=== PATIENT | male | born 1940 | race African-American/Black ===

== ENCOUNTER 2018-01-24 17:56 | Emergency (ER) | payer OTHER ==
--- OUTSIDE RECORDS SUMMARY | 2018-01-24 18:01 | XMS REPORT | Continuity of Care Document ---
:1940 Author Organization Interface Problems Problem Status Onset Classification Date Comments Source Date Reported MBS Active 12/21/ [facility] 2017 200 UNITS Active 06/03/ [facility] 2017 BOTOX INJECTION Active 11/24/ [facility] 2016 300 Active 08/09/ [facility] 2016 400 UNITS Active 03/08/ [facility] 2016 500 UNITS Active 08/24/ [facility] 2016 500 BTX Active 07/31/ [facility] 2016 CVA Active 06/18/ [facility], 2016 Rehabilitation BTX Active 10/14/ [facility] 2015 600 UNITS Active 07/15/ [facility] 2015 700 U Active 04/22/ [facility] 2013 700 UNITS Active 03/08/ [facility] 2013 L HEMIPERESIS ARM Active 02/19/ [facility] LEG CVA 2014 F/U Active 01/21/ [facility] 2013 EVAL FOR BOTOX Active 09/21/ [facility] 2014 STROKE Active 11/15/ [facility] 2011 L HEMIPERESIS ARMS Active 05/30/ [facility] LEG/ CVA 2000 L HEMIPERESIS ARMS Active 05/30/ [facility] LEG CVA 2001 STRENGTH UNLIMITED Active 05/30/ [facility] 2001 PRESSURE MAPPING Active 05/30/ [facility] 2001 Dysphagia<sup>1</sup Active Problem difficulty [facility] > 8 swallowing 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 DR Carter Left sided Active Problem 2011 [facility] CVA<sup>2</sup> 8 Lethargy Active Problem [facility] 8 Spasticity Active Problem [facility] 8 Spasticity Active Problem [facility] 8 Stroke Active Problem [facility] 8 Final: Hemiplegia [facility] Affecting 4 Unspecified Side as Late Effect of Cerebrovascular Disease Final: Pure [facility] Hypercholesterolemia 4 Final: Unspecified [facility] Essential 4 Hypertension Final: Diabetes [facility] mellitus without 4 mention of complication, type II or unspecified type, not stated as uncontrolled Final: Lack of [facility] Coordination 4 Dysphagia Inactive Problem [address] Dysphagia<sup>1</sup Active Problem 1difficulty [place] [id number] swallowing [facility] 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 DR Carter Dysphasia Inactive Problem [address] Stroke Active Problem [address] Weakness Inactive Problem [address] FOLLOW-UP EXAM NOS Active [facility] SPASM OF MUSCLE Active [facility] CVA Active Rehabilitation ABN INVOLUN MOVEMENT Active [facility] NEC LATE EF CV DIS Active [facility] DYSPHAGIA OTHER MUSCLE SPASM Active [facility] OTHER ABNORMAL Active [facility] INVOLUNTARY MOVEMENTS CRAMP AND SPASM Active [facility] DYSPHAGIA, Active [facility] UNSPECIFIED Medications Medication Details Route Status Patient Ordering Order Source Instructions Provider Date Botulinum Toxin 200 unit, Inactive 12/19/ [facility] Type A Route: IM, 2017 ONCALL, Dosing Weight 80.455, kg, Start date: 12/19/17 12:00:00 CDT, Duration: 30 day, Stop date: 01/18/18 11:59:00 CDT Home Medication Refill(s) 0 Active 12/19/ [facility] 2018 Botulinum Toxin 200 unit, Inactive 06/02/ [facility] Type A Route: IM, 2017 ONCALL, Dosing Weight 80.455, kg, Start date: 06/02/17 12:00:00 STATISTICAL GENETICIST, Duration: 30 day, Stop date: 07/02/17 11:59:00 STATISTICAL GENETICIST Botulinum Toxin 200 unit, Inactive 02/21/ [facility] Type A Route: IM, 2016 ONCALL, Dosing Weight 80.455, kg, Start date: 02/21/17 12:00:00 CDT, Duration: 30 day, Stop date: 03/23/17 11:59:00 CDT Botulinum Toxin 300 unit, Inactive 11/22/ [facility] Type A Route: IM, 2016 ONCALL, Dosing Weight 80.455, kg, Start date: 11/22/16 11:00:00 CDT, Duration: 30 day, Stop date: 12/22/16 10:59:00 CDT Botulinum Toxin 400 unit, Inactive 08/09/ [facility] Type A Route: IM, 2016 ONCALL, Dosing Weight 80.455, kg, Start date: 08/09/16 11:00:00 CDT, Duration: 30 day, Stop date: 09/08/16 10:59:00 CDT onabotulinumtoxi 500 unit, Inactive [facility] nA Route: IM, 2015 ONCALL, Dosing Weight 80.455, kg, Start date: 12/04/15 9:00:00 CDT, Duration: 30 day, Stop date: 01/03/16 8:59:00 CDT sodium chloride 20 mL, Route: Active [facility] MISC, Start 2015 date: 08/25/15 11:00:00, Duration: 30 day, Stop date: 09/24/15 10:59:00Notes : preservative free. onabotulinumtoxi 500 unit, Inactive 08/24/ [facility] nA Route: IM, 2015 ONCALL, Dosing Weight 82.273, kg, Start date: 08/25/15 10:00:00, Duration: 30 day, Stop date: 09/24/15 9:59:00 onabotulinumtoxi 500 unit, Inactive [facility] nA Route: IM, 2014 ONCALL, Dosing Weight 82.273, kg, Start date: 05/05/15 13:00:00, Duration: 30 day, Stop date: 06/04/15 12:59:00 Vitamin D3 400 400 Active [facility] intl units oral IntlUnit=1 2014 capsule cap, PO, Daily, 0 Refill(s) potassium 20 mg, PO, Active [facility] chloride Daily, ER, 0 2014 Refill(s) finasteride 5 mg 5 mg=1 tab, Active [facility] oral tablet PO, Daily, # 2015 30 tab, 0 Refill(s) carvedilol 3.125 3.125 mg=1 Active [facility] mg oral tablet tab, PO, 2014 Q12H, # 60 tab, 0 Refill(s) onabotulinumtoxi 600 unit, Inactive [facility] nA Route: IM, 2014 ONCALL, Dosing Weight 80.909, kg, Start date: 01/13/15 11:00:00, Duration: 30 day, Stop date: 02/12/15 10:59:00 onabotulinumtoxi 700 unit, Inactive [facility] nA Route: IM, 2013 ONCALL, Dosing Weight 79.091, kg, Start date: 04/22/14 13:00:00, Duration: 30 day, Stop date: 05/22/14 12:59:00 Furosemide 20 MG 20 mg=1 tab, Active [facility] Oral Tablet PO, PRN, # 30 2013 tab, 0 Refill(s) onabotulinumtoxi 700 unit, Inactive [facility] nA Route: IM, 2013 ONCALL, Dosing Weight 73.182, kg, Start date: 01/21/14 11:00:00, Duration: 30 day, Stop date: 02/20/14 10:59:00 Bromocriptine 5 mg=2 tab, Active [facility] 2.5 MG Oral PO, Daily, # 2013 Tablet 60 tab, 1 Refill(s), Pharmacy: [facility] [id number] amLODIPine 10 mg 10 mg=1 tab, Active [facility] oral tablet PO, Daily, # 2014 30 tab, 0 Refill(s) Amlodipine 0 Refill(s) Active [facility] 2013 Bromocriptine 2.5 mg=1 tab, Active [facility] 2.5 MG Oral PO, Daily, # 2014 Tablet 30 tab, 2 Refill(s) heparin 5000 5,000 unit, SUB-Q No Longer [place] units/mL can, SUB-Q, Active 2011 Medical injectable Q12H, 10 Center solution vial, Substitution Allowed, SOLN albuterol-ipratr 3 mL, Route: NEB No Longer [place] opium 2.5-0.5 mg NEB, Drug Active 2011 Medical inhalation Form: SOLN, Center solution RQ6H, Start date: 11/24/11 14:00:00, Duration: 30 day, Stop date: 12/24/11 8:00:00 heparin 5000 5,000 unit, SUB-Q No Longer [place] units/mL can, SUB-Q, Active 2011 Medical injectable Q12H, 10 Center solution vial, Substitution Allowed, SOLN Diovan 160 mg 160 mg, 1 PEG Active [place] 11/23[facility] oral tablet tab, PEG, 2011 Medical Daily, 30 Center tab, Substitution Allowed, TAB Carafate 1 g/10 1 gm, 10 mL, PEG Active [place] 11/23/ [facility] mL oral PEG, QID, 1 2011 Medical suspension mL, [place] Substitution Allowed, SUSP senna 8.8 mg/5 17.6 mg, 10 PEG Active [facility] mL oral syrup mL, PEG, 2011 Medical QNoon, 1 mL, Center Substitution Allowed, Maintenance, SYRP Seroquel 25 mg 25 mg, 1 tab, PEG Active [facility] 11/23[facility] oral tablet PEG, Bedtime, 2011 Medical PRN, 30 tab, [place] Insomnia, Substitution Allowed, TAB pantoprazole 40 1 Pack, PEG, PEG Active [facility] 11/23[facility] mg oral granule Daily, 30 ea, 2011 Medical Substitution Center Allowed, GRAN/REC Provigil 200 mg 200 mg, 1 PEG Active [facility] 11/23[facility] oral tablet tab, PEG, 2011 Medical QAM, 30 tab, Center Substitution Allowed, TAB hydrALAZINE 10 10 mg, 1 tab, PEG Active [facility] 11/23[facility] mg oral tablet PEG, Q6H, 2011 Medical PRN, 120 tab, [place] Hypertension, Substitution Allowed, TAB Cymbalta 20 mg 20 mg, 1 cap, PEG Active [facility] 11/23[facility] oral delayed PEG, Bedtime, 2011 Medical release capsule 30 cap, Center Substitution Allowed, TOÑO Lantus 100 See Active [facility] 11/23[facility] units/mL Instructions, 2011 Medical subcutaneous 1 vial, [place] solution Substitution Allowed, 5 units SUB-Q Daily, SOLN5 units SUB-Q Daily docusate sodium 100 mg, 10 PEG Active [facility] 11/23[facility] [place] 150 mg/15 mL mL, PEG, 2011 Medical oral liquid Q12H, 1 mL, Center Substitution Allowed, LIQ Lipitor 80 mg 80 mg, 1 tab, PEG Active [place] 11/23[facility] oral tablet PEG, QPM, 30 2011 Medical tab, Center Substitution Allowed, TAB aspirin 81 mg 81 mg, 1 tab, PEG Active [facility] 11/23[facility] tablet, chewable PEG, Daily, 2011 Medical 30 tab, Center Substitution Allowed, [place] amLODipine 10 mg 10 mg, 1 tab, PEG Active [facility] [place] oral tablet PEG, Daily, 2011 Medical 30 tab, Center Substitution Allowed, TAB DuoNeb 3 mL, INHALATION Active [facility] [place] inhalation INHALATION, 2011 Medical solution QID, PRN, 1 Center mL, as needed for shortness of breath or wheezing, Substitution Allowed, Maintenance, SOLN amantadine 50 100 mg, 10 PEG Active [facility] mg/5 mL oral mL, PEG, QAM, 2011 Medical syrup 1 btl, Center Substitution Allowed, SYRP nebivolol 5 mg 10 mg, 2 tab, PEG Active [facility] [place] oral tablet PEG, Daily, 2011 Medical 60 tab, Center Substitution Allowed, TAB heparin 5,000 unit, 1 SUB-Q No Longer [facility] [place] [place] mL, Route: Active 2011 Medical SUB-Q, Drug Center form: INJ, Q12H, Start date: 11/22/11 21:00:00, Duration: 30 day, Stop date: 12/22/11 9:00:00 Cymbalta 20 mg, 1 cap, PEG No Longer [place] Route: PEG, Active 2011 Medical Drug form: [facility], Bedtime, Start date: 11/22/11 21:00:00, Stop date: 12/21/11 21:00:00 Provigil 200 mg, 1 PEG No Longer [facility] [place] [place] tab, Route: Active 2011 Medical PEG, Drug Center form: TAB, QAM, Start date: 11/22/11 8:00:00, Stop date: 12/21/11 8:00:00 Nuvigil 100 mg, PO No Longer [place] Route: PO, Active 2011 Medical Drug form: Center CAP, QAM, Start date: 11/20/11 8:00:00, Duration: 30 day, Stop date: 12/19/11 8:00:00 Nuvigil Nuvigil PO No Longer [facility] [place] (Armodafinil) 50 (Armodafinil) Active 2011 Medical mg tablet 50 mg tablet, Center 150 mg, Drug form: [facility], Route: PO, QAM, 11/20/11 8:00:00, Duration: 30 day, Stop date: 12/19/11 8:00:00 D5W 1/2NS 1,000 1,000 mL, IV No Longer [facility] [place] [facility] mL Rate: 70 Active 2011 Medical ml/hr, Infuse Center over: 14.3 hr, Route: IV, Dosing Weight 95.909 kg, Total Volume: 1,000, Start date: 11/19/11 11:54:00, Duration: 30 day, Stop date: 12/19/11 11:53:00 amantadine 100 mg, 10 PEG No Longer [place] [facility] mL, Route: Active 2011 Medical PEG, Drug Center form: SYRP, QAM, Start date: 11/19/11 8:00:00, Stop date: 12/18/11 8:00:00 Carafate 1 gm, 10 mL, PO No Longer [place] Route: PO, Active 2011 Medical Drug form: Center SUSP, QID, Start date: 11/18/11 17:00:00, Stop date: 12/18/11 11:00:00 amantadine 100 mg, 1 PO No Longer [place] [facility] cap, Route: Active 2011 Medical PO, Drug Center form: CAP, ONCE, Start date: 11/18/11 14:47:00, Stop date: 11/18/11 14:47:00 normal saline 1,000 mL, IV No Longer [place] 0.9% IV 1,000 mL Rate: 70 Active 2011 Medical ml/hr, Infuse Center over: 14.3 hr, Route: IV, Dosing Weight 95.909 kg, Total Volume: 1,000, Start date: 11/18/11 12:00:00, Duration: 30 day, Stop date: 12/18/11 11:59:00 Dextrose 50% 12.5 gm, 25 IVP No Longer [place] [facility] Syringe mL, Route: Active 2011 Medical IVP, Drug Center Form: INJ, PRN, PRN Blood Glucose Results, Start date: 11/18/11 11:45:00, Duration: 30 day, Stop date: 12/18/11 11:44:00 glucagon 1 mg, Route: IM No Longer [facility] [place] [facility] IM, Drug Active 2011 Medical form: [place] PDR/INJ, PRN, PRN Blood Glucose Results, Start date: 11/18/11 11:45:00, Duration: 30 day, Stop date: 12/18/11 11:44:00 insulin aspart 2 unit, 0.02 SUB-Q No Longer [place] [facility] mL, Route: Active 2011 Medical SUB-Q, Drug Center form: SOLN, TID-Before Meals, PRN Blood Glucose Results, Start date: 11/18/11 11:45:00, Duration: 30 day, Stop date: 12/18/11 11:44:00 Milk of Magnesia 60 ml, Route: PO No Longer [facility] [place] [facility] PO, Drug Active 2011 Medical Form: SUSP, [place] ONCE, Start date: 11/17/11 18:30:00, Stop date: 11/17/11 18:30:00 Lipitor 80 mg, 1 tab, PEG No Longer [place] [facility] Route: PEG, Active 2011 Medical Drug form: [place] TAB, QPM, Start date: 11/17/11 17:00:00, Stop date: 12/16/11 17:00:00 Glycerol 60 mL, Route: [place] No Longer [facility] [place] [facility] [place], Drug Active 2011 Medical Form: MISC, [place] ONCE, Start date: 11/17/11 16:00:00, Stop date: 11/17/11 16:00:00 mineral oil 60 mL, Route: [place] No Longer [facility] [place] [facility] [place], Drug Active 2011 Medical Form: LIQ, [place] ONCE, Start date: 11/17/11 16:00:00, Stop date: 11/17/11 16:00:00 Sodium Chloride [place], 0 ml/hr, [place] No Longer [facility] [facility] 0.9% IV ONCE, Start Active 2011 Medical date: [place] 11/17/11 16:00:00, 60 ml Milk of Magnesia 60 ml, Route: PO No Longer [facility] [place] [facility] PO, Drug Active 2011 Medical Form: SUSP, [place] ONCE, Start date: 11/17/11 15:16:00, Stop date: 11/17/11 15:16:00 magnesium 300 ml, PO No Longer [place] [facility] citrate Route: PO, Active 2011 Medical Drug Form: [place] LIQ, ONCE, Start date: 11/17/11 15:00:00, Stop date: 11/17/11 15:00:00 senna 17.6 mg, 10 PEG No Longer [facility] [place] [facility] mL, Route: Active 2011 Medical PEG, Drug Center Form: SYRP, QNoon, Start date: 11/17/11 12:00:00, Stop date: 12/16/11 12:00:00 normal saline 1,000 mL, IV No Longer [facility] [facility] 0.9% IV 1,000 mL Rate: 75 Active 2011 Medical ml/hr, Infuse [place] over: 13.3 hr, Route: IV, Dosing Weight 95.909 kg, Total Volume: 1,000, Start date: 11/17/11 10:29:00, Duration: 1 doses or times, Stop date: 11/17/11 23:46:00 nebivolol 10 mg, 2 tab, PEG No Longer [facility] [place] [facility] Route: PEG, Active 2011 Medical Drug form: [place] TAB, Daily, Start date: 11/17/11 8:00:00, Stop date: 12/16/11 8:00:00 Provigil 200 mg, 1 PO No Longer [place] [facility] tab, Route: Active 2011 Medical PO, Drug Center form: TAB, QAM, Start date: 11/17/11 8:00:00, Duration: 30 day, Stop date: 12/16/11 8:00:00 aspirin 81 mg, 1 tab, CHEW No Longer [facility] Route: CHEW, Active 2011 Medical Drug form: [place], Daily, Start date: 11/17/11 8:00:00, Stop date: 12/16/11 8:00:00 amLODipine 10 mg, 10 mL, PEG No Longer [facility] Route: PEG, Active 2011 Medical Drug form: [place] SUSP, Daily, Start date: 11/17/11 8:00:00, Stop date: 12/16/11 8:00:00 Diovan 160 mg, 1 PEG No Longer [facility] tab, Route: Active 2011 Medical PEG, Drug Center form: TAB, Daily, Start date: 11/17/11 8:00:00, Stop date: 12/16/11 8:00:00 heparin 5,000 unit, 1 SUB-Q No Longer [facility] [facility] mL, Route: Active 2011 Medical SUB-Q, Drug Center form: INJ, Q12H, Start date: 11/16/11 21:00:00, Duration: 30 day, Stop date: 11/21/11 21:30:00 docusate sodium 100 mg, 10 PEG No Longer [facility] mL, Route: Active 2011 Medical PEG, Drug Center form: LIQ, Q12H, Start date: 11/16/11 21:00:00, Stop date: 12/16/11 9:00:00 Protonix 40 mg, 1 pkt, PEG No Longer [facility] Route: PEG, Active 2011 Medical Drug form: Center GRAN/REC, BID, Start date: 11/16/11 20:00:00, Stop date: 12/16/11 8:00:00 albuterol-ipratr 3 mL, Route: NEB No Longer [facility] [place] opium 2.5-0.5 mg NEB, Drug Active 2011 Medical inhalation Form: SOLN, [place] solution RQ6H, PRN Shortness of breath, Start date: 11/16/11 17:19:00, Duration: 30 day, Stop date: 12/16/11 17:18:00 acetaminophen 650 mg, 20.3 PEG No Longer [facility] [facility] mL, Route: Active 2011 Medical PEG, Drug Center form: LIQ, Q4H, PRN Pain Score 1-3, Start date: 11/16/11 17:19:00, Stop date: 12/16/11 17:18:00 Saline Flush 3 mL, Route: IVP No Longer [facility] 0.9% IVP, Drug Active 2011 Medical Form: INJ, Center Q8H, PRN Line Flush, Start date: 11/16/11 17:19:00, Duration: 30 day, Stop date: 12/16/11 17:18:00, Administer at least once every 8 hours[address] er at least once every 8 hours Seroquel 25 mg, 1 tab, PEG No Longer [facility] [place] Route: PEG, Active 2011 Medical Drug form: Center TAB, Bedtime, PRN Insomnia, Start date: 11/16/11 17:19:00, Stop date: 12/16/11 17:18:00 hydrALAZINE 10 10 mg, 1 tab, PEG No Longer [facility] [place] mg oral tablet Route: PEG, Active 2011 Medical Drug form: Center TAB, Q6H, PRN Hypertension, Start date: 11/16/11 17:19:00, Stop date: 12/16/11 17:18:00 Allergies, Adverse Reactions, Alerts Substance Category Reaction Severity Reaction Status Date Comments Source type Reported NKDA Assertion Drug Active [facility] allergy Immunizations Immunization Date Given Site Status Last Updated Comments Source Results Order Name Results Value Reference Date Interpretation Comments Source Range Esophagus Esophagus BA Clinical Indication: Decompensation after pneumonia. Initial modified barium swallow. 12/27 [facility] BA swallow swallow function function Rehab DX Rehab DX Comparison: None Read by: Kyler Disla MD Dictated Date/time: 12/27/17 11:17 Electronically Signed by: Kyler Disla MD 12/27/17 14:56 FINAL REPORT Findings: Modified barium swallow study was performed with speech pathologist. Patient ingested barium of various textures and consistency while under fluoroscopic evaluation. Martin aspiration with appropriate cough response when swallowing thin consistency and nectar consistency barium via spoon. Deep laryngeal penetration identified when swallowing pudding consistency barium. Cough response resulted in subsequent clearing of airway. Fluoroscopy time: 1 minute 30 seconds Cumulative dose: 4.69 mGy Impression: Aspiration when swallowing thin and nectar consistency barium. Please see speech pathologist report for complete details. Foot series Foot series EXAM: FOOT 3 VIEWS 10/14 - [facility] DX - DATE: Order Observation End Time: October 14, 2014 12:29:08 PM Read by: Hayley Quesada MD Dictated Date/time: 10/14/14 13:29 Electronically Signed by: Hayley Quesada MD 10/14/14 13:31 FINAL REPORT INDICATION: Pain. Heel ulceration. TECHNIQUE: AP , lateral and oblique radiographs of the left foot . COMPARISON: None available FINDINGS: No acute bony abnormality is identified. Minimal irregularity of the skin of the left calcaneus is present. No adjacent periosteal reactive change. Minimal degenerative changes of the intertarsal joints of the left foot. IMPRESSION: 1. Minimal skin irregularity over the posterior aspect of the calcaneus. No adjacent periosteal reaction. No radiographic signs of osteomyelitis. If osteomyelitis is of concern, recommend MRI. 2. mild degenerative changes of the intertarsal joints Esophagus Esophagus BA EXAM: Esophagus BA swallow w function Rehab 09/03 - [facility] BA swallow swallow /2014 - w function function Rehab DX Rehab DX DATE: Sep 03, 2014 09:47:27 AM . Read by: Talha Brown MD Dictated Date/time: 09/03/14 09:53 Electronically Signed by: Talha Brown MD 09/03/14 10:32 FINAL REPORT INDICATION: Coughing, choking occasionally with thin consistency liquids and regular diet. ADDITIONAL HISTORY: CVA 2011. COMPARISON: None. TECHNIQUE: Video fluoroscopy was performed in the lateral projection with the patient sitting upright. Oral barium contrast of various consistencies was given to the patient to assess swallowing functi on. The study was performed in the presence of speech pathology. FLUOROSCOPY TIME: 3 minutes 50 seconds. DISCUSSION: Lateral decorating consultant views of the neck demonstrate a normal appearance of the epiglottis and prevertebral soft tissues. There is relatively poor dentition with multiple absent teeth. There is a moderate degene rative disc disease at C3-C4 and C4-C5 with anterior spurring. The patient was given thin consistency contrast by straw sip demonstrating a normal oral swallowing phase with normal motor function. There was premature spillage into the valleculae with and pyriform s inuses. There was otherwise effective bolus propulsion. There was normal motion of the larynx and epiglottis during the pharyngeal phase with normal epiglottic inversion. The patient was given mixed consistency, pear pieces mixed with juice, by teaspoon demonstrating incomplete mastication with an otherwise satisfactory swallow. A large vallecular residue was observed that was not cleared with subsequent dry swallows. The patient was given pudding consistency contrast by teaspoon demonstrating a satisfactory swallow with mild vallecular residue. The previous mixed residue, pear piece, was not cleared from the valleculae. Further attempts to clear the mixed vallecular residue, pear piece, were unsuccessful including thin consistency by cup sip as well as the patient's own water bottle with a large caliber straw. No laryngeal penetration or aspiration was observed during the examination. Cervical esophageal motility and emptying appeared normal. IMPRESSION: 1. No laryngeal penetration or aspiration observed during the examination. 2. Large vallecular residue of mixed consistency, pear piece mixed with juice, that could not be cleared during the examination including utilizing dry swallow, as well as washes of pudding and thin consistencies as well as water. 3. Incomplete mastication of mixed consistency. 4. Premature spillage into the valleculae and pyriform sinuses with thin consistency. Please refer to the speech therapist's report for specific dietary recommendations. URINE CHEM Time 5 min. 08/30 URINE CHEM Time 15 min. 08/30 URINE CHEM Time 25 min 08/30 URINE CHEM Time 10 min. 08/30 BEDSIDE Gluc POC 111 mg/dL 70 - 99 11/24 HI 1Interpretive [facility] GLUCOSE Lifscn Data: [facility] Upper Reportable Limit: 200 mg/dL. BEDSIDE Comment1 Notify 11/24 NA Anum GLUCOSE RN/ /2011 [facility] BEDSIDE Comment1 Notify 11/24 [facility] Anum GLUCOSE RN/ /2011 [facility] BEDSIDE Gluc POC 191 mg/dL 70 - 99 11/24 HI 2Interpretive [facility] GLUCOSE Lifscn Data: [facility] Upper Reportable Limit: 200 mg/dL. BEDSIDE Gluc POC 179 mg/dL 70 - 99 11/23 [place] 3Interpretive [facility] GLUCOSE Lifscn Data: Medical TESTING Center Upper Reportable Limit: 200 mg/dL. BEDSIDE Comment1 Notify 11/23 NA Anum GLUCOSE RN/ /2011 [facility] CHEMISTRY Sodium Lvl 142 meq/L 135 - 145 11/23 [facility] CHEMISTRY CO2 30 meq/L 24 - 32 11/23 [facility] CHEMISTRY Potassium Lvl 4.6 meq/L 3.5 - 5.1 11/23 [facility] CHEMISTRY Chloride Lvl 103 meq/L 95 - 109 11/23 [facility] CHEMISTRY Calcium Lvl 8.4 mg/dL 8.5 - 10.5 11/23 LOW [facility] CHEMISTRY Creatinine 1.5 mg/dL 0.5 - 1.4 11/23 [facility] Lvl [facility] CHEMISTRY BUN 24 mg/dL 7 - 22 11/23 [facility] CHEMISTRY Glucose Lvl 116 mg/dL 70 - 99 11/23 [place] 4Interpretive Data: Adult Medical reference Center range values reflect the clinical guidelinesof the [place] [employer]. CHEMISTRY AGAP 13.6 meq/L 10.0 - 11/23 [facility] 20.0 [facility] HEMATOLOGY Basophils # 0.0 K/CMM 0.0 - 0.2 11/23 [facility] HEMATOLOGY Anisocyte 1+ None Seen 11/23 [facility] Medical *ABN* Center (11/24/2011 03:16:00) HEMATOLOGY Segs-Bands # 8.1 K/CMM 1.5 - 8.1 11/23 [facility] HEMATOLOGY Segs 84.0 % 45.0 - 11/23 [facility] [place] 75.0 [facility] HEMATOLOGY Eosinophils # 0.1 K/CMM 0.0 - 0.5 11/23 [facility] HEMATOLOGY Lymphocytes # 0.7 K/CMM 1.0 - 5.5 11/23 [facility] HEMATOLOGY Monocytes # 0.7 K/CMM 0.0 - 0.8 11/23 [facility] HEMATOLOGY Eosinophils 1.4 % 0.0 - 4.0 11/23 [facility] HEMATOLOGY Basophils 0.3 % 0.0 - 1.0 11/23 [facility] HEMATOLOGY Lymphocytes 6.8 % 20.0 - 11/23 [facility] [place] 40.0 /2011 [facility] HEMATOLOGY Monocytes 7.5 % 2.0 - 12.0 11/23 [facility] HEMATOLOGY MPV 9.4 fL 7.4 - 10.4 11/23 [facility] [facility] HEMATOLOGY RDW 20.4 % 11.5 - 11/23 [facility] [place] 14.5 [facility] HEMATOLOGY Platelet 324 K/CMM 133 - 450 11/23 [facility] HEMATOLOGY MCV 79.0 fL 80.0 - 11/23 [facility] [place] 94.0 [facility] HEMATOLOGY MCH 25.6 pg 27.0 - 11/23 LOW [place] 31.0 /2011 Medical Center HEMATOLOGY Hgb 9.1 g/dL 14.0 - 11/23 LOW [place] 18.0 Medical Center HEMATOLOGY Hct 28.0 % 42.0 - 11/23 LOW [place] 54.0 Medical Center HEMATOLOGY WBC 9.7 K/CMM 3.7 - 10.4 11/23 Normal [facility] HEMATOLOGY RBC 3.54 M/CMM 4.70 - 11/23 LOW [place] 6.10 Medical Center HEMATOLOGY MCHC 32.4 g/dL 32.0 - 11/23 Normal [place] 36.0 Medical Center BEDSIDE Comment2 Sliding 11/22 NA [facility] GLUCOSE Scale Medical TESTING Center BLOOD BANK Antibody Scrn Negative 11/21 Normal [place] RESULTS Medical (11/22/2011 03:00:00) Center BLOOD BANK ABO/Rh O NEG 11/21 Unknown [facility] RESULTS [facility] Center CHEMISTRY AGAP 9.3 meq/L 10.0 - 11/21 LOW [place] 20.0 Medical Center CHEMISTRY CO2 32 meq/L 24 - 32 11/21 Normal [facility] Center CHEMISTRY Calcium Lvl 8.4 mg/dL 8.5 - 10.5 11/21 LOW [facility] Center CHEMISTRY Potassium Lvl 4.3 meq/L 3.5 - 5.1 11/21 Normal [facility] Center CHEMISTRY Chloride Lvl 103 meq/L 95 - 109 11/21 Normal Medical Center CHEMISTRY Sodium Lvl 140 meq/L 135 - 145 11/21 Normal [facility] CHEMISTRY Glucose Lvl 114 mg/dL 70 - 99 11/21 [place] 5Interpretive Data: Adult Medical reference Center range values reflect the clinical guidelinesof the [place] [employer]. CHEMISTRY BUN 18 mg/dL 7 - 22 11/21 Normal [facility] Center CHEMISTRY Creatinine 1.6 mg/dL 0.5 - 1.4 11/21 HI [place] Lvl /2011 Medical Center HEMATOLOGY Hct 27.2 % 42.0 - 11/21 LOW [place] 54.0 Medical Center HEMATOLOGY MCV 79.4 fL 80.0 - 11/21 LOW [place] 94.0 Medical Center HEMATOLOGY RBC 3.42 M/CMM 4.70 - 11/21 LOW [place] 6.10 Medical [place] HEMATOLOGY Hgb 8.9 g/dL 14.0 - 11/21 LOW [place] 18.0 [facility] HEMATOLOGY Platelet 299 K/CMM 133 - 450 11/21 Normal [facility] HEMATOLOGY MPV 9.6 fL 7.4 - 10.4 11/21 Normal [facility] HEMATOLOGY RDW 20.4 % 11.5 - 11/21 HI [place] 14.5 Medical [place] HEMATOLOGY MCH 26.2 pg 27.0 - 11/21 LOW [place] 31.0 [facility] HEMATOLOGY MCHC 32.9 g/dL 32.0 - 11/21 Normal [place] 36.0 [facility] HEMATOLOGY WBC 7.0 K/CMM 3.7 - 10.4 11/21 Normal [facility] HEMATOLOGY PTT 33.6 s 22.9 - 11/21 Normal 11Interpretiv [place] 35.8 e Data: [facility] Therapeutic Range: 57 - 92 Seconds HEMATOLOGY Anisocyte 1+ None Seen 11/21 ABN Medical *ABN* Center (11/22/2011 03:00:00) HEMATOLOGY Eosinophils # 0.1 K/CMM 0.0 - 0.5 11/21 Normal [facility] HEMATOLOGY Basophils # 0.0 K/CMM 0.0 - 0.2 11/21 Normal [facility] HEMATOLOGY Segs-Bands # 5.5 K/CMM 1.5 - 8.1 11/21 Normal [facility] HEMATOLOGY Lymphocytes # 0.8 K/CMM 1.0 - 5.5 11/21 LOW [facility] HEMATOLOGY Eosinophils 1.5 % 0.0 - 4.0 11/21 Normal [facility] HEMATOLOGY Basophils 0.3 % 0.0 - 1.0 11/21 Normal [facility] HEMATOLOGY Monocytes # 0.6 K/CMM 0.0 - 0.8 11/21 Normal [facility] HEMATOLOGY Lymphocytes 11.0 % 20.0 - 11/21 [facility] [place] 40.0 [facility] HEMATOLOGY Monocytes 8.6 % 2.0 - 12.0 11/21 Normal [facility] HEMATOLOGY Segs 78.6 % 45.0 - 11/21 [facility] 75.0 [facility] HEMATOLOGY PT 13.1 s 12.0 - 11/21 Normal [facility] 14.7 [facility] Center HEMATOLOGY INR 0.99 0.85 - 11/21 Normal 8Interpretive [facility] 1.17 Data: Medical [facility] Center RANGES FOR PROTIME INR: 2.0-3.0 for most medical and surgical thromboemboli c states. 2.5-3.5 for artificial heart valves and recurrent embolism.INR SHOULD BE USED ONLY FOR PATIENTS ON STABLE ANTICOAGULANT THERAPY. STOOL TESTS Occult Bld Negative Negative 11/20 Normal [facility] (11/21/2011 18:08:00) Center CHEMISTRY Iron 14 ug/dl 45 - 160 11/20 [facility] CHEMISTRY TIBC 230 ug/dl 228 - 428 11/20 Normal [facility] Center CHEMISTRY UIBC 216 ug/dl 110 - 370 11/20 [facility] CHEMISTRY % Satur Fe 6 % 12 - 57 11/20 [facility] CHEMISTRY Ferritin Lvl 302 ng/mL 22 - 275 11/20 [facility] Center CHEMISTRY AGAP 15.2 meq/L 10.0 - 11/20 Normal [facility] 20.0 [facility] Center CHEMISTRY BUN 23 mg/dL 7 - 22 11/20 [facility] Center CHEMISTRY CO2 25 meq/L 24 - 32 11/20 Normal [facility] CHEMISTRY Potassium Lvl 4.2 meq/L 3.5 - 5.1 11/20 Normal [facility] CHEMISTRY Chloride Lvl 102 meq/L 95 - 109 11/20 Normal [facility] Center CHEMISTRY Sodium Lvl 138 meq/L 135 - 145 11/20 Normal [facility] Center CHEMISTRY Calcium Lvl 8.2 mg/dL 8.5 - 10.5 11/20 LOW [facility] Center CHEMISTRY Creatinine 1.5 mg/dL 0.5 - 1.4 11/20 [facility] Center CHEMISTRY Glucose Lvl 142 mg/dL 70 - 99 11/20 [place] 6Interpretive Data: Adult Medical reference Center range values reflect the clinical guidelinesof the [place] [employer]. HEMATOLOGY MCV 80.1 fL 80.0 - 11/20 Normal [facility] 94.0 [facility] Center HEMATOLOGY Hct 27.0 % 42.0 - 11/20 [facility] 54.0 /2011 [facility] HEMATOLOGY MCHC 32.1 g/dL 32.0 - 11/20 [facility] [place] 36.0 Medical [place] HEMATOLOGY MCH 25.7 pg 27.0 - 11/20 [facility] 31.0 [facility] HEMATOLOGY RDW 20.7 % 11.5 - 11/20 [facility] [place] 14.5 Medical [place] HEMATOLOGY Hgb 8.7 g/dL 14.0 - 11/20 [facility] [place] 18.0 [facility] HEMATOLOGY RBC 3.37 M/CMM 4.70 - 11/20 [facility] [place] 6.10 [facility] HEMATOLOGY WBC 6.9 K/CMM 3.7 - 10.4 11/20 [facility] HEMATOLOGY MPV 9.3 fL 7.4 - 10.4 11/20 [facility] HEMATOLOGY Platelet 305 K/CMM 133 - 450 11/20 Normal [facility] HEMATOLOGY Segs-Bands # 5.3 K/CMM 1.5 - 8.1 11/20 Normal [facility] HEMATOLOGY Basophils 0.4 % 0.0 - 1.0 11/20 Normal [facility] HEMATOLOGY Eosinophils 1.8 % 0.0 - 4.0 11/20 [facility] HEMATOLOGY Monocytes 9.1 % 2.0 - 12.0 11/20 [facility] HEMATOLOGY Lymphocytes 11.8 % 20.0 - 11/20 [facility] 40.0 [facility] HEMATOLOGY Anisocyte 1+ None Seen 11/20 ABN Medical *ABN* Center (11/21/2011 05:14:00) HEMATOLOGY Basophils # 0.0 K/CMM 0.0 - 0.2 11/20 Normal [facility] HEMATOLOGY Eosinophils # 0.1 K/CMM 0.0 - 0.5 11/20 Normal [facility] HEMATOLOGY Monocytes # 0.6 K/CMM 0.0 - 0.8 11/20 Normal [facility] HEMATOLOGY Lymphocytes # 0.8 K/CMM 1.0 - 5.5 11/20 LOW [facility] HEMATOLOGY Segs 76.9 % 45.0 - 11/20 [facility] [place] 75.0 Medical Center BEDSIDE Comment2 Sliding 11/20 NA [facility] GLUCOSE Scale Medical TESTING Center CHEMISTRY Phosphorus 4.3 mg/dL 2.5 - 4.5 11/16 Normal Medical Center CHEMISTRY Magnesium Lvl 2.2 mg/dL 1.8 - 2.4 11/16 Normal [facility] CHEMISTRY T4 Free 1.35 ng/dL 0.76 - 11/16 Normal [facility] 1.46 Medical Center CHEMISTRY TSH 1.980 0.360 - 11/16 Normal [facility] uIU/mL 3.740 Medical Center CHEMISTRY B/C Ratio 16 6 - 25 11/16 Normal [facility] CHEMISTRY Globulin 3.2 g/dL 2.0 - 4.0 11/16 Normal [facility] CHEMISTRY A/G Ratio 0.9 0.7 - 1.6 11/16 Normal [facility] CHEMISTRY Bili Total 0.9 mg/dL 0.2 - 1.3 11/16 Normal [facility] Center CHEMISTRY Albumin Lvl 2.9 g/dL 3.5 - 5.0 11/16 LOW [facility] CHEMISTRY Alk Phos 77 U/L 39 - 136 11/16 Normal [facility] CHEMISTRY AST 19 U/L 0 - 37 11/16 Normal [facility] CHEMISTRY Total Protein 6.1 g/dL 6.4 - 8.4 11/16 LOW [facility] CHEMISTRY ALT 20 U/L 0 - 65 11/16 Normal [facility] CHEMISTRY Hgb A1C 6.5 % 11/16 NA 7Interpretive Data: HbA1C% [facility] Center eAG(mg/dL) Interpretatio n 6.0 126 Very good control 6.5 140 Very good control 7.0 154 Good Control 7.5 169 Good Control 8.0 183 Marginal Control, take action to lower 8.5 197 Marginal Control, take action to lower 9.0 212 Poor Control, take action to lower 9.5 226 Poor Control, take action to lower10.0 240 Poor Control, take action to lower HEMATOLOGY PT xxxxxxx 12.0 - 11/16 Normal [facility] 14.7 Medical (11/17/2011 05:50:00) Center HEMATOLOGY INR xxxxxxx 9, 10 0.85 - 11/16 Normal 10Interpretiv [facility] 1. e Data: Medical (11/17/2011 05:50:00) RECOMMENDED Center RANGES FOR PROTIME INR: 2.0-3.0 for most medical and surgical thromboemboli c states. 2.5-3.5 for artificial heart valves and recurrent embolism.INR SHOULD BE USED ONLY FOR PATIENTS ON STABLE ANTICOAGULANT THERAPY. HEMATOLOGY PTT See Note 12, 13 22.9 - 11/16 Normal 13Interpretiv [facility] 35.8 /2011 e Data: Medical (11/17/2011 05:50:00) Heparin Center Therapeutic Range: 57 - 92 Seconds IMMUNOLOGY Prealbumin 19.9 mg/dL 18.0 - 11/16 Normal [facility] 45.0 /2011 Medical Center URINALYSIS UA <=1.0 0.1 - 1.0 11/16 [facility] Urobilinogen mg/dL /2011 [facility]
*NA*< Center br/>(11/16 05:32:00) <sup> </sup> URINALYSIS UA Ketones Negative mg/dL Negative 11/16 [facility] Medical *NA* [place] (11/17/2011 05:32:00) URINALYSIS UA Bili Negative Negative 11/16 [facility] *NA* [place] (11/17/2011 05:32:00) URINALYSIS UA Glucose Negative mg/dL Negative 11/16 [facility] *NA* [place] (11/17/2011 05:32:00) URINALYSIS UA Protein 30 mg/dL Negative 11/16 [facility] *ABN* [place] (11/17/2011 05:32:00) URINALYSIS UA Blood Moderate Negative 11/16 [facility] *ABN* [place] (11/17/2011 05:32:00) URINALYSIS UA Leuk Est Negative Negative 11/16 Normal [facility] (11/17/2011 05:32:00) Center URINALYSIS UA Nitrite Negative Negative 11/16 Normal [facility] (11/17/2011 05:32:00) Center URINALYSIS UA Sq Epi Few /LPF Few 11/16 [facility] *NA* [place] (11/17/2011 05:32:00) URINALYSIS UA Mucus Few /LPF None Seen 11/16 [facility] Medical *NA* Center (11/17/2011 05:32:00) URINALYSIS UA RBC 1 /HPF 0 - 2 11/16 Normal [facility] URINALYSIS UA WBC null 0 - 5 11/16 Normal [facility] URINALYSIS UA Amorph Occasional /HPF None Seen 11/16 NA [facility] *NA* Center (11/17/2011 05:32:00) URINALYSIS UA Renal Epi 1 /LPF <=0 11/16 [facility] URINALYSIS UA Hyal Cast 6 /LPF 0 - 2 11/16 HI [facility]2011 [facility] URINALYSIS UA Turbidity Slight Clear 11/16 ABN [facility] *ABN* Center (11/17/2011 05:32:00) URINALYSIS UA Color Yellow Yellow 11/16 NA [facility] [place] (11/17/2011 05:32:00) URINALYSIS UA Spec Grav 1.016 <=1.030 11/16 Normal [facility] URINALYSIS UA pH 5.0 5.0 - 8.0 11/16 Normal [facility] Microbiolog Culture: 11/16 [facility] Vital Signs Vital Sign Value Date Comments Source Weight 81.364 12/19/2017 [facility] BMI Calculated 26.49 12/19/2017 [facility] Height 175.26 cm 12/19/2017 [facility] Systolic (mm Hg) 119 12/19/2017 [facility] Diastolic (mm Hg) 76 12/19/2017 [facility] Respitory Rate 20 12/19/2017 [facility] Heart Rate 84 12/19/2017 [facility] Weight 80.455 06/02/2017 [facility] BMI Calculated 26.19 06/02/2017 [facility] Heart Rate 7 06/02/2017 [facility] Respitory Rate 20 06/02/2017 [facility] Height 175.26 cm 06/02/2017 [facility] Systolic (mm Hg) 107 06/02/2017 [facility] Diastolic (mm Hg) 73 06/02/2017 [facility] Weight 80.455 02/21/2017 [facility] BMI Calculated 26.19 02/21/2017 [facility] Height 175.26 cm 02/21/2017 [facility] Respitory Rate 18 02/21/2017 [facility] Heart Rate 73 02/21/2017 [facility] Systolic (mm Hg) 120 02/21/2017 [facility] Diastolic (mm Hg) 69 02/21/2017 [facility] Height 175.26 cm 11/22/2016 [facility] BMI Calculated 26.19 11/22/2016 [facility] Weight 80.455 11/22/2016 [facility] Systolic (mm Hg) 124 11/22/2016 [facility] Diastolic (mm Hg) 67 11/22/2016 [facility] Respitory Rate 18 11/22/2016 [facility] Heart Rate 68 11/22/2016 [facility] Height 175.26 cm 08/09/2016 [facility] BMI Calculated 26.19 08/09/2016 [facility] Weight 80.455 08/09/2016 [facility] Systolic (mm Hg) 119 08/09/2016 [facility] Diastolic (mm Hg) 73 08/09/2016 [facility] Respitory Rate 18 08/09/2016 [facility] Heart Rate 78 08/09/2016 [facility] BMI Calculated 25.82 03/08/2016 [facility] Weight 80.455 03/08/2016 [facility] Height 176.53 cm 03/08/2016 [facility] Heart Rate 76 03/08/2016 [facility] Respitory Rate 20 03/08/2016 [facility] Systolic (mm Hg) 128 03/08/2016 [facility] Diastolic (mm Hg) 83 03/08/2016 [facility] Heart Rate 73 12/04/2015 [facility] Respitory Rate 20 12/04/2015 [facility] Height 175.76 cm 12/04/2015 [facility] Weight 80.455 12/04/2015 [facility] BMI Calculated 26.04 12/04/2015 [facility] Systolic (mm Hg) 121 12/04/2015 [facility] Diastolic (mm Hg) 72 12/04/2015 [facility] Weight 80.455 08/25/2015 [facility] BMI Calculated 25.82 08/25/2015 [facility] Height 176.53 cm 08/25/2015 [facility] Systolic (mm Hg) 131 08/25/2015 [facility] Diastolic (mm Hg) 60 08/25/2015 [facility] Heart Rate 83 08/25/2015 [facility] Respitory Rate 18 08/25/2015 [facility] Systolic (mm Hg) 122 05/05/2015 [facility] Diastolic (mm Hg) 78 05/05/2015 [facility] Respitory Rate 18 05/05/2015 [facility] Heart Rate 87 05/05/2015 [facility] Heart Rate 82 01/13/2015 [facility] Respitory Rate 20 01/13/2015 [facility] BMI Calculated 26.4 01/13/2015 [facility] Weight 82.273 01/13/2015 [facility] Height 176.53 cm 01/13/2015 [facility] Systolic (mm Hg) 125 01/13/2015 [facility] Diastolic (mm Hg) 79 01/13/2015 [facility] Heart Rate 84 10/14/2014 [facility] Respitory Rate 20 10/14/2014 [facility] Systolic (mm Hg) 155 10/14/2014 [facility] Diastolic (mm Hg) 95 10/14/2014 [facility] Height 175.26 cm 10/14/2014 [facility] BMI Calculated 26.64 10/14/2014 [facility] Weight 81.818 10/14/2014 [facility] Heart Rate 87 08/30/2014 [facility] Systolic (mm Hg) 150 08/30/2014 [facility] Diastolic (mm Hg) 94 08/30/2014 [facility] Systolic (mm Hg) 139 08/15/2014 [facility] Diastolic (mm Hg) 79 08/15/2014 [facility] Heart Rate 80 08/15/2014 [facility] Systolic (mm Hg) 134 08/13/2014 [facility] Diastolic (mm Hg) 85 08/13/2014 [facility] Heart Rate 82 08/13/2014 [facility] Systolic (mm Hg) 146 07/04/2014 [facility] Diastolic (mm Hg) 80 07/04/2014 [facility] Heart Rate 65 07/04/2014 [facility] Systolic (mm Hg) 128 07/04/2014 [facility] Diastolic (mm Hg) 80 07/04/2014 [facility] Heart Rate 67 04/22/2014 [facility] Respitory Rate 18 04/22/2014 [facility] Weight 80.909 04/22/2014 [facility] Height 176.53 cm 04/22/2014 [facility] Systolic (mm Hg) 152 04/22/2014 [facility] Diastolic (mm Hg) 90 04/22/2014 [facility] BMI Calculated 25.96 04/22/2014 [facility] Weight 80.455 04/22/2014 [facility] Respitory Rate 18 04/22/2014 [facility] Systolic (mm Hg) 144 04/22/2014 [facility] Diastolic (mm Hg) 82 04/22/2014 [facility] Heart Rate 77 04/22/2014 [facility] BMI Calculated 25.82 04/22/2014 [facility] Height 176.53 cm 04/22/2014 [facility] Height 175.26 cm 01/21/2014 [facility] BMI Calculated 25.75 01/21/2014 [facility] Weight 79.091 01/21/2014 [facility] Systolic (mm Hg) 131 01/21/2014 [facility] Heart Rate 67 01/21/2014 [facility] Diastolic (mm Hg) 69 01/21/2014 [facility] Respitory Rate 18 01/21/2014 [facility] Respitory Rate 18 12/21/2013 [facility] Heart Rate 72 12/21/2013 [facility] Systolic (mm Hg) 127 12/21/2013 [facility] Diastolic (mm Hg) 78 12/21/2013 [facility] BMI Calculated 25.82 12/21/2013 [facility] Weight 80.455 12/21/2013 [facility] Height 176.53 cm 12/21/2013 [facility] Heart Rate 70 09/18/2013 [facility] Diastolic (mm Hg) 94 09/18/2013 [facility] Systolic (mm Hg) 152 09/18/2013 [facility] Heart Rate 67 09/11/2013 [facility] Systolic (mm Hg) 152 09/11/2013 [facility] Diastolic (mm Hg) 91 09/11/2013 [facility] Heart Rate 66 08/28/2013 [facility] Systolic (mm Hg) 150 08/28/2013 [facility] Diastolic (mm Hg) 89 08/28/2013 [facility] Temperature Oral (F) 98.4 F 11/25/2011 [facility] Heart Rate 66 11/25/2011 [facility] Diastolic (mm Hg) 79 11/25/2011 [facility] Systolic (mm Hg) 115 11/25/2011 [facility] Respitory Rate 20 11/25/2011 [facility] Respitory Rate 20 11/25/2011 [facility] Systolic (mm Hg) 145 11/25/2011 [facility] Diastolic (mm Hg) 82 11/25/2011 [facility] Temperature Oral (F) 98.4 F 11/25/2011 [facility] Heart Rate 95 11/25/2011 [facility] Systolic (mm Hg) 131 11/24/2011 [facility] Respitory Rate 20 11/24/2011 [facility] Diastolic (mm Hg) 69 11/24/2011 [facility] Heart Rate 86 11/24/2011 [facility] Temperature Oral (F) 98.2 F 11/24/2011 [facility] Weight 95.909 11/16/2011 [facility] Height 176.53 cm 11/16/2011 [facility] Encounters Location Location Encounter Encounter Reason Attending ADM DC Status Source Details Type Number For Provider Date Date Visit IR [id number] JOSEPH 11/15 11/24 Active VIRI-David /2011 [facility] Outpatient [id number] SEE Silvia 05/03 Active Surgical ORDERS [facility] Tot [id number] [place] 08/28 09/27 [facility] [place]-Chantal [facility] Outpatient [id number] Adrian Beavers 09/28 09/29 [facility] [place] /2013 [facility] Tots [id number] [place] 11/06 12/06 [facility] [place] [facility]al [facility] [id number] [place] 12/11 01/10 [facility] Ifejika-Chantal [facility] Outpatient [id number] Adrian Beavers 12/21 12/22 [facility] [place] /2013 [facility] Tots [id number] [place] 01/15 02/14 [facility] Ifejika /2013 [facility] Outpatient [id number] Adrian Beavers 01/21 01/22 [facility] [place] /2013 [facility] Tots [id number] Ada 02/19 03/21 [facility] [place] [facility] Ifejika [facility] Outpatient [id number] Adrian Beavers 04/22 04/23 [facility] [place] /2013 [facility] Tots [id number] Ada 07/04 08/03 [facility] [place] [facility] Ifejika-Chantal /2014 [facility] Tots [id number] Daa 08/06 09/05 [facility] Ifejika-Chantal /2014 [facility] Tots [id number] [place] 09/10 10/10 [facility] [place] [facility] Ifejika-Chantal /2014 [facility] Outpatient [id number] Adrian Beavers 10/14 10/15 [facility]2014 [facility] [id number] Adrian Beavers 01/13 01/14 [facility] OP [id number] Adrian Beavers 01/14 02/13 [facility]2014 [facility] Outpatient [id number] Adrian Beavers 05/05 05/06 [facility]2014 [facility] Tots [id number] Ada 07/01 07/30 [facility] Ifejika /2015 [place] [facility] Outpatient [id number] Adrian Beavers 08/24 08/25 [facility]2015 [facility] Outpatient [id number] Adrian Beavers 12/03 12/04 [facility]2015 [facility] Outpatient [id number] Adrian Beavers 03/08 03/09 [facility]2015 [facility] Outpatient [id number] Adrian Beavers 08/09 08/10 [facility]2016 [facility] Outpatient [id number] Adrian Beavers 11/22 11/23 [facility]2016 [facility] Outpatient [id number] Adrian Beavers 02/21 02/22 [facility]2016 [facility] Outpatient [id number] Adrian Beavers 06/02 06/03 [facility]2017 [facility] Outpatient [id number] Adrian Beavers 12/19 12/20 [facility]2017 [facility] Preadmit [id number] STROKE NON Active [facility] PHYSICIAN Procedures Procedure Code Date Perfomer Comments [place] [address] 12/19/2017 [facility] one extremity; 1-4 muscle([place] [address] 12/19/2017 [facility] muscle(s); muscle(s) innervated by facial nerve, unilateral (eg, for blepharospasm, hemifacial spasm) [place] [address] 06/02/2017 [facility] one extremity; 1-4 muscle([place] [address] 06/02/2017 [facility] one extremity; each additional extremity, 1-4 muscle(s) (List separately in addition to code for primary procedure) [place] [address] 02/21/2017 [facility] one extremity; 1-4 muscle(s) Chemodenervation<sup>1 [id number] 2013 [facility] </sup>
--- OUTSIDE RECORDS SUMMARY | 2018-01-24 18:02 | XMS REPORT | Summary of Care ---
:1940 Author Organization [facility] Address [address] [place] [id number] Encounter HQ Denis_nikki(FIN) [id number] Date(s): 12/19/17 - 12/19/[address] Discharge Disposition: Home or Self Care Attending Physician: Adrian Beavers MD PHD Referring Physician: Adrian Beavers MD PHD Vital Signs Most recent to oldest [Reference Range]: 1 Height 175.26 cm (12/19/17 10:38 AM) Blood Pressure [90-140/60-90 mmHg] 119/76 mmHg (12/19/17 10:38 AM) Respiratory Rate [14-20 BRMIN] 20 BRMIN (12/19/17 10:38 AM) Peripheral Pulse Rate [60-100 bpm] 84 bpm (12/19/17 10:38 AM) Weight 81.364 kg (12/19/17 10:38 AM) Body Mass Index 26.49 m2 (12/19/17 10:38 AM) Problem List Condition Effective Dates Status Health Status Informant Dysphagia(Confirmed)1 Active Left sided CVA(Confirmed)2 Active Lethargy(Confirmed) Active Spasticity(Confirmed) Active Spasticity(Confirmed) Active Stroke(Confirmed) Active 1difficulty swallowing even meds call center coordinator resident informed. DR [id number] Allergies, Adverse Reactions, Alerts Substance Reaction Severity Status NKDA Active Medications Home Medication Refill(s) 0 Start Date: 12/19/17 Status: OrderedONAbotulinumtoxinA 200 unit, Route: IM, ONCALL, Dosing Weight 80.455, kg, Start date: 12/19/17 12: 00:00 CDT, Duration: 30 day, Stop date: 01/18/18 11:59:00 CDT Start Date: 12/19/17 Stop Date: 12/19/17 Status: Completed Results No data available for this section Immunizations No data available for this section Procedures Procedure Date Related Diagnosis Body Site Status Chemodenervation of muscle(s); 12/19/17 Completed muscle(s) innervated by facial nerve, unilateral (eg, for blepharospasm, hemifacial spasm) Chemodenervation of one extremity; 1-4 12/19/17 Completed muscle(s) Chemodenervation1 Completed 60750 Social History Social History Type Response Smoking Status Former smoker; Ready to change: No; Concerns about tobacco use in household: No; Exposure to Tobacco Smoke None; Cigarette Smoking Last 365 Days No; Reg Smoking Cessation Counseling No; Started at age: 18.0; Stopped at age: 71; entered on: 12/19/17 Assessment and Plan No data available for this section
--- OUTSIDE RECORDS SUMMARY | 2018-01-24 18:02 | XMS REPORT | Summary of Care ---
:1940 Author Organization [facility] Address [address] [place] [id number] Encounter HQ Denis_nikki(FIN) [id number] Date(s): 02/21/17 - 02/21/[address] [phone] Discharge Disposition: Home or Self Care Attending Physician: Adrian Beavers MD PHD Referring Physician: Adrian Beavers MD PHD Vital Signs Most recent to oldest [Reference Range]: 1 Height 175.26 cm (02/21/17 10:36 AM) Blood Pressure [90-140/60-90 mmHg] 120/69 mmHg (02/21/17 10:36 AM) Respiratory Rate [14-20 BRMIN] 18 BRMIN (02/21/17 10:36 AM) Peripheral Pulse Rate [60-100 bpm] 73 bpm (02/21/17 10:36 AM) Weight 80.455 kg (02/21/17 10:36 AM) Body Mass Index 26.19 m2 (02/21/17 10:36 AM) Problem List Condition Effective Dates Status Health Status Informant Dysphagia(Confirmed)1 Active Left sided CVA(Confirmed)2 Active Lethargy(Confirmed) Active Spasticity(Confirmed) Active Spasticity(Confirmed) Active Spasticity(Confirmed) Active Stroke(Confirmed) Active 1difficulty swallowing even meds call person resident informed. DR [id number] Allergies, Adverse Reactions, Alerts Substance Reaction Severity Status NKDA Active Medications ONAbotulinumtoxinA 200 unit, Route: IM, ONCALL, Dosing Weight 80.455, kg, Start date: 02/21/17 12: 00:00 CDT, Duration: 30 day, Stop date: 03/23/17 11:59:00 CDT Start Date: 02/21/17 Stop Date: 02/21/17 Status: Completed Results No data available for this section Immunizations No data available for this section Procedures Procedure Date Related Diagnosis Body Site Chemodenervation of one extremity; 1-4 muscle(s) 02/21/17 Chemodenervation of one extremity; 1-4 muscle(s) 02/21/17 [id number] Social History Social History Type Response Smoking Status Former smoker; Ready to change: No; Concerns about tobacco use in household: No; Exposure to Tobacco Smoke None; Cigarette Smoking Last 365 Days No; Reg Smoking Cessation Counseling No Assessment and Plan No data available for this section
--- OUTSIDE RECORDS SUMMARY | 2018-01-24 18:02 | XMS REPORT | Summary of Care ---
:1940 Author Organization [facility] Address [address] [place] [id number] Encounter HQ Denis_nikki(FIN) [id number] Date(s): 11/22/16 - 11/22/[address] Discharge Disposition: Home or Self Care Attending Physician: Adrian Beavers MD PHD Referring Physician: Adrian Beavers MD PHD Vital Signs Most recent to oldest [Reference Range]: 1 Height 175.26 cm (11/22/16 9:21 AM) Blood Pressure [90-140/60-90 mmHg] 124/67 mmHg (11/22/16 9:21 AM) Respiratory Rate [14-20 BRMIN] 18 BRMIN (11/22/16 9:21 AM) Peripheral Pulse Rate [60-100 bpm] 68 bpm (11/22/16 9:21 AM) Weight 80.455 kg (11/22/16 9:21 AM) Body Mass Index 26.19 m2 (11/22/16 9:21 AM) Problem List Condition Effective Dates Status Health Status Informant Dysphagia(Confirmed)1 Active Left sided CVA(Confirmed)2 Active Lethargy(Confirmed) Active Spasticity(Confirmed) Active Spasticity(Confirmed) Active Spasticity(Confirmed) Active Stroke(Confirmed) Active 1difficulty swallowing even meds yardage caller resident informed. DR [id number] Allergies, Adverse Reactions, Alerts Substance Reaction Severity Status NKDA Active Medications ONAbotulinumtoxinA 300 unit, Route: IM, ONCALL, Dosing Weight 80.455, kg, Start date: 11/22/16 11: 00:00 CDT, Duration: 30 day, Stop date: 12/22/16 10:59:00 CDT Start Date: 11/22/16 Stop Date: 11/22/16 Status: Completed Results No data available for this section Immunizations No data available for this section Procedures Procedure Date Related Diagnosis Body Site [id number] 16043 Social History Social History Type Response Smoking Status Former smoker; Started at age: 18.0; Stopped at age: 71; Ready to change: No; Concerns about tobacco use in household: No; Exposure to Tobacco Smoke None; Cigarette Smoking Last 365 Days No; Reg Smoking Cessation Counseling No Assessment and Plan No data available for this section
--- OUTSIDE RECORDS SUMMARY | 2018-01-24 18:02 | XMS REPORT | Summary of Care ---
:1940 Author Organization [facility] Address [address] [place] [id number] Encounter HQ Reer_nikki(FIN) [id number] Date(s): 06/02/17 - 06/02/[address] [phone] Discharge Disposition: Home or Self Care Attending Physician: Adrian Beavers MD PHD Referring Physician: Adrian Beavers MD PHD Vital Signs Most recent to oldest [Reference Range]: 1 Height 175.26 cm (06/02/17 10:43 AM) Blood Pressure [90-140/60-90 mmHg] 107/73 mmHg (06/02/17 10:43 AM) Respiratory Rate [14-20 BRMIN] 20 BRMIN (06/02/17 10:43 AM) Peripheral Pulse Rate [60-100 bpm] 7 bpm *LOW* (06/02/17 10:43 AM) Weight 80.455 kg (06/02/17 10:43 AM) Body Mass Index 26.19 m2 (06/02/17 10:43 AM) Problem List Condition Effective Dates Status Health Status Informant Dysphagia(Confirmed)1 Active Left sided CVA(Confirmed)2 Active Lethargy(Confirmed) Active 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 DR [id number] Allergies, Adverse Reactions, Alerts Substance Reaction Severity Status NKDA Active Medications ONAbotulinumtoxinA 200 unit, Route: IM, ONCALL, Dosing Weight 80.455, kg, Start date: 06/02/17 12: 00:00 ORTHOPAEDIC GENERAL, Duration: 30 day, Stop date: 07/02/17 11:59:00 ORTHOPAEDIC GENERAL Start Date: 06/02/17 Stop Date: 06/02/17 Status: Completed Results No data available for this section Immunizations No data available for this section Procedures Procedure Date Related Diagnosis Body Site Chemodenervation of one extremity; 1-4 muscle(s) 06/02/17 Chemodenervation of one extremity; 1-4 muscle(s) 06/02/17 Chemodenervation of one extremity; each additional 06/02/17 extremity, 1-4 muscle(s) (List separately in addition to code for primary procedure) Chemodenervation of one extremity; each additional 06/02/17 extremity, 1-4 muscle(s) (List separately in addition to code for primary procedure) Chemodenervation1 [id number] Social History Social History Type Response Smoking Status Former smoker; Ready to change: No; Concerns about tobacco use in household: No; Exposure to Tobacco Smoke None; Cigarette Smoking Last 365 Days No; Reg Smoking Cessation Counseling No; Started at age: 18.0; Stopped at age: 71; Assessment and Plan No data available for this section
--- OUTSIDE RECORDS SUMMARY | 2018-01-24 18:03 | XMS REPORT | Summary of Care ---
:1940 Author Encounter DAPHNE Bryant(OSMAN) [id number] Date(s): 12/21/13 - 12/21/[address] [phone] [facility] Discharge Disposition: Home Physician Attending: Adrian Beavers MD PHD Physician_Referring: Adrian Beavers MD PHD Reason for Visit F/U Vital Signs Most recent to oldest [Reference Range]: 1 Height 176.53 cm (12/21/13 11:58 AM) Systolic Blood Pressure [90-140 mmHg] 127 mmHg (12/21/13 11:58 AM) Diastolic Blood Pressure [60-90 mmHg] 78 mmHg (12/21/13 11:58 AM) Respiratory Rate [14-20 BRMIN] 18 BRMIN (12/21/13 11:58 AM) Peripheral Pulse Rate [60-100 bpm] 72 bpm (12/21/13 11:58 AM) Weight 80.455 kg (12/21/13 11:58 AM) Body Mass Index 25.82 m2 (12/21/13 11:58 AM) Problem List Condition Effective Dates Status Health Status Informant Dysphagia(Confirmed)1 Active Left sided CVA(Confirmed)2 Active Lethargy(Confirmed) Active Stroke(Confirmed) Active 1difficulty swallowing even meds call center supervisor resident informed. DR [id number] Allergies, Adverse Reactions, Alerts Substance Reaction Severity Status NKDA Active Medications amLODIPine 0 Refill(s) Start Date: 12/21/13 Status: OrderedamLODIPine 10 mg oral tablet 10 mg=1 tab, PO, Daily, # 30 tab, 0 Refill(s) Start Date: 12/21/13 Status: Orderedbromocriptine 2.5 mg oral tablet 2.5 mg=1 tab, PO, Daily, # 30 tab, 2 Refill(s) Start Date: 12/21/13 Stop Date: 03/21/14 Status: Ordered Medications Administered During Your Visit No data available for this section Immunizations No data available for this section Social History Social History Type Response Smoking Status Former smoker, Exposure to Tobacco Smoke None, Cigarette Smoking Last 365 Days No, Reg Smoking Cessation Counseling No
--- OUTSIDE RECORDS SUMMARY | 2018-01-24 18:03 | XMS REPORT | Summary of Care ---
:1940 Author Encounter DAPHNE Bryant(OSMAN) [id number] Date(s): 04/22/14 - 04/22/[address] [phone] [facility] Discharge Disposition: Home Physician Attending: Adrian Beavers MD PHD Physician_Referring: Adrian Beavers MD PHD Reason for Visit 700 UNITS Vital Signs Most recent to oldest [Reference Range]: 1 2 Height 176.53 cm 176.53 cm (04/22/14 2:02 PM) (04/22/14 11:03 AM) Systolic Blood Pressure [90-140 mmHg] 152 mmHg 144 mmHg *HI* *HI* (04/22/14 2:02 PM) (04/22/14 11:03 AM) Diastolic Blood Pressure [60-90 mmHg] 90 mmHg 82 mmHg (04/22/14 2:02 PM) (04/22/14 11:03 AM) Respiratory Rate [14-20 BRMIN] 18 BRMIN 18 BRMIN (04/22/14 2:02 PM) (04/22/14 11:03 AM) Peripheral Pulse Rate [60-100 bpm] 67 bpm 77 bpm (04/22/14 2:02 PM) (04/22/14 11:03 AM) Weight 80.909 kg 80.455 kg (04/22/14 2:02 PM) (04/22/14 11:03 AM) Body Mass Index 25.96 m2 25.82 m2 (04/22/14 2:02 PM) (04/22/14 11:03 AM) Problem List Condition Effective Dates Status Health Status Informant Dysphagia(Confirmed)1 Active Left sided CVA(Confirmed)2 Active Lethargy(Confirmed) Active Spasticity(Confirmed) Active Stroke(Confirmed) Active 1difficulty swallowing even meds call manager resident informed. DR [id number] Allergies, Adverse Reactions, Alerts Substance Reaction Severity Status NKDA Active Medications furosemide 20 mg oral tablet 20 mg=1 tab, PO, PRN, # 30 tab, 0 Refill(s) Start Date: 04/22/14 Status: OrderedONAbotulinumtoxinA 700 unit, Route: IM, ONCALL, Dosing Weight 79.091, kg, Start date: 04/22/14 13: 00:00, Duration: 30 day, Stop date: 05/22/14 12:59:00 Start Date: 04/22/14 Stop Date: 04/22/14 Status: Completed Medications Administered During Your Visit No data available for this section Immunizations No data available for this section Social History Social History Type Response Smoking Status Former smoker, Exposure to Tobacco Smoke None, Cigarette Smoking Last 365 Days No, Reg Smoking Cessation Counseling No
--- OUTSIDE RECORDS SUMMARY | 2018-01-24 18:03 | XMS REPORT | Summary of Care ---
:1940 Author Encounter HQ Manny(OSMAN) [id number] Date(s): 01/15/14 - 02/13/[address] [phone] [facility] Discharge Disposition: Home Physician Attending: Ada Hunter MD Reason for Visit L HEMIPERESIS ARMS LEG CVA Problem List Condition Effective Dates Status Health Status Informant Dysphagia(Confirmed)1 Active Left sided CVA(Confirmed)2 Active Lethargy(Confirmed) Active Spasticity(Confirmed) Active Stroke(Confirmed) Active 1difficulty swallowing even meds florist designer resident informed. DR [id number] Allergies, Adverse Reactions, Alerts Substance Reaction Severity Status NKDA Active Medications No data available for this section Medications Administered During Your Visit No data available for this section Immunizations No data available for this section Social History Social History Type Response Smoking Status Former smoker, Exposure to Tobacco Smoke None, Cigarette Smoking Last 365 Days No, Reg Smoking Cessation Counseling No
--- OUTSIDE RECORDS SUMMARY | 2018-01-24 18:03 | XMS REPORT | Summary of Care ---
:1940 Author Encounter DAPHNE rByant(OSMAN) [id number] Date(s): 07/04/14 - 08/02/[address] [phone] Discharge Disposition: Home Physician Attending: Ada Jackman MD Vital Signs Most recent to oldest [Reference Range]: 1 2 Blood Pressure [90-140/60-90 mmHg] 146/80 mmHg 128/80 mmHg *HI* (07/04/14 10:01 AM) (07/04/14 11:03 AM) Peripheral Pulse Rate [60-100 bpm] 65 bpm (07/04/14 11:03 AM) Problem List Condition Effective Dates Status Health Status Informant Dysphagia(Confirmed)1 Active Left sided CVA(Confirmed)2 Active Lethargy(Confirmed) Active Spasticity(Confirmed) Active Spasticity(Confirmed) Active Stroke(Confirmed) Active 1difficulty swallowing even meds call or contact centre manager resident informed. DR [id number] Allergies, Adverse Reactions, Alerts Substance Reaction Severity Status NKDA Active Medications No data available for this section Results No data available for this section Immunizations No data available for this section Procedures No data available for this section Social History Social History Type Response Smoking Status Never smoker; Exposure to Tobacco Smoke None; Cigarette Smoking Last 365 Days No; Reg Smoking Cessation Counseling No Assessment and Plan No data available for this section
--- OUTSIDE RECORDS SUMMARY | 2018-01-24 18:03 | XMS REPORT | Summary of Care ---
:1940 Author Encounter DAPHNE Bryant(OSMAN) [id number] Date(s): 02/19/14 - 03/20/[address] [phone] [facility] Discharge Disposition: Home Physician Attending: Ada Hunter MD Reason for Visit L HEMIPERESIS ARM LEG CVA Problem List Condition Effective Dates Status Health Status Informant Dysphagia(Confirmed)1 Active Left sided CVA(Confirmed)2 Active Lethargy(Confirmed) Active Spasticity(Confirmed) Active Stroke(Confirmed) Active 1difficulty swallowing even meds at home independent call center agent resident informed. DR [id number] Allergies, Adverse Reactions, Alerts Substance Reaction Severity [...]
--- OUTSIDE RECORDS SUMMARY | 2018-01-24 18:03 | XMS REPORT | Summary of Care ---
:1940 Author Encounter HQ Manny(OSMAN) [id number] Date(s): 11/06/13 - 12/05/[address] [phone] [facility] Discharge Disposition: Home Physician Attending: Ada Jackman MD Reason for Visit L HEMIPERESIS ARMS LEG/ CVA Problem List Condition Effective Dates Status Health Status Informant Dysphagia(Confirmed)1 Active Left sided CVA(Confirmed)2 Resolved Lethargy(Confirmed) Active Stroke(Confirmed) Active 1difficulty swallowing even meds call center support consultant resident informed. DR [id number] Allergies, Adverse Reactions, Alerts Substance Reaction Severity [...]
--- OUTSIDE RECORDS SUMMARY | 2018-01-24 18:03 | XMS REPORT | Summary of Care ---
:1940 Author Encounter DAPHNE Bryant(OSMAN) [id number] Date(s): 08/06/14 - 09/04/[address] [phone] Discharge Disposition: Home Physician Attending: Ada Jackman MD Vital Signs Most recent to oldest 1 2 3 [Reference Range]: Blood Pressure [90-140/60-90 150/94 mmHg 139/79 mmHg 134/85 mmHg mmHg] *HI* (08/15/14 2:46 PM) (08/13/14 12:05 PM) (08/30/14 12:45 PM) Peripheral Pulse Rate [60-100 87 bpm 80 bpm 82 bpm bpm] (08/30/14 12:45 PM) (08/15/14 2:46 PM) (08/13/14 12:05 PM) Problem List Condition Effective Dates Status Health Status Informant Dysphagia(Confirmed)1 Active Left sided CVA(Confirmed)2 Active Lethargy(Confirmed) Active Spasticity(Confirmed) Active Spasticity(Confirmed) Active Stroke(Confirmed) Active 1difficulty swallowing even meds call or contact centre operator resident informed. DR [id number] Allergies, Adverse Reactions, Alerts Substance Reaction Severity Status NKDA Active Medications No data available for this section Results URINE CHEM Most recent to oldest 1 2 3 4 [Reference Range]: Time 5 min. 15 min. 25 min 10 min. (08/30/14 12:45 PM) (08/30/14 12:45 PM) (08/30/14 12:45 PM) (08/30/14 12:45 PM) Immunizations No data available for this section Procedures Procedure Date Related Diagnosis Body Site Chemodenervation1 33804 Social History Social History Type Response Smoking Status Never smoker; Exposure to Tobacco Smoke None; Cigarette Smoking Last 365 Days No; Reg Smoking Cessation Counseling No Assessment and Plan No data available for this section
--- OUTSIDE RECORDS SUMMARY | 2018-01-24 18:03 | XMS REPORT | Summary of Care ---
:1940 Author Encounter HQ Encntr_alimeliza(OSMAN) [id number] Date(s): 09/28/13 - 09/28/[address] [phone] [facility] Discharge Disposition: Home Physician Attending: Adrian Beavers MD PHD Physician_Referring: Adrian Beavers MD PHD Reason for Visit [employer]AL [employer] Problem List Condition Effective Dates Status Health Status Informant Dysphagia(Confirmed)1 Active Lethargy(Confirmed) Active Stroke(Confirmed) Active 1difficulty swallowing even meds call center agent resident informed. DR Carter Allergies, Adverse Reactions, Alerts Substance Reaction Severity Status NKDA Active Medications No data available for this section Medications Administered During Your Visit No data available for this section Immunizations No data available for this section Social History Social History Type Response
--- OUTSIDE RECORDS SUMMARY | 2018-01-24 18:03 | XMS REPORT | CCD ---
:1940 Author Organization [facility] Care Team Providers Name Role Phone Sandy Mckenzie Consulting Provider Allergies, Adverse Reactions, Alerts Substance Reaction Status NKDA Active Problem List Condition Effective Dates Status Dysphagia < 11/22/2011 Canceled Dysphagia1 Active Dysphasia < 11/22/2011 Canceled Stroke Active Weakness < 11/22/2011 Canceled 1difficulty swallowing even meds yardage caller resident informed. DR Carter Medications Medication Instructions Start Date End Date Status albuterol-ipratropium 3 mL, Route: NEB, Drug 11/16/2011 11/24/2011 Discontinued 2.5-0.5 mg inhalation Form: SOLN, RQ6H, PRN solution Shortness of breath, Start date: 11/16/11 17:19:00, Duration: 30 day, Stop date: 12/16/11 17:18:00 acetaminophen 650 mg, 20.3 mL, Route: 11/16/2011 11/25/2011 Discontinued PEG, Drug form: LIQ, Q4H, PRN Pain Score 1-3, Start date: 11/16/11 17:19:00, Stop date: 12/16/11 17:18:00 Saline Flush 0.9% 3 mL, Route: IVP, Drug Form: INJ, Q8H, PRN Line Flush, Start date: 11/16/11 17:19:00, Duration: 30 day, Stop date: 12/16/11 17:18:00, Administer at least once every 8 hours 11/16/2011 11/25/2011 Discontinued Administer at least once every 8 hours Protonix 40 mg, 1 pkt, Route: 11/16/2011 11/25/2011 Discontinued PEG, Drug form: GRAN/REC, BID, Start date: 11/16/11 20:00:00, Stop date: 12/16/11 8:00:00 Nuvigil 100 mg, Route: PO, Drug 11/20/2011 11/19/2011 Canceled form: CAP, QAM, Start date: 11/20/11 8:00:00, Duration: 30 day, Stop date: 12/19/11 8:00:00 nebivolol 10 mg, 2 tab, Route: 11/17/2011 11/25/2011 Discontinued PEG, Drug form: TAB, Daily, Start date: 11/17/11 8:00:00, Stop date: 12/16/11 8:00:00 heparin 5,000 unit, 1 mL, Route: 11/22/2011 11/25/2011 Discontinued SUB-Q, Drug form: INJ, Q12H, Start date: 11/22/11 21:00:00, Duration: 30 day, Stop date: 12/22/11 9:00:00 Carafate 1 gm, 10 mL, Route: PO, 11/18/2011 11/25/2011 Discontinued Drug form: SUSP, QID, Start date: 11/18/11 17:00:00, Stop date: 12/18/11 11:00:00 Provigil 200 mg, 1 tab, Route: 11/17/2011 11/19/2011 Discontinued PO, Drug form: TAB, QAM, Start date: 11/17/11 8:00:00, Duration: 30 day, Stop date: 12/16/11 8:00:00 heparin 5,000 unit, 1 mL, Route: 11/16/2011 11/21/2011 Completed SUB-Q, Drug form: INJ, Q12H, Start date: 11/16/11 21:00:00, Duration: 30 day, Stop date: 11/21/11 21:30:00 albuterol-ipratropium 3 mL, Route: NEB, Drug 11/24/2011 11/25/2011 Discontinued 2.5-0.5 mg inhalation Form: SOLN, RQ6H, Start solution date: 11/24/11 14:00:00, Duration: 30 day, Stop date: 12/24/11 8:00:00 Seroquel 25 mg, 1 tab, Route: 11/16/2011 11/25/2011 Discontinued PEG, Drug form: TAB, Bedtime, PRN Insomnia, Start date: 11/16/11 17:19:00, Stop date: 12/16/11 17:18:00 docusate sodium 100 mg, 10 mL, Route: 11/16/2011 11/25/2011 Discontinued PEG, Drug form: LIQ, Q12H, Start date: 11/16/11 21:00:00, Stop date: 12/16/11 9:00:00 Lipitor 80 mg, 1 tab, Route: 11/17/2011 11/25/2011 Discontinued PEG, Drug form: TAB, QPM, Start date: 11/17/11 17:00:00, Stop date: 12/16/11 17:00:00 Nuvigil 150 mg, Route: PO, Drug 11/20/2011 11/19/2011 Deleted form: CAP, QAM, Start date: 11/20/11 8:00:00, Duration: 30 day, Stop date: 12/19/11 8:00:00 aspirin 81 mg, 1 tab, Route: 11/17/2011 11/25/2011 Discontinued CHEW, Drug form: CHEWTAB, Daily, Start date: 11/17/11 8:00:00, Stop date: 12/16/11 8:00:00 Carafate 1 g/10 mL oral 1 gm, 10 mL, PEG, QID, 1 11/24/2011 Ordered suspension mL, Substitution Allowed, SUSP senna 8.8 mg/5 mL oral 17.6 mg, 10 mL, PEG, 11/24/2011 Ordered syrup QNoon, 1 mL, Substitution Allowed, Maintenance, SYRP Diovan 160 mg oral tablet 160 mg, 1 tab, PEG, 11/24/2011 Ordered Daily, 30 tab, Substitution Allowed, TAB Seroquel 25 mg oral tablet 25 mg, 1 tab, PEG, 11/24/2011 Ordered Bedtime, PRN, 30 tab, Insomnia, Substitution Allowed, TAB pantoprazole 40 mg oral 1 Pack, PEG, Daily, 30 11/24/2011 Ordered granule ea, Substitution Allowed, GRAN/REC amLODipine 10 mg, 10 mL, Route: 11/17/2011 11/25/2011 Discontinued PEG, Drug form: SUSP, Daily, Start date: 11/17/11 8:00:00, Stop date: 12/16/11 8:00:00 hydrALAZINE 10 mg oral 10 mg, 1 tab, PEG, Q6H, 11/24/2011 Ordered tablet PRN, 120 tab, Hypertension, Substitution Allowed, TAB Provigil 200 mg oral 200 mg, 1 tab, PEG, QAM, 11/24/2011 Ordered tablet 30 tab, Substitution Allowed, TAB Cymbalta 20 mg oral 20 mg, 1 cap, PEG, 11/24/2011 Ordered delayed release capsule Bedtime, 30 cap, Substitution Allowed, DRC hydrALAZINE 10 mg oral 10 mg, 1 tab, Route: 11/16/2011 11/25/2011 Discontinued tablet PEG, Drug form: TAB, Q6H, PRN Hypertension, Start date: 11/16/11 17:19:00, Stop date: 12/16/11 17:18:00 amantadine 100 mg, 1 cap, Route: 11/18/2011 11/18/2011 Completed PO, Drug form: CAP, ONCE, Start date: 11/18/11 14:47:00, Stop date: 11/18/11 14:47:00 Dextrose 50% Syringe 12.5 gm, 25 mL, Route: 11/18/2011 11/25/2011 Discontinued IVP, Drug Form: INJ, PRN, PRN Blood Glucose Results, Start date: 11/18/11 11:45:00, Duration: 30 day, Stop date: 12/18/11 11:44:00 Dextrose 50% Syringe 25 gm, 50 mL, Route: 11/18/2011 11/25/2011 Discontinued IVP, Drug Form: INJ, PRN, PRN Blood Glucose Results, Start date: 11/18/11 11:45:00, Duration: 30 day, Stop date: 12/18/11 11:44:00 glucagon 1 mg, Route: IM, Drug 11/18/2011 11/25/2011 Discontinued form: PDR/INJ, PRN, PRN Blood Glucose Results, Start date: 11/18/11 11:45:00, Duration: 30 day, Stop date: 12/18/11 11:44:00 insulin aspart 2 unit, 0.02 mL, Route: 11/18/2011 11/25/2011 Discontinued SUB-Q, Drug form: SOLN, TID-Before Meals, PRN Blood Glucose Results, Start date: 11/18/11 11:45:00, Duration: 30 day, Stop date: 12/18/11 11:44:00 insulin aspart 4 unit, 0.04 mL, Route: 11/18/2011 11/25/2011 Discontinued SUB-Q, Drug form: SOLN, TID-Before Meals, PRN Blood Glucose Results, Start date: 11/18/11 11:45:00, Duration: 30 day, Stop date: 12/18/11 11:44:00 insulin aspart 10 unit, 0.1 mL, Route: 11/18/2011 11/25/2011 Discontinued SUB-Q, Drug form: SOLN, TID-Before Meals, PRN Blood Glucose Results, Start date: 11/18/11 11:45:00, Duration: 30 day, Stop date: 12/18/11 11:44:00 insulin aspart 6 unit, 0.06 mL, Route: 11/18/2011 11/25/2011 Discontinued SUB-Q, Drug form: SOLN, TID-Before Meals, PRN Blood Glucose Results, Start date: 11/18/11 11:45:00, Duration: 30 day, Stop date: 12/18/11 11:44:00 insulin aspart 8 unit, 0.08 mL, Route: 11/18/2011 11/25/2011 Discontinued SUB-Q, Drug form: SOLN, TID-Before Meals, PRN Blood Glucose Results, Start date: 11/18/11 11:45:00, Duration: 30 day, Stop date: 12/18/11 11:44:00 normal saline 0.9% IV 1,000 mL, Rate: 75 11/17/2011 11/17/2011 Completed 1,000 mL ml/hr, Infuse over: 13.3 hr, Route: IV, Dosing Weight 95.909 kg, Total Volume: 1,000, Start date: 11/17/11 10:29:00, Duration: 1 doses or times, Stop date: 11/17/11 23:46:00 Diovan 160 mg, 1 tab, Route: 11/17/2011 11/25/2011 Discontinued PEG, Drug form: TAB, Daily, Start date: 11/17/11 8:00:00, Stop date: 12/16/11 8:00:00 Lantus 100 units/mL See Instructions, 1 vial, Substitution Allowed, 5 units SUB-Q Daily, SOLN 11/24/2011 Ordered subcutaneous solution 5 units SUB-Q Daily docusate sodium 150 mg/15 100 mg, 10 mL, PEG, 11/24/2011 Ordered mL oral liquid Q12H, 1 mL, Substitution Allowed, LIQ Lipitor 80 mg oral tablet 80 mg, 1 tab, PEG, QPM, 11/24/2011 Ordered 30 tab, Substitution Allowed, TAB Glycerol 60 mL, Route: SD, Drug 11/17/2011 11/18/2011 Completed Form: MISC, ONCE, Start date: 11/17/11 16:00:00, Stop date: 11/17/11 16:00:00 amantadine 100 mg, 10 mL, Route: 11/19/2011 11/25/2011 Discontinued PEG, Drug form: SYRP, QAM, Start date: 11/19/11 8:00:00, Stop date: 12/18/11 8:00:00 Milk of Magnesia 60 ml, Route: PO, Drug 11/17/2011 11/17/2011 Completed Form: SUSP, ONCE, Start date: 11/17/11 18:30:00, Stop date: 11/17/11 18:30:00 aspirin 81 mg tablet, 81 mg, 1 tab, PEG, 11/24/2011 Ordered chewable Daily, 30 tab, Substitution Allowed, CHEWTAB amLODipine 10 mg oral 10 mg, 1 tab, PEG, 11/24/2011 Ordered tablet Daily, 30 tab, Substitution Allowed, TAB mineral oil 60 mL, Route: SD, Drug 11/17/2011 11/18/2011 Completed Form: LIQ, ONCE, Start date: 11/17/11 16:00:00, Stop date: 11/17/11 16:00:00 DuoNeb inhalation solution 3 mL, INHALATION, QID, 11/24/2011 Ordered PRN, 1 mL, as needed for shortness of breath or wheezing, Substitution Allowed, Maintenance, SOLN amantadine 50 mg/5 mL oral 100 mg, 10 mL, PEG, QAM, 11/24/2011 Ordered syrup 1 btl, Substitution Allowed, SYRP nebivolol 5 mg oral tablet 10 mg, 2 tab, PEG, 11/24/2011 Ordered Daily, 60 tab, Substitution Allowed, TAB Nuvigil (Armodafinil) 50 Nuvigil (Armodafinil) 50 11/20/2011 11/22/2011 Discontinued mg tablet mg tablet, 150 mg, Drug form: MISC, Route: PO, QAM, 11/20/11 8:00:00, Duration: 30 day, Stop date: 12/19/11 8:00:00 Provigil 200 mg, 1 tab, Route: 11/22/2011 11/25/2011 Discontinued PEG, Drug form: TAB, QAM, Start date: 11/22/11 8:00:00, Stop date: 12/21/11 8:00:00 D5W 1/2NS 1,000 mL 1,000 mL, Rate: 70 11/19/2011 11/22/2011 Discontinued ml/hr, Infuse over: 14.3 hr, Route: IV, Dosing Weight 95.909 kg, Total Volume: 1,000, Start date: 11/19/11 11:54:00, Duration: 30 day, Stop date: 12/19/11 11:53:00 heparin 5000 units/mL 5,000 unit, can, SUB-Q, 11/24/2011 11/24/2011 Discontinued injectable solution Q12H, 10 vial, Substitution Allowed, SOLN magnesium citrate 300 ml, Route: PO, Drug 11/17/2011 11/17/2011 Discontinued Form: LIQ, ONCE, Start date: 11/17/11 15:00:00, Stop date: 11/17/11 15:00:00 Cymbalta 20 mg, 1 cap, Route: 11/22/2011 11/25/2011 Discontinued PEG, Drug form: DRC, Bedtime, Start date: 11/22/11 21:00:00, Stop date: 12/21/11 21:00:00 heparin 5000 units/mL 5,000 unit, can, SUB-Q, 11/24/2011 11/24/2011 Discontinued injectable solution Q12H, 10 vial, Substitution Allowed, SOLN normal saline 0.9% IV 1,000 mL, Rate: 70 11/18/2011 11/19/2011 Discontinued 1,000 mL ml/hr, Infuse over: 14.3 hr, Route: IV, Dosing Weight 95.909 kg, Total Volume: 1,000, Start date: 11/18/11 12:00:00, Duration: 30 day, Stop date: 12/18/11 11:59:00 Milk of Magnesia 60 ml, Route: PO, Drug 11/17/2011 11/17/2011 Deleted Form: SUSP, ONCE, Start date: 11/17/11 15:16:00, Stop date: 11/17/11 15:16:00 Sodium Chloride 0.9% IV SD, 0 ml/hr, ONCE, Start 11/17/2011 11/18/2011 Completed date: 11/17/11 16:00:00, 60 ml senna 17.6 mg, 10 mL, Route: 11/17/2011 11/25/2011 Discontinued PEG, Drug Form: SYRP, QNoon, Start date: 11/17/11 12:00:00, Stop date: 12/16/11 12:00:00 Vital Signs Most recent to oldest 1 2 3 [Reference Range]: Height 176.53 cm (11/16/2011 17:20:00) Temperature Oral 98.4 DegF 98.4 DegF 98.2 DegF [96.4-99.1 DegF] (11/25/2011 04:59:00) (11/24/2011 22:22:00) (11/24/2011 16: 00:00) Systolic Blood Pressure 115 mmHg 145 mmHg 131 mmHg [90-140 mmHg] (11/25/2011 04:59:00) *HI* (11/24/2011 16:00:00) (11/24/2011 22:22:00) Diastolic Blood Pressure 79 mmHg 82 mmHg 69 mmHg [60-90 mmHg] (11/25/2011 04:59:00) (11/24/2011 22:22:00) (11/24/2011 16:00: 00) Respiratory Rate [14-20 20 BRMIN 20 BRMIN 20 BRMIN BRMIN] (11/25/2011 04:59:00) (11/24/2011 22:22:00) (11/24/2011 16:00:00) Peripheral Pulse Rate 66 bpm 95 bpm 86 bpm [60-100 bpm] (11/25/2011 04:59:00) (11/24/2011 22:22:00) (11/24/2011 16:00: 00) Weight 95.909 kg (11/16/2011 17:20:00) Results BEDSIDE GLUCOSE TESTING Most recent to oldest 1 2 3 [Reference Range]: Gluc POC Lifscn [70-99 111 mg/dL 1 191 mg/dL 2 179 mg/dL 3 mg/dL] *HI* *HI* *HI* (11/25/2011 05:34:00) (11/24/2011 21:35:00) (11/24/2011 17:27:00) Comment1 Notify RN/MD Notify RN/MD Notify RN/MD *NA* *NA* *NA* (11/25/2011 05:34:00) (11/24/2011 21:35:00) (11/24/2011 05:09:00) Comment2 Sliding Scale Sliding Scale *NA* *NA* (11/22/2011 21:25:00) (11/20/2011 21:09:00) 1Interpretive Data: Upper Reportable Limit: 200 mg/dL.2Interpretive Data: Upper Reportable Limit: 200 mg/dL.3Interpretive Data: Upper Reportable Limit: 200 mg/dL.URINALYSIS Most recent to oldest [Reference Range]: 1 2 3 UA Turbidity [Clear] Slight *ABN* (11/17/2011 05:32:00) UA Color [Yellow] Yellow *NA* (11/17/2011 05:32:00) UA pH [5.0-8.0] 5.0 (11/17/2011 05:32:00) UA Spec Grav [<=1.030] 1.016 (11/17/2011 05:32:00) UA Glucose [Negative mg/dL] Negative mg/dL *NA* (11/17/2011 05:32:00) UA Blood [Negative] Moderate *ABN* (11/17/2011 05:32:00) UA Ketones [Negative mg/dL] Negative mg/dL *NA* (11/17/2011 05:32:00) UA Protein [Negative mg/dL] 30 mg/dL *ABN* (11/17/2011 05:32:00) UA Urobilinogen [0.1-1.0 mg/dL] <=1.0 mg/dL *NA* (11/17/2011 05:32:00) UA Bili [Negative] Negative *NA* (11/17/2011 05:32:00) UA Leuk Est [Negative] Negative (11/17/2011 05:32:00) UA Nitrite [Negative] Negative (11/17/2011 05:32:00) UA WBC [0-5 /HPF] <1 /HPF (11/17/2011 05:32:00) UA RBC [0-2 /HPF] 1 /HPF (11/17/2011 05:32:00) UA Sq Epi [Few /LPF] Few /LPF *NA* (11/17/2011 05:32:00) UA Hyal Cast [0-2 /LPF] 6 /LPF *HI* (11/17/2011 05:32:00) UA Amorph Izzy [None Seen /HPF] Occasional /HPF *NA* (11/17/2011 05:32:00) UA Renal Epi [<=0 /LPF] 1 /LPF *HI* (11/17/2011 05:32:00) UA Mucus [None Seen /LPF] Few /LPF *NA* (11/17/2011 05:32:00) STOOL TESTS Most recent to oldest [Reference Range]: 1 2 3 Occult Bld Stl [Negative] Negative (11/21/2011 18:08:00) BLOOD BANK RESULTS Most recent to oldest [Reference Range]: 1 2 3 ABO/Rh O NEG *Unknown* (11/22/2011 03:00:00) Antibody Scrn Negative (11/22/2011 03:00:00) CHEMISTRY Most recent to oldest 1 2 3 [Reference Range]: Sodium Lvl [135-145 mEq/L] 142 mEq/L 140 mEq/L 138 mEq/L (11/24/2011 03:16:00) (11/22/2011 03:00:00) (11/21/2011 05:14:00) Potassium Lvl [3.5-5.1 4.6 mEq/L 4.3 mEq/L 4.2 mEq/L mEq/L] (11/24/2011 03:16:00) (11/22/2011 03:00:00) (11/21/2011 05:14:00) Chloride Lvl [95-109 mEq/L] 103 mEq/L 103 mEq/L 102 mEq/L (11/24/2011 03:16:00) (11/22/2011 03:00:00) (11/21/2011 05:14:00) CO2 [24-32 mEq/L] 30 mEq/L 32 mEq/L 25 mEq/L (11/24/2011 03:16:00) (11/22/2011 03:00:00) (11/21/2011 05:14:00) AGAP [10.0-20.0 mEq/L] 13.6 mEq/L 9.3 mEq/L 15.2 mEq/L (11/24/2011 03:16:00) *LOW* (11/21/2011 05:14:00) (11/22/2011 03:00:00) Creatinine Lvl [0.5-1.4 1.5 mg/dL 1.6 mg/dL 1.5 mg/dL mg/dL] *HI* *HI* *HI* (11/24/2011 03:16:00) (11/22/2011 03:00:00) (11/21/2011 05:14:00) BUN [7-22 mg/dL] 24 mg/dL 18 mg/dL 23 mg/dL *HI* (11/22/2011 03:00:00) *HI* (11/24/2011 03:16:00) (11/21/2011 05:14:00) B/C Ratio [6-25] 16 (11/17/2011 05:50:00) Glucose Lvl [70-99 mg/dL] 116 mg/dL 4 114 mg/dL 5 142 mg/dL 6 *HI* *HI* *HI* (11/24/2011 03:16:00) (11/22/2011 03:00:00) (11/21/2011 05:14:00) Total Protein [6.4-8.4 6.1 g/dL g/dL] *LOW* (11/17/2011 05:50:00) Albumin Lvl [3.5-5.0 g/dL] 2.9 g/dL *LOW* (11/17/2011 05:50:00) Globulin [2.0-4.0 g/dL] 3.2 g/dL (11/17/2011 05:50:00) A/G Ratio [0.7-1.6] 0.9 (11/17/2011 05:50:00) Calcium Lvl [8.5-10.5 8.4 mg/dL 8.4 mg/dL 8.2 mg/dL mg/dL] *LOW* *LOW* *LOW* (11/24/2011 03:16:00) (11/22/2011 03:00:00) (11/21/2011 05:14:00) Phosphorus [2.5-4.5 mg/dL] 4.3 mg/dL (11/17/2011 05:50:00) Magnesium Lvl [1.8-2.4 2.2 mg/dL mg/dL] (11/17/2011 05:50:00) ALT [0-65 U/L] 20 U/L (11/17/2011 05:50:00) AST [0-37 U/L] 19 U/L (11/17/2011 05:50:00) Alk Phos [39-136 U/L] 77 U/L (11/17/2011 05:50:00) Bili Total [0.2-1.3 mg/dL] 0.9 mg/dL (11/17/2011 05:50:00) Hgb A1C 6.5 % 7 *NA* (11/17/2011 05:50:00) Iron [45-160 ug/dl] 14 ug/dl *LOW* (11/21/2011 17:01:00) Ferritin Lvl [22-275 ng/mL] 302 ng/mL *HI* (11/21/2011 17:01:00) % Satur Fe [12-57 %] 6 % *LOW* (11/21/2011 17:01:00) UIBC [110-370 ug/dl] 216 ug/dl (11/21/2011 17:01:00) TIBC [228-428 ug/dl] 230 ug/dl (11/21/2011 17:01:00) T4 Free [0.76-1.46 ng/dL] 1.35 ng/dL (11/17/2011 05:50:00) TSH [0.360-3.740 uIU/mL] 1.980 uIU/mL (11/17/2011 05:50:00) 4Interpretive Data: Adult reference range values reflect the clinical guidelinesof the [place] [employer].5Interpretive Data: Adult reference range values reflect the clinical guidelinesof the [place] [employer].6Interpretive Data: Adult reference range values reflect the clinical guidelinesof the [place] [employer].7Interpretive Data: HbA1C% eAG(mg/dL) Interpretation 6.0 126Very good control 6.5 140 Very good control 7.0 154 Good Control 7.5 169 Good Control 8.0 183 Marginal Control, take action to lower 8.5 197 Marginal Control, take action to lower 9.0 212 Poor Control, take action to lower 9.5 226 Poor Control, takeaction to lower10.0 240 Poor Control, take action to lowerHEMATOLOGY Most recent to oldest 1 2 3 [Reference Range]: WBC [3.7-10.4 K/CMM] 9.7 K/CMM 7.0 K/CMM 6.9 K/CMM (11/24/2011 03:16:00) (11/22/2011 03:00:00) (11/21/2011 05:14:00) RBC [4.70-6.10 M/CMM] 3.54 M/CMM 3.42 M/CMM 3.37 M/CMM *LOW* *LOW* *LOW* (11/24/2011 03:16:00) (11/22/2011 03:00:00) (11/21/2011 05:14:00) Hgb [14.0-18.0 g/dL] 9.1 g/dL 8.9 g/dL 8.7 g/dL *LOW* *LOW* *LOW* (11/24/2011 03:16:00) (11/22/2011 03:00:00) (11/21/2011 05:14:00) Hct [42.0-54.0 %] 28.0 % 27.2 % 27.0 % *LOW* *LOW* *LOW* (11/24/2011 03:16:00) (11/22/2011 03:00:00) (11/21/2011 05:14:00) MCV [80.0-94.0 fL] 79.0 fL 79.4 fL 80.1 fL *LOW* *LOW* (11/21/2011 05:14:00) (11/24/2011 03:16:00) (11/22/2011 03:00:00) MCH [27.0-31.0 pg] 25.6 pg 26.2 pg 25.7 pg *LOW* *LOW* *LOW* (11/24/2011 03:16:00) (11/22/2011 03:00:00) (11/21/2011 05:14:00) MCHC [32.0-36.0 g/dL] 32.4 g/dL 32.9 g/dL 32.1 g/dL (11/24/2011 03:16:00) (11/22/2011 03:00:00) (11/21/2011 05:14:00) RDW [11.5-14.5 %] 20.4 % 20.4 % 20.7 % *HI* *HI* *HI* (11/24/2011 03:16:00) (11/22/2011 03:00:00) (11/21/2011 05:14:00) Platelet [133-450 K/CMM] 324 K/CMM 299 K/CMM 305 K/CMM (11/24/2011 03:16:00) (11/22/2011 03:00:00) (11/21/2011 05:14:00) MPV [7.4-10.4 fL] 9.4 fL 9.6 fL 9.3 fL (11/24/2011 03:16:00) (11/22/2011 03:00:00) (11/21/2011 05:14:00) Segs [45.0-75.0 %] 84.0 % 78.6 % 76.9 % *HI* *HI* *HI* (11/24/2011 03:16:00) (11/22/2011 03:00:00) (11/21/2011 05:14:00) Lymphocytes [20.0-40.0 %] 6.8 % 11.0 % 11.8 % *LOW* *LOW* *LOW* (11/24/2011 03:16:00) (11/22/2011 03:00:00) (11/21/2011 05:14:00) Monocytes [2.0-12.0 %] 7.5 % 8.6 % 9.1 % (11/24/2011 03:16:00) (11/22/2011 03:00:00) (11/21/2011 05:14:00) Eosinophils [0.0-4.0 %] 1.4 % 1.5 % 1.8 % (11/24/2011 03:16:00) (11/22/2011 03:00:00) (11/21/2011 05:14:00) Basophils [0.0-1.0 %] 0.3 % 0.3 % 0.4 % (11/24/2011 03:16:00) (11/22/2011 03:00:00) (11/21/2011 05:14:00) Segs-Bands # [1.5-8.1 8.1 K/CMM 5.5 K/CMM 5.3 K/CMM K/CMM] (11/24/2011 03:16:00) (11/22/2011 03:00:00) (11/21/2011 05:14:00) Lymphocytes # [1.0-5.5 0.7 K/CMM 0.8 K/CMM 0.8 K/CMM K/CMM] *LOW* *LOW* *LOW* (11/24/2011 03:16:00) (11/22/2011 03:00:00) (11/21/2011 05:14:00) Monocytes # [0.0-0.8 0.7 K/CMM 0.6 K/CMM 0.6 K/CMM K/CMM] (11/24/2011 03:16:00) (11/22/2011 03:00:00) (11/21/2011 05:14:00) Eosinophils # [0.0-0.5 0.1 K/CMM 0.1 K/CMM 0.1 K/CMM K/CMM] (11/24/2011 03:16:00) (11/22/2011 03:00:00) (11/21/2011 05:14:00) Basophils # [0.0-0.2 0.0 K/CMM 0.0 K/CMM 0.0 K/CMM K/CMM] (11/24/2011 03:16:00) (11/22/2011 03:00:00) (11/21/2011 05:14:00) Anisocyte [None Seen] 1+ 1+ 1+ *ABN* *ABN* *ABN* (11/24/2011 03:16:00) (11/22/2011 03:00:00) (11/21/2011 05:14:00) PT [12.0-14.7 seconds] 13.1 seconds (11/22/2011 03:00:00) PT [12.0-14.7] xxxxxxx (11/17/2011 05:50:00) INR [0.85-1.17] 0.99 8 xxxxxxx 9, 10 (11/22/2011 03:00:00) (11/17/2011 05:50:00) PTT [22.9-35.8 seconds] 33.6 seconds 11 (11/22/2011 03:00:00) PTT [22.9-35.8] See Note 12, 13 (11/17/2011 05:50:00) 8Interpretive Data: RECOMMENDED RANGES FOR PROTIME INR: 2.0-3.0 for most medical and surgical thromboembolic states. 2.5-3.5 for artificial heart valves and recurrent embolism.INR SHOULD BE USED ONLY FOR PATIENTS ON STABLE ANTICOAGULANT THERAPY.9Interpretive Data: RECOMMENDED RANGES FOR PROTIME INR: 2.0-3.0 for most medical and surgical thromboembolic states. 2.5-3.5 for artificial heart valves and recurrent embolism.INR SHOULD BE USED ONLY FOR PATIENTS ON STABLE ANTICOAGULANT THERAPY.10Interpretive Data: RECOMMENDED RANGES FOR PROTIME INR: 2.0-3.0 for most medical and surgical thromboembolic states. 2.5-3.5 for artificial heart valves and recurrent embolism.INR SHOULD BE USED ONLY FOR PATIENTS ON STABLE ANTICOAGULANT THERAPY.11Interpretive Data: Heparin Therapeutic Range: 57 - 92 [id number] Comment: called to ger samayoa 11/17/2011 6:26 no clot 11/17/2011 6:2613Interpretive Data: Heparin Therapeutic Range: 57 - 92 SecondsIMMUNOLOGY Most recent to oldest [Reference Range]: 1 2 3 Prealbumin [18.0-45.0 mg/dL] 19.9 mg/dL (11/17/2011 05:50:00) Microbiology Reports PROCEDURE:Culture: Urine STATUS: Auth (Verified) BODY SITE: COLLECTED DATE/TIME: 11/17/2011 05:32:00 SOURCE: Urine, Catheterized FREE TEXT SOURCE: cup FINAL REPORTS Final Report<10,000/Ml Gram Negative Rods, Lactose Fermenters , No Further Workup <10,000/Ml Enterococcus Species , No Further WorkupPRELIMINARY REPORTS Preliminary ReportNo Growth After Overnight Incubation
--- OUTSIDE RECORDS SUMMARY | 2018-01-24 18:03 | XMS REPORT | Summary of Care ---
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 Cerebrovascular Disease Final: Pure Hypercholesterolemia Final: Unspecified Essential Hypertension Final: Diabetes mellitus without mention of complication, type II or unspecified type, not stated asuncontrolled Final: Lack of Coordination Discharge Disposition: Home Physician Attending: Ada Jackman MD Reason for Visit L HEMIPERESIS ARMS LEG/ CVA Problem List Condition Effective Dates Status Health Status Informant Dysphagia(Confirmed)1 Active Left sided CVA(Confirmed)2 Active Lethargy(Confirmed) Active Stroke(Confirmed) Active 1difficulty swallowing 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 DR [id number] Allergies, Adverse Reactions, Alerts Substance Reaction Severity [...]
--- OUTSIDE RECORDS SUMMARY | 2018-01-24 18:03 | XMS REPORT | Summary of Care ---
:1940 Author Encounter DAPHNE Bryant(OSMAN) [id number] Date(s): 01/21/14 - 01/21/[address] [id number] [facility] Discharge Disposition: Home Physician Attending: Adrian Beavers MD PHD Physician_Referring: Adrian Beavers MD PHD Reason for Visit F/U Vital Signs Most recent to oldest [Reference Range]: 1 Height 175.26 cm (01/21/14 9:49 AM) Systolic Blood Pressure [90-140 mmHg] 131 mmHg (01/21/14 9:49 AM) Diastolic Blood Pressure [60-90 mmHg] 69 mmHg (01/21/14 9:49 AM) Respiratory Rate [14-20 BRMIN] 18 BRMIN (01/21/14 9:49 AM) Peripheral Pulse Rate [60-100 bpm] 67 bpm (01/21/14 9:49 AM) Weight 79.091 kg (01/21/14 9:49 AM) Body Mass Index 25.75 m2 (01/21/14 9:49 AM) Problem List Condition Effective Dates Status Health Status Informant Dysphagia(Confirmed)1 Active Left sided CVA(Confirmed)2 Active Lethargy(Confirmed) Active Spasticity(Confirmed) Active Stroke(Confirmed) Active 1difficulty swallowing 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 DR [id number] Allergies, Adverse Reactions, Alerts Substance Reaction Severity Status NKDA Active Medications bromocriptine 2.5 mg oral tablet 5 mg=2 tab, PO, Daily, # 60 tab, 1 Refill(s), Pharmacy: [facility] [id number] Start Date: 01/21/14 Stop Date: 03/22/14 Status: OrderedONAbotulinumtoxinA 700 unit, Route: IM, ONCALL, Dosing Weight 73.182, kg, Start date: 01/21/14 11: 00:00, Duration: 30 day, Stop date: 02/20/14 10:59:00 Start Date: 01/21/14 Stop Date: 01/21/14 Status: Completed Medications Administered During Your Visit No data available for this section Immunizations No data available for this section Social History Social History Type Response Smoking Status Former smoker, Exposure to Tobacco Smoke None, Cigarette Smoking Last 365 Days No, Reg Smoking Cessation Counseling No
--- OUTSIDE RECORDS SUMMARY | 2018-01-24 18:03 | XMS REPORT | Summary of Care ---
:1940 Author Encounter DAPHNE Bryant(OSMAN) [id number] Date(s): 08/28/13 - 09/26/[address] [phone] [facility] Discharge Disposition: Home Physician Attending: Ada Jackman Reason for Visit L HEMIPERESIS ARMS LEG/ CVA Vital Signs Most recent to oldest 1 2 3 [Reference Range]: Systolic Blood Pressure 152 mmHg 152 mmHg 150 mmHg [90-140 mmHg] *HI* *HI* *HI* (09/18/13 12:18 PM) (09/11/13 12:18 PM) (08/28/13 9:05 AM) Diastolic Blood Pressure 94 mmHg 91 mmHg 89 mmHg [60-90 mmHg] *HI* *HI* (08/28/13 9:05 AM) (09/18/13 12:18 PM) (09/11/13 12:18 PM) Peripheral Pulse Rate [60-100 70 bpm 67 bpm 66 bpm bpm] (09/18/13 12:18 PM) (09/11/13 12:18 PM) (08/28/13 9:05 AM) Problem List Condition Effective Dates Status Health Status Informant Dysphagia(Confirmed)1 Active Lethargy(Confirmed) Active Stroke(Confirmed) Active 1difficulty swallowing even meds rn call center resident informed. DR Carter Allergies, Adverse Reactions, Alerts Substance Reaction Severity Status NKDA Active Medications No data available for this section Medications Administered During Your Visit No data available for this section Immunizations No data available for this section Social History Social History Type Response
--- OUTSIDE RECORDS SUMMARY | 2018-01-24 18:04 | XMS REPORT | Summary of Care ---
:1940 Author Organization [facility] Address [address] [place] [phone] Encounter HQ Encntr_nikki(FIN) [id number] Date(s): 07/01/15 - 07/30/[address] Discharge Disposition: Home Attending Physician: Ada Hunter MD Referring Physician: Ada Hunter MD Vital Signs No data available for this section Problem List Condition Effective Dates Status Health Status Informant Dysphagia(Confirmed)1 Active Left sided CVA(Confirmed)2 Active Lethargy(Confirmed) Active Spasticity(Confirmed) Active Spasticity(Confirmed) Active Spasticity(Confirmed) Active Stroke(Confirmed) Active 1difficulty swallowing even meds deputy united states marshal resident informed. DR [id number] Allergies, Adverse Reactions, Alerts Substance Reaction Severity Status NKDA Active Medications No data available for this section Results No data available for this section Immunizations No data available for this section Procedures Procedure Date Related Diagnosis Body Site Chemodenervation1 84326 Social History Social History Type Response Smoking Status Former smoker; Started at age: 18.0; Stopped at age: 71; Exposure to Tobacco Smoke None; Cigarette Smoking Last 365 Days No; Reg Smoking Cessation Counseling No Assessment and Plan No data available for this section
--- OUTSIDE RECORDS SUMMARY | 2018-01-24 18:04 | XMS REPORT | Summary of Care ---
:1940 Author Organization [facility] Address [address] [place] [phone] Encounter HQ Manny(FIN) [id number] Date(s): 03/08/16 - 03/08/[address] Discharge Disposition: Home or Self Care Attending Physician: Adrian Beavers MD PHD Referring Physician: Adrian Beavers MD PHD Vital Signs Most recent to oldest [Reference Range]: 1 Height 176.53 cm (03/08/16 9:50 AM) Blood Pressure [90-140/60-90 mmHg] 128/83 mmHg (03/08/16 9:50 AM) Respiratory Rate [14-20 BRMIN] 20 BRMIN (03/08/16 9:50 AM) Peripheral Pulse Rate [60-100 bpm] 76 bpm (03/08/16 9:50 AM) Weight 80.455 kg (03/08/16 9:50 AM) Body Mass Index 25.82 m2 (03/08/16 9:50 AM) Problem List Condition Effective Dates Status Health Status Informant Dysphagia(Confirmed)1 Active Left sided CVA(Confirmed)2 Active Lethargy(Confirmed) Active Spasticity(Confirmed) Active Spasticity(Confirmed) Active Spasticity(Confirmed) Active Stroke(Confirmed) Active 1difficulty swallowing even meds call center consultant resident informed. DR [id number] Allergies, Adverse Reactions, Alerts Substance Reaction Severity Status NKDA Active Medications No Known Medications Results No data available for this section Immunizations No data available for this section Procedures Procedure Date Related Diagnosis Body Site Chemodenervation1 79034 Social History Social History Type Response Smoking Status Former smoker; Started at age: 18.0; Stopped at age: 71; Exposure to Tobacco Smoke None; Cigarette Smoking Last 365 Days No; Reg Smoking Cessation Counseling No Assessment and Plan No data available for this section
--- OUTSIDE RECORDS SUMMARY | 2018-01-24 18:04 | XMS REPORT | Summary of Care ---
:1940 Author Organization [facility] Address [address] [place], [place] [phone] Encounter HQ Denis_nikki(FIN) [id number] Date(s): 01/13/15 - 01/13/[address] Discharge Disposition: Home Attending Physician: Adrian Beavers MD PHD Referring Physician: Adrian Beavers MD PHD Vital Signs Most recent to oldest [Reference Range]: 1 Height 176.53 cm (01/13/15 9:42 AM) Most recent to oldest [Reference Range]: 1 Blood Pressure [90-140/60-90 mmHg] 125/79 mmHg (01/13/15 9:42 AM) Most recent to oldest [Reference Range]: 1 Respiratory Rate [14-20 BRMIN] 20 BRMIN (01/13/15 9:42 AM) Most recent to oldest [Reference Range]: 1 Peripheral Pulse Rate [60-100 bpm] 82 bpm (01/13/15 9:42 AM) Most recent to oldest [Reference Range]: 1 Weight 82.273 kg (01/13/15 9:42 AM) Most recent to oldest [Reference Range]: 1 Body Mass Index 26.4 m2 (01/13/15 9:42 AM) Problem List Condition Effective Dates Status Health Status Informant Dysphagia(Confirmed)1 Active Left sided CVA(Confirmed)2 Active Lethargy(Confirmed) Active Spasticity(Confirmed) Active Spasticity(Confirmed) Active Spasticity(Confirmed) Active Stroke(Confirmed) Active 1difficulty swallowing even meds banquet server on call resident informed. DR [id number] Allergies, Adverse Reactions, Alerts Substance Reaction Severity Status NKDA Active Medications ONAbotulinumtoxinA 600 unit, Route: IM, ONCALL, Dosing Weight 80.909, kg, Start date: 01/13/15 11: 00:00, Duration: 30 day, Stop date: 02/12/15 10:59:00 Start Date: 01/13/15 Stop Date: 01/13/15 Status: Completed Results No data available for this section Immunizations No data available for this section Procedures Procedure Date Related Diagnosis Body Site Chemodenervation1 29994 Social History Social History Type Response Smoking Status Former smoker; Started at age: 18.0; Stopped at age: 71; Exposure to Tobacco Smoke None; Cigarette Smoking Last 365 Days No; Reg Smoking Cessation Counseling No Assessment and Plan No data available for this section
--- OUTSIDE RECORDS SUMMARY | 2018-01-24 18:04 | XMS REPORT | Summary of Care ---
:1940 Author Encounter DAPHNE Bryant(FIN) [id number] Date(s): 09/10/14 - 10/09/[address] Discharge Disposition: Home Physician Attending: Ada Jackman MD Vital Signs No data available for this section Problem List Condition Effective Dates Status Health Status Informant Dysphagia(Confirmed)1 Active Left sided CVA(Confirmed)2 Active Lethargy(Confirmed) Active Spasticity(Confirmed) Active Spasticity(Confirmed) Active Stroke(Confirmed) Active 1difficulty swallowing even meds chief electrician resident informed. DR [id number] Allergies, Adverse Reactions, Alerts Substance Reaction Severity Status NKDA Active Medications No data available for this section Results No data available for this section Immunizations No data available for this section Procedures Procedure Date Related Diagnosis Body Site Chemodenervation1 42289 Social History Social History Type Response Smoking Status Never smoker; Exposure to Tobacco Smoke None; Cigarette Smoking Last 365 Days No; Reg Smoking Cessation Counseling No Assessment and Plan No data available for this section
--- OUTSIDE RECORDS SUMMARY | 2018-01-24 18:04 | XMS REPORT | Summary of Care ---
:1940 Author Organization [facility] Address [address] [place] [phone] Encounter HQ Denis_nikki(FIN) [id number] Date(s): 08/09/16 - 08/09/[address] Discharge Disposition: Home or Self Care Attending Physician: Adrian Beavers MD PHD Referring Physician: Adrian Beavers MD PHD Vital Signs Most recent to oldest [Reference Range]: 1 Height 175.26 cm (08/09/16 9:46 AM) Blood Pressure [90-140/60-90 mmHg] 119/73 mmHg (08/09/16 9:46 AM) Respiratory Rate [14-20 BRMIN] 18 BRMIN (08/09/16 9:46 AM) Peripheral Pulse Rate [60-100 bpm] 78 bpm (08/09/16 9:46 AM) Weight 80.455 kg (08/09/16 9:46 AM) Body Mass Index 26.19 m2 (08/09/16 9:46 AM) Problem List Condition Effective Dates Status Health Status Informant Dysphagia(Confirmed)1 Active Left sided CVA(Confirmed)2 Active Lethargy(Confirmed) Active Spasticity(Confirmed) Active Spasticity(Confirmed) Active Spasticity(Confirmed) Active Stroke(Confirmed) Active 1difficulty swallowing even meds callisthenics instructor resident informed. DR [id number] Allergies, Adverse Reactions, Alerts Substance Reaction Severity Status NKDA Active Medications ONAbotulinumtoxinA 400 unit, Route: IM, ONCALL, Dosing Weight 80.455, kg, Start date: 08/09/16 11: 00:00 CDT, Duration: 30 day, Stop date: 09/08/16 10:59:00 CDT Start Date: 08/09/16 Stop Date: 08/09/16 Status: Completed Results No data available for this section Immunizations No data available for this section Procedures Procedure Date Related Diagnosis Body Site Chemodenervation1 78709 Social History Social History Type Response Smoking Status Former smoker; Started at age: 18.0; Stopped at age: 71; Ready to change: No; Concerns about tobacco use in household: No; Exposure to Tobacco Smoke None; Cigarette Smoking Last 365 Days No; Reg Smoking Cessation Counseling No Assessment and Plan No data available for this section
--- OUTSIDE RECORDS SUMMARY | 2018-01-24 18:04 | XMS REPORT | Summary of Care ---
:1940 Author Organization [facility] Address [address] [place] [phone] Encounter HQ Encntr_alimeliza(FIN) [id number] Date(s): 01/14/15 - 02/12/[address] Discharge Disposition: Home Attending Physician: Adrian Beavers MD PHD Vital Signs No data available for this section Problem List Condition Effective Dates Status Health Status Informant Dysphagia(Confirmed)1 Active Left sided CVA(Confirmed)2 Active Lethargy(Confirmed) Active Spasticity(Confirmed) Active Spasticity(Confirmed) Active Spasticity(Confirmed) Active Stroke(Confirmed) Active 1difficulty swallowing even meds jewelry maker resident informed. DR [id number] Allergies, Adverse Reactions, Alerts Substance Reaction Severity Status NKDA Active Medications No data available for this section Results No data available for this section Immunizations No data available for this section Procedures Procedure Date Related Diagnosis Body Site Chemodenervation1 77828 Social History Social History Type Response Smoking Status Former smoker; Started at age: 18.0; Stopped at age: 71; Exposure to Tobacco Smoke None; Cigarette Smoking Last 365 Days No; Reg Smoking Cessation Counseling No Assessment and Plan No data available for this section
--- OUTSIDE RECORDS SUMMARY | 2018-01-24 18:04 | XMS REPORT | Summary of Care ---
:1940 Author Organization [facility] Address [address] [place] [phone] Encounter HQ Denis_nikki(FIN) [id number] Date(s): 12/04/15 - 12/04/[address] [phone] Discharge Disposition: Home Attending Physician: Adrian Beavers MD PHD Referring Physician: Adrian Beavers MD PHD Vital Signs Most recent to oldest [Reference Range]: 1 Height 175.76 cm (12/04/15 8:25 AM) Blood Pressure [90-140/60-90 mmHg] 121/72 mmHg (12/04/15 8:25 AM) Respiratory Rate [14-20 BRMIN] 20 BRMIN (12/04/15 8:25 AM) Peripheral Pulse Rate [60-100 bpm] 73 bpm (12/04/15 8:25 AM) Weight 80.455 kg (12/04/15 8:25 AM) Body Mass Index 26.04 m2 (12/04/15 8:25 AM) Problem List Condition Effective Dates Status Health Status Informant Dysphagia(Confirmed)1 Active Left sided CVA(Confirmed)2 Active Lethargy(Confirmed) Active Spasticity(Confirmed) Active Spasticity(Confirmed) Active Spasticity(Confirmed) Active Stroke(Confirmed) Active 1difficulty swallowing even meds call or contact centre manager resident informed. DR [id number] Allergies, Adverse Reactions, Alerts Substance Reaction Severity Status NKDA Active Medications ONAbotulinumtoxinA 500 unit, Route: IM, ONCALL, Dosing Weight 80.455, kg, Start date: 12/04/15 9:00 :00 CDT, Duration: 30 day, Stop date: 01/03/16 8:59:00 CDT Start Date: 12/04/15 Stop Date: 12/04/15 Status: Completed Results No data available for this section Immunizations No data available for this section Procedures Procedure Date Related Diagnosis Body Site Chemodenervation1 84919 Social History Social History Type Response Smoking Status Former smoker; Started at age: 18.0; Stopped at age: 71; Exposure to Tobacco Smoke None; Cigarette Smoking Last 365 Days No; Reg Smoking Cessation Counseling No Assessment and Plan No data available for this section
--- OUTSIDE RECORDS SUMMARY | 2018-01-24 18:04 | XMS REPORT | Summary of Care ---
:1940 Author Organization [facility] Address [address] [place] [phone] Encounter HQ Manny(FIN) [id number] Date(s): 08/25/15 - 08/25/[address] Discharge Disposition: Home Attending Physician: Adrian Beavers MD PHD Referring Physician: Adrian Beavers MD PHD Vital Signs Most recent to oldest [Reference Range]: 1 Height 176.53 cm (08/25/15 9:22 AM) Blood Pressure [90-140/60-90 mmHg] 131/60 mmHg (08/25/15 9:22 AM) Respiratory Rate [14-20 BRMIN] 18 BRMIN (08/25/15 9:22 AM) Peripheral Pulse Rate [60-100 bpm] 83 bpm (08/25/15 9:22 AM) Weight 80.455 kg (08/25/15 9:22 AM) Body Mass Index 25.82 m2 (08/25/15 9:22 AM) Problem List Condition Effective Dates Status Health Status Informant Dysphagia(Confirmed)1 Active Left sided CVA(Confirmed)2 Active Lethargy(Confirmed) Active Spasticity(Confirmed) Active Spasticity(Confirmed) Active Spasticity(Confirmed) Active Stroke(Confirmed) Active 1difficulty swallowing even meds benefits technician resident informed. DR [id number] Allergies, Adverse Reactions, Alerts Substance Reaction Severity Status NKDA Active Medications ONAbotulinumtoxinA 500 unit, Route: IM, ONCALL, Dosing Weight 82.273, kg, Start date: 08/25/15 10: 00:00, Duration: 30 day, Stop date: 09/24/15 9:59:00 Start Date: 08/25/15 Stop Date: 08/25/15 Status: Completedsodium chloride 20 mL, Route: MISC, Start date: 08/25/15 11:00:00, Duration: 30 day, Stop date: 09/24/15 10:59:00 Notes: preservative free. Start Date: 08/25/15 Stop Date: 09/24/15 Status: Ordered Results No data available for this section Immunizations No data available for this section Procedures Procedure Date Related Diagnosis Body Site Chemodenervation1 19024 Social History Social History Type Response Smoking Status Former smoker; Started at age: 18.0; Stopped at age: 71; Exposure to Tobacco Smoke None; Cigarette Smoking Last 365 Days No; Reg Smoking Cessation Counseling No Assessment and Plan No data available for this section
--- OUTSIDE RECORDS SUMMARY | 2018-01-24 18:04 | XMS REPORT | Summary of Care ---
:1940 Author Encounter DAPHNE Barrios_nikki(OSMAN) [id number] Date(s): 10/14/14 - 10/14/[address] [phone] Discharge Disposition: Home Physician Attending: Adrian Beavers MD PHD Physician_Referring: Adrian Beavers MD PHD Vital Signs Most recent to oldest [Reference Range]: 1 Height 175.26 cm (10/14/14 10:44 AM) Blood Pressure [90-140/60-90 mmHg] 155/95 mmHg *HI* (10/14/14 10:44 AM) Respiratory Rate [14-20 BRMIN] 20 BRMIN (10/14/14 10:44 AM) Peripheral Pulse Rate [60-100 bpm] 84 bpm (10/14/14 10:44 AM) Weight 81.818 kg (10/14/14 10:44 AM) Body Mass Index 26.64 m2 (10/14/14 10:44 AM) Problem List Condition Effective Dates Status Health Status Informant Dysphagia(Confirmed)1 Active Left sided CVA(Confirmed)2 Active Lethargy(Confirmed) Active Spasticity(Confirmed) Active Spasticity(Confirmed) Active Spasticity(Confirmed) Active Stroke(Confirmed) Active 1difficulty swallowing even meds order desk caller resident informed. DR [id number] Allergies, Adverse Reactions, Alerts Substance Reaction Severity Status NKDA Active Medications No data available for this section Results No data available for this section Immunizations No data available for this section Procedures Procedure Date Related Diagnosis Body Site Chemodenervation1 32416 Social History Social History Type Response Smoking Status Former smoker; Started at age: 18.0; Stopped at age: 71; Exposure to Tobacco Smoke None; Cigarette Smoking Last 365 Days No; Reg Smoking Cessation Counseling No Assessment and Plan No data available for this section
--- OUTSIDE RECORDS SUMMARY | 2018-01-24 18:05 | XMS REPORT ---
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 Active Problem Seizure disorder G40.909 Active Problem History of CVA (cerebrovascular Z86.73 Active accident) Problem Nasal congestion R09.81 Active Problem 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 Problem Gastroesophageal reflux disease, K21.9 Active esophagitis presence not specified Problem Aphasia as late effect of I69.920 Active cerebrovascular accident Problem Primary insomnia F51.01 Active Problem Fatty liver K76.0 Active Problem Anemia D64.9 Active Problem Edema R60.9 Active Problem Diabetes E11.9 Active Problem Allergic rhinitis J30.9 Active Problem Benign essential HTN I10 Active Problem Hyperlipidemia E78.5 Active Problem Anxiety F41.9 Active Problem Alkaline phosphatase raised R74.8 Active Medications Medication Code Code Instructions Start End Date Status Dosage System Date [facility] 2001 [id number] (90 Base) November 07, Active 2 puffs as MCG/ACT 2018 needed Inhalation every 4- 6 hrs Results No Known Results Summary Purpose [employer] Submission
--- OUTSIDE RECORDS SUMMARY | 2018-01-24 18:05 | XMS REPORT ---
[...] Problem Alkaline phosphatase raised R74.8 Active Medications No Known Medications Results No Known Results Summary Purpose [employer] Submission
--- OUTSIDE RECORDS SUMMARY | 2018-01-24 18:05 | XMS REPORT ---
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 Problem Dysphagia causing pulmonary R13.19 Active aspiration with swallowing Problem Aphasia as late effect of I69.920 Active cerebrovascular accident Problem Alkaline phosphatase raised R74.8 Active Problem Nasal congestion R09.81 Active Problem Left-sided weakness R53.1 Active Problem Seizure disorder G40.909 Active Problem Weakness R53.1 Active Problem Hypernatremia E87.0 Active Problem Gastroesophageal reflux disease, K21.9 Active esophagitis presence not specified Problem 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 Problem 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
--- OUTSIDE RECORDS SUMMARY | 2018-01-24 18:05 | XMS REPORT ---
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 Problem History of CVA (cerebrovascular Z86.73 Active accident) Problem Aphasia as late effect of I69.920 Active cerebrovascular accident Problem Seizure disorder G40.909 Active Problem Gastroesophageal reflux disease, K21.9 Active esophagitis presence not specified Problem Dysphagia as late effect of I69.391 Active cerebrovascular accident (CVA) Problem Primary insomnia F51.01 Active Problem 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 Problem Edema R60.9 Active Problem Fatty liver K76.0 Active Problem Anxiety F41.9 Active Problem Diabetes E11.9 Active Problem Anemia D64.9 Active Problem Allergic rhinitis J30.9 Active Problem Benign essential HTN I10 Active Problem Hyperlipidemia E78.5 Active Medications No Known Medications Results No Known Results Summary Purpose [employer] Submission
--- OUTSIDE RECORDS SUMMARY | 2018-01-24 18:05 | XMS REPORT ---
:1940 Author Organization eClinicalWorks Care Team Providers Name Role Phone Lechuga, Na Provider Role Unavailable Allergies, Adverse Reactions, Alerts Substance Reaction Event Type N.K.D.A. 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 Assessment Gastroesophageal reflux disease, K21.9 Active esophagitis presence not specified Assessment 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 Problem Allergic rhinitis J30.9 Active Assessment Weakness R53.1 Active Problem Hyperlipidemia E78.5 Active Assessment Anemia, unspecified type D64.9 Active Problem Alkaline phosphatase raised R74.8 Active Problem 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 Active Problem 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 Problem History of CVA (cerebrovascular Z86.73 Active accident) Problem Aphasia as late effect of I69.920 Active cerebrovascular accident Assessment Primary insomnia F51.01 Active Assessment Anxiety F41.9 Active Problem Seizure disorder G40.909 Active Assessment Hypernatremia E87.0 Active Problem Gastroesophageal reflux disease, K21.9 Active esophagitis presence not specified Problem Dysphagia as late effect of I69.391 Active cerebrovascular accident (CVA) Problem Primary insomnia F51.01 Active Problem 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 Problem Edema R60.9 Active Problem Fatty liver K76.0 Active Assessment Aphasia as late effect of I69.920 Active cerebrovascular accident Assessment Seizure disorder G40.909 Active Problem Anxiety F41.9 Active Problem Diabetes E11.9 Active Problem Anemia D64.9 Active Problem Benign essential HTN I10 Active Medications Medication Code Code Instructions Start End Status Dosage System Date Date Cozaar [facility] 47594014282 50 MG Orally Active 1 tablet Once a day Amlodipine [facility] 54758348224 10 MG Orally Active 1 tablet Besylate Once a day Flomax [facility] 95108242877 0.4 MG Orally Active 1 capsule Once a day Singulair [facility] 43142253622 10 MG Orally Active 1 tablet Once a day in the evening Loratadine [facility] 75241920354 10 MG Active TAKE 1 TABLET BY MOUTH EVERY DAY Dilantin [facility] 64284524059 100 MG Orally August Active 1 capsule Four times a day 2017 Coreg [facility] 98186426593 3.125 MG Orally Active one tablet twice a day Flonase [facility] 44468846515 50 MCG/ACT Active 1 spray in Nasally Once a each day nostril Lorazepam [facility] 62556789612 0.5 MG Orally August Active 1 tablet every 12 hrs 2017 as needed Finasteride [facility] 23092969714 5 MG Orally Once Active 1 tablet a day Lipitor [facility] 74112208285 80 MG Active TAKE 1 TABLET BY MOUTH AT BEDTIME Lamictal [facility] 89236722388 200 MG Orally Active 1 tablet Twice a day Results Name Result Date Reference Range Unit Abnormality Flag BMP Summary Purpose eClinicalWorks Submission
--- OUTSIDE RECORDS SUMMARY | 2018-01-24 18:05 | XMS REPORT ---
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 Active cerebrovascular accident Problem Primary insomnia F51.01 Active Problem Fatty liver K76.0 Active Problem Anemia D64.9 Active Assessment Allergic rhinitis J30.9 Active Problem Edema R60.9 Active Problem Diabetes E11.9 Active Problem Allergic rhinitis J30.9 Active Problem Benign essential HTN I10 Active Problem Hyperlipidemia E78.5 Active Assessment 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 Problem Anxiety F41.9 Active Problem Alkaline phosphatase raised R74.8 Active Medications Medication Code Code Instructions Start End Status Dosage System Date Date Flomax [facility] 10762049181 0.4 MG Orally Active 1 capsule Once a day Singulair [facility] 31021801937 10 MG Orally Active 1 tablet Once a day in the evening Coreg [facility] 92801417197 3.125 MG Orally Active one tablet twice a day Lamictal [place] 21797109440 200 MG Orally Active 1 tablet Twice a day Amlodipine [facility] 96774703668 10 MG Orally Active 1 tablet Besylate Once a day Lorazepam [facility] 78487958460 0.5 MG Orally Alice Active 1 tablet every 12 hrs 2017 as needed Loratadine [facility] 28748097179 10 MG Occe a Apr 09, Active TAKE 1 day 2018 TABLET BY MOUTH EVERY DAY Cozaar [facility] 56493185769 50 MG Orally Active 1 tablet Once a day Singulair [facility] 77518386746 10 MG Active TAKE 1 TABLET BY MOUTH AT BEDTIME Dilantin [facility] 70364436831 125 MG/5ML via August Active 4 ml PEG tube every 6 2017 hours Dilantin [facility] 10423407976 100 MG Orally August Active 1 capsule Three times a 2017 day Montelukast [facility] 09167065033 10 MG Orally Active 1 tablet Sodium Once a day in the evening Finasteride [facility] 20050314339 5 MG Orally Once Active 1 tablet a day Flonase [facility] 67111212680 50 MCG/ACT Active 1 spray in Nasally Once a each day nostril Lipitor [facility] 32161896300 80 MG Active TAKE 1 TABLET BY MOUTH AT BEDTIME Results No Known Results Summary Purpose eClinicalWorks Submission
--- OUTSIDE RECORDS SUMMARY | 2018-01-24 18:05 | XMS REPORT ---
[...] I10 Active Problem Hyperlipidemia E78.5 Active Medications Medication Code System Code Instructions Start Date End Date Status Dosage Dilantin [facility] 18789442651 125 MG/5ML via September 23, Active 4 ml PEG tube every 6 2018 hours Results No Known Results Summary Purpose eClinicalWorks Submission
--- OUTSIDE RECORDS SUMMARY | 2018-01-24 18:05 | XMS REPORT ---
[...] Active Problem Benign essential HTN I10 Active Assessment Primary insomnia F51.01 Active Problem Primary insomnia F51.01 Active Problem Anxiety F41.9 Active Problem Edema R60.9 Active Problem Diabetes E11.9 Active Medications Medication Code System Code Instructions Start End Date Status Dosage Date Lorazepam [facility] 23000490316 0.5 MG Orally Active 1 tablet every 12 hrs as needed Results No Known Results Summary Purpose eClinicalWorks Submission
--- OUTSIDE RECORDS SUMMARY | 2018-01-24 18:05 | XMS REPORT ---
:1940 Author Organization eClinicalWorks Care Team Providers Name Role Phone Lechuga, Na Provider Role Unavailable Allergies, Adverse Reactions, Alerts Substance Reaction Event Type N.K.D.A. 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 Assessment Anemia, unspecified type D64.9 Active Assessment Hypernatremia E87.0 Active Assessment Anxiety F41.9 Active Assessment Primary insomnia F51.01 Active Assessment Aphasia as late effect of I69.920 Active cerebrovascular accident Problem Anxiety F41.9 Active Assessment Seizure disorder G40.909 Active Problem Diabetes E11.9 Active Problem Allergic rhinitis J30.9 Active Problem History of CVA (cerebrovascular Z86.73 Active accident) Problem Hyperlipidemia E78.5 Active Problem Anemia, unspecified type D64.9 Active Problem Dysphagia causing pulmonary R13.19 Active aspiration with swallowing Problem 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 Problem Aphasia as late effect of I69.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 Active cerebrovascular accident Problem Nasal congestion R09.81 Active Problem Alkaline phosphatase raised R74.8 Active Problem Left-sided weakness R53.1 Active Problem Seizure disorder G40.909 Active Problem Weakness R53.1 Active Problem Hypernatremia E87.0 Active Assessment Gastroesophageal reflux disease, K21.9 Active esophagitis presence not specified Problem Gastroesophageal reflux disease, K21.9 Active esophagitis presence not specified Assessment Excessive salivation K11.7 Active Problem 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 Assessment Benign essential HTN I10 Active Problem 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 Active Assessment Left-sided weakness R53.1 Active Problem Dysphagia as late effect of I69.391 Active cerebrovascular accident (CVA) Assessment 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 Problem Fatty liver K76.0 Active Assessment Hyperlipidemia E78.5 Active Problem Benign essential HTN I10 Active Problem Primary insomnia F51.01 Active Problem Edema R60.9 Active Medications Medication Code Code Instructions Start End Status Dosage System Date Date Lipitor [facility] 90076028538 80 MG Active TAKE 1 TABLET BY MOUTH AT BEDTIME Montelukast [facility] 64859246353 10 MG Orally Active 1 tablet Sodium Once a day in the evening Cozaar [facility] 42043603002 50 MG Orally Active 1 tablet Once a day Ventolin HFA [facility] 79034137738 108 (90 Base) November 07, 2 puffs as MCG/ACT 2018 needed Inhalation every 4- 6 hrs Flomax [facility] 86874585577 0.4 MG Orally Active 1 capsule Once a day Dilantin [facility] 23815311485 125 MG/5ML via Alice Active 4 ml PEG tube every 2017 hours Amlodipine [facility] 03597961244 10 MG Orally Active 1 tablet Besylate Once a day Finasteride [facility] 98027741197 5 MG Orally Once Active 1 tablet a day Loratadine [facility] 54550880969 10 MG Active TAKE 1 TABLET BY MOUTH EVERY DAY Dilantin [facility] 53828411030 100 MG Orally Active 1 capsule Four times a day Singulair [facility] 23683669351 10 MG Active TAKE 1 TABLET BY MOUTH AT BEDTIME Lamictal [facility] 78520736147 200 MG Orally Active 1 tablet Twice a day Singulair [facility] 36844877283 10 MG Orally Active 1 tablet Once a day in the evening Lorazepam [facility] 29021099913 0.5 MG Orally Active 1 tablet every 12 hrs as needed Flonase ND 63567871506 50 MCG/ACT Active 1 spray in Nasally Once a each day nostril Coreg [facility] 29375975790 3.125 MG Orally Active one tablet twice a day Results No Known Results Summary Purpose eClinicalWorks Submission
[2018-01-24] MEDS ORDERED: NA CHLORIDE 0.9% 1,000 ML ONE (18:44)
--- NOTE | 2018-01-24 19:09 | RAD REPORT ---
EXAM DESCRIPTION: RAD - Chest Single View - 01/24/2018 7:04 pm CLINICAL HISTORY: COUGH Chest pain. COMPARISON: Abdomen 1 View (KUB) dated 08/16/2017; Abdomen 1 View (KUB) dated 08/15/2017; Chest Single View dated 08/14/2017; Chest Single View dated 08/13/2017 FINDINGS: Portable technique limits examination quality. The lungs are grossly clear. The heart is normal in size. No displaced fractures. IMPRESSION: No acute intrathoracic process suspected.
[2018-01-24 19:18] LABS: Absolute Lymphocytes (CBC) 0.7 K/uL (0.7-4.9); Absolute Monocytes 0.9 K/uL (0.1-1.3); Basophils % 0.7 % (0-1.3); Eosinophils % 4.3 % (0-4.4); Hematocrit 37.4 % (39.6-49.0); Lymphocytes % 10.5 % (15.3-44.8); MCH 23.6 pg (27.0-35.0); MPV 8.9 fL (7.6-11.3); RBC Red Blood Cell Count 5.12 M/uL (4.33-5.43)
[2018-01-24 19:51] LABS: Anisocytosis 1+; Blood Morphology Comment NOTED (NOT SEEN); Platelet Estimate ADEQ; Urine White Blood Cell Casts OK
[2018-01-24 20:04] LABS: Protime INR 0.97
[2018-01-24 20:27] LABS: ALT/SGPT 35 U/L (12-78); AST/SGOT 66 U/L (15-37); Albumin 3.1 g/dL (3.4-5.0); Alkaline Phosphatase 160 U/L (45-117); BUN Blood Urea Nitrogen 36 mg/dL (7-18); Bicarbonate 31 mmol/L (21-32); Bilirubin Direct < 0.1 mg/dL (0-0.2); Bilirubin Total 0.3 mg/dL (0.2-1.0); CKMB Creatine Kinase MB < 1.0 ng/mL (0.3-3.6); Creatine Phosphokinase 118 U/L (39-308); Glucose Level 91 mg/dL (74-106); Lipase 234 U/L (73-393); Magnesium 2.8 mg/dL (1.8-2.4); NT PRO-BNP 178 pg/mL (<450); Phenytoin (Dilantin) Level 12.2 ug/mL (10.0-20.0); Potassium 5.5 mmol/L (3.5-5.1); Protein, Total 7.5 g/dL (6.4-8.2); Sodium Level 132 mmol/L (136-145)
--- NOTE | 2018-01-24 21:29 | ER ---
Nurse's Notes [facility] Name: Timothy Ward Age: 77 yrs Sex: Male : 1940 Arrival Date: 01/24/2018 Time: 18:00 Bed 25 Private MD: Diagnosis: Cough;Cellulitis and acute lymphangitis of other parts of limb-small;Unspecified kidney failure;Hyperkalemia Presentation: 01/24 18:04 Presenting complaint: EMS states: he has redness or possible cellulitis in the upper mg2 left thigh just observed today. he is bed bound, no bedsore, BGL on scene was 112 mg/dl. v/s stable, afebrile. He has a peg tube for feeding inserted last July 2017. Transition of care: patient was not received from another setting of care. Onset of symptoms was January 24, 2018. Risk Assessment: Do you want to hurt yourself or someone else? Patient reports no desire to harm self or others. Initial Sepsis Screen: Does the patient meet any 2 criteria? No. Patient's initial sepsis screen is negative. Does the patient have a suspected source of infection? No. Patient's initial sepsis screen is negative. Care prior to arrival: None. 18:04 Method Of Arrival: EMS: [facility] mg2 18:04 Acuity: DANIELLE 3 mg2 Historical: - Allergies: 18:10 No Known Allergies; mg2 - Home Meds: 18:10 lamotrigine 100 mg oral tab 1 tab 2 times per day [Active]; aspirin 325 mg Oral TbEC 1 mg2 tab once daily [Active]; loratadine 10 mg oral tab 1 tab once daily [Active]; Vitamin D Oral [Active]; phenytoin 125 mg/5 mL Oral susp 5 mL 3 times per day [Active]; atorvastatin 80 mg oral tab 1 tab once daily [Active]; tamsulosin 0.4 mg oral cp24 1 cap once daily [Active]; finasteride 5 mg oral tab 1 tab once daily [Active]; baclofen 10 mg Oral tab [Active]; - PMHx: 18:14 CHF; Hypertension; CVA; Pneumonia; mg2 - PSHx: 18:14 None; mg2 - Immunization history:: Flu vaccine is not up to date. - Social history:: Smoking status: Patient/guardian denies using tobacco, Patient/guardian denies using alcohol, street drugs, IV drugs. - Ebola Screening: : No symptoms or risks identified at this time. - Family history:: not pertinent. Screenin:09 Abuse screen: Denies threats or abuse. Denies injuries from another. Nutritional mg2 screening: No deficits noted. Tuberculosis screening: No symptoms or risk factors identified. Fall Risk IV access (20 points). Gait- Impaired (20 pts.). Assessment: 19:08 General: Appears in no apparent distress. comfortable, Behavior is calm, cooperative. mg2 Pain: Denies pain. Neuro: Level of Consciousness is awake, alert, obeys commands, Oriented to person, place, situation. Cardiovascular: Capillary refill < 3 seconds Patient's skin is warm and dry. Respiratory: Airway is patent Respiratory effort is even, unlabored, Respiratory pattern is regular, symmetrical. GI: No signs and/or symptoms were reported involving the gastrointestinal system. : No signs and/or symptoms were reported regarding the genitourinary system. EENT: No signs and/or symptoms were reported regarding the EENT system. Derm: Skin is intact, Rash noted that is possible cellulits. Musculoskeletal: Circulation, motion, and sensation intact. 20:29 Reassessment: Patient appears in no apparent distress at this time. Patient and/or mg2 family updated on plan of care and expected duration. Pain level reassessed. Patient is alert, oriented x 3, equal unlabored respirations, skin warm/dry/pink. 22:39 Reassessment: Patient appears in no apparent distress at this time. Patient and/or mg2 family updated on plan of care and expected duration. Pain level reassessed. Patient is alert, oriented x 3, equal unlabored respirations, skin warm/dry/pink. Vital Signs: 18:07 BP 124 / 72; Pulse 80; Resp 18; Temp 98.1(O); Pulse Ox 100% on R/A; Weight 80.29 kg; mg2 Height 5 ft. 9 in. (175.26 cm); Pain 0/10; 20:29 BP 136 / 70; Pulse 73; Resp 18; Pulse Ox 98% on R/A; Pain 0/10; mg2 20:54 BP 139 / 83; Pulse 77; Resp 18; Pulse Ox 99% on R/A; Pain 0/10; mg2 22:39 BP 123 / 78; Pulse 77; Resp 18; Pulse Ox 100% on R/A; Pain 0/10; mg2 18:07 Body Mass Index 26.14 (80.29 kg, 175.26 cm) mg2 ED Course: 18:00 Patient arrived in ED. mg2 18:07 Triage completed. mg2 18:35 Cuate Vera MD is Attending Physician. omar 18:38 Gama Cote, RN is Primary Nurse. mg2 18:57 X-ray completed. Portable x-ray completed in exam room. Patient tolerated procedure az well. 18:57 XRAY Chest (1 view) In Process Unspecified. EDMS 19:09 No provider procedures requiring assistance completed. Inserted saline lock: 20 gauge mg2 in right antecubital area, using aseptic technique. Blood collected. 19:10 Patient has correct armband on for positive identification. Bed in low position. Call mg2 light in reach. Side rails up X2. Pulse ox on. NIBP on. Door closed. 22:40 IV discontinued, intact, bleeding controlled, No redness/swelling at site. Pressure mg2 dressing applied. 22:41 Arm band placed on. mg2 Administered Medications: 18:50 Drug: NS 0.9% 1000 ml Route: IV; Rate: 125 ml/hr; Site: right antecubital; mg2 22:40 Follow up: Response: No adverse reaction; IV Status: Order to discontinue infusion mg2 21:48 Drug: Ancef 1 grams Route: IVPB; Site: right antecubital; mg2 22:40 Follow up: Response: No adverse reaction; IV Status: Completed infusion mg2 21:48 Drug: Kayexalate 30 grams Route: PO; mg2 22:39 Follow up: Response: No adverse reaction; Medication administered at discharge. mg2 Outcome: 21:29 Discharge ordered by . [facility] 22:40 Discharged to home via ambulance. mg2 22:40 Condition: stable 22:40 Discharge instructions given to patient, family, Instructed on discharge instructions, follow up and referral plans. medication usage, Demonstrated understanding of instructions, follow-up care, medications, Prescriptions given X 1. 22:41 Patient left the ED. mg2 Signatures: Dispatcher [employer] [facility]CO Cuate Vera MD MD cha Gardose, Michele, RN RN mg2 Aysha Dunn Corrections: (The following items were deleted from the chart) 18:08 18:04 Presenting complaint: EMS states: he has redness or possible cellulitis in the mg2 upper left thigh just observed today. he is bed bound, no bedsore, BGL on scene was 112 mg/dl. v/s stable, afebrile. mg2 18:14 18:07 BP 124 / 72; Pulse 80bpm; Resp 18bpm; Pulse Ox 100% RA; Temp 98.1F Oral; Pain mg2 0/10; mg2
--- NOTE | 2018-01-24 21:29 | EDPHYS ---
Physician Documentation [facility] Name: Timothy Andres Age: 77 yrs Sex: Male : 1940 Arrival Date: 01/24/2018 Time: 18:00 Bed 25 Private MD: ED Physician Cuate Vera HPI: 01/24 21:10 This 77 yrs old Black Male presents to ER via EMS with complaints of left upper medial omar thigh cellulitis, mild induration. 21:10 The patient presents with pain, tenderness, mild induration. The complaints affect the omar medial aspect of left thigh. Context: The problem was sustained at home. Onset: The symptoms/episode began/occurred 2 day(s) ago. Modifying factors: The symptoms are alleviated by nothing. the symptoms are aggravated by nothing. Associated signs and symptoms: The patient has no apparent associated signs or symptoms. Treatment prior to arrival includes: no previous treatment. Severity of symptoms: At their worst the symptoms were mild, in the emergency department the symptoms are unchanged. The patient has not experienced similar symptoms in the past. Historical: - Allergies: 18:10 No Known Allergies; mg2 - Home Meds: 18:10 lamotrigine 100 mg oral tab 1 tab 2 times per day [Active]; aspirin 325 mg Oral TbEC 1 mg2 tab once daily [Active]; loratadine 10 mg oral tab 1 tab once daily [Active]; Vitamin D Oral [Active]; phenytoin 125 mg/5 mL Oral susp 5 mL 3 times per day [Active]; atorvastatin 80 mg oral tab 1 tab once daily [Active]; tamsulosin 0.4 mg oral cp24 1 cap once daily [Active]; finasteride 5 mg oral tab 1 tab once daily [Active]; baclofen 10 mg Oral tab [Active]; - PMHx: 18:14 CHF; Hypertension; CVA; Pneumonia; mg2 - PSHx: 18:14 None; mg2 - Immunization history:: Flu vaccine is not up to date. - Social history:: Smoking status: Patient/guardian denies using tobacco, Patient/guardian denies using alcohol, street drugs, IV drugs. - Ebola Screening: : No symptoms or risks identified at this time. - Family history:: not pertinent. ROS: 21:10 Constitutional: Negative for fever, chills, and weight loss, Eyes: Negative for injury, omar pain, redness, and discharge, ENT: Negative for injury, pain, and discharge, Neck: Negative for injury, pain, and swelling, Cardiovascular: Negative for chest pain, palpitations, and edema, Abdomen/GI: Negative for abdominal pain, nausea, vomiting, diarrhea, and constipation, Back: Negative for injury and pain, : Negative for injury, bleeding, discharge, and swelling, Neuro: Negative for headache, weakness, numbness, tingling, and seizure, Psych: Negative for depression, anxiety, suicide ideation, homicidal ideation, and hallucinations, Allergy/Immunology: Negative for hives, rash, and allergies, Endocrine: Negative for neck swelling, polydipsia, polyuria, polyphagia, and marked weight changes. 21:10 Respiratory: Positive for cough, "sounds productive". 21:10 Abdomen/GI: Positive for peg. 21:10 MS/extremity: Positive for swelling, tenderness, warmth, of the medial aspect of left thigh. Exam: 21:10 Head/Face: Normocephalic, atraumatic. Eyes: Pupils equal round and reactive to light, omar extra-ocular motions intact. Lids and lashes normal. Conjunctiva and sclera are non-icteric and not injected. Cornea within normal limits. Periorbital areas with no swelling, redness, or edema. ENT: Nares patent. No nasal discharge, no septal abnormalities noted. Tympanic membranes are normal and external auditory canals are clear. Oropharynx with no redness, swelling, or masses, exudates, or evidence of obstruction, uvula midline. Mucous membranes moist. Chest/axilla: Normal chest wall appearance and motion. Nontender with no deformity. No lesions are appreciated. Cardiovascular: Regular rate and rhythm with a normal S1 and S2. No gallops, murmurs, or rubs. Normal PMI, no JVD. No pulse deficits. Back: No spinal tenderness. No costovertebral tenderness. Full range of motion. 21:10 Respiratory: the patient does not display signs of respiratory distress, Respirations: normal, Breath sounds: rhonchi. 21:10 Abdomen/GI: Inspection: abdomen appears normal, Bowel sounds: normal, Palpation: abdomen is soft and non-tender, Liver: no appreciated palpable abnormalities, Hernia: not appreciated, peg, usual. 21:10 Musculoskeletal/extremity: Extremities: noted in the medial aspect of left thigh: decreased ROM, erythema, pain, Circulation is intact in all extremities. Compartment Syndrome exam of affected extremity: is normal. DVT Exam: no pain, negative Homans' sign noted on exam, no appreciated bluish discoloration, tenderness, erythema, increased warmth, of the left leg, of the medial aspect of left thigh. Vital Signs: 18:07 BP 124 / 72; Pulse 80; Resp 18; Temp 98.1(O); Pulse Ox 100% on R/A; Weight 80.29 kg; mg2 Height 5 ft. 9 in. (175.26 cm); Pain 0/10; 20:29 BP 136 / 70; Pulse 73; Resp 18; Pulse Ox 98% on R/A; Pain 0/10; mg2 20:54 BP 139 / 83; Pulse 77; Resp 18; Pulse Ox 99% on R/A; Pain 0/10; mg2 22:39 BP 123 / 78; Pulse 77; Resp 18; Pulse Ox 100% on R/A; Pain 0/10; mg2 18:07 Body Mass Index 26.14 (80.29 kg, 175.26 cm) mg2 MDM: 18:35 Patient medically screened. [facility] 21:14 Data reviewed: vital signs, nurses notes, lab test result(s), EKG, radiologic studies, omar plain films. 01/24 18:38 Order name: Basic Metabolic Panel [facility] 01/24 18:38 Order name: CBC with Diff [facility] 01/24 18:38 Order name: Ckmb [facility] 01/24 18:38 Order name: CPK [facility] 01/24 18:38 Order name: LFT's; Complete Time: 21:06 [facility] 01/24 18:38 Order name: Magnesium; Complete Time: 21:06 [facility] 01/24 18:38 Order name: NT PRO-BNP; Complete Time: 21:06 [facility] 01/24 18:38 Order name: PT-INR; Complete Time: 21:06 [facility] 01/24 18:38 Order name: Ptt, Activated; Complete Time: 21:06 [facility] 01/24 18:38 Order name: Troponin (emerg Dept Use Only); Complete Time: 21:06 [facility] 01/24 18:38 Order name: Lipase; Complete Time: 21:06 [facility] 01/24 18:38 Order name: Blood Culture Adult (2) [facility] 01/24 18:38 Order name: Dilantin; Complete Time: 21:06 [facility] 01/24 18:38 Order name: Basic Metabolic Panel; Complete Time: 21:06 [facility] 01/24 18:38 Order name: XRAY Chest (1 view); Complete Time: 21:06 [facility] 01/24 18:38 Order name: EKG; Complete Time: 18:38 [facility] 01/24 18:38 Order name: Cardiac monitoring; Complete Time: 19:08 [facility] 01/24 18:38 Order name: EKG - Nurse/Tech; Complete Time: 19:50 [facility] 01/24 18:38 Order name: IV Saline Lock; Complete Time: 19:08 [facility] 01/24 18:38 Order name: Labs collected and sent; Complete Time: 19:08 [facility] 01/24 18:38 Order name: O2 Per Protocol; Complete Time: 19:08 [facility] 01/24 18:38 Order name: O2 Sat Monitoring; Complete Time: 19:08 [facility] 01/24 18:38 Order name: CBC with Automated Diff; Complete Time: 21:06 [facility] 01/24 18:38 Order name: CKMB Creatine Kinase MB; Complete Time: 21:06 [facility] 01/24 18:38 Order name: Creatine Phosphokinase; Complete Time: 21:06 [facility] 01/24 19:50 Order name: CBC Smear Scan; Complete Time: 21:06 [facility] 01/24 21:26 Order name: Bladder Scanner; Complete Time: 22:39 [facility] Administered Medications: 18:50 Drug: NS 0.9% 1000 ml Route: IV; Rate: 125 ml/hr; Site: right antecubital; mg2 22:40 Follow up: Response: No adverse reaction; IV Status: Order to discontinue infusion mg2 21:48 Drug: Ancef 1 grams Route: IVPB; Site: right antecubital; mg2 22:40 Follow up: Response: No adverse reaction; IV Status: Completed infusion mg2 21:48 Drug: Kayexalate 30 grams Route: PO; mg2 22:39 Follow up: Response: No adverse reaction; Medication administered at discharge. mg2 Disposition: 01/24/18 21:29 Discharged to Home. Impression: Cough, Cellulitis and acute lymphangitis of other parts of limb - small, Unspecified kidney failure, Hyperkalemia. - Condition is Stable. - Discharge Instructions: Cellulitis, Adult, Hyperkalemia, Hyperkalemia, [id number], Cellulitis, Adult, [id number], Cough, Adult, [id number], Chronic Kidney Disease, Adult, [id number], Cough, Adult. - Prescriptions for Keflex 500 mg Oral capsule - take 1 capsule by ORAL route 4 times per day for 7 days; 28 capsule. - Medication Reconciliation Form, Thank You Letter, Antibiotic Education, Prescription Opioid Use, SBAR form form. - Follow up: Private Physician; When: Tomorrow; Reason: Recheck today's complaints, Continuance of care, Re-evaluation by your physician. - Problem is new. - Symptoms have improved. Signatures: Dispatcher [employer] EDMS Cuate Vera MD MD cha Gardose, Michele, RN RN mg2 Corrections: (The following items were deleted from the chart) 22:41 21:29 01/24/2018 21:29 Discharged to Home. Impression: Cough; Cellulitis and acute mg2 lymphangitis of other parts of limb - small; Unspecified kidney failure; Hyperkalemia. Condition is Stable. Forms are Medication Reconciliation Form, Thank You Letter, Antibiotic Education, Prescription Opioid Use. Follow up: Private Physician; When: Tomorrow; Reason: Recheck today's complaints, Continuance of care, Re-evaluation by your physician. Problem is new. Symptoms have improved. omar
[2018-01-24] MEDS ORDERED: SOD POLYSTYREN SUL 15 GM/60 ML UCUP ONE (21:39)
[2018-01-24] MEDS ORDERED: CEFAZOLIN/SWI 1gm 1 GM/10 ML SYR ONE (21:40)
[2018-01-24 22:46] VITALS: TEMP 98.1
[2018-01-24 22:50] VITALS: BP 123/78; O2SAT 100
--- NOTE | 2018-01-25 16:18 | EKG ---
Test Date: 2018-01-24 Test Time: 19:36:47 Kitchen Bath Designer: MG MEASUREMENT RESULTS: Intervals: Rate: 76 CA: 210 QRSD: 82 QT: 386 QTc: 434 [place]: P: 57 CA: 210 QRS: 44 T: 70 INTERPRETIVE STATEMENTS: Sinus rhythm with 1st degree AV block Cannot rule out Anterior infarct, age undetermined Abnormal ECG Compared to ECG 08/09/2017 11:22:40 First degree AV block now present Myocardial infarct finding now present Electronically Signed On 01-25-18 16:14:45 CDT by Juan Alberto Butts
== END 2018-01-24 22:41 | disposition home or self-care (01) ==
LOC: ER 17:56
DX: L03.116 Cellulitis of left lower limb (principal); I89.1 Lymphangitis; R05 Cough; E87.5 Hyperkalemia; N19 Unspecified kidney failure; I10 Essential (primary) hypertension; I50.9 Heart failure, unspecified; Z79.82 Long term (current) use of aspirin; Z86.73 Personal history of transient ischemic attack (TIA), and cerebral infarction without residual deficits
CPT/HCPCS: 36415; 71045; 80048; 80076; 80185; 82550; 82553; 83690; 83735; 83880; 84484; 85025; 85610; 85730; 87040 ×2; 93005; 96361; 96365; 99284; J0690; J7030

== ENCOUNTER 2019-02-14 12:15 | Emergency (ER) | payer OTHER ==
--- OUTSIDE RECORDS SUMMARY | 2019-02-14 12:23 | XMS REPORT | Continuity of Care Document ---
:1940 Author Organization [employer] Care Team Providers Name Role Phone WESYNC SpA Information WeOwe Unavailable Unavailable Problems Problem Status Onset Classification Date Comments Source Date Reported MARTINS Active 01/17/ [facility] 2018 MBS Active 11/20/ [facility] 2018 STRENGTH UNLIMITED Active 08/14/ [facility] 2019 200 UNITS Active 08/07/ [facility] 2019 F/U Active 06/26/ [facility] 2018 Dysphagia, MH [facility] unspecified 2017 9 Other muscle spasm 01/10/ [facility] 2018 9 200 Active 12/19/ [facility] 2018 BPH Active 08/10/ [facility] - 2018 8 [place] Aphasia Active 08/10/ [facility] - 2018 8 [place] Anemia Active 08/10/ [facility] - 2018 8 [place] Hyperlipidemia Active 08/10/ [facility] - 2018 8 [place] Hypernatremia Resolved 08/10/ [facility] - 2018 8 [place] Seizure disorder Active 08/10/ [facility] - 2018 8 [place] Altered mental Active 08/10/ [facility] - status 2018 8 [place] Atelectasis Active 08/10/ [facility] - 2018 8 [place] Poor appetite Active 08/10/ [facility] - 2018 8 [place] Hyperkalemia Resolved 08/10/ [facility] - 2018 8 [place] Pulmonary Active 08/10/ [facility] - atelectasis 2018 8 [place] Decrease in appetite Active 08/10/ [facility] - 2018 8 [place] Benign prostatic Active 08/10/ [facility] - hyperplasia 2018 8 [place] Influenza A Active 06/09/ [facility] - 2018 8 [place] Acute kidney injury Resolved [facility] - superimposed on CKD 2017 8 [place] Left lower lobe Active [facility] - pneumonia 2017 8 [place] [address] [facility] - 2018 8 [place] Hypertension Active [facility] - 2018 8 [place] Acute kidney injury Active 06/09/ [facility] - superimposed on 2017 8 [place] chronic kidney disease BOTOX INJECTION Active 11/24/ [facility] 2016 300 Active [facility] [address] [facility] - 2016 8 [place] RAD Active [facility] - 2016 8 [place] [address] [facility] - 2016 8 [place] [address] [facility] - 2016 8 [place] 400 UNITS Active [facility] 2016 STRENGHT UNLIMITED Active [facility] 2016 500 UNITS Active 08/24/ [facility] 2016 500 BTX Active 07/31/ [facility] 2016 CVA Active 06/18/ [facility], 2016 Rehabilitation BTX Active 10/14/ [facility] 2015 600 UNITS Active [facility] 2015 700 U Active [facility] 2014 700 UNITS Active [facility] 2014 L HEMIPERESIS ARM Active [facility] LEG CVA 2013 EVAL FOR BOTOX Active [facility] 2014 STROKE Active 11/15/ [facility] 2012 L HEMIPERESIS ARMS Active 05/30/ [facility] LEG/ CVA 2000 L HEMIPERESIS ARMS Active 05/30/ [facility] LEG CVA 2001 PRESSURE MAPPING Active 05/30/ [facility] 2000 Dysphagia (disorder) Active Problem difficulty [facility] 9 swallowing even meds call center consultant resident informed. DR Carter Left sided cerebral Active Problem 2011 [facility] hemisphere 9 cerebrovascular accident (disorder) Lethargy (finding) Active Problem [facility] 9 Spasticity (finding) Active Problem [facility] 9 Cerebrovascular Active Problem [facility] accident (disorder) 9 Spasticity Active Problem [facility] (qualifier value) 8 Disturbances of [facility] salivary secretion 9 Dysphagia Inactive Problem [address] Dysphasia Inactive Problem [address] Stroke Active Problem [address] Weakness Inactive Problem [address] Final: Hemiplegia [facility] Affecting 4 Unspecified Side as Late Effect of Cerebrovascular Disease Final: Pure [facility] Hypercholesterolemia 4 Final: Unspecified [facility] Essential 4 Hypertension Final: Diabetes [facility] mellitus without 4 mention of complication, type II or unspecified type, not stated as uncontrolled Final: Lack of [facility] Coordination 4 Dysphagia Active Finding [facility] - 8 [place] Leukocytosis Active Finding [facility] - 8 [place] Encephalopathy Resolved Finding [facility] - 8 [place] History of CVA with Active Finding [facility] - residual deficit 8 [place] Dysphagia as late Active Finding [facility] - effect of 8 [place] cerebrovascular accident CVA Active Rehabilitation SPASM OF MUSCLE Active [facility] FOLLOW-UP EXAM NOS Active [facility] ABN INVOLUN MOVEMENT Active [facility] NEC LATE EF CV DIS Active [facility] DYSPHAGIA OTHER MUSCLE SPASM Active [facility] OTHER ABNORMAL Active [facility] INVOLUNTARY MOVEMENTS CRAMP AND SPASM Active [facility] DYSPHAGIA, Active [facility] UNSPECIFIED NEUROMUSCULAR Active [facility] DYSFUNCTION OF BLADDER, UN Medications Medication Details Route Status Patient Ordering Order Source Instructions Provider Date Botulinum Toxin 200 unit, Inactive [facility] Type A Route: IM, 2019 ONCALL, Dosing Weight 80.455, kg, Start date: 11/20/18 11:00:00 CDT, Duration: 30 day, Stop date: 12/20/18 10:59:00 CDT Botulinum Toxin 200 unit, Inactive [facility] Type A Route: IM, 2018 ONCALL, Dosing Weight 81.364, kg, Start date: 08/07/18 11:00:00 CDT, Duration: 30 day, Stop date: 09/06/18 10:59:00 CDT Botulinum Toxin 200 unit, Inactive [facility] Type A Route: IM, 2018 ONCALL, Dosing Weight 81.364, kg, Start date: 08/07/18 10:00:00 CDT, Duration: 30 day, Stop date: 09/06/18 9:59:00 CDT Botulinum Toxin 200 unit, Inactive [facility] Type A Route: IM, 2017 ONCALL, Dosing Weight 80.455, kg, Start date: 12/19/17 12:00:00 CDT, Duration: 30 day, Stop date: 01/18/18 11:59:00 CDT Home Medication Refill(s) 0 Active [facility] 2018 Phenytoin AT BEDTIME Active Prezas [facility] St[facility] Sodium Extended 2018 [facility] [place] Pantoprazole DAILY Active Prezas [facility] St[facility] Granules 2018 [facility] [place] Amlodipine DAILY Active [facility] St[facility] Besylate 2018 [facility] [place] Aspirin DAILY Active [facility] St[facility] 2018 [facility] [place] Multivitamin DAILY Active Prezas [facility] With Iron 2018 [facility] [place] Loratadine NEEDED Active [facility] St. PRN For 2018 [facility] - allergies [place] Botulinum Toxin 200 unit, Inactive [facility] Type A Route: IM, 2017 ONCALL, Dosing Weight 80.455, kg, Start date: 06/02/17 12:00:00 [employer], Duration: 30 day, Stop date: 07/02/17 11:59:00 [employer] Botulinum Toxin 200 unit, Inactive [facility] Type A Route: IM, 2016 ONCALL, Dosing Weight 80.455, kg, Start date: 02/21/17 12:00:00 CDT, Duration: 30 day, Stop date: 03/23/17 11:59:00 CDT Botulinum Toxin 300 unit, Inactive [facility] Type A Route: IM, 2016 ONCCLEO, Dosing Weight 80.455, kg, Start date: 11/22/16 11:00:00 CDT, Duration: 30 day, Stop date: 12/22/16 10:59:00 CDT Botulinum Toxin 400 unit, Inactive [facility] Type A Route: IM, 2016 ONCALL, Dosing Weight 80.455, kg, Start date: 08/09/16 11:00:00 CDT, Duration: 30 day, Stop date: 09/08/16 10:59:00 CDT Amlodipine DAILY Active [facility] St[facility] Besylate 2016 [facility] [place] Atorvastatin AT BEDTIME Active St[facility] Calcium 2016 [facility] [place] Baclofen AT BEDTIME Active St. 2016 [facility] [place] Carvedilol TWICE DAILY Active [facility] St. 2016 [facility] [place] Finasteride AT BEDTIME Active [facility] St[facility] 2016 [facility] [place] Lamotrigine TWICE DAILY Active [facility] St. 2016 [facility] [place] Tamsulosin Hcl DAILY Active [facility] St. 2016 [facility] [place] Cholecalciferol DAILY Active St. (Vitamin D3) 2016 [facility] [place] Cefdinir TWICE DAILY Active [facility] St. 2016 [facility] [place] onabotulinumtox 500 unit, Inactive [facility] Gaye Route: IM, 2015 ONCALL, Dosing Weight 80.455, kg, Start date: 12/04/15 9:00:00 CDT, Duration: 30 day, Stop date: 01/03/16 8:59:00 CDT sodium chloride 20 mL, Active [facility] Route: [facility] [place] Start date: 08/25/15 11:00:00, Duration: 30 day, Stop date: 09/24/15 10:59:00Note s: preservative free. onabotulinumtox 500 unit, Inactive [facility]e Route: IM, 2015 ONCALL, Dosing Weight 82.273, kg, Start date: 08/25/15 10:00:00, Duration: 30 day, Stop date: 09/24/15 9:59:00 onabotulinumtox 500 unit, Inactive [facility] [place]e Route: IM, 2014 ONCCLEO, Dosing Weight 82.273, kg, Start date: 05/05/15 13:00:00, Duration: 30 day, Stop date: 06/04/15 12:59:00 Vitamin D3 400 400 Active [facility] intl units oral IntlUnit=1 2014 capsule cap, PO, Daily, 0 Refill(s) potassium 20 mg, PO, Active [facility] chloride Daily, ER, 0 2014 Refill(s) finasteride 5 5 mg=1 tab, Active [facility] mg oral tablet PO, Daily, # 2014 30 tab, 0 Refill(s) carvedilol 3.125 mg=1 Active [facility] 3.125 mg oral tab, PO, 2015 tablet Q12H, # 60 tab, 0 Refill(s) onabotulinumtox 600 unit, Inactive [facility] Gaye Route: IM, 2014 ONCCLEO, Dosing Weight 80.909, kg, Start date: 01/13/15 11:00:00, Duration: 30 day, Stop date: 02/12/15 10:59:00 onabotulinumtox 700 unit, Inactive [facility] Gaye Route: IM, 2013 ONCCLEO, Dosing Weight 79.091, kg, Start date: 04/22/14 13:00:00, Duration: 30 day, Stop date: 05/22/14 12:59:00 Furosemide 20 20 mg=1 tab, Active [facility] MG Oral Tablet PO, PRN, # 2013 30 tab, 0 Refill(s) onabotulinumtox 700 unit, Inactive [facility] Gaye Route: IM, 2013 ONCALL, Dosing Weight 73.182, kg, Start date: 01/21/14 11:00:00, Duration: 30 day, Stop date: 02/20/14 10:59:00 Bromocriptine 5 mg=2 tab, Active [facility] 2.5 MG Oral PO, Daily, # 2013 Tablet 60 tab, 1 Refill(s), Pharmacy: [facility] [id number] amLODIPine 10 10 mg=1 tab, Active [facility] mg oral tablet PO, Daily, # 2013 30 tab, 0 Refill(s) Amlodipine 0 Refill(s) Active [facility] 2013 Bromocriptine 2.5 mg=1 Active [facility] 2.5 MG Oral tab, PO, 2014 Tablet Daily, # 30 tab, 2 Refill(s) heparin 5000 5,000 unit, SUB-Q No Longer [place] [facility] units/mL can, SUB-Q, Active 2011 Medical injectable Q12H, 10 [place] solution vial, Substitution Allowed, SOLN albuterol-iprat 3 mL, Route: NEB No Longer [place] ropium 2.5-0.5 NEB, Drug Active 2011 Medical mg inhalation Form: SOLN, [place] solution RQ6H, Start date: 11/24/11 14:00:00, Duration: 30 day, Stop date: 12/24/11 8:00:00 heparin 5000 5,000 unit, SUB-Q No Longer [place] [facility] units/mL can, SUB-Q, Active 2011 Medical injectable Q12H, 10 [place] solution vial, Substitution Allowed, SOLN Diovan 160 mg 160 mg, 1 PEG Active [facility] oral tablet tab, PEG, 2011 Medical Daily, 30 Center tab, Substitution Allowed, TAB Carafate 1 g/10 1 gm, 10 mL, PEG Active [facility] mL oral PEG, QID, 1 2011 Medical suspension mL, Center Substitution Allowed, SUSP senna 8.8 mg/5 17.6 mg, 10 PEG Active [facility] mL oral syrup mL, PEG, 2011 Medical QNoon, 1 mL, Center Substitution Allowed, Maintenance, SYRP Seroquel 25 mg 25 mg, 1 PEG Active [facility] oral tablet tab, PEG, 2011 Medical Bedtime, Center PRN, 30 tab, Insomnia, Substitution Allowed, TAB pantoprazole 40 1 Pack, PEG, PEG Active [facility] mg oral granule Daily, 30 2011 Medical ea, Center Substitution Allowed, GRAN/REC Provigil 200 mg 200 mg, 1 PEG Active [place] [facility] oral tablet tab, PEG, 2011 Medical QAM, 30 tab, Center Substitution Allowed, TAB hydrALAZINE 10 10 mg, 1 PEG Active [place] mg oral tablet tab, PEG, 2011 Medical Q6H, PRN, Center 120 tab, Hypertension , Substitution Allowed, TAB Cymbalta 20 mg 20 mg, 1 PEG Active [place] [facility] oral delayed cap, PEG, 2011 Medical release capsule Bedtime, 30 Center cap, Substitution Allowed, DRC Lantus 100 [facility] units/mL Instructions 2011 Medical subcutaneous , 1 vial, [place] solution Substitution Allowed, 5 units SUB-Q Daily, SOLN5 units SUB-Q Daily docusate sodium 100 mg, 10 PEG Active [facility] 150 mg/15 mL mL, PEG2011 Medical oral liquid Q12H, 1 mL, Center Substitution Allowed, LIQ Lipitor 80 mg 80 mg, 1 PEG Active [place] [facility] oral tablet tab, PEG, 2011 Medical QPM, 30 tab, Center Substitution Allowed, TAB aspirin 81 mg 81 mg, 1 PEG [facility] tablet, tab, PEG, 2011 Medical chewable Daily, 30 Center tab, Substitution Allowed, [place] amLODipine 10 10 mg, 1 PEG Active [place] [facility] mg oral tablet tab, PEG, 2011 Medical Daily, 30 Center tab, Substitution Allowed, TAB DuoNeb 3 mL, INHALATION [facility] inhalation INHALATION, 2011 Medical solution QID, PRN, 1 Center mL, as needed for shortness of breath or wheezing, Substitution Allowed, Maintenance, SOLN amantadine 50 100 mg, 10 PEG [facility] mg/5 mL oral mL, PEG2011 Medical syrup QAM, 1 btl, Center Substitution Allowed, SYRP nebivolol 5 mg 10 mg, 2 PEG Active [place] [facility] oral tablet tab, PEG, 2011 Medical Daily, 60 Center tab, Substitution Allowed, TAB heparin 5,000 unit, SUB-Q No Longer [place] [facility] 1 mL, Route: Active 2011 Medical SUB-Q, Drug Center form: INJ, Q12H, Start date: 11/22/11 21:00:00, Duration: 30 day, Stop date: 12/22/11 9:00:00 Cymbalta 20 mg, 1 PEG No Longer [place] cap, Route: Active 2011 Medical PEG, Drug Center form: DRC, Bedtime, Start date: 11/22/11 21:00:00, Stop date: 12/21/11 21:00:00 Provigil 200 mg, 1 PEG No Longer [place] tab, Route: Active 2011 Medical PEG, Drug Center form: TAB, QAM, Start date: 11/22/11 8:00:00, Stop date: 12/21/11 8:00:00 Nuvigil 100 mg, PO No Longer [place] Route: PO, Active 2011 Medical Drug form: [place] CAP, QAM, Start date: 11/20/11 8:00:00, Duration: 30 day, Stop date: 12/19/11 8:00:00 Nuvigil Nuvigil PO No Longer [place] (Armodafinil) (Armodafinil Active 2011 Medical 50 mg tablet ) 50 mg Center tablet, 150 mg, Drug form: MISC, Route: PO, QAM, 11/20/11 8:00:00, Duration: 30 day, Stop date: 12/19/11 8:00:00 D5W 1/2NS 1,000 1,000 mL, IV No Longer [place] mL Rate: 70 Active 2011 Medical ml/hr, [place] Infuse over: 14.3 hr, Route: IV, Dosing Weight 95.909 kg, Total Volume: 1,000, Start date: 11/19/11 11:54:00, Duration: 30 day, Stop date: 12/19/11 11:53:00 amantadine 100 mg, 10 PEG No Longer [place] [facility] mL, Route: Active 2011 Medical PEG, Drug Center form: SYRP, QAM, Start date: 11/19/11 8:00:00, Stop date: 12/18/11 8:00:00 Carafate 1 gm, 10 mL, PO No Longer [place] Route: PO, Active 2011 Medical Drug form: Center SUSP, QID, Start date: 11/18/11 17:00:00, Stop date: 12/18/11 11:00:00 amantadine 100 mg, 1 PO No Longer [place] cap, Route: Active 2011 Medical PO, Drug Center form: CAP, ONCE, Start date: 11/18/11 14:47:00, Stop date: 11/18/11 14:47:00 normal saline 1,000 mL, IV No Longer [place] 0.9% IV 1,000 Rate: 70 Active 2011 Medical mL ml/hr, [place] Infuse over: 14.3 hr, Route: IV, Dosing Weight 95.909 kg, Total Volume: 1,000, Start date: 11/18/11 12:00:00, Duration: 30 day, Stop date: 12/18/11 11:59:00 Dextrose 50% 12.5 gm, 25 IVP No Longer [place] Syringe mL, Route: Active 2011 Medical IVP, Drug Center Form: INJ, PRN, PRN Blood Glucose Results, Start date: 11/18/11 11:45:00, Duration: 30 day, Stop date: 12/18/11 11:44:00 glucagon 1 mg, Route: IM No Longer [place] IM, Drug Active 2011 Medical form: [place] PDR/INJ, PRN, PRN Blood Glucose Results, Start date: 11/18/11 11:45:00, Duration: 30 day, Stop date: 12/18/11 11:44:00 insulin aspart 2 unit, 0.02 SUB-Q No Longer [place] mL, Route: Active 2011 Medical SUB-Q, Drug Center form: SOLN, TID-Before Meals, PRN Blood Glucose Results, Start date: 11/18/11 11:45:00, Duration: 30 day, Stop date: 12/18/11 11:44:00 Milk of 60 ml, PO No Longer [place] Magnesia Route: PO, Active 2011 Medical Drug Form: Center SUSP, ONCE, Start date: 11/17/11 18:30:00, Stop date: 11/17/11 18:30:00 Lipitor 80 mg, 1 PEG No Longer [place] [facility] tab, Route: Active 2011 Medical PEG, Drug Center form: TAB, QPM, Start date: 11/17/11 17:00:00, Stop date: 12/16/11 17:00:00 Glycerol 60 mL, [place] No Longer [facility] [place] [facility] Route: [place], Active 2011 Medical Drug Form: [place] MISC, ONCE, Start date: 11/17/11 16:00:00, Stop date: 11/17/11 16:00:00 mineral oil 60 mL, [place] No Longer [facility] [place] [facility] Route: [place], 2011 Medical Drug Form: [place] LIQ, ONCE, Start date: 11/17/11 16:00:00, Stop date: 11/17/11 16:00:00 Sodium Chloride [place], 0 ml/hr, [place] No Longer [place] [facility] 0.9% IV ONCE, Start Active 2011 Medical date: [place] 11/17/11 16:00:00, 60 ml Milk of 60 ml, PO No Longer [facility] [place] [facility] Magnesia Route: PO, Active 2011 Medical Drug Form: [place] SUSP, ONCE, Start date: 11/17/11 15:16:00, Stop date: 11/17/11 15:16:00 magnesium 300 ml, PO No Longer [place] [facility] citrate Route: PO, 2011 Medical Drug Form: [facility], ONCE, Start date: 11/17/11 15:00:00, Stop date: 11/17/11 15:00:00 senna 17.6 mg, 10 PEG No Longer [place] [facility] mL, Route: Active 2011 Medical PEG, Drug Center Form: SYRP, QNoon, Start date: 11/17/11 12:00:00, Stop date: 12/16/11 12:00:00 normal saline 1,000 mL, IV No Longer [place] [facility] 0.9% IV 1,000 Rate: 75 Active 2011 Medical mL ml/hr, [place] Infuse over: 13.3 hr, Route: IV, Dosing Weight 95.909 kg, Total Volume: 1,000, Start date: 11/17/11 10:29:00, Duration: 1 doses or times, Stop date: 11/17/11 23:46:00 nebivolol 10 mg, 2 PEG No Longer [place] [facility] tab, Route: Active 2011 Medical PEG, Drug Center form: TAB, Daily, Start date: 11/17/11 8:00:00, Stop date: 12/16/11 8:00:00 Provigil 200 mg, 1 PO No Longer [place] [facility] tab, Route: Active 2011 Medical PO, Drug Center form: TAB, QAM, Start date: 11/17/11 8:00:00, Duration: 30 day, Stop date: 12/16/11 8:00:00 aspirin 81 mg, 1 CHEW No Longer [facility] [place] [facility] tab, Route: Active 2011 Medical CHEW, Drug Center form: CHEWTAB, Daily, Start date: 11/17/11 8:00:00, Stop date: 12/16/11 8:00:00 amLODipine 10 mg, 10 PEG No Longer [place] [facility] mL, Route: Active 2011 Medical PEG, Drug Center form: SUSP, Daily, Start date: 11/17/11 8:00:00, Stop date: 12/16/11 8:00:00 Diovan 160 mg, 1 PEG No Longer [facility] [place] [facility] tab, Route: Active 2011 Medical PEG, Drug Center form: TAB, Daily, Start date: 11/17/11 8:00:00, Stop date: 12/16/11 8:00:00 heparin 5,000 unit, SUB-Q No Longer [facility] [place] [facility] 1 mL, Route: Active 2011 Medical SUB-Q, Drug Center form: INJ, Q12H, Start date: 11/16/11 21:00:00, Duration: 30 day, Stop date: 11/21/11 21:30:00 docusate sodium 100 mg, 10 PEG No Longer [facility] [place] [facility] mL, Route: Active 2011 Medical PEG, Drug Center form: LIQ, Q12H, Start date: 11/16/11 21:00:00, Stop date: 12/16/11 9:00:00 Protonix 40 mg, 1 PEG No Longer [facility] [facility] pkt, Route: Active 2011 Medical PEG, Drug Center form: GRAN/REC, BID, Start date: 11/16/11 20:00:00, Stop date: 12/16/11 8:00:00 albuterol-iprat 3 mL, Route: NEB No Longer [facility] [facility] ropium 2.5-0.5 NEB, Drug Active 2011 Medical mg inhalation Form: SOLN, Center solution RQ6H, PRN Shortness of breath, Start date: 11/16/11 17:19:00, Duration: 30 day, Stop date: 12/16/11 17:18:00 acetaminophen 650 mg, 20.3 PEG No Longer [facility] [facility] mL, Route: Active 2011 Medical PEG, Drug Center form: LIQ, Q4H, PRN Pain Score 1-3, Start date: 11/16/11 17:19:00, Stop date: 12/16/11 17:18:00 Saline Flush 3 mL, Route: IVP No Longer [place] 0.9% IVP, Drug Active 2011 Medical Form: INJ, Center Q8H, PRN Line Flush, Start date: 11/16/11 17:19:00, Duration: 30 day, Stop date: 12/16/11 17:18:00, Administer at least once every [address] at least once every 8 hours Seroquel 25 mg, 1 PEG No Longer [facility] [place] [facility] tab, Route: Active 2011 Medical PEG, Drug Center form: TAB, Bedtime, PRN Insomnia, Start date: 11/16/11 17:19:00, Stop date: 12/16/11 17:18:00 hydrALAZINE 10 10 mg, 1 PEG No Longer [facility] [place] [facility] mg oral tablet tab, Route: Active 2011 Medical PEG, Drug Center form: TAB, Q6H, PRN Hypertension , Start date: 11/16/11 17:19:00, Stop date: 12/16/11 17:18:00 Hydrocodone/Alonzo EVERY [address] taminophen HOURS 2011 [facility] NEEDED PRN [place] [facility] Clopidogrel DAILY Active St[facility] Bisulfate 2012 [facility] [place] Pravastatin DAILY Active St. 2012 [facility] [place] Nebivolol Hcl DAILY Active 09/07/ [facility] St[facility] 2012 [facility] [place] Aspirin DAILY Active [facility] St[facility] 2012 [facility] [place] Amlodipine/Vals DAILY Active [facility] mireille/Hcthiazid 2012 [facility] [place] Insulin Active [facility] Glargine Human 2012 [facility] [place] Insulin DAILY Active [facility] St[facility] Glargine Human 2012 [facility] [place] Clopidogrel DAILY Active [facility] St. Bisulfate 2012 [facility] [place] Lisinopril DAILY Active 08/25/ [facility] St[facility] 2012 [facility] [place] B12/Fa/D3/Calc EVERY 7 DAYS Active [place] [facility] St. Cit/Zn Aa Chelt 2011 [facility] [place] Cyanocobalamin Q24H Active [place] [facility] [place] Amlodipine/Vals DAILY Active 07/30/ [facility] mireille 2011 [facility] [place] Aspirin DAILY Active [facility] St[facility] 2011 [facility] [place] Nebivolol Hcl DAILY Active 07/30/ [facility] St[facility] 2011 [facility] [place] Allergies, Adverse Reactions, Alerts Substance Category Reaction Severity Reaction Status Date Comments Source type Reported No Known Assertion Drug [facility] Medication allergy Allergies Immunizations No Data Provided for This Section Results Order Name Results Value Reference Date Interpretation Comments Source Range Laboratory Bedside 112 65 - 120 08/20 [facility] Glucose /2018 [facility] [place] Laboratory Sodium Level 140 135 - 145 08/20 [facility] . Studies /2018 [facility] [place] Laboratory Potassium 4.2 3.6 - 5.0 08/20 [facility] Studies Level /2018 [facility] [place] Laboratory Phosphorus 2.5 2.5 - 4.3 08/20 [facility] Level /2017 [facility] [place] Laboratory Magnesium 2.0 1.8 - 2.5 08/20 [facility] Level /2018 [facility] [place] Laboratory Glucose 137 65 - 120 08/20 [facility] Studies Level /2018 [facility] [place] Laboratory Estimat >90 90 08/20 [facility] . Studies Glomerular /2017 [facility] Filtration [place] Rate Laboratory Creatinine 0.90 0.61 - 08/20 [facility]. Studies 1. /2017 [facility] - [place] Laboratory Chloride 103 101 - 111 08/20 [facility]. Studies Level /2017 [facility] Carbon 32 21 - 31 08/20 [facility]. Studies Dioxide /2017 [facility] Calcium 8.1 8.5 - 10.5 08/20 [facility]. Studies Level /2017 [facility] Blood Urea 14 6 - 20 08/20 [facility]. Studies Nitrogen /2017 [facility] Albumin 2.1 3.2 - 5.5 08/20 [facility]. Studies /2018 [facility] Vitamin B12 243 180 - 914 08/17 [facility]. Studies Level /2017 [facility] Transferrin 9.7 20.0 - 08/17 [facility]. Studies % Saturation 50.0 [facility] [facility] Transferrin 140 180 - 329 08/17 [facility]. Studies /2017 [facility] Total Iron 196 250 - 460 08/17 [facility]. Studies Binding /2017 [facility] Serum Folate 9.2 5.21 08/17 [facility]. Studies /2018 [facility] Iron Level 19.0 45 - 182 08/17 [facility]. Studies /2018 [facility] Ferritin 142.9 23.9 - 08/17 [facility]. Studies 336.2 [place] [facility] [place] [facility] White Blood 4.9 4.3 - 10.9 08/17 [facility]. Studies Count /2017 [facility] Red Cell 23.3 12.1 - 08/17 [facility]. Studies Distribution 15.2 [place] [facility] - Width [place] [facility] Red Blood 4.18 4.33 - 08/17 [facility] Studies Count 5.43 /2017 [facility] Platelet 251 152 - 406 08/17 [facility] Studies Count /2017 [facility] [place] [facility] Percent 1.02 0.4 - 2.05 08/17 [facility] Studies Reticulocyte /2017 [facility] - Count [place] [facility] Neutrophils 72.0 41.7 - 08/17 [facility]. Studies % 73.7 /2017 [facility] [place] [facility] Monocytes % 11.4 3.3 - 12.3 08/[address] [facility] [address] Studies /2018 [facility] [place] [facility] Mean 8.8 7.6 - 11.3 08/17 [facility] [address] Studies Platelet /2017 [facility] Volume [place] [facility] Mean 68.3 80 - 100 08/17 St[facility] Studies Corpuscular /2017 [facility] Volume [place] [facility] Mean 31.2 32.0 - 08/17 St[facility] Studies Corpuscular 36.0 [facility] Hemoglobin [place] [facility] Laboratory Mean 21.3 27.0 - 08/17 [facility] [address] Studies Corpuscular 35.0 [facility] Hemoglobin [place] [facility] Lymphocytes 13.7 15.3 - 08/[address] [facility] [address] Studies % 44.8 /2017 [facility] [place] [facility] Hemoglobin 8.9 13.6 - 08/[address] [facility] [address] Studies 17.9 [facility] [place] [facility] Hematocrit 28.5 39.6 - 08/[address] [facility] [address] Studies 49.0 [facility] [place] [facility] Eosinophils 2.5 0 - 4.4 08/[address] [facility] [address] Studies % /2017 [facility] [place] [facility] Basophils % 0.4 0 - 1.3 08/[address] [facility] [address] Studies /2017 [facility] [place] [facility] Absolute 0.04 0.02 - 08/[address] [facility] [address] Studies Reticulocyte 0.11 [facility] - Count [place] [facility] Absolute 3.5 1.8 - 8.0 08/[address] [facility] [address] Studies Neutrophil /2017 [facility] [place] [facility] Absolute 0.6 0.1 - 1.3 08/[address] [facility] [address] Studies Monocytes [facility] - (CBC) [place] [facility] Absolute 0.7 0.7 - 4.9 08/[address] [facility] [address] Studies Lymphocytes /2017 [facility] - (CBC) [place] [facility] Absolute 0.1 0 - 0.5 08/[address] [facility] [address] Studies Eosinophils /2017 [facility] (CBC) [place] [facility] Absolute 0.0 0 - 0.5 08/17 [facility] [address] Studies Basophils [facility] - (CBC) [place] [facility] Polychromasi Polychroma 08/[address] [facility] [address] Studies a danyelle [facility] [place] [facility] Ovalocytes Ovalocytes 08/[address] [facility] [address] Studies /2017 [facility] [place] [facility] Hypochromasi Hypochroma 08/[address] [facility] Studies a danyelle [facility] [place] [facility] Blood Blood 08/16 [facility]. Studies Morphology Morphology /2017 [facility] - Comment Comment [place] [facility] Anisocytosis Anisocytos 08/16 [facility]. Studies is /2017 [facility] [place] [facility] Total 0.3 0.3 - 1.2 08/14 [facility]. Studies Bilirubin /2017 [facility] [place] [facility] Serum Total 4.1 6.0 - 8.3 08/14 [facility]. Studies Protein /2017 [facility] [place] [facility] Globulin 2.4 2.3 - 3.5 08/14 [facility]. Studies /2017 [facility] [place] [facility] Aspartate 43 10 - 42 08/14 [facility]. Studies Amino Transf /2017 [facility] - (AST/SGOT) [place] [facility] Alkaline 72 42 - 121 08/14 [facility]. Studies Phosphatase /2017 [facility] [place] [facility] Albumin/Glob 0.7 1.1 - 1.8 08/14 [facility]. Studies ulin Ratio /2017 [facility] [place] [facility] Alanine 30 10 - 60 08/14 [facility]. Studies Aminotransfe /2017 [facility] rase [place] (ALT/SGPT) Laboratory Urine Total 1125 08/12 [facility]. Studies Volume 24 [facility] - Hours [place] Laboratory Urine Total 1114 08/12 [facility]. Studies Protein [facility] - Hour [place] [facility] Urine 1364 08/12 [facility]. Studies Protein/Crea /2017 [facility] tinine Ratio [place] 24hr Laboratory Urine Urine 08/12 [facility]. Studies Protein Protein /2017 [facility] - Electrophore Electropho [place] sis Intrp resis Intrp Laboratory Urine PEP Urine PEP 08/12 [facility]. Studies Abnormal Abnormal [facility] - Protein Band Protein [place] 3 Band 3 Laboratory Urine PEP Urine PEP 08/12 [facility]. Studies Abnormal Abnormal [facility] - Protein Band Protein [place] 2 Band 2 Laboratory Urine PEP Urine PEP 08/12 [facility]. Studies Abnormal Abnormal [facility] - Protein Band Protein [place] 1 Band 1 Laboratory Urine Gamma 0 08/12 [facility]. Studies Globulin /2017 [facility] [place] [facility] Urine 0.82 08/12 [facility]. Studies Creatinine /2017 [facility] - 24 Hour [place] [facility] Urine Beta 0 08/12 [facility]. Studies Globulin /2017 [facility] [place] [facility] Urine 0 08/[address] [facility] [address] Studies Plobd-0-Egfb /2017 [facility] - ulins [place] [facility] Urine 0 08/[address] [facility] [address] Studies Uccvg-9-[id number] /2017 [facility] ulin [place] [facility] Urine 100 08/12 [facility]. Studies Albumin 24 [facility] - Hours [place] Laboratory Phenytoin 11.0 10.0 - 08/10 [facility]. Studies (Dilantin) 20.0 [facility] - Level [place] Laboratory Poikilocytos Poikilocyt 08/[address] [facility] [address] Studies is osis /2017 [facility] [place] [facility] Elliptocytes Elliptocyt 08/10 [facility]. Studies es /2017 [facility] [place] [facility] Thyroid 1.40 0.34 - 08/10 [facility]. Studies Stimulating 5.60 [facility] Hormone [place] (TSH) Laboratory Total 6.8 08/09 [facility]. Studies Protein /2017 [facility] [place] [facility] Protein Protein 08/09 [facility]. Studies Electrophore Electropho /2017 [facility] - sis M-Zackery resis [place] 2 M-Zackery 2 Laboratory Protein Protein 08/[address] [facility] [address] Studies Electrophore Electropho /2017 [facility] - sis M-Zackery resis [place] M-Zackery Laboratory Protein Protein 08/09 [facility]. Studies Electrophore Electropho /2017 [facility] - sis resis [place] Interpret Interpret Laboratory PEP Abnormal PEP 08/[address] [facility] [address] Studies Protein Band Abnormal /2017 [facility] - 3 Protein [place] Band 3 Laboratory Gamma 1.1 08/09 [facility]. Studies Globulins /2017 [facility] [place] Laboratory Ungbk-9-Rhiw 1.0 08/[address] [facility] [address] Studies ulins /2017 [facility] [place] Laboratory Nlfuy-0-Xumq 0.6 08/09 [facility]. Studies ulins [facility] [place] [facility] Immunofixati Immunofixa 08/09 [facility]. Studies on tion [facility] - Electrophore Electropho [place] sis resis Laboratory Anti-Nuclear Anti-Nucle 08/[address] [facility] [address] Studies Antibody ar [facility] - Screen Antibody [place] Screen Laboratory Anti-Nuclear Anti-Nucle 08/[address] [facility] [address] Studies Antibody ar [facility] - Pattern 2 Antibody [place] Pattern 2 Laboratory Hepatitis C Hepatitis 08/09 [facility]. Studies Antibody C Antibody /2018 [facility] [place] [facility] Hepatitis C 0.02 08/09 [facility]. Studies Ab /2017 [facility] - Signal/Cutof [place] f Ratio Laboratory Hepatitis B Hepatitis 08/09 [facility]. Studies Surface B Surface /2017 [facility] Antigen Antigen [place] Laboratory Hepatitis B Hepatitis 08/09 [facility] Studies Surface Ag B Surface /2017 [facility] - Confirmation Ag [place] Confirmati on Laboratory Hepatitis B Hepatitis 08/09 [facility]. Studies Core IgM B Core IgM /2017 [facility] - Antibody Antibody [place] Laboratory Hepatitis A Hepatitis 08/09 [facility]. Studies IgM Antibody A IgM /2017 [facility] Antibody [place] Laboratory Glomerular <1.0 08/09 [facility]. Studies Basement /2017 [facility] - Membrane IgG [place] Ab Laboratory Anti-Protein <1.0 08/09 [facility]. Studies ase 3 [facility] - (c-ANCA) [place] Laboratory Anti-Myelope <1.0 08/09 [facility] Studies roxidase Ab /2017 [facility] - (p-ANCA) [place] Laboratory Procalcitoni 0.60 08/09 [facility] Studies n [facility] [place] [facility] Lactic Acid 11.9 4.5 - 19.8 08/09 [facility]. Studies Level /2017 [facility] [place] [facility] Urine pH 5.0 08/09 [facility]. Studies /2017 [facility] [place] [facility] Urine Total Urine 08/09 [facility] Studies Protein Total /2017 [facility] - Protein [place] Laboratory Urine >1.030 08/09 [facility] Studies Specific /2017 [facility] - Robinson [place] Laboratory Urine Urine 08/09 [facility]. Studies Nitrite Nitrite /2017 [facility] [place] [facility] Urine Urine 08/09 [facility]. Studies Leukocyte Leukocyte /2017 [facility] - Esterase Esterase [place] Laboratory Urine Urine 08/09 [facility]. Studies Ketones Ketones /2017 [facility] [place] [facility] Urine Urine 08/09 [facility]. Studies Glucose Glucose /2017 [facility] [place] [facility] Urine Blood Urine 08/09 [facility]. Studies Blood /2017 [facility] [place] Laboratory Urine WBC Urine WBC 08/09 [facility]. Studies /2017 [facility] [place] [facility] Urine Urine 08/09 [facility]. Studies Squamous Squamous /2017 [facility] - Epithelial Epithelial [place] Cells Cells Laboratory Urine RBC Urine RBC 08/[address] [facility] Studies [facility] [place] Laboratory Urine Mucus Urine 08/[address] [facility] [address] Studies Mucus [facility] [place] [facility] Urine Urine 08/09 [facility]. Studies Culture Culture /2017 [facility] - Reflexed Reflexed [place] Laboratory Urine Coarse >10 08/09 [facility]. Studies Granular [facility] - Casts [place] Laboratory Urine Urine 08/09 [facility]. Studies Bacteria Bacteria /2017 [facility] [place] Laboratory Urine Urine 08/09 [facility]. Studies Amorphous Amorphous [facility] - Sediment Sediment [place] Laboratory Microcytosis Microcytos 08/09 [facility]. Studies is [facility] [place] Laboratory B-Type 35 08/09 [facility]. Studies Natriuretic [facility] - Peptide [place] Laboratory Direct 0.3 0 - 0.2 08/09 [facility]. Studies Bilirubin [facility] [place] Laboratory Rapid 0.03 08/09 [facility] Studies Troponin I [facility] [place] Laboratory Prothrombin 12.4 9.5 - 12.5 08/[address] [facility] [address] Studies Time [facility] [place] Laboratory INR 1.05 08/09 [facility]. Studies Internationa [facility] - l Normalized [place] Ratio Laboratory Activated 26.9 24.3 - 08/09 [facility]. Studies Partial 36.9 [facility] - Thromboplast [place] Time Laboratory Albumin 3.2 08/03 [facility]. Studies [facility] [place] Laboratory Schistocytes Schistocyt 06/09 [facility]. Studies es [facility] [place] Laboratory [place] Cells Dwayne Cells 06/09 [facility]. Studies [facility] [place] URINE CHEM Time 5 min. 08/30 [facility] /2014 URINE CHEM Time 15 min. 08/30 [facility] /2014 URINE CHEM Time 25 min 08/30 [facility] /2014 URINE CHEM Time 10 min. 08/30 [facility] /2014 BEDSIDE Gluc POC 111 70 - 99 11/24 HI <sup>1</sup>I [facility] GLUCOSE [facility] nterpretive Medical TESTING Data: Center Upper Reportable Limit: 200 mg/dL. BEDSIDE Comment1 Notify 11/24 NA [facility] GLUCOSE RN/ /2012 Medical TESTING Center BEDSIDE Comment1 Notify 11/24 NA [facility] GLUCOSE RN/ Medical TESTING Center BEDSIDE Gluc POC 191 70 - 99 11/24 HI <sup>2</sup>I [facility] GLUCOSE Lifsc[facility] nterpretive Medical TESTING Data: Center Upper Reportable Limit: 200 mg/dL. BEDSIDE Gluc POC 179 70 - 99 11/23 HI <sup>3</sup>I [facility] GLUCOSE [facility] nterpretive Medical TESTING Data: Center Upper Reportable Limit: 200 mg/dL. BEDSIDE Comment1 Notify 11/23 NA [facility] GLUCOSE RN/MD Medical TESTING Center CHEMISTRY Sodium Lvl 142 135 - 145 11/23 Normal Medical Center CHEMISTRY CO2 30 24 - 32 11/23 Normal [facility] Center CHEMISTRY Potassium 4.6 3.5 - 5.1 11/23 Normal [facility] Center CHEMISTRY Chloride Lvl 103 95 - 109 11/23 Normal [facility] Center CHEMISTRY Calcium Lvl 8.4 8.5 - 10.5 11/23 LOW Medical Center CHEMISTRY Creatinine 1.5 0.5 - 1.4 11/23 HI [facility] CHEMISTRY BUN 24 7 - 22 11/23 HI Medical Center CHEMISTRY Glucose Lvl 116 70 - 99 11/23 HI <sup>4</sup>I nterpretive Medical Data: Adult Center reference range values reflect the clinical guidelines of the [employer]. CHEMISTRY AGAP 13.6 10.0 - 11/23 Normal [place] 20.0 Medical Center HEMATOLOGY Basophils # 0.0 0.0 - 0.2 11/23 Normal [facility] Center HEMATOLOGY Anisocyte 1+ None Seen 11/23 ABN [place] *ABN* /2011 Medical (11/24/2011 03:16:00) Center HEMATOLOGY Segs-Bands # 8.1 1.5 - 8.1 11/23 Normal [facility] Center HEMATOLOGY Segs 84.0 45.0 - 11/23 HI [place] 75.0 Medical Center HEMATOLOGY Eosinophils 0.1 0.0 - 0.5 11/23 Normal [place] /2011 Medical Center HEMATOLOGY Lymphocytes 0.7 1.0 - 5.5 11/23 LOW [place] # /2011 Medical Center HEMATOLOGY Monocytes # 0.7 0.0 - 0.8 11/23 Normal Medical Center HEMATOLOGY Eosinophils 1.4 0.0 - 4.0 11/23 Normal Medical Center HEMATOLOGY Basophils 0.3 0.0 - 1.0 11/23 Normal Medical Center HEMATOLOGY Lymphocytes 6.8 20.0 - 11/23 LOW [place] 40.0 /2011 Medical Center HEMATOLOGY Monocytes 7.5 2.0 - 12.0 11/23 Normal Medical Center HEMATOLOGY MPV 9.4 7.4 - 10.4 11/23 Normal Medical Center HEMATOLOGY RDW 20.4 11.5 - 11/23 HI [place] 14.5 /2011 Medical Center HEMATOLOGY Platelet 324 133 - 450 11/23 Normal Medical Center HEMATOLOGY MCV 79.0 80.0 - 11/23 LOW [place] 94.0 /2011 Medical Center HEMATOLOGY MCH 25.6 27.0 - 11/23 LOW [place] 31.0 /2011 Medical Center HEMATOLOGY Hgb 9.1 14.0 - 11/23 LOW [place] 18.0 Medical Center HEMATOLOGY Hct 28.0 42.0 - 11/23 LOW [place] 54.0 /2011 Medical Center HEMATOLOGY WBC 9.7 3.7 - 10.4 11/23 Normal Medical Center HEMATOLOGY RBC 3.54 4.70 - 11/23 LOW [place] 6.10 /2011 Medical Center HEMATOLOGY MCHC 32.4 32.0 - 11/23 Normal [place] 36.0 /2011 Medical Center BEDSIDE Comment2 Sliding 11/22 NA [facility] GLUCOSE Scale Medical TESTING Center BLOOD BANK Antibody Negative 11/21 Normal [facility] RESULTS Scrn (11/22/2011 03:00:00) Medical Center BLOOD BANK ABO/Rh O NEG 11/21 Unknown [facility] RESULTS /2011 Medical Center CHEMISTRY AGAP 9.3 10.0 - 11/21 LOW [place] 20.0 Medical Center CHEMISTRY CO2 32 24 - 32 11/21 Normal Medical Center CHEMISTRY Calcium Lvl 8.4 8.5 - 10.5 11/21 LOW Medical Center CHEMISTRY Potassium 4.3 3.5 - 5.1 11/21 Normal [place] Lvl /2011 Medical Center CHEMISTRY Chloride Lvl 103 95 - 109 11/21 Normal Medical Center CHEMISTRY Sodium Lvl 140 135 - 145 11/21 Normal Medical Center CHEMISTRY Glucose Lvl 114 70 - 99 11/21 HI <sup>5</sup>I nterpretive Medical Data: Adult Center reference range values reflect the clinical guidelines of the [employer]. CHEMISTRY BUN 18 7 - 22 11/21 Normal [facility] CHEMISTRY Creatinine 1.6 0.5 - 1.4 11/21 [facility] Lvl /2011 [facility] HEMATOLOGY Hct 27.2 42.0 - 11/21 [facility] [place] 54.0 [facility] Center HEMATOLOGY MCV 79.4 80.0 - 11/21 [facility] [place] 94.0 [facility] HEMATOLOGY RBC 3.42 4.70 - 11/21 [facility] [place] 6.10 /2011 [facility] HEMATOLOGY Hgb 8.9 14.0 - 11/21 [facility] 18.0 [facility] HEMATOLOGY Platelet 299 133 - 450 11/21 Normal [facility] HEMATOLOGY MPV 9.6 7.4 - 10.4 11/21 Normal [facility] HEMATOLOGY RDW 20.4 11.5 - 11/21 [facility] 14.5 [facility] HEMATOLOGY MCH 26.2 27.0 - 11/21 LOW [place] 31.0 /2011 [facility] HEMATOLOGY MCHC 32.9 32.0 - 11/21 Normal [facility] 36.0 [facility] HEMATOLOGY WBC 7.0 3.7 - 10.4 11/21 Normal [facility] HEMATOLOGY PTT 33.6 22.9 - 11/21 Normal <sup>11</sup> [facility] 35.8 Interpretive Medical Data: Heparin Center Therapeutic Range: 57 - 92 Seconds HEMATOLOGY Anisocyte 1+ None Seen 11/21 [facility] *ABN* /2011 Medical (11/22/2011 03:00:00) Center HEMATOLOGY Eosinophils 0.1 0.0 - 0.5 11/21 Normal [facility] # [facility] Center HEMATOLOGY Basophils # 0.0 0.0 - 0.2 11/21 Normal [facility] HEMATOLOGY Segs-Bands # 5.5 1.5 - 8.1 11/21 Normal [facility] HEMATOLOGY Lymphocytes 0.8 1.0 - 5.5 11/21 LOW [place] # /2011 [facility] Center HEMATOLOGY Eosinophils 1.5 0.0 - 4.0 11/21 Normal Medical Center HEMATOLOGY Basophils 0.3 0.0 - 1.0 11/21 Normal [facility] HEMATOLOGY Monocytes # 0.6 0.0 - 0.8 11/21 [facility] HEMATOLOGY Lymphocytes 11.0 20.0 - 11/21 [facility] [place] 40.0 /2011 [facility] HEMATOLOGY Monocytes 8.6 2.0 - 12.0 11/21 [facility] HEMATOLOGY Segs 78.6 45.0 - 11/21 [facility] [place] 75.0 /2011 [facility] HEMATOLOGY PT 13.1 12.0 - 11/21 [facility] 14.7 /2011 [facility] HEMATOLOGY INR 0.99 0.85 - 11/21 Normal <sup>8</sup>I [facility] 1.17 nterpretive Medical Data: Center RECOMMENDED RANGES FOR PROTIME INR: 2.0-3.0 for most medical and surgical thromboemboli c states. 2.5-3.5 for artificial heart valves and recurrent embolism. INR SHOULD BE USED ONLY FOR PATIENTS ON STABLE ANTICOAGULANT THERAPY. STOOL Occult Bld Negative Negative 11/20 [facility] TESTS Stl (11/21/2011 18:08:00) [facility] CHEMISTRY Iron 14 45 - 160 11/20 [facility] CHEMISTRY TIBC 230 228 - 428 11/20 [facility] CHEMISTRY UIBC 216 110 - 370 11/20 [facility] CHEMISTRY % Satur Fe 6 12 - 57 11/20 [facility] CHEMISTRY Ferritin Lvl 302 22 - 275 11/20 [facility] CHEMISTRY AGAP 15.2 10.0 - 11/20 [facility] 20.0 [facility] CHEMISTRY BUN 23 7 - 22 11/20 [facility] Medical Center CHEMISTRY CO2 25 24 - 32 11/20 [facility] Center CHEMISTRY Potassium 4.2 3.5 - 5.1 11/20 [facility] Medical Center CHEMISTRY Chloride Lvl 102 95 - 109 11/20 [facility] Medical Center CHEMISTRY Sodium Lvl 138 135 - 145 11/20 [facility] Center CHEMISTRY Calcium Lvl 8.2 8.5 - 10.5 11/20 [facility] CHEMISTRY Creatinine 1.5 0.5 - 1.4 11/20 [facility] Center CHEMISTRY Glucose Lvl 142 70 - 99 11/20 [place] <sup>6</sup>I nterpretive Medical Data: Adult Center reference range values reflect the clinical guidelines of the [employer]. HEMATOLOGY MCV 80.1 80.0 - 11/20 Normal [place] 94.0 /2011 [facility] HEMATOLOGY Hct 27.0 42.0 - 11/20 [facility] [place] 54.0 /2011 [facility] HEMATOLOGY MCHC 32.1 32.0 - 11/20 Normal [place] 36.0 /2011 [facility] HEMATOLOGY MCH 25.7 27.0 - 11/20 [facility] [place] 31.0 /2011 [facility] HEMATOLOGY RDW 20.7 11.5 - 11/20 [facility] [place] 14.5 /2011 [facility] HEMATOLOGY Hgb 8.7 14.0 - 11/20 [facility] 18.0 /2011 [facility] HEMATOLOGY RBC 3.37 4.70 - 11/20 [facility] [place] 6.10 /2011 [facility] HEMATOLOGY WBC 6.9 3.7 - 10.4 11/20 Normal [facility] HEMATOLOGY MPV 9.3 7.4 - 10.4 11/20 Normal [facility] HEMATOLOGY Platelet 305 133 - 450 11/20 Normal [facility] HEMATOLOGY Segs-Bands # 5.3 1.5 - 8.1 11/20 Normal [facility] HEMATOLOGY Basophils 0.4 0.0 - 1.0 11/20 Normal [facility] HEMATOLOGY Eosinophils 1.8 0.0 - 4.0 11/20 Normal [facility] HEMATOLOGY Monocytes 9.1 2.0 - 12.0 11/20 Normal [facility] HEMATOLOGY Lymphocytes 11.8 20.0 - 11/20 [facility] [place] 40.0 [facility] HEMATOLOGY Anisocyte 1+ None Seen 11/20 ABN [place] *ABN* /2011 Medical (11/21/2011 05:14:00) Center HEMATOLOGY Basophils # 0.0 0.0 - 0.2 11/20 Normal [facility] [facility] HEMATOLOGY Eosinophils 0.1 0.0 - 0.5 11/20 Normal [place] # [facility] HEMATOLOGY Monocytes # 0.6 0.0 - 0.8 11/20 Normal [facility] HEMATOLOGY Lymphocytes 0.8 1.0 - 5.5 11/20 LOW [facility] [place] # /[facility] HEMATOLOGY Segs 76.9 45.0 - 11/20 HI [place] 75.0 /2011 Medical Center BEDSIDE Comment2 Sliding 11/20 NA [facility] GLUCOSE Scale /2011 Medical TESTING Center CHEMISTRY Phosphorus 4.3 2.5 - 4.5 11/16 Normal [facility] CHEMISTRY Magnesium 2.2 1.8 - 2.4 11/16 Normal [facility] Lvl [facility] Center CHEMISTRY T4 Free 1.35 0.76 - 11/16 Normal [facility] 1.46 /2011 Medical Center CHEMISTRY TSH 1.980 0.360 - 11/16 Normal [place] 3.740 /2011 Medical Center CHEMISTRY B/C Ratio 16 6 - 25 11/16 Normal [facility] Center CHEMISTRY Globulin 3.2 2.0 - 4.0 11/16 Normal [facility] CHEMISTRY A/G Ratio 0.9 0.7 - 1.6 11/16 Normal [facility] CHEMISTRY Bili Total 0.9 0.2 - 1.3 11/16 Normal [facility] CHEMISTRY Albumin Lvl 2.9 3.5 - 5.0 11/16 LOW [facility] CHEMISTRY Alk Phos 77 39 - 136 11/16 Normal [facility] CHEMISTRY AST 19 0 - 37 11/16 Normal [facility] CHEMISTRY Total 6.1 6.4 - 8.4 11/16 LOW [facility] Protein [facility] CHEMISTRY ALT 20 0 - 65 11/16 Normal [facility] CHEMISTRY Hgb A1C 6.5 11/16 NA <sup>7</sup>I nterpretive Medical Data: HbA1C% Center eAG(mg/dL) Interpretatio n 6.0 126 Very good control 6.5 140 Very good control 7.0 154 Good Control 7.5 169 Good Control 8.0 183 Marginal Control, take action to lower 8.5 197 Marginal Control, take action to lower 9.0 212 Poor Control, take action to lower 9.5 226 Poor Control, take action to lower 10.0 240 Poor Control, take action to lower HEMATOLOGY PT xxxxxxx 12.0 - 11/16 Normal [facility] (11/17/2011 05:50:00) 14.7 Medical Center HEMATOLOGY INR xxxxxxx 9, 10 0.85 - 06/20 Normal <sup>9</sup>I [facility] (11/17/2011 05:50:00) 1.17 nterpretive Medical Data: Center RECOMMENDED RANGES FOR PROTIME INR: 2.0-3.0 for most medical and surgical thromboemboli c states. 2.5-3.5 for artificial heart valves and recurrent embolism. INR SHOULD BE USED ONLY FOR PATIENTS ON STABLE ANTICOAGULANT THERAPY.
<sup>10</s up>Interpreti ve Data: RECOMMENDED RANGES FOR PROTIME INR: 2.0-3.0 for most medical and surgical thromboemboli c states. 2.5-3.5 for artificial heart valves and recurrent embolism. INR SHOULD BE USED ONLY FOR PATIENTS ON STABLE ANTICOAGULANT THERAPY. HEMATOLOGY PTT See Note 12, 13 22.9 - 11/16 Normal <sup>12</sup> [facility] (11/17/2011 05:50:00) 35.8 /2011 Result Medical Comment: Center called to ger samayoa 11/17/2011 6:26 no clot 11/17/2011 6:26
<sup >13</sup>Inte rpretive Data: Heparin Therapeutic Range: 57 - 92 Second[facility] IMMUNOLOGY Prealbumin 19.9 18.0 - 11/16 Normal [facility] 45.0 /2011 Medical Center URINALYSIS UA 0.1 - 1.0 11/16 [facility] Urobilinogen /2011 Medical Center URINALYSIS UA Ketones Negative mg/dL Negative [facility]/16 [facility] 05[facility]32[facility] URINALYSIS UA Bili Negative Negative 11/16 [facility] (11/17/2011 05:32:00) Center URINALYSIS UA Glucose Negative mg/dL Negative 11/16 NA [facility] *NA* Medical (11/17/2011 05:32:00) Center URINALYSIS UA Protein 30 mg/dL Negative [facility] 05[facility]32:00[facility] Center URINALYSIS UA Blood Moderate Negative 11/16 [facility] (11/17/2011 05:32:00) Center URINALYSIS UA Leuk Est Negative Negative 11/16 Normal [facility] (11/17/2011 05:32:00) /2011 Medical Center URINALYSIS UA Nitrite Negative Negative 11/16 Normal [facility] (11/17/2011 05:32:00) [facility] URINALYSIS UA Sq Epi Few /LPF Few 11/16 [facility] (11/17/2011 05:32:00) Center URINALYSIS UA Mucus Few /LPF None Seen 11/16 [facility] (11/17/2011 05:32:00) Center URINALYSIS UA RBC 1 0 - 2 11/16 Normal [facility] URINALYSIS UA WBC <1 0 - 5 11/16 Normal [facility] URINALYSIS UA Amorph Occasional /HPF None Seen 11/16 [facility] Izzy *NA [facility] (11/17/2011 05:32:00) [place] URINALYSIS UA Renal Epi 1 <=0 11/16 [facility] URINALYSIS UA Hyal Cast 6 0 - 2 11/16 [facility] URINALYSIS UA Turbidity Slight Clear 11/16 [facility] (11/17/2011 05:32:00) Center URINALYSIS UA Color Yellow Yellow 11/16 [facility] (11/17/2011 05:32:00) [place] URINALYSIS UA Spec Grav 1.016 <=1.030 11/16 Normal [facility] URINALYSIS UA pH 5.0 5.0 - 8.0 11/16 Normal [facility] Microbiolo Culture: 11/16 [facility] gy [facility] Pathology Reports No Data Provided for This Section Diagnostic Reports Report Value Date Source Esophagus BA swallow w Clinical Indication: - dysphagia 11/21/2018 [facility] function Rehab DX Comparison: None Findings: Modified barium swallow study was performed with speech pathologist. Patient ingested barium of various textures and consistency while under fluoroscopic evaluation. Thin consistency barium by spoon: Deep aspiration without cough reflex. [place] consistency barium by spoon: Deep aspiration. Thin consistency barium with carbonation by spoon: Penetration without aspiration. Pudding consistency barium was unremarkable. Minimal residue in the vallecula. Fluoroscopy time: 1.02 minutes; Reference Air Kerma: 3.42 mGy Impression: Deep aspiration without cough reflex with thin consistency barium and nectar consistency barium. Penetration without aspiration with thin consistency barium with carbonation. No aspiration with pudding consistency. Please see speech pathologist report for complete details. Esophagus BA swallow w PROCEDURE: MODIFIED BARIUM SWALLOW 08/10/2018 [facility] function Rehab DX Clinical Indication: History of MCA infarct.. ; COMPARISON: 12/27/2017 TECHNIQUE: Fluoroscopy was provided for a modified barium swallow performed by speech therapy. The patient was administered various consistencies of liquid barium and barium coated foods by mouth. Reference air kerma: 7.38 mGy. Fluoroscopy time: 2.15 minutes FINDINGS: Half a teaspoon of thin consistency barium: Unremarkable. Full teaspoon thin consistency barium: Symptoms aspiration. A teaspoon of carbonated thin consistency barium: No penetration or aspiration. [place] consistency barium: No penetration or aspiration. There was residue in the vallecula and piriform sinuses which required 3-4 swallows to clear. Pudding consistency barium: Aspiration with delayed cough response. Subsequent administration of thin consistency barium with spoon showed deep penetration. Thin consistency barium administered by cup was with symptomatic aspiration. IMPRESSION: Abnormal swallow study. The reader is referred to dedicated speech therapy report for details. Esophagus BA swallow w Clinical Indication: Decompensation after pneumonia. Initial modified barium swallow. 12/27/2017 [facility] function Rehab DX Comparison: None Findings: Modified barium swallow study was performed [...] pathologist report for complete details. Foot series DX EXAM: FOOT 3 VIEWS 10/14/2014 [facility] DATE: Order Observation End Time: October 14, 2014 12:29:08 PM INDICATION: Pain. Heel ulceration. TECHNIQUE: AP , [...] degenerative changes of the intertarsal joints Esophagus BA swallow w EXAM: Esophagus BA swallow w function Rehab 2014 [facility] function Rehab DX DATE: Sep 03, 2014 09:47:27 AM . INDICATION: Coughing, choking occasionally with thin consistency [...] TIME: 3 minutes 50 seconds. DISCUSSION: Lateral production supply equipment tender views of the neck demonstrate a normal [...] with mild vallecular residue. The previous mixed residue , pear piece, was not cleared from the [...] of mixed consistency, pear piece mixed with juice , that could not be cleared during the examination including utilizing dry swallow, as well as washes of pudding and thin consistencies as well as water. 3. Incomplete mastication of mixed consistency. 4. Premature spillage into the valleculae and pyriform sinuses with thin consistency. Please refer to the speech therapist's report for specific dietary recommendations. Consultation Notes No Data Provided for This Section Discharge Summaries No Data Provided for This Section History and Physicals No Data Provided for This Section Vital Signs Vital Sign Value Date Comments Source Systolic (mm Hg) 138 11/20/2018 [facility] Diastolic (mm Hg) 89 11/20/2018 [facility] Respitory Rate 18 11/20/2018 [facility] Heart Rate 84 11/20/2018 [facility] Height 175.26 cm 08/07/2018 [facility] BMI Calculated 26.19 08/07/2018 [facility] Weight 80.455 08/07/2018 [facility] Systolic (mm Hg) 118 08/07/2018 [facility] Diastolic (mm Hg) 74 08/07/2018 [facility] Heart Rate 85 08/07/2018 [facility] Respitory Rate 18 08/07/2018 [facility] Heart Rate 87 07/27/2018 [facility] Respitory Rate 18 07/27/2018 [facility] Height 175.26 cm 07/27/2018 [facility] BMI Calculated 26.49 07/27/2018 [facility] Weight 81.364 07/27/2018 [facility] Systolic (mm Hg) 124 07/27/2018 [facility] Diastolic (mm Hg) 78 07/27/2018 [facility] Weight 81.364 12/19/2017 [facility] BMI Calculated 26.49 12/19/2017 [facility] Height 175.26 cm 12/19/2017 [facility] Systolic (mm Hg) 119 12/19/2017 [facility] Diastolic (mm Hg) 76 12/19/2017 [facility] Respitory Rate 20 12/19/2017 [facility] Heart Rate 84 12/19/2017 [facility] Temperature Oral (F) 98.7 F 08/20/[address] [facility] Heart Rate 97 08/20/[address] [facility] Respitory Rate 18 08/20/[address] [facility] Systolic (mm Hg) 131 08/20/[address] [facility] Diastolic (mm Hg) 60 08/20/[address] [facility] Height 69 08/19/[address] [facility] Weight 154 08/19/[address] [facility] Weight 80.455 06/02/2017 [facility] BMI Calculated 26.19 06/02/2017 [facility] Heart Rate 7 06/02/2017 [facility] Respitory Rate 20 06/02/2017 [facility] Height 175.26 cm 06/02/2017 [facility] Systolic (mm Hg) 107 06/02/2017 [facility] Diastolic (mm Hg) 73 06/02/2017 [facility] Weight 80.455 02/21/2017 [facility] BMI Calculated 26.19 02/21/2017 [facility] Height 175.26 cm 02/21/2017 [facility] Respitory Rate 18 02/21/2017 [facility] Heart Rate 73 02/21/2017 [facility] Systolic (mm Hg) 120 02/21/2017 [facility] Diastolic (mm Hg) 69 02/21/2017 [facility] Height 175.26 cm 11/22/2016 [facility] BMI Calculated 26.19 11/22/2016 [facility] Weight 80.455 11/22/2016 [facility] Systolic (mm Hg) 124 11/22/2016 [facility] Diastolic (mm Hg) 67 11/22/2016 [facility] Respitory Rate 18 11/22/2016 [facility] Heart Rate 68 11/22/2016 [facility] Height 175.26 cm 08/09/2016 [facility] BMI Calculated 26.19 08/09/2016 [facility] Weight 80.455 08/09/2016 [facility] Systolic (mm Hg) 119 08/09/2016 [facility] Diastolic (mm Hg) 73 08/09/2016 [facility] Respitory Rate 18 08/09/2016 [facility] Heart Rate 78 08/09/2016 [facility] BMI Calculated 25.82 03/08/2016 [facility] Weight 80.455 03/08/2016 [facility] Height 176.53 cm 03/08/2016 [facility] Heart Rate 76 03/08/2016 [facility] Respitory Rate 20 03/08/2016 [facility] Systolic (mm Hg) 128 03/08/2016 [facility] Diastolic (mm Hg) 83 03/08/2016 [facility] Heart Rate 73 12/04/2015 [facility] Respitory Rate 20 12/04/2015 [facility] Height 175.76 cm 12/04/2015 [facility] Weight 80.455 12/04/2015 [facility] BMI Calculated 26.04 12/04/2015 [facility] Systolic (mm Hg) 121 12/04/2015 [facility] Diastolic (mm Hg) 72 12/04/2015 [facility] Weight 80.455 08/25/2015 [facility] BMI Calculated 25.82 08/25/2015 [facility] Height 176.53 cm 08/25/2015 [facility] Systolic (mm Hg) 131 08/25/2015 [facility] Diastolic (mm Hg) 60 08/25/2015 [facility] Heart Rate 83 08/25/2015 [facility] Respitory Rate 18 08/25/2015 [facility] Systolic (mm Hg) 122 05/05/2015 [facility] Diastolic (mm Hg) 78 05/05/2015 [facility] Respitory Rate 18 05/05/2015 [facility] Heart Rate 87 05/05/2015 [facility] Heart Rate 82 01/13/2015 [facility] Respitory Rate 20 01/13/2015 [facility] BMI Calculated 26.4 01/13/2015 [facility] Weight 82.273 01/13/2015 [facility] Height 176.53 cm 01/13/2015 [facility] Systolic (mm Hg) 125 01/13/2015 [facility] Diastolic (mm Hg) 79 01/13/2015 [facility] Heart Rate 84 10/14/2014 [facility] Respitory Rate 20 10/14/2014 [facility] Systolic (mm Hg) 155 10/14/2014 [facility] Diastolic (mm Hg) 95 10/14/2014 [facility] Height 175.26 cm 10/14/2014 [facility] BMI Calculated 26.64 10/14/2014 [facility] Weight 81.818 10/14/2014 [facility] Heart Rate 87 08/30/2014 [facility] Systolic (mm Hg) 150 08/30/2014 [facility] Diastolic (mm Hg) 94 08/30/2014 [facility] Systolic (mm Hg) 139 08/15/2014 [facility] Diastolic (mm Hg) 79 08/15/2014 [facility] Heart Rate 80 08/15/2014 [facility] Systolic (mm Hg) 134 08/13/2014 [facility] Diastolic (mm Hg) 85 08/13/2014 [facility] Heart Rate 82 08/13/2014 [facility] Systolic (mm Hg) 146 07/04/2014 [facility] Diastolic (mm Hg) 80 07/04/2014 [facility] [...] [facility] Temperature Oral (F) 98.4 F 11/25/2011 [facility] Heart Rate 66 11/25/2011 [facility] Diastolic (mm Hg) 79 11/25/2011 [facility] Systolic (mm Hg) 115 11/25/2011 [facility] Respitory Rate 20 11/25/2011 [facility] Respitory Rate 20 11/25/2011 [facility] Systolic (mm Hg) 145 11/25/2011 [facility] Diastolic (mm Hg) 82 11/25/2011 [facility] Temperature Oral (F) 98.4 F 11/25/2011 [facility] Heart Rate 95 11/25/2011 [facility] Systolic (mm Hg) 131 11/24/2011 [facility] Respitory Rate 20 11/24/2011 [facility] Diastolic (mm Hg) 69 11/24/2011 [facility] Heart Rate 86 11/24/2011 [facility] Temperature Oral (F) 98.2 F 11/24/2011 [facility] Weight 95.909 11/16/2011 [facility] Height 176.53 cm 11/16/2011 [facility] Encounters Location Location Encounter Encounter Reason Attending ADM DC Status Source Details Type Number For Provider Date Date Visit [id number] JOSEPH 11/15 11/24 Discharg 1 V[facility] UTIERREZ tation [facility] [id number] [facility] Active Surgical ORDERS Etmin [facility] Tot [id number] [place] 08/28 09/27 [facility] 0 Ifejika-Chantal [facility] Outpatient [id number] Adrian Beavers 09/28 09/29 [facility] 5 [facility] Tots [id number] [place] 11/06 12/06 [facility] [place] Therapy 2 Ifejika-Chantal [facility] Tots [id number] [place] 12/11 01/10 [facility] 3 Ifejika-Chantal [facility] Outpatient [id number] Adrian Beavers 12/21 12/22 [facility] [place] [facility] Tots [id number] [place] 01/15 02/14 [facility] [place] Therapy 4 [facility] Outpatient [id number] Adrian Beavers 01/21 01/22 [facility] Tots [id number] [place] 02/19 03/21 [facility] 5 [facility] Outpatient [id number] Adrian Ruthann 04/22 04/23 [facility] [place] [facility] Tots [id number] [place] 07/04 08/03 [facility] 6 If- [facility] odette [facility] Tots [id number] [place] 08/06 09/05 [facility] 7 Ife-Chantal [facility] Tots [id number] [place] 09/10 10/10 [facility] [place] Therapy 8 If- [facility] odette [facility] Outpatient [id number] Adrian Beavers 10/14 10/15 [facility] Outpatient [id number] Adrian Beavers 01/13 01/14 [facility] OP [id number] Adrian Beavers 01/14 02/13 [facility] Recurring [facility] Outpatient [id number] Adrian Beavers 05/05 05/06 [facility] [facility] Tots [id number] [place] 07/01 07/30 [facility] 0 [place] [facility] Outpatient [id number] Adrian Beavers 08/24 08/25 [facility] Outpatient [id number] Adrian Beavers 12/03 12/04 [facility] Outpatient [id number] Adrian Beavers 03/08 03/09 [facility] Outpatient [id number] Adrian Beavers 08/09 08/10 [facility] Outpatient [id number] Adrian Beavers 11/22 11/23 [facility] Outpatient [id number] Adrian Beavers 02/21 02/22 [facility] Outpatient [id number] Adrian Beavers 06/02 06/03 [facility] [facility] [id number] [facility]/[address] [facility] [place] [facility] Dis[facility] [id number] 06/09 06/[address] [facility] [place] [facility] Reg[facility] [id number] 08/[address] [facility] [place] [facility] Dis[facility] [id number] 08/09 08/[address] [facility] [place] [facility] Outpatient [id number] Adrian Beavers 12/19 12/20 [facility] Outpatient [id number] Adrian Beavers 12/27 12/28 [facility] PreReg [id number] Adrian Beavers 04/24 04/24 [facility] (SP[facility]) [facility] Outpatient [id number] Robb 04/27 04/27 Active Surgical [facility] /2017 [facility] Outpatient [id number] Robb 04/27 04/28 [facility] Ross Juárez /2017 Surgical [facility] Recurring [id number] Non 07/10 07/10 [facility] 0 [facility] Outpatient [id number] Adrian Beavers 07/27 07/28 [facility] Outpatient [id number] Adrian Beavers 08/07 08/08 [facility] [place] [facility] Outpatient [id number] Adrian Beavers 08/10 08/11 [facility] [place] [facility] Recurring [id number] Adrian Ruthann 08/14 09/13 [facility] Recurring [id number] Adrian Ruthann 09/14 10/14 [facility] Recurring [id number] Non 10/16 11/15 [facility] 4 Physician /2018 [place] [facility] Recurring [id number] Non 11/17 12/17 [facility] 5 Physician [facility] Outpatient [id number] Adrian Ruthann 11/20 11/21 [facility] (SPCR) [facility] Outpatient [id number] Adrian Ruthann 11/21 11/22 [facility] [place] [facility] Recurring [id number] Adrian Ruthann 12/19 01/18 [facility] Preadmit [id number] STROKE NON Active [facility] 2 PHYSICIAN Procedures Procedure Code Date Perfomer Comments [place] [address] [facility] one extremity; 1-4 9 muscle(s[place] [address] [facility] muscle(s); muscle(s) 9 innervated by facial nerve, unilateral (eg, for blepharospasm, hemifacial spasm) Injection(s); single [facility] or multiple trigger 9 point(s), 1 or 2 [place] [address] [facility] muscle(s); muscle(s) 9 innervated by facial, trigeminal, cervical spinal and accessory nerves, bilateral (eg, for chronic migraine) Abdomen 1 View (KUB) [id number] [facility] [place] Barium Swallow [id number] [facility] - Modified 8 [place] Chest Single View [id number] [facility] [place] Anaerobic Blood [id number] [facility] [place] Aerobic Blood Culture [id number] [facility] [address] [place] [id number] [facility] [place] Tolar Count [id number] [facility] [place] [facility] [address] [place] [address] Stroke Brain Wo [id number] [facility] - Cont [facility] [place] Chest Pa And Lat (2 [id number] [facility] - Views) [place] Influenza Type B [facility] [place] [facility] Antigen Screen 8 [place] Influenza Type A [facility] - Antigen Screen 8 [place] [address] [facility] one extremity; each 8 additional extremity, 1-4 muscle(s) (List separately in addition to code for primary procedure) Chemodenervation<sup> [id number] 2013 [facility] 1</sup> Assessment and Plan No Data Provided for This Section Plan of Care Plan of Care Date Source Instructions 08/21/2017 [facility] [place] DI for Kidney Failure DI for Seizure Disorder -- Adult DI for Percutaneous Endoscopic Gastrostomy Instructions 08/21/[address] [facility] [place] DI for Kidney Failure DI for Seizure Disorder -- Adult DI for Percutaneous Endoscopic Gastrostomy Social History Social History Date Source Social History TypeResponse 11/20/2018 [facility] Smoking Status Former smoker; Ready to change: No; Concerns about tobacco use in household: No ; Exposure to Tobacco Smoke None; Cigarette Smoking Last 365 Days No; Reg Smoking Cessation Counseling No; Started at age: 18.0; Stopped at age: 71; entered on: 11/20/18 No data available for this 04/28/2018 [facility] section Query Response Date Recorded Comment 05/30/1958 [facility] [place] Alcohol Use? No August 09, 2017 5:01pm CD- Drugs? No August 09, 2017 5:01pm Query Response Start Date Stop Date Smoking Status Former smoker May 30, 1959 May 30, 2011 Family History Value Date Source Query Response Instance Date Recorded Comment 08/21/2017 [facility] [place] Medical History Hypertension Mother August 09, 2017 5:01pm Medical History Hypertension Father August 09, 2017 5:01pm Medical History Hypertension March 09, 2016 12:32pm Advance Directives Order Name Results Value Date Source Advance Directives Advance Directives Advance Directive Response Recorded Date/Time 08/21/2017 [place] Pool - Does Patient Have Living Will [place] Yes August 19, 2017 6:00pm 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
--- OUTSIDE RECORDS SUMMARY | 2019-02-14 12:24 | XMS REPORT | CCD ---
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 DR Carter Medications Medication Instructions [...] Substitution Allowed, TAB Glycerol 60 mL, Route: IL, Drug 11/17/2011 11/18/2011 Completed Form: MISC, ONCE, [...] Allowed, TAB mineral oil 60 mL, Route: IL, Drug 11/17/2011 11/18/2011 Completed Form: LIQ, ONCE, [...] date: 11/17/11 15:16:00 Sodium Chloride 0.9% IV IL, 0 ml/hr, ONCE, Start 11/17/2011 11/18/2011 Completed [...] range values reflect the clinical guidelinesof the [place] [employer].5Interpretive Data: Adult reference range values reflect the clinical guidelinesof the [place] [employer].6Interpretive Data: Adult reference range values reflect the clinical guidelinesof the [place] [employer].7Interpretive Data: HbA1C% eAG(mg/dL) Interpretation 6.0 [...] Data: Heparin Therapeutic Range: 57 - 92 [id number] Comment: called to ger samayoa 11/17/2011 6:26 [...]
--- OUTSIDE RECORDS SUMMARY | 2019-02-14 12:27 | XMS REPORT ---
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 Problem Primary insomnia F51.01 Active Problem Anxiety F41.9 Active Problem Edema R60.9 Active Problem Diabetes E11.9 Active Medications Medication Code Code Instructions Start End Status Dosage System Date Date Amlodipine ND 73802901810 10 MG Orally Active 1 tablet Besylate Once a day Valacyclovir ND 63681952854 1 GM crushed Jan 11Dec Active 1 tablet HCl via peg tube 2017, twice a day 2017 Lamictal ND 48058451494 200 MG Orally Active 1 tablet Twice a day Cozaar ND 23375694389 50 MG Orally Active 1 tablet Once a day Dilantin ND 56208919002 100 MG Orally Active 1 capsule Four times a day Lorazepam [facility] 38687240135 0.5 MG Orally Active 1 tablet as every 12 hrs needed Loratadine [facility] 96416750571 10 MG Active TAKE 1 TABLET BY MOUTH EVERY DAY Ventolin HFA [facility] 41228073633 108 (90 Base) November 07 2 puffs as MCG/ACT 2017 needed Inhalation every 4- 6 hrs Flomax ND 49314155137 0.4 MG Orally Active 1 capsule Once a day Dilantin ND 72037655498 125 MG/5ML via August Active 4 ml PEG tube every 2017 6 hours Lipitor ND 29036377487 80 MG Active TAKE 1 TABLET BY MOUTH AT BEDTIME Singulair [facility] 45700071524 10 MG Active TAKE 1 TABLET BY MOUTH AT BEDTIME Zovirax [facility] 20341513113 5 % Externally Jan 11, Active 1 application four times a 2017 to affected day area Flonase [facility] 30715230749 50 MCG/ACT Active 1 spray in Nasally Once a each nostril day Coreg [facility] 03712179129 3.125 MG Orally Active one tablet twice a day Finasteride [facility] 05917123039 5 MG Active TAKE 1 TABLET BY MOUTH EVERY DAY Montelukast [facility] 47919111813 10 MG Orally Active 1 tablet in Sodium Once a day the evening Results No Known Results Summary Purpose eClinicalWorks Submission
--- OUTSIDE RECORDS SUMMARY | 2019-02-14 12:27 | XMS REPORT ---
[...] Start End Status Dosage System Date Date Phenytoin [facility] 12981356363 200 MG Orally Mar 15, Active 1 capsule Sodium Two times a day 2018 Extended Results No Known Results Summary Purpose eClinicalWorks Submission
--- OUTSIDE RECORDS SUMMARY | 2019-02-14 12:28 | XMS REPORT ---
:1940 Author Organization eClinicalWorks Care Team Providers Name Role Phone Lechuga, Na Provider Role Unavailable Allergies, Adverse Reactions, Alerts Substance Reaction Event Type N.K.D.A. Info Not Available Non Drug Allergy Problems Problem Type Condition Code Onset Dates Condition Status Assessment Weakness R53.1 Active Assessment 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 Assessment Anxiety F41.9 Active Assessment Anemia, unspecified type D64.9 Active Assessment Primary insomnia F51.01 Active Assessment Allergic rhinitis J30.9 Active Assessment Aphasia as late effect of I69.920 Active cerebrovascular accident Assessment Hyperlipidemia E78.5 Active Assessment Benign essential HTN I10 Active Problem Anxiety F41.9 Active Assessment Seizure disorder [...] R53.1 Active Problem Hypernatremia E87.0 Active Assessment Dysphagia as late effect of I69.391 Active cerebrovascular accident (CVA) Problem Gastroesophageal reflux disease, K21.9 Active esophagitis presence not specified Assessment Dysphagia causing pulmonary R13.19 Active aspiration with swallowing Problem 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 Assessment 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 Problem 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 Active Assessment Left-sided weakness R53.1 Active Problem Dysphagia as late effect of I69.391 Active cerebrovascular accident (CVA) Problem Fatty liver K76.0 Active Assessment Influenza vaccination administered Z23 Active at current visit Problem Benign essential HTN I10 Active Problem Primary insomnia F51.01 Active Problem Edema R60.9 Active Medications Medication Code Code Instructions Start End Status Dosage System Date Date Lipitor [facility] 55220828937 80 MG Active TAKE 1 TABLET BY MOUTH AT BEDTIME Flomax ND 43834181153 0.4 MG Orally Active 1 capsule Once a day Lipitor [facility] 09449806279 80 MG Active TAKE 1 TABLET BY MOUTH AT BEDTIME Singulair [facility] 15380522734 10 MG Active TAKE 1 TABLET BY MOUTH AT BEDTIME Ventolin HFA [facility] 30156232194 108 (90 Base) Active 2 puffs as MCG/ACT needed Inhalation every 4- 6 hrs Amlodipine [facility] 13738059819 10 MG Orally Active 1 tablet Besylate Once a day Finasteride [facility] 74181030640 5 MG Active TAKE 1 TABLET BY MOUTH EVERY DAY Dilantin [facility] 42225102780 100 MG Orally Active 1 capsule Four times a day Dilantin [facility] 94069754943 125 MG/5ML via Active 4 ml PEG tube every 6 hours Phenytoin [facility] 81222702841 200 MG Orally Feb 17, Active 1 capsule Sodium Two times a day 2017 Extended Flonase [facility] 14968354808 50 MCG/ACT Active 1 spray in Nasally Once a each nostril day Loratadine [facility] 04134962203 10 MG Active TAKE 1 TABLET BY MOUTH EVERY DAY Coreg ND 99632786396 3.125 MG Orally Active one tablet twice a day Montelukast ND 28801734575 10 MG Orally Active 1 tablet in Sodium Once a day the evening Lamictal [facility] 31283034644 200 MG Orally Active 1 tablet Twice a day Zovirax [facility] 48009244614 5 % Externally Jan 11, Active 1 application four times a 2018 to affected day [facility] 08318887249 50 MG Orally Active 1 tablet Once a day Lorazepam [facility] 43933190995 0.5 MG Orally Active 1 tablet as every 12 hrs needed Finasteride [facility] 28591565262 5 MG Active TAKE 1 TABLET BY MOUTH EVERY DAY Results No Known Results Immunizations Vaccine Administration Date FluAD Apr 18, 2018 Summary Purpose eClinicalWorks Submission
--- OUTSIDE RECORDS SUMMARY | 2019-02-14 12:28 | XMS REPORT ---
:1940 Author Organization eClinicalWorks Care Team Providers Name Role Phone Lechuga, Na Provider Role Unavailable Allergies No Known Allergies Problems Problem Type Condition Code Onset Dates Condition Status Problem Hyperlipidemia E78.5 Active Problem Seizure disorder G40.909 Active Problem History of CVA (cerebrovascular Z86.73 Active accident) Problem Nasal congestion R09.81 Active Problem 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 Active Problem Anemia, unspecified type D64.9 Active Problem 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 Problem Aphasia as late effect of I69.920 Active cerebrovascular accident Problem Mild asthma exacerbation J45.901 Active Problem Hypernatremia E87.0 Active Problem Left-sided weakness R53.1 Active Problem Dysphagia causing pulmonary R13.19 Active aspiration with swallowing Problem Weakness R53.1 Active Problem 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 Problem Primary insomnia F51.01 Active Problem Dysphagia as late effect of I69.391 Active cerebrovascular accident (CVA) Problem Gastroesophageal reflux disease, K21.9 Active esophagitis presence not specified Problem Benign essential HTN I10 Active Problem Anxiety F41.9 Active Problem Edema R60.9 Active Problem Diabetes E11.9 Active Problem Alkaline phosphatase raised R74.8 Active Problem Fatty liver K76.0 Active Problem Allergic rhinitis J30.9 Active Medications No Known Medications Results No Known Results Summary Purpose eClinicalWorks Submission
--- OUTSIDE RECORDS SUMMARY | 2019-02-14 12:28 | XMS REPORT ---
:1940 Author Organization eClinicalWorks Care Team Providers Name Role Phone Lechuga, Na Provider Role Unavailable Allergies, Adverse Reactions, Alerts Substance Reaction Event Type N.K.D.A. Info Not Available Non Drug Allergy Problems Problem Type Condition Code Onset Dates Condition Status Assessment Anemia, unspecified type D64.9 Active Assessment Weakness R53.1 Active Assessment Primary insomnia F51.01 Active Assessment Anxiety F41.9 Active Assessment Allergic rhinitis J30.9 Active Assessment Aphasia as late effect of I69.920 Active cerebrovascular accident Assessment Acute sinusitis, unspecified J01.90 Active Assessment Hyperlipidemia E78.5 Active Assessment Benign essential [...] Active Problem Hypernatremia E87.0 Active Assessment Dysphagia causing pulmonary R13.19 Active aspiration with swallowing Problem Gastroesophageal reflux disease, K21.9 Active esophagitis presence not specified Assessment 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 Problem 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 Assessment Left-sided weakness R53.1 Active Problem 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 Active Assessment Dysphagia as late effect of I69.391 Active cerebrovascular accident (CVA) Problem Dysphagia as late effect of I69.391 Active cerebrovascular accident (CVA) Assessment Other specified bacterial agents as B96.89 Active the cause of diseases classified elsewhere Problem Fatty liver K76.0 Active Assessment 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 Problem Benign essential HTN I10 Active Problem Primary insomnia F51.01 Active Problem Edema R60.9 Active Medications Medication Code Code Instructions Start End Status Dosage System Date Date Lipitor [facility] 45012928865 80 MG Active TAKE 1 TABLET BY MOUTH AT BEDTIME Phenytoin [facility] 35103373445 200 MG Orally Mar 15, Active 1 capsule Sodium Two times a day 2017 Extended Flonase ND 65379832924 50 MCG/ACT Active 1 spray in Nasally Once a each nostril day Loratadine [facility] 64906205622 10 MG Active TAKE 1 TABLET BY MOUTH EVERY DAY Lipitor [facility] 84323788556 80 MG Active TAKE 1 TABLET BY MOUTH AT BEDTIME Coreg ND 04728702914 3.125 MG Orally Active one tablet twice a day Finasteride ND 53063916389 5 MG Active TAKE 1 TABLET BY MOUTH EVERY DAY Phenytoin ND 80145440623 200 MG Orally Jul 17, Active 1 capsule Sodium Three times a 2018 Extended day Ventolin HFA [facility] 08173989732 108 (90 Base) Active 2 puffs as MCG/ACT needed Inhalation every 4- 6 hrs Montelukast ND 28309718879 10 MG Orally Active 1 tablet in Sodium Once a day the evening Lorazepam [facility] 66478015388 0.5 MG Orally Active 1 tablet as every 12 hrs needed Flomax ND 30602433101 0.4 MG Orally Active 1 capsule Once a day Cozaar ND 22354058811 50 MG Orally Active 1 tablet Once a day Amoxicillin ND 21497938747 500 MG Orally Jul 17, Active 1 capsule every 8 hrs 2018 Dilantin ND 71226294434 100 MG Orally Active 1 capsule Four times a day Amlodipine ND 21188656773 10 MG Orally Active 1 tablet Besylate Once a day Lamictal ND 93444568774 200 MG Orally Active 1 tablet Twice a day Zovirax [facility] 15866092183 5 % Externally Jan 11, Active 1 application four times a 2018 to affected day area Singulair ND 94577333388 10 MG Active TAKE 1 TABLET BY MOUTH AT BEDTIME Dilantin [facility] 21258499778 125 MG/5ML via Active 4 ml PEG tube every 6 hours Results No Known Results Summary Purpose eClinicalWorks Submission
--- OUTSIDE RECORDS SUMMARY | 2019-02-14 12:28 | XMS REPORT ---
[...] End Status Dosage System Date Date Phenytoin [facility] 63379671137 200 MG Orally Feb 17, Active 1 capsule Sodium Two times a day 2018 Extended Results No Known Results Summary Purpose eClinicalWorks Submission
--- OUTSIDE RECORDS SUMMARY | 2019-02-14 12:28 | XMS REPORT ---
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
--- OUTSIDE RECORDS SUMMARY | 2019-02-14 12:28 | XMS REPORT ---
[...] Start End Date Status Dosage System Date Lorazepam [facility] 96865913291 0.5 MG Orally Active 1 tablet prn every 12 hrs anxiety/ insomnia Results No Known Results Summary Purpose eClinicalWorks Submission
--- OUTSIDE RECORDS SUMMARY | 2019-02-14 12:29 | XMS REPORT ---
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 Problem Mild asthma exacerbation J45.901 Active Problem Aphasia as late effect of I69.920 Active cerebrovascular accident Problem Hypernatremia E87.0 Active Problem Left-sided weakness R53.1 Active Problem Dysphagia causing pulmonary R13.19 Active aspiration with swallowing Problem Weakness R53.1 Active Assessment Allergic rhinitis J30.9 Active Problem 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 Assessment Dysphagia causing pulmonary R13.19 Active aspiration with swallowing Problem Primary insomnia F51.01 Active Assessment 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 Problem Dysphagia as late effect of I69.391 Active cerebrovascular accident (CVA) Assessment Left-sided weakness R53.1 Active Problem Gastroesophageal reflux disease, K21.9 Active esophagitis presence not specified Assessment Elevated alkaline phosphatase level R74.8 Active Problem Benign essential HTN I10 Active Assessment Other specified bacterial agents as B96.89 Active the cause of diseases classified elsewhere Problem Anxiety F41.9 Active Problem Edema R60.9 Active Problem Fatty liver K76.0 Active Medications Medication Code Code Instructions Start End Status Dosage System Date Date Dilantin [facility] 05829017626 100 MG Orally Active 1 capsule Four times a day Flonase [facility] 16516441223 50 MCG/ACT Active 1 spray in Nasally Once a each nostril day Lorazepam [facility] 69487065425 0.5 MG Orally Active 1 tablet as every 12 hrs needed Loratadine [facility] 36266471403 10 MG Active TAKE 1 TABLET BY MOUTH EVERY DAY Flomax [facility] 89310340358 0.4 MG Orally Active 1 capsule Once a day Finasteride [facility] 77428217499 5 MG Active TAKE 1 TABLET BY MOUTH EVERY DAY Amoxicillin [facility] 71923271704 500 MG Orally Jul 17, Active 1 capsule every 8 hrs 2018 Singulair [facility] 36396342900 10 MG Active TAKE 1 TABLET BY MOUTH AT BEDTIME Amlodipine [facility] 87131219984 10 MG Orally Active 1 tablet Besylate Once a day Cozaar [facility] 33393154213 50 MG Orally Active 1 tablet Once a day Albuterol [facility] 81195886208 (2.5 MG/3ML) November 01, Active 3 ml as Sulfate 0.083% 2018 needed Inhalation every 8 hrs Lipitor [facility] 48418988083 80 MG Active TAKE 1 TABLET BY MOUTH AT BEDTIME Phenytoin [facility] 33259250144 125 MG/5ML by December 11, Active 10 ml g-tube Three 2019 times a day Coreg [facility] 68703180115 3.125 MG Orally Active one tablet twice a day Dilantin [facility] 86498130489 125 MG/5ML via Active 4 ml PEG tube every 6 hours Zovirax [facility] 37690051215 5 % Externally Jan 11, Active 1 application four times a 2018 to affected day area Montelukast [facility] 50495214010 10 MG Orally Active 1 tablet in Sodium Once a day the evening Ventolin HFA [facility] 15706469009 108 (90 Base) Active 2 puffs as MCG/ACT needed Inhalation every -4 6 hrs Lamictal [facility] 33762847722 200 MG Orally Active 1 tablet Twice a day Phenytoin [facility] 12979689376 200 MG Orally Mar 15, Active 1 capsule Sodium Two times a day 2018 Extended Flonase [facility] 41682323647 50 MCG/ACT Active 1 spray in Nasally Once a each nostril day Results No Known Results Summary Purpose eClinicalWorks Submission
--- OUTSIDE RECORDS SUMMARY | 2019-02-14 12:29 | XMS REPORT ---
:1940 Author Organization eClinicalWorks Care Team Providers Name Role Phone Lechuga, Na Provider Role Unavailable Allergies, Adverse Reactions, Alerts Substance Reaction Event Type N.K.D.A. Info Not Available Non Drug Allergy Problems Problem Type Condition Code Onset Dates Condition Status Assessment Wheezing on both sides of chest R06.2 Active Assessment Anxiety F41.9 Active Assessment Aphasia as late effect of I69.920 Active cerebrovascular accident Assessment Primary insomnia F51.01 Active Assessment Hyperlipidemia E78.5 Active Assessment Allergic rhinitis J30.9 Active Assessment Benign essential HTN I10 Active Assessment Mild asthma exacerbation J45.901 Active Assessment Seizure disorder G40.909 Active Problem Diabetes E11.9 Active Problem Allergic rhinitis J30.9 Active Problem Alkaline phosphatase raised R74.8 Active Problem Hyperlipidemia E78.5 Active Problem Seizure disorder G40.909 Active Problem History of CVA (cerebrovascular Z86.73 Active accident) Problem Nasal congestion R09.81 Active Problem Anemia, unspecified type D64.9 Active Problem 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 Active Problem 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 Assessment 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 Problem Mild asthma exacerbation J45.901 Active Problem Aphasia as late effect of I69.920 Active cerebrovascular accident Assessment Other specified bacterial agents as B96.89 Active the cause of diseases classified elsewhere Problem Hypernatremia E87.0 Active Assessment Elevated alkaline phosphatase level R74.8 Active Problem Left-sided weakness R53.1 Active Problem Dysphagia causing pulmonary R13.19 Active aspiration with swallowing Problem Weakness R53.1 Active Assessment Weakness R53.1 Active Problem 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 Assessment Anemia, unspecified type D64.9 Active Problem Primary insomnia F51.01 Active Assessment Dysphagia causing pulmonary R13.19 Active aspiration with swallowing Problem Dysphagia as late effect of I69.391 Active cerebrovascular accident (CVA) Assessment 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 Problem Gastroesophageal reflux disease, K21.9 Active esophagitis presence not specified Assessment Left-sided weakness R53.1 Active Problem Benign essential HTN I10 Active Assessment Dysphagia as late effect of I69.391 Active cerebrovascular accident (CVA) Problem Anxiety F41.9 Active Problem Edema R60.9 Active Problem Fatty liver K76.0 Active Medications Medication Code Code Instructions Start End Status Dosage System Date Date Albuterol [facility] 57131296173 (2.5 MG/3ML) November 01, Active 3 ml as Sulfate 0.083% 2018 needed Inhalation every 8 hrs Singulair [facility] 62867850138 10 MG Active TAKE 1 TABLET BY MOUTH AT BEDTIME Flonase [facility] 94469222066 50 MCG/ACT Active 1 spray in Nasally Once a each nostril day Zovirax [facility] 81713179653 5 % Externally Jan 11, Active 1 application four times a 2018 to affected day area Amlodipine [facility] 91821200756 10 MG Orally Active 1 tablet Besylate Once a day Montelukast [facility] 77593781125 10 MG Orally Active 1 tablet in Sodium Once a day the evening Amoxicillin [facility] 59082780652 500 MG Orally Jul 17, Active 1 capsule every 8 hrs 2019 Phenytoin [facility] 42276968540 200 MG Orally Active 1 capsule Sodium Three times a Extended day Loratadine [facility] 98912058092 10 MG Active TAKE 1 TABLET BY MOUTH EVERY DAY Finasteride [facility] 84595536140 5 MG Active TAKE 1 TABLET BY MOUTH EVERY DAY Coreg [facility] 19080336238 3.125 MG Orally Active one tablet twice a day Lamictal [facility] 62748112313 200 MG Orally Active 1 tablet Twice a day Lipitor [facility] 94271497910 80 MG Active TAKE 1 TABLET BY MOUTH AT BEDTIME Flomax [facility] 21510636468 0.4 MG Orally Active 1 capsule Once a day Cozaar [facility] 70674063038 50 MG Orally Active 1 tablet Once a day Ventolin HFA [facility] 35482487443 108 (90 Base) Active 2 puffs as MCG/ACT needed Inhalation every -4 6 hrs Dilantin [facility] 68758876405 100 MG Orally Active 1 capsule Four times a day Lipitor [facility] 28566940521 80 MG Active TAKE 1 TABLET BY MOUTH AT BEDTIME Lorazepam [facility] 81422745754 0.5 MG Orally Active 1 tablet as every 12 hrs needed Phenytoin [facility] 71863073394 200 MG Orally Oct 17, Active 1 capsule Sodium Two times a day 2018 Extended Dilantin [facility] 18967891134 125 MG/5ML via Active 4 ml PEG tube every 6 hours Flonase [facility] 23587709925 50 MCG/ACT Active 1 spray in Nasally Once a each nostril day Results No Known Results Summary Purpose eClinicalWorks Submission
--- OUTSIDE RECORDS SUMMARY | 2019-02-14 12:29 | XMS REPORT ---
:1940 Author Organization eClinicalWorks Care Team Providers Name Role Phone Lechuga, Na Provider Role Unavailable Allergies No Known Allergies Problems Problem Type Condition Code Onset Dates Condition Status Assessment Seizure disorder G40.909 Active Problem Diabetes [...] End Status Dosage System Date Date Phenytoin [facility] 32396293830 125 MG/5ML by December 11, Active 10 ml g-tube Three 2019 times a day Phenytoin ND 63594303089 200 MG Orally Inactive 1 capsule Sodium Three times a Extended day Results No Known Results Summary Purpose eClinicalWorks Submission
--- NOTE | 2019-02-14 13:36 | RAD REPORT ---
EXAM DESCRIPTION: RAD - ENTEROSTOMY TUBE CHECK W/CONTR - 02/14/2019 1:20 pm CLINICAL HISTORY: Gastrostomy tube placement FINDINGS: Contrast was administered into the percutaneous gastrostomy tube. The stomach is opacified . Contrast enters the duodenum. No extravasation contrast Zero fluoroscopy performed. Zero fluoroscopic spot images obtained
--- NOTE | 2019-02-14 13:56 | ER ---
Nurse's Notes [facility] Name: Timothy Metamora Age: 78 yrs Sex: Male : 1940 Arrival Date: 02/14/2019 Time: 12:25 Bed 20 Private MD: Diagnosis: Encounter for attention to gastrostomy-replacement PEG tube Presentation: 02/14 12:25 Presenting complaint: EMS states: Pt pulled out his peg tube about 30 minutes ago. Site ca1 is clean, no redness, no swelling, no bleeding noted. VS WNL. Transition of care: patient was not received from another setting of care. Onset of symptoms was February 14, 2019. Risk Assessment: Do you want to hurt yourself or someone else? Patient reports no desire to harm self or others. Initial Sepsis Screen: Does the patient meet any 2 criteria? No. Patient's initial sepsis screen is negative. Does the patient have a suspected source of infection? No. Patient's initial sepsis screen is negative. Care prior to arrival: None. 12:25 Method Of Arrival: EMS: [facility] ca1 12:25 Acuity: DANIELLE 4 ca1 Historical: - Allergies: 12:30 No Known Allergies; ca1 - Home Meds: 12:30 lamotrigine 100 mg Oral tab 1 tab 2 times per day [Active]; aspirin 325 mg Oral TbEC 1 ca1 tab once daily [Active]; loratadine 10 mg Oral tab 1 tab once daily [Active]; baclofen 10 mg Oral tab [Active]; atorvastatin 80 mg Oral tab 1 tab once daily [Active]; finasteride 5 mg Oral tab 1 tab once daily [Active]; montelukast 10 mg oral tab 1 tab once daily [Active]; - PMHx: 12:30 CHF; CVA; Hypertension; Pneumonia; ca1 - PSHx: 12:30 None; ca1 - Immunization history:: Adult Immunizations up to date. - Social history:: Smoking status: Patient/guardian denies using tobacco. - Ebola Screening: : Patient negative for fever greater than or equal to 101.5 degrees Fahrenheit, and additional compatible Ebola Virus Disease symptoms Patient denies exposure to infectious person Patient denies travel to an Ebola-affected area in the 21 days before illness onset No symptoms or risks identified at this time. Screenin:31 Abuse screen: Denies threats or abuse. Denies injuries from another. Nutritional ca1 screening: No deficits noted. Tuberculosis screening: No symptoms or risk factors identified. Fall Risk Secondary diagnosis (15 points) CVA, Ambulatory Aid- None/Bed Rest/Nurse Assist (0 pts). Assessment: 12:31 General: Appears in no apparent distress. comfortable, Behavior is calm, cooperative, ca1 appropriate for age. Pain: Denies pain. Neuro: Level of Consciousness is awake, alert, obeys commands, Oriented to person, place, time, situation, Appropriate for age Pt had history of CVA 6-7 years ago. Sustained deficits are: weakness on the L side of the body. Impaired speech. Pt on bed rest since the CVA. . Cardiovascular: Heart tones S1 S2 present Capillary refill < 3 seconds Patient's skin is warm and dry. Pulses. Respiratory: Airway is patent Respiratory effort is even, unlabored, Respiratory pattern is regular, symmetrical, Breath sounds are clear bilaterally. GI: Abdomen is round non-distended, PEG tube Site clean. displaced Bowel sounds present X 4 quads. Abd is soft and non tender X 4 quads. : No deficits noted. No signs and/or symptoms were reported regarding the genitourinary system. EENT: No signs and/or symptoms were reported regarding the EENT system. Derm: Skin is intact, is healthy with good turgor, Skin is pink, warm \T\ dry. Musculoskeletal: Circulation, motion, and sensation intact. Capillary refill < 3 seconds. 13:49 Reassessment: Patient appears in no apparent distress at this time. Patient and/or ca1 family updated on plan of care and expected duration. Pain level reassessed. Patient is alert, oriented x 3, equal unlabored respirations, skin warm/dry/pink. 14:03 Reassessment: Awaiting ambulance for transport to home. ca1 Vital Signs: 12:30 BP 132 / 71; Pulse 77; Resp 17 S; Temp 98.2(O); Pulse Ox 96% on R/A; Weight 77.11 kg ca1 (R); Height 5 ft. 9 in. (175.26 cm) (R); Pain 0/10; 13:49 BP 122 / 88; Pulse 81; Resp 17 S; Pulse Ox 97% on R/A; ca1 12:30 Body Mass Index 25.10 (77.11 kg, 175.26 cm) ca1 ED Course: 12:25 Patient arrived in ED. ca1 12:27 Triage completed. ca1 12:28 Cuate Nowak PA is PHCP. cp 12:28 Benton Cota MD is Attending Physician. cp 12:30 Arm band placed on right wrist. ca1 12:31 Patient has correct armband on for positive identification. Placed in gown. Bed in low ca1 position. Call light in reach. Side rails up X2. Pulse ox on. NIBP on. Warm blanket given. 12:31 Patient did not have IV access during this emergency room visit. ca1 13:03 Alicia Tinajero, RN is Primary Nurse. ca1 13:04 Peg tube placed by Cuate Nowak. Placement confirmed by Xray. Pt tolerated well. ca1 13:22 PEG Tube Check w/contrast In Process Unspecified. EDMS 13:50 No provider procedures requiring assistance completed. ca1 13:54 Fritz Contreras MD is Referral Physician. cp Administered Medications: No medications were administered Outcome: 13:56 Discharge ordered by . cp 14:19 Discharged to home via ambulance, with family, with significant other. ca1 14:19 Condition: stable 14:19 Discharge instructions given to family, Instructed on discharge instructions, follow up and referral plans. Demonstrated understanding of instructions, follow-up care. 14:20 Patient left the ED. ca1 Signatures: Dispatcher [employer] EDMS Cuate Nowak PA PA cp Acob, Cheryl, RN RN ca1
--- NOTE | 2019-02-14 13:56 | EDPHYS ---
Physician Documentation [facility] Name: Timothy North Loup Age: 78 yrs Sex: Male : 1940 Arrival Date: 02/14/2019 Time: 12:25 Bed 20 Private MD: ED Physician Benton Cota HPI: 02/14 12:45 This 78 yrs old Black Male presents to ER via EMS with complaints of gastrostomy tube cp replacement. 12:45 The patient presents with need for replacement of gastrostomy tube. reports cp patient had initial gastrostomy tube placed about 2 years ago and that patient pulled tube out this morning. Historical: - Allergies: 12:30 No Known Allergies; ca1 - Home Meds: 12:30 lamotrigine 100 mg Oral tab 1 tab 2 times per day [Active]; aspirin 325 mg Oral TbEC 1 ca1 tab once daily [Active]; loratadine 10 mg Oral tab 1 tab once daily [Active]; baclofen 10 mg Oral tab [Active]; atorvastatin 80 mg Oral tab 1 tab once daily [Active]; finasteride 5 mg Oral tab 1 tab once daily [Active]; montelukast 10 mg oral tab 1 tab once daily [Active]; - PMHx: 12:30 CHF; CVA; Hypertension; Pneumonia; ca1 - PSHx: 12:30 None; ca1 - Immunization history:: Adult Immunizations up to date. - Social history:: Smoking status: Patient/guardian denies using tobacco. - Ebola Screening: : Patient negative for fever greater than or equal to 101.5 degrees Fahrenheit, and additional compatible Ebola Virus Disease symptoms Patient denies exposure to infectious person Patient denies travel to an Ebola-affected area in the 21 days before illness onset No symptoms or risks identified at this time. ROS: 12:50 Constitutional: Negative for body aches, chills, fever, poor PO intake. cp 12:50 Cardiovascular: Negative for chest pain. cp 12:50 Respiratory: Negative for cough, shortness of breath, wheezing. 12:50 Abdomen/GI: Negative for abdominal pain, vomiting, diarrhea, constipation. 12:50 All other systems are negative. Exam: 13:00 Constitutional: The patient appears in no acute distress, alert, awake, non-toxic, well cp developed, well nourished. 13:00 Cardiovascular: Rate: normal. cp 13:00 Respiratory: the patient does not display signs of respiratory distress, Respirations: normal, no use of accessory muscles, no retractions, no splinting, no tachypnea. 13:00 Abdomen/GI: Bowel sounds: active, all quadrants, Palpation: abdomen is soft and non-tender, in all quadrants, gastric stoma LUQ appears noted with surrounding skin appearing w/o erythema, mild bleeding noted from stoma. Vital Signs: 12:30 BP 132 / 71; Pulse 77; Resp 17 S; Temp 98.2(O); Pulse Ox 96% on R/A; Weight 77.11 kg ca1 (R); Height 5 ft. 9 in. (175.26 cm) (R); Pain 0/10; 13:49 BP 122 / 88; Pulse 81; Resp 17 S; Pulse Ox 97% on R/A; ca1 12:30 Body Mass Index 25.10 (77.11 kg, 175.26 cm) ca1 Procedures: 13:50 G-tube placement: a 18 [place] catheter was placed, by the ED physician, Cuate PRUITT. cp MDM: 12:28 Patient medically screened. cp 13:55 Data reviewed: vital signs, nurses notes, radiologic studies, plain films, and as a cp result, I will discharge patient. 02/14 12:39 Order name: PEG Tube Check w/contrast; Complete Time: 13:54 cp 02/14 13:54 Interpretation: Report reviewed. cp Administered Medications: No medications were administered Disposition: 14:30 Chart complete. cp 02/15 07:05 Co-signature as Attending Physician, Benton Cota MD I agree with the assessment and kdr plan of care. Disposition: 02/14/19 13:56 Discharged to Home. Impression: Encounter for attention to gastrostomy - replacement PEG tube. - Condition is Stable. - Discharge Instructions: Gastrostomy Tube Replacement, Gastrostomy Tube Home Guide, Adult, PEG Tube Home Guide. - Medication Reconciliation Form, Thank You Letter, Antibiotic Education, Prescription Opioid Use, SBAR form form. - Follow up: Fritz Contreras MD; When: 2 - 3 days; Reason: Recheck today's complaints. - Problem is new. - Symptoms have improved. Signatures: Dispatcher [employer] EDWI Benton Cota MD MD kdr Cuate Nowak PA PA cp Alicia Tinajero RN RN ca1 Corrections: (The following items were deleted from the chart) 02/14 14:20 13:56 02/14/2019 13:56 Discharged to Home. Impression: Encounter for attention to ca1 gastrostomy - replacement PEG tube. Condition is Stable. Forms are Medication Reconciliation Form, Thank You Letter, Antibiotic Education, Prescription Opioid Use. Follow up: Fritz Contreras; When: 2 - 3 days; Reason: Recheck today's complaints. Problem is new. Symptoms have improved. cp
[2019-02-14 14:24] VITALS: TEMP 98.2
[2019-02-14 14:26] VITALS: BP 122/88; O2SAT 97
== END 2019-02-14 14:20 | disposition home or self-care (01) ==
LOC: ER 12:15
DX: Z43.1 Encounter for attention to gastrostomy (principal); I10 Essential (primary) hypertension; I50.9 Heart failure, unspecified; Z79.82 Long term (current) use of aspirin; Z86.73 Personal history of transient ischemic attack (TIA), and cerebral infarction without residual deficits
CPT/HCPCS: 49465; 99283

== ENCOUNTER 2019-02-16 09:21 | Emergency (ER) | payer OTHER ==
--- OUTSIDE RECORDS SUMMARY | 2019-02-16 09:28 | XMS REPORT | Continuity of Care Document ---
:1940 Author Organization [employer] Care Team Providers Name Role Phone Azubu Information [employer] Unavailable Unavailable Problems Problem Status Onset Classification [...] 12/19/ [facility] 2018 BPH Active 08/10/ Finding [facility] - 2018 8 [place] Aphasia Active 08/10/ Finding [facility] - 2018 8 [place] Anemia Active 08/10/ Finding [facility] - 2018 8 [place] Hyperlipidemia Active 08/10/ Finding [facility] - 2018 8 [place] Hypernatremia Resolved 08/10/ Finding [facility] - 2018 8 [place] Seizure disorder Active 08/10/ Finding [facility] - 2018 8 [place] Altered mental Active 08/10/ Finding [facility] - status 2018 8 [place] Atelectasis Active 08/10/ Finding [facility] - 2018 8 [place] Poor appetite Active 08/10/ Finding [facility] - 2018 8 [place] Hyperkalemia Resolved 08/10/ Finding [facility] - 2018 8 [place] Pulmonary Active 08/10/ Finding [facility] - atelectasis 2018 8 [place] Decrease in appetite Active 08/10/ Finding [facility] - 2018 8 [place] Benign prostatic Active 08/10/ Finding [facility] - hyperplasia 2018 8 [place] Influenza A Active 06/09/ Finding [facility] - 2018 8 [place] Acute kidney injury Resolved Finding [facility] - superimposed on CKD 2017 8 [place] Left lower lobe Active Finding [facility] - pneumonia 2017 8 [place] HTN Active [facility] - 2018 8 [place] Hypertension Active Finding [facility] - 2018 8 [place] Acute kidney injury Active 06/09/ [facility] - superimposed on 2017 8 [place] chronic kidney disease BOTOX INJECTION Active 11/24/ [facility] 2016 300 Active [facility] 2016 Asthma exacerbation Active [facility] - 2016 8 [place] RAD Active [facility] - 2016 8 [place] Dyspnea Active [facility] - 2016 8 [place] Hypoxia Active [facility] - 2016 8 [place] 400 UNITS Active [...] difficulty MH [facility] 9 swallowing 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 DR Carter Left sided cerebral Active Problem 2011 [facility] hemisphere 9 cerebrovascular accident (disorder) Lethargy (finding) Active Problem [facility] 9 Spasticity (finding) Active Problem [facility] 9 Cerebrovascular Active Problem [facility] accident (disorder) 9 Spasticity Active Problem [facility] (qualifier value) 8 Disturbances of [facility] salivary secretion 9 Dysphagia Inactive Problem [address] Dysphasia Inactive Problem [address] Stroke Active Problem [address] Weakness Inactive Problem [address] Final: Hemiplegia [facility] Affecting 4 Unspecified [...] [facility] 2018 Phenytoin AT BEDTIME Active Prezas [facility] St[facility] Sodium Extended 2018 [facility] [place] Pantoprazole DAILY Active Prezas [facility] St[facility] Granules 2018 [facility] [place] Amlodipine DAILY Active [facility] St[facility] Besylate 2018 [facility] [place] Aspirin DAILY Active [facility] St[facility] 2018 [facility] [place] Multivitamin DAILY Active Prezas [facility] St. With Iron 2018 [facility] [place] Loratadine NEEDED Active [facility] St. 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 Besylate 2016 [facility] [place] Atorvastatin AT BEDTIME Active St. Calcium 2016 [facility] [place] Baclofen AT BEDTIME Active [facility] 2016 [facility] [place] Carvedilol TWICE DAILY Active [facility] St[facility] 2016 [facility] [place] Finasteride AT BEDTIME Active [facility] St[facility] 2016 [facility] [place] Lamotrigine TWICE DAILY Active [facility] St[facility] 2016 [facility] [place] Tamsulosin Hcl DAILY Active [facility] St[facility] 2016 [facility] [place] Cholecalciferol DAILY Active St. (Vitamin D3) 2016 [facility] [place] Cefdinir TWICE DAILY Active [facility] St[facility] 2016 [facility] [place] onabotulinumtox 500 unit, Inactive [facility] Gaye Route: IM, 2015 ONCALL, Dosing Weight 80.455, kg, Start date: 12/04/15 9:00:00 CDT, Duration: 30 day, Stop date: 01/03/16 8:59:00 CDT sodium chloride 20 mL, Active [facility] Route: [facility], 2015 Start date: 08/25/15 11:00:00, Duration: 30 [...] 2013 Tablet 60 tab, 1 Refill(s), Pharmacy: [facility] [id number] amLODIPine 10 10 mg=1 tab, Active [facility] mg oral tablet PO, Daily, # 2013 30 tab, 0 Refill(s) Amlodipine 0 Refill(s) Active [facility] 2013 Bromocriptine 2.5 mg=1 Active [facility] 2.5 MG Oral tab, PO, 2014 Tablet Daily, # 30 tab, 2 Refill(s) heparin 5000 5,000 unit, SUB-Q No Longer [facility] units/mL can, SUB-Q, Active 2011 Medical injectable Q12H, 10 [place] solution vial, Substitution Allowed, SOLN albuterol-iprat 3 mL, Route: NEB No Longer [place] ropium 2.5-0.5 NEB, Drug Active 2011 Medical mg inhalation Form: SOLN, [place] solution RQ6H, Start date: 11/24/11 14:00:00, Duration: 30 day, Stop date: 12/24/11 8:00:00 heparin 5000 5,000 unit, SUB-Q No Longer [facility] units/mL can, SUB-Q, Active 2011 Medical injectable Q12H, 10 [place] solution vial, Substitution Allowed, SOLN Diovan 160 mg 160 mg, 1 PEG Active [facility] oral tablet tab, PEG, 2011 Medical Daily, 30 Center tab, Substitution Allowed, TAB Carafate 1 g/10 1 gm, 10 mL, PEG Active [facility] mL oral PEG, QID, 1 2011 Medical suspension mL, Center Substitution Allowed, SUSP senna 8.8 mg/5 17.6 mg, 10 PEG Active [facility] mL oral syrup mL, PEG, 2011 Medical QNoon, 1 mL, Center Substitution Allowed, Maintenance, SYRP Seroquel 25 mg 25 mg, 1 PEG Active [facility] oral tablet tab, PEG, 2011 Medical Bedtime, Center PRN, 30 tab, Insomnia, Substitution Allowed, TAB pantoprazole 40 1 Pack, PEG, PEG Active [facility] mg oral granule Daily, 30 2011 Medical ea, Center Substitution Allowed, GRAN/REC Provigil 200 mg 200 mg, 1 PEG Active [facility] oral tablet tab, PEG, 2011 Medical QAM, 30 tab, Center Substitution Allowed, TAB hydrALAZINE 10 10 mg, 1 PEG Active [place] mg oral tablet tab, PEG, 2011 Medical Q6H, PRN, Center 120 tab, Hypertension , Substitution Allowed, TAB Cymbalta 20 mg 20 mg, 1 PEG Active [facility] oral delayed cap, PEG, 2011 Medical release capsule Bedtime, 30 Center cap, Substitution Allowed, DRC Lantus 100 See [facility] units/mL Instructions 2011 Medical subcutaneous , 1 vial, [place] solution Substitution Allowed, 5 units SUB-Q Daily, SOLN5 units SUB-Q Daily docusate sodium 100 mg, 10 PEG Active [facility] 150 mg/15 mL mL, PEG2011 Medical oral liquid Q12H, 1 mL, Center Substitution Allowed, LIQ Lipitor 80 mg 80 mg, 1 PEG Active [facility] oral tablet tab, PEG, 2011 Medical QPM, 30 tab, Center Substitution Allowed, TAB aspirin 81 mg 81 mg, 1 PEG Active [facility] tablet, tab, PEG, 2011 Medical chewable Daily, 30 Center tab, Substitution Allowed, CHEWTAB amLODipine 10 10 mg, 1 PEG Active [facility] mg oral tablet tab, PEG, 2011 Medical Daily, 30 Center tab, Substitution Allowed, TAB DuoNeb 3 mL, INHALATION Active [facility] inhalation INHALATION, 2011 Medical solution QID, PRN, 1 Center mL, as needed for shortness of breath or wheezing, Substitution Allowed, Maintenance, SOLN amantadine 50 100 mg, 10 PEG Active [facility] mg/5 mL oral mL, PEG2011 Medical syrup QAM, 1 btl, Center Substitution Allowed, SYRP nebivolol 5 mg 10 mg, 2 PEG Active [facility] oral tablet tab, PEG, 2011 Medical Daily, 60 Center tab, Substitution Allowed, TAB heparin 5,000 unit, SUB-Q No Longer [facility] 1 mL, Route: Active 2011 Medical SUB-Q, Drug Center form: INJ, Q12H, Start date: 11/22/11 21:00:00, Duration: 30 day, Stop date: 12/22/11 9:00:00 Cymbalta 20 mg, 1 PEG No Longer [place] cap, Route: Active 2011 Medical PEG, Drug Center form: DRC, Bedtime, Start date: 11/22/11 21:00:00, Stop date: 12/21/11 21:00:00 Provigil 200 mg, 1 PEG No Longer [place] tab, Route: Active 2011 Medical PEG, Drug Center form: TAB, QAM, Start date: 11/22/11 8:00:00, Stop date: 12/21/11 8:00:00 Nuvigil 100 mg, PO No Longer [place] Route: PO, Active 2011 Medical Drug form: [place] CAP, QAM, Start date: 11/20/11 8:00:00, Duration: 30 day, Stop date: 12/19/11 8:00:00 Nuvigil Nuvigil PO No Longer [place] (Armodafinil) (Armodafinil Active 2011 Medical 50 mg tablet ) 50 mg Center tablet, 150 mg, Drug form: MISC, Route: PO, QAM, 11/20/11 8:00:00, Duration: 30 day, Stop date: 12/19/11 8:00:00 D5W 1/2NS 1,000 1,000 mL, IV No Longer [place] mL Rate: 70 Active 2011 Medical ml/hr, [place] Infuse over: 14.3 hr, Route: IV, Dosing Weight 95.909 kg, Total Volume: 1,000, Start date: 11/19/11 11:54:00, Duration: 30 day, Stop date: 12/19/11 11:53:00 amantadine 100 mg, 10 PEG No Longer [facility] mL, Route: Active 2011 Medical PEG, Drug Center form: SYRP, QAM, Start date: 11/19/11 8:00:00, Stop date: 12/18/11 8:00:00 Carafate 1 gm, 10 mL, PO No Longer [place] Route: PO, Active 2011 Medical Drug form: Center SUSP, QID, Start date: 11/18/11 17:00:00, Stop date: 12/18/11 11:00:00 amantadine 100 mg, 1 PO No Longer [place] cap, Route: Active 2011 Medical PO, Drug Center form: CAP, ONCE, Start date: 11/18/11 14:47:00, Stop date: 11/18/11 14:47:00 normal saline 1,000 mL, IV No Longer [place] 0.9% IV 1,000 Rate: 70 Active 2011 Medical mL ml/hr, [place] Infuse over: 14.3 hr, Route: IV, Dosing Weight 95.909 kg, Total Volume: 1,000, Start date: 11/18/11 12:00:00, Duration: 30 day, Stop date: 12/18/11 11:59:00 Dextrose 50% 12.5 gm, 25 IVP No Longer [place] Syringe mL, Route: Active 2011 Medical IVP, Drug Center Form: INJ, PRN, PRN Blood Glucose Results, Start date: 11/18/11 11:45:00, Duration: 30 day, Stop date: 12/18/11 11:44:00 glucagon 1 mg, Route: IM No Longer [place] IM, Drug Active 2011 Medical form: [place] PDR/INJ, PRN, PRN Blood Glucose Results, Start date: 11/18/11 11:45:00, Duration: 30 day, Stop date: 12/18/11 11:44:00 insulin aspart 2 unit, 0.02 SUB-Q No Longer [place] mL, Route: Active 2011 Medical SUB-Q, Drug Center form: SOLN, TID-Before Meals, PRN Blood Glucose Results, Start date: 11/18/11 11:45:00, Duration: 30 day, Stop date: 12/18/11 11:44:00 Milk of 60 ml, PO No Longer [place] Magnesia Route: PO, Active 2011 Medical Drug Form: Center SUSP, ONCE, Start date: 11/17/11 18:30:00, Stop date: 11/17/11 18:30:00 Lipitor 80 mg, 1 PEG No Longer [facility] tab, Route: Active 2011 Medical PEG, Drug Center form: TAB, QPM, Start date: 11/17/11 17:00:00, Stop date: 12/16/11 17:00:00 Glycerol 60 mL, DC No Longer [facility] Route: DC, Active 2011 Medical Drug Form: [place] MISC, ONCE, Start date: 11/17/11 16:00:00, Stop date: 11/17/11 16:00:00 mineral oil 60 mL, DC No Longer [facility] Route: DC, 2011 Medical Drug Form: [place] LIQ, ONCE, Start date: 11/17/11 16:00:00, Stop date: 11/17/11 16:00:00 Sodium Chloride DC, 0 ml/hr, DC No Longer [facility] 0.9% IV ONCE, Start Active 2011 Medical date: [place] 11/17/11 16:00:00, 60 ml Milk of 60 ml, PO No Longer [facility] Magnesia Route: PO, Active 2011 Medical Drug Form: [place] SUSP, ONCE, Start date: 11/17/11 15:16:00, Stop date: 11/17/11 15:16:00 magnesium 300 ml, PO No Longer [facility] citrate Route: PO, 2011 Medical Drug Form: [facility], ONCE, Start date: 11/17/11 15:00:00, Stop date: 11/17/11 15:00:00 senna 17.6 mg, 10 PEG No Longer [facility] mL, Route: Active 2011 Medical PEG, Drug Center Form: SYRP, QNoon, Start date: 11/17/11 12:00:00, Stop date: 12/16/11 12:00:00 normal saline 1,000 mL, IV No Longer [facility] 0.9% IV 1,000 Rate: 75 Active 2011 Medical mL ml/hr, [place] Infuse over: 13.3 hr, Route: IV, Dosing Weight 95.909 kg, Total Volume: 1,000, Start date: 11/17/11 10:29:00, Duration: 1 doses or times, Stop date: 11/17/11 23:46:00 nebivolol 10 mg, 2 PEG No Longer [facility] tab, Route: Active 2011 Medical PEG, Drug Center form: TAB, Daily, Start date: 11/17/11 8:00:00, Stop date: 12/16/11 8:00:00 Provigil 200 mg, 1 PO No Longer [facility] tab, Route: Active 2011 Medical PO, Drug Center form: TAB, QAM, Start date: 11/17/11 8:00:00, Duration: 30 day, Stop date: 12/16/11 8:00:00 aspirin 81 mg, 1 CHEW No Longer [facility] tab, Route: Active 2011 Medical CHEW, Drug Center form: CHEWTAB, Daily, Start date: 11/17/11 8:00:00, Stop date: 12/16/11 8:00:00 amLODipine 10 mg, 10 PEG No Longer [facility] mL, Route: Active 2011 Medical PEG, Drug Center form: SUSP, Daily, Start date: 11/17/11 8:00:00, Stop date: 12/16/11 8:00:00 Diovan 160 mg, 1 PEG No Longer [facility] tab, Route: Active 2011 Medical PEG, Drug Center form: TAB, Daily, Start date: 11/17/11 8:00:00, Stop date: 12/16/11 8:00:00 heparin 5,000 unit, SUB-Q No Longer [facility] 1 mL, Route: Active 2011 Medical SUB-Q, Drug Center form: INJ, Q12H, Start date: 11/16/11 21:00:00, Duration: 30 day, Stop date: 11/21/11 21:30:00 docusate sodium 100 mg, 10 PEG No Longer [facility] mL, Route: Active 2011 Medical PEG, Drug Center form: LIQ, Q12H, Start date: 11/16/11 21:00:00, Stop date: 12/16/11 9:00:00 Protonix 40 mg, 1 PEG No Longer [facility] pkt, Route: Active 2011 Medical PEG, Drug Center form: GRAN/REC, BID, Start date: 11/16/11 20:00:00, Stop date: 12/16/11 8:00:00 albuterol-iprat 3 mL, Route: NEB No Longer [facility] ropium 2.5-0.5 NEB, Drug Active 2011 Medical mg inhalation Form: SOLN, Center solution RQ6H, PRN Shortness of breath, Start date: 11/16/11 17:19:00, Duration: 30 day, Stop date: 12/16/11 17:18:00 acetaminophen 650 mg, 20.3 PEG No Longer [facility] mL, Route: Active 2011 Medical PEG, Drug Center form: LIQ, Q4H, PRN Pain Score 1-3, Start date: 11/16/11 17:19:00, Stop date: 12/16/11 17:18:00 Saline Flush 3 mL, Route: IVP No Longer [place] 0.9% IVP, Drug Active 2011 Medical Form: INJ, Center Q8H, PRN Line Flush, Start date: 11/16/11 17:19:00, Duration: 30 day, Stop date: 12/16/11 17:18:00, Administer at least once every [address] at least once every 8 hours Seroquel 25 mg, 1 PEG No Longer [facility] tab, Route: Active 2011 Medical PEG, Drug Center form: TAB, Bedtime, PRN Insomnia, Start date: 11/16/11 17:19:00, Stop date: 12/16/11 17:18:00 hydrALAZINE 10 10 mg, 1 PEG No Longer [facility] mg oral tablet tab, Route: Active [...] - [place] Nebivolol Hcl DAILY Active 09/07/ [facility] 2012 [facility] [place] Aspirin DAILY Active [facility] St[facility] 2012 [facility] [place] Amlodipine/Vals DAILY Active [facility] mireille/Hcthiazid 2012 [facility] [place] Insulin Active [facility] Glargine Human 2012 [facility] [place] Insulin DAILY Active [facility] St. Glargine Human 2012 [facility] [place] Clopidogrel DAILY Active [facility] St. Bisulfate 2012 [facility] [place] Lisinopril DAILY Active 08/25/ [facility] St[facility] 2012 [facility] [place] B12/Fa/D3/Calc EVERY 7 DAYS Active [facility] St. Cit/Zn Aa Chelt 2011 [facility] [place] Cyanocobalamin Q24H Active [place] [facility] 2011 [facility] [place] Amlodipine/Vals DAILY Active 07/30/ [facility] mireille 2011 [facility] [place] Aspirin DAILY Active [facility] St[facility] 2011 [facility] [place] Nebivolol Hcl DAILY Active 07/30/ [facility] St[facility] 2011 [facility] [place] Allergies, Adverse Reactions, Alerts Substance Category Reaction Severity Reaction Status Date Comments Source type Reported No Known Assertion Drug MH [facility] Medication allergy Allergies Immunizations No Data Provided for This Section Results Order Name Results Value Reference Date Interpretation Comments Source Range Laboratory Bedside 112 65 - 120 08/20 [facility] Glucose /2018 [facility] [place] Laboratory Sodium Level 140 135 - 145 08/20 [facility] . Studies /2018 [facility] [place] Laboratory Potassium 4.2 3.6 - 5.0 08/20 [facility] Studies Level /2018 [facility] [place] Laboratory Phosphorus 2.5 2.5 - 4.3 08/20 [facility] Level /2017 [facility] [place] Laboratory Magnesium 2.0 1.8 - 2.5 08/20 [facility] Level /2018 [facility] [place] Laboratory Glucose 137 65 - 120 08/20 [facility] Studies Level /2018 [facility] [place] Laboratory Estimat >90 90 08/20 [facility] . Studies Glomerular /2017 [facility] Filtration [place] Rate Laboratory Creatinine 0.90 0.61 - 08/20 [facility]. Studies 1. /2017 [facility] - [place] Laboratory Chloride 103 101 - 111 08/20 [facility]. Studies Level /2017 [facility] Carbon 32 21 - 31 08/20 [facility]. Studies Dioxide /2017 [facility] - Level [facility] Calcium 8.1 8.5 - 10.5 08/20 [facility]. Studies Level /2017 [facility] Blood Urea 14 6 - 20 08/20 [facility]. Studies Nitrogen /2017 [facility] Albumin 2.1 3.2 - 5.5 08/20 [facility]. Studies /2018 [facility] Vitamin B12 243 180 - 914 08/17 [facility]. Studies Level /2017 [facility] Transferrin 9.7 20.0 - 08/17 [facility]. Studies % Saturation 50.0 [facility] Transferrin 140 180 - 329 08/17 [facility]. Studies /2017 [facility] Total Iron 196 250 - 460 08/17 [facility]. Studies Binding /2017 [facility] - Capacity [facility] Serum Folate 9.2 5.21 08/17 [facility]. Studies /2018 [facility] Iron Level 19.0 45 - 182 08/17 [facility]. Studies /2018 [facility] Ferritin 142.9 23.9 - 08/17 [facility]. Studies 336.[address] [facility] [facility] - [place] Laboratory White Blood 4.9 4.3 - 10.9 08/17 [facility]. Studies Count /2017 [facility] - [facility] Red Cell 23.3 12.1 - 08/17 [facility]. Studies Distribution 15.[address] [facility] - Width [place] Laboratory Red Blood 4.18 4.33 - 08/17 [facility] Studies Count 5.43 /2017 [facility] Platelet 251 152 - 406 08/17 [facility] Studies Count /2017 [facility] [place] Laboratory Percent 1.02 0.4 - 2.05 08/17 [facility] Studies Reticulocyte /2017 [facility] - Count [place] Laboratory Neutrophils 72.0 41.7 - 08/17 [facility]. Studies % 73.7 /2017 [facility] [place] Laboratory Monocytes % 11.4 3.3 - 12.3 08/[address] [facility] [address] Studies /2018 [facility] [place] Laboratory Mean 8.8 7.6 - 11.3 08/17 [facility] [address] Studies Platelet /2017 [facility] - Volume [place] Laboratory Mean 68.3 80 - 100 08/17 St. Studies Corpuscular /2017 [facility] Volume [place] Laboratory Mean 31.2 32.0 - 08/17 St. Studies Corpuscular 36.0 [facility] - Hemoglobin [place] [facility] Mean 21.3 27.0 - 08/17 [facility] [address] Studies Corpuscular 35.0 [facility] - Hemoglobin [place] Laboratory Lymphocytes 13.7 15.3 - 08/17 [facility] [address] Studies % 44.8 /2017 [facility] [place] Laboratory Hemoglobin 8.9 13.6 - 08/17 [facility] [address] Studies 17.9 [facility] [place] Laboratory Hematocrit 28.5 39.6 - 08/17 [facility] [address] Studies 49.0 [facility] [place] Laboratory Eosinophils 2.5 0 - 4.4 08/17 [facility] [address] Studies % /2017 [facility] [place] Laboratory Basophils % 0.4 0 - 1.3 08/17 [facility] [address] Studies /2017 [facility] [place] Laboratory Absolute 0.04 0.02 - 08/17 [facility] [address] Studies Reticulocyte 0.11 [facility] - Count [place] Laboratory Absolute 3.5 1.8 - 8.0 08/17 [facility] [address] Studies Neutrophil /2017 [facility] [place] Laboratory Absolute 0.6 0.1 - 1.3 08/17 [facility] St[facility] Studies Monocytes [facility] - (CBC) [place] Laboratory Absolute 0.7 0.7 - 4.9 08/17 [facility] [address] Studies Lymphocytes /2017 [facility] (CBC) [place] Laboratory Absolute 0.1 0 - 0.5 08/17 [facility] [address] Studies Eosinophils /2017 [facility] (CBC) [place] Laboratory Absolute 0.0 0 - 0.5 08/17 [facility] [address] Studies Basophils [facility] - (CBC) [place] Laboratory Polychromasi Polychroma 08/16 [facility] [address] Studies a danyelle [facility] [place] Laboratory Ovalocytes Ovalocytes 08/16 [facility] [address] Studies /2017 [facility] [place] Laboratory Hypochromasi Hypochroma 08/[address] [facility] [address] Studies a danyelle [facility] [place] Laboratory Blood Blood 08/16 [facility]. Studies Morphology Morphology /2017 [facility] - Comment Comment [place] [facility] Anisocytosis Anisocytos 08/16 [facility]. Studies is /2017 [facility] [place] Laboratory Total 0.3 0.3 - 1.2 08/14 [facility]. Studies Bilirubin /2017 [facility] [place] [facility] Serum Total 4.1 6.0 - 8.3 08/14 [facility]. Studies Protein /2017 [facility] [place] Laboratory Globulin 2.4 2.3 - 3.5 08/14 [facility]. Studies /2017 [facility] [place] Laboratory Aspartate 43 10 - 42 08/14 [facility]. Studies Amino Transf /2017 [facility] - (AST/SGOT) [place] Laboratory Alkaline 72 42 - 121 08/14 [facility]. Studies Phosphatase /2017 [facility] [place] Laboratory Albumin/Glob 0.7 1.1 - 1.8 08/14 [facility]. Studies ulin Ratio /2017 [facility] [place] Laboratory Alanine 30 10 - 60 08/14 [facility]. Studies Aminotransfe /2017 [facility] rase [place] (ALT/SGPT) Laboratory Urine Total 1125 08/12 [facility]. Studies Volume 24 [facility] - Hours [facility] Urine Total 1114 08/12 [facility]. Studies Protein [facility] - Hour [facility] Urine 1364 08/12 [facility]. Studies Protein/Crea /2017 [facility] - tinine Ratio [facility] 24hr Laboratory Urine Urine 08/12 [facility]. Studies Protein Protein /2017 [facility] - Electrophore Electropho [place] sis Intrp resis Intrp Laboratory Urine PEP Urine PEP 08/12 [facility]. Studies Abnormal Abnormal [facility] - Protein Band Protein [facility] 3 Band 3 Laboratory Urine PEP Urine PEP 08/12 [facility]. Studies Abnormal Abnormal [facility] - Protein Band Protein [facility] 2 Band 2 Laboratory Urine PEP Urine PEP 08/12 [facility]. Studies Abnormal Abnormal [facility] - Protein Band Protein [facility] 1 Band 1 Laboratory Urine Gamma 0 08/12 [facility]. Studies Globulin /2017 [facility] - [facility] Urine 0.82 08/12 [facility]. Studies Creatinine /2017 [facility] - 24 Hour [facility] Urine Beta 0 08/12 [facility]. Studies Globulin /2017 [facility] - [facility] Urine 0 08/[address] [facility] [address] Studies Bwexb-1-Ryoa /2017 [facility] - ulins [facility] Urine 0 08/[address] [facility] [address] Studies Zbtht-1-Pfzq /2017 [facility] - ulin [facility] Urine 100 08/12 [facility]. Studies Albumin 24 [facility] - Hours [facility] Phenytoin 11.0 10.0 - 08/10 [facility]. Studies (Dilantin) 20.0 [facility] - Level [facility] Poikilocytos Poikilocyt 08/10 [facility] [address] Studies is osis /2017 [facility] - [facility] Elliptocytes Elliptocyt 08/10 [facility]. Studies es /2017 [facility] - [facility] Thyroid 1.40 0.34 - 08/10 [facility]. Studies Stimulating 5.60 [facility] - Hormone [place] (TSH) Laboratory Total 6.8 08/09 [facility]. Studies Protein /2017 [facility] - [facility] Protein Protein 08/09 [facility]. Studies Electrophore Electropho /2017 [facility] - sis M-Zackery resis [facility] 2 M-Zackery 2 Laboratory Protein Protein 08/09 [facility] [address] Studies Electrophore Electropho /2017 [facility] - sis M-Zackery resis [facility] M-Zackery Laboratory Protein Protein 08/09 [facility]. Studies Electrophore Electropho /2017 [facility] - sis resis [facility] Interpret Interpret Laboratory PEP Abnormal PEP 08/09 [facility] [address] Studies Protein Band Abnormal /2017 [facility] - 3 Protein [facility] Band 3 Laboratory Gamma 1.1 08/09 [facility]. Studies Globulins /2017 [facility] - [facility] Brwne-7-Oskq 1.0 08/09 [facility] [address] Studies ulins /2017 [facility] - [facility] Mcvsg-8-Kvse 0.6 08/09 [facility]. Studies ulins [facility] - [facility] Immunofixati Immunofixa 08/09 [facility]. Studies on tion [facility] - Electrophore Electropho [place] sis resis Laboratory Anti-Nuclear Anti-Nucle 08/09 [facility] [address] Studies Antibody ar [facility] - Screen Antibody [facility] Screen Laboratory Anti-Nuclear Anti-Nucle 08/09 [facility] [address] Studies Antibody ar [facility] - Pattern 2 Antibody [facility] Pattern 2 Laboratory Hepatitis C Hepatitis 08/09 [facility]. Studies Antibody C Antibody /2018 [facility] - [facility] Hepatitis C 0.02 08/09 [facility]. Studies Ab /2017 [facility] - Signal/Cutof [place] f Ratio Laboratory Hepatitis B Hepatitis 08/09 [facility]. Studies Surface B Surface /2017 [facility] - Antigen Antigen [facility] Hepatitis B Hepatitis 08/09 [facility] Studies Surface Ag B Surface /2017 [facility] - Confirmation Ag [place] Confirmati on Laboratory Hepatitis B Hepatitis 08/09 [facility]. Studies Core IgM B Core IgM /2017 [facility] - Antibody Antibody [facility] Hepatitis A Hepatitis 08/09 [facility]. Studies IgM Antibody A IgM /2017 [facility] - Antibody [facility] Glomerular <1.0 08/09 [facility]. Studies Basement /2017 [facility] - Membrane IgG [place] Ab Laboratory Anti-Protein <1.0 08/09 [facility]. Studies ase 3 [facility] - (c-ANCA) [facility] Anti-Myelope <1.0 08/09 [facility] Studies roxidase Ab /2017 [facility] - (p-ANCA) [facility] Procalcitoni 0.60 08/09 [facility] Studies n [facility] - [facility] Lactic Acid 11.9 4.5 - 19.8 08/09 [facility]. Studies Level /2017 [facility] - [facility] Urine pH 5.0 08/09 [facility]. Studies /2017 [facility] - [facility] Urine Total Urine 08/09 [facility] Studies Protein Total /2017 [facility] - Protein [facility] Urine >1.030 08/09 [facility] Studies Specific /2017 [facility] - [place] [facility] Urine Urine 08/09 [facility]. Studies Nitrite Nitrite /2017 [facility] - [facility] Urine Urine 08/09 [facility]. Studies Leukocyte Leukocyte /2017 [facility] - Esterase Esterase [facility] Urine Urine 08/09 [facility]. Studies Ketones Ketones /2017 [facility] - [facility] Urine Urine 08/09 [facility]. Studies Glucose Glucose /2017 [facility] - [facility] Urine Blood Urine 08/09 [facility]. Studies Blood /2017 [facility] - [facility] Urine WBC Urine WBC 08/09 [facility]. Studies /2017 [facility] - [facility] Urine Urine 08/09 [facility]. Studies Squamous Squamous /2017 [facility] - Epithelial Epithelial [facility] Cells Cells Laboratory Urine RBC Urine RBC 08/[address] [facility] [address] Studies [facility] - [facility] Urine Mucus Urine 08/09 [facility] [address] Studies Mucus [facility] - [facility] Urine Urine 08/09 [facility]. Studies Culture Culture /2017 [facility] - Reflexed Reflexed [facility] Urine Coarse >10 08/09 [facility]. Studies Granular [facility] - Casts [facility] Urine Urine 08/09 [facility]. Studies Bacteria Bacteria /2017 [facility] - [facility] Urine Urine 08/09 [facility]. Studies Amorphous Amorphous [facility] - Sediment Sediment [facility] Microcytosis Microcytos 08/09 [facility]. Studies is [facility] - [facility] B-Type 35 08/09 [facility]. Studies Natriuretic [facility] - Peptide [facility] Direct 0.3 0 - 0.2 08/09 [facility]. Studies Bilirubin [facility] - [facility] Rapid 0.03 08/09 [facility] Studies Troponin I [facility] - [facility] Prothrombin 12.4 9.5 - 12.5 08/09 [facility] [address] Studies Time [facility] - [facility] INR 1.05 08/09 [facility]. Studies Internationa [facility] - l Normalized [facility] Ratio Laboratory Activated 26.9 24.3 - 08/09 [facility]. Studies Partial 36.9 [facility] - Thromboplast [facility] Time Laboratory Albumin 3.2 08/03 [facility]. Studies [facility] - [facility] Schistocytes Schistocyt 06/09 [facility]. Studies es [facility] - [facility] Sarah Ann Cells Dwayne Cells 06/09 [facility]. Studies [facility] - [place] URINE CHEM Time [...] 191 70 - 99 11/24 HI <sup>2</sup>I [facility] GLUCOSE Lifscn nterpretive Medical TESTING Data: Center Upper Reportable Limit: 200 mg/dL. BEDSIDE Gluc POC 179 70 - 99 11/23 HI <sup>3</sup>I [facility] GLUCOSE Lifsc[facility] nterpretive Medical TESTING Data: Center Upper Reportable Limit: 200 mg/dL. BEDSIDE Comment1 Notify 11/23 NA [facility] GLUCOSE RN/MD Medical TESTING Center CHEMISTRY Sodium Lvl 142 135 - 145 11/23 Normal Medical Center CHEMISTRY CO2 30 24 - 32 11/23 Normal [facility] CHEMISTRY Potassium 4.6 3.5 - 5.1 11/23 Normal [facility] Center CHEMISTRY Chloride Lvl 103 95 - 109 11/23 Normal [facility] Center CHEMISTRY Calcium Lvl 8.4 8.5 - 10.5 11/23 LOW Medical Center CHEMISTRY Creatinine 1.5 0.5 - 1.4 11/23 HI [facility] CHEMISTRY BUN 24 7 - 22 11/23 HI Medical Center CHEMISTRY Glucose Lvl 116 70 - 99 11/23 HI <sup>4</sup>I nterpretive Medical Data: Adult Center reference range values reflect the clinical guidelines of the [place] [employer]. CHEMISTRY AGAP 13.6 10.0 - 11/23 Normal [place] 20.0 Medical Center HEMATOLOGY Basophils # 0.0 0.0 - 0.2 11/23 Normal [facility] Center HEMATOLOGY Anisocyte 1+ None Seen 11/23 ABN [place] *ABN* /2011 Medical (11/24/2011 03:16:00) Center HEMATOLOGY Segs-Bands # 8.1 1.5 - 8.1 11/23 Normal [facility] Center HEMATOLOGY Segs 84.0 45.0 - 11/23 [...] Medical Center BEDSIDE Comment2 Sliding 11/22 NA [facility] GLUCOSE Scale Medical TESTING Center BLOOD BANK Antibody Negative 11/21 Normal [facility] RESULTS Scrn (11/22/2011 03:00:00) Medical Center BLOOD BANK ABO/Rh O NEG 11/21 Unknown [facility] RESULTS /2011 Medical Center CHEMISTRY AGAP [...] values reflect the clinical guidelines of the [place] [employer]. CHEMISTRY BUN 18 7 - 22 11/21 Normal [facility] CHEMISTRY Creatinine 1.6 0.5 - 1.4 11/21 [facility] Lvl /2011 [facility] HEMATOLOGY Hct 27.2 42.0 - 11/21 [facility] [place] 54.0 [facility] Center HEMATOLOGY MCV 79.4 80.0 - 11/21 [facility] [place] 94.0 [facility] HEMATOLOGY RBC 3.42 4.70 - 11/21 [facility] [place] 6.10 /2011 [facility] HEMATOLOGY Hgb 8.9 14.0 - 11/21 [facility] 18.0 [facility] HEMATOLOGY Platelet 299 133 - 450 11/21 Normal [facility] HEMATOLOGY MPV 9.6 7.4 - 10.4 11/21 Normal [facility] HEMATOLOGY RDW 20.4 11.5 - 11/21 [facility] 14.5 [facility] HEMATOLOGY MCH 26.2 27.0 - 11/21 LOW [place] 31.0 /2011 [facility] HEMATOLOGY MCHC 32.9 32.0 - 11/21 Normal [facility] 36.0 [facility] HEMATOLOGY WBC 7.0 3.7 - 10.4 11/21 Normal [facility] HEMATOLOGY PTT 33.6 22.9 - 11/21 Normal <sup>11</sup> [facility] 35.8 Interpretive Medical Data: Heparin Center Therapeutic Range: 57 - 92 Seconds HEMATOLOGY Anisocyte 1+ None Seen 11/21 [facility] *ABN* /2011 Medical (11/22/2011 03:00:00) Center HEMATOLOGY Eosinophils 0.1 0.0 - 0.5 11/21 Normal [facility] # [facility] Center HEMATOLOGY Basophils # 0.0 0.0 - 0.2 11/21 Normal [facility] HEMATOLOGY Segs-Bands # 5.5 1.5 - 8.1 11/21 Normal [facility] HEMATOLOGY Lymphocytes 0.8 1.0 - 5.5 11/21 LOW [place] # /2011 [facility] Center HEMATOLOGY Eosinophils 1.5 0.0 - 4.0 11/21 Normal Medical Center HEMATOLOGY Basophils 0.3 0.0 - 1.0 11/21 Normal [facility] HEMATOLOGY Monocytes # 0.6 0.0 - 0.8 11/21 [facility] HEMATOLOGY Lymphocytes 11.0 20.0 - 11/21 [facility] [place] 40.0 /2011 [facility] HEMATOLOGY Monocytes 8.6 2.0 - 12.0 11/21 [facility] HEMATOLOGY Segs 78.6 45.0 - 11/21 [facility] [place] 75.0 /2011 [facility] HEMATOLOGY PT 13.1 12.0 - 11/21 [facility] 14.7 /2011 [facility] HEMATOLOGY INR 0.99 0.85 - 11/21 Normal <sup>8</sup>I [facility] 1.17 nterpretive Medical Data: Center RECOMMENDED RANGES FOR PROTIME INR: 2.0-3.0 for most medical and surgical thromboemboli c states. 2.5-3.5 for artificial heart valves and recurrent embolism. INR SHOULD BE USED ONLY FOR PATIENTS ON STABLE ANTICOAGULANT THERAPY. STOOL Occult Bld Negative Negative 11/20 [facility] TESTS Stl (11/21/2011 18:08:00) [facility] CHEMISTRY Iron 14 45 - 160 11/20 [facility] CHEMISTRY TIBC 230 228 - 428 11/20 [facility] CHEMISTRY UIBC 216 110 - 370 11/20 [facility] CHEMISTRY % [place] 6 12 - 57 11/20 [facility] CHEMISTRY Ferritin Lvl 302 22 - 275 11/20 [facility] CHEMISTRY AGAP 15.2 10.0 - 11/20 [facility] 20.0 [facility] CHEMISTRY BUN 23 7 - 22 11/20 [facility] Medical Center CHEMISTRY CO2 25 24 - 32 11/20 [facility] Center CHEMISTRY Potassium 4.2 3.5 - 5.1 11/20 [facility] Medical Center CHEMISTRY Chloride Lvl 102 95 - 109 11/20 [facility] Medical Center CHEMISTRY Sodium Lvl 138 135 - 145 11/20 [facility] Center CHEMISTRY Calcium Lvl 8.2 8.5 - 10.5 11/20 [facility] CHEMISTRY Creatinine 1.5 0.5 - 1.4 11/20 [facility] Medical Center CHEMISTRY Glucose Lvl 142 70 - 99 11/20 HI <sup>6</sup>I nterpretive Medical Data: Adult Center reference range values reflect the clinical guidelines of the [place] [employer]. HEMATOLOGY MCV 80.1 80.0 - 11/20 Normal [place] 94.0 /2011 [facility] HEMATOLOGY Hct 27.0 42.0 - 11/20 [facility] [place] 54.0 /2011 [facility] HEMATOLOGY MCHC 32.1 32.0 - 11/20 Normal [place] 36.0 /2011 [facility] HEMATOLOGY MCH 25.7 27.0 - 11/20 [facility] [place] 31.0 /2011 [facility] HEMATOLOGY RDW 20.7 11.5 - 11/20 [facility] [place] 14.5 /2011 [facility] HEMATOLOGY Hgb 8.7 14.0 - 11/20 [facility] 18.0 /2011 [facility] HEMATOLOGY RBC 3.37 4.70 - 11/20 [facility] [place] 6.10 /2011 [facility] HEMATOLOGY WBC 6.9 3.7 - 10.4 11/20 Normal [facility] HEMATOLOGY MPV 9.3 7.4 - 10.4 11/20 Normal [facility] HEMATOLOGY Platelet 305 133 - 450 11/20 Normal [facility] HEMATOLOGY Segs-Bands # 5.3 1.5 - 8.1 11/20 Normal [facility] HEMATOLOGY Basophils 0.4 0.0 - 1.0 11/20 Normal [facility] HEMATOLOGY Eosinophils 1.8 0.0 - 4.0 11/20 Normal [facility] HEMATOLOGY Monocytes 9.1 2.0 - 12.0 11/20 Normal [facility] HEMATOLOGY Lymphocytes 11.8 20.0 - 11/20 [facility] [place] 40.0 [facility] HEMATOLOGY Anisocyte 1+ None Seen 11/20 ABN [place] *ABN* /2011 Medical (11/21/2011 05:14:00) Center HEMATOLOGY Basophils # 0.0 0.0 - 0.2 11/20 Normal [facility] HEMATOLOGY Eosinophils 0.1 0.0 - 0.5 11/20 Normal [place] # [facility] HEMATOLOGY Monocytes # 0.6 0.0 - 0.8 11/20 Normal [facility] HEMATOLOGY Lymphocytes 0.8 1.0 - 5.5 11/20 LOW [facility] [place] # /2011 Medical Center HEMATOLOGY Segs 76.9 45.0 - 11/20 HI [place] 75.0 /2011 Medical Center BEDSIDE Comment2 Sliding 11/20 NA [facility] GLUCOSE Scale /2011 Medical TESTING Center CHEMISTRY Phosphorus 4.3 2.5 - 4.5 11/16 Normal [facility] Center CHEMISTRY Magnesium 2.2 1.8 - 2.4 11/16 Normal [facility] Lvl [facility] Center CHEMISTRY T4 Free 1.35 0.76 - 11/16 Normal [facility] 1.46 /2011 Medical Center CHEMISTRY TSH 1.980 0.360 - 11/16 Normal [place] 3.740 /2011 Medical Center CHEMISTRY B/C Ratio 16 6 - 25 11/16 Normal [facility] Center CHEMISTRY Globulin 3.2 2.0 - 4.0 11/16 Normal [facility] Center CHEMISTRY A/G Ratio 0.9 0.7 - 1.6 11/16 Normal [facility] CHEMISTRY Bili Total 0.9 0.2 - 1.3 11/16 Normal [facility] CHEMISTRY Albumin Lvl 2.9 3.5 - 5.0 11/16 LOW [facility] CHEMISTRY Alk Phos 77 39 - 136 11/16 Normal [facility] CHEMISTRY AST 19 0 - 37 11/16 Normal [facility] CHEMISTRY Total 6.1 6.4 - 8.4 11/16 LOW [facility] Protein [facility] CHEMISTRY ALT 20 0 - 65 11/16 Normal [facility] CHEMISTRY Hgb A1C 6.5 11/16 NA <sup>7</sup>I [...] HEMATOLOGY PT xxxxxxx 12.0 - 11/16 Normal [facility] (11/17/2011 05:50:00) 14.7 Medical Center HEMATOLOGY INR xxxxxxx 9, 10 0.85 - 06/20 Normal <sup>9</sup>I [facility] (11/17/2011 05:50:00) 1.17 nterpretive Medical Data: [...] 12, 13 22.9 - 11/16 Normal <sup>12</sup> [facility] (11/17/2011 05:50:00) 35.8 /2011 Result Medical Comment: Center called to ger samayoa 11/17/2011 6:26 no clot 11/17/2011 6:26
<sup >13</sup>Inte rpretive Data: Heparin Therapeutic Range: 57 - 92 Seconds IMMUNOLOGY Prealbumin 19.9 18.0 - 11/16 Normal [facility] 45.0 /2011 Medical Center URINALYSIS UA 0.1 - 1.0 11/16 [facility] Urobilinogen /2011 Medical Center URINALYSIS UA Ketones Negative mg/dL Negative 11[facility]16 [facility] (11/17/2011 05:32:00) Center URINALYSIS UA Bili Negative Negative [facility] (11/17/2011 05:32:00) Center URINALYSIS UA Glucose Negative mg/dL Negative 11/16 NA [facility] *NA* Medical (11/17/2011 05:32:00) Center URINALYSIS UA Protein 30 mg/dL Negative [facility]11/17[facility]2011 05:32:00[facility] Center URINALYSIS UA Blood Moderate Negative 11/[facility] (11/17/2011 05:32:00) Center URINALYSIS UA Leuk Est Negative Negative 11/16 Normal [facility] (11/17/2011 05:32:00) /2011 Medical Center URINALYSIS UA Nitrite Negative Negative 11/16 Normal [facility] (11/17/2011 05:32:00) [facility] URINALYSIS UA Sq Epi Few /LPF Few [facility] (11/17/2011 05:32:00) Center URINALYSIS UA Mucus Few /LPF None [facility] (11/17/2011 05:32:00) Center URINALYSIS UA RBC 1 0 - 2 11/16 Normal [facility] URINALYSIS UA WBC <1 0 - 5 11/16 Normal [facility] URINALYSIS UA Amorph Occasional /HPF None Seen 11/16 [facility] Izzy *NA [facility] (11/17/2011 05:32:00) [place] URINALYSIS UA Renal Epi 1 <=0 11/16 [facility] URINALYSIS UA Hyal Cast 6 0 - 2 11/16 [facility] URINALYSIS UA Turbidity Slight Clear 11/16 [facility] (11/17/2011 05:32:00) Center URINALYSIS UA Color Yellow Yellow [facility] (11/17/2011 05:32:00) [place] URINALYSIS UA Spec Grav 1.016 <=1.030 11/16 Normal [facility] URINALYSIS UA pH 5.0 5.0 - 8.0 11/16 Normal [facility] Microbiolo Culture: 11/16 [facility] gy [facility] Pathology Reports No Data Provided for This Section Diagnostic Reports Report Value Date Source Esophagus BA swallow w Clinical Indication: - dysphagia 11/21/2018 [facility] function Rehab DX Comparison: None Findings: Modified barium swallow study was performed with speech pathologist. Patient ingested barium of various textures and consistency while under fluoroscopic evaluation. Thin consistency barium by spoon: Deep aspiration without cough reflex. [place] consistency barium by spoon: Deep aspiration. Thin [...] thin consistency barium: No penetration or aspiration. [place] consistency barium: No penetration or aspiration. There [...] TIME: 3 minutes 50 seconds. DISCUSSION: Lateral artist suspect views of the neck demonstrate a normal [...] [facility] Temperature Oral (F) 98.4 F 11/25/2011 [facility] Heart Rate 66 11/25/2011 [facility] Diastolic (mm Hg) 79 11/25/2011 [facility] Systolic (mm Hg) 115 11/25/2011 [facility] Respitory Rate 20 11/25/2011 [facility] Respitory Rate 20 11/25/2011 [facility] Systolic (mm Hg) 145 11/25/2011 [facility] Diastolic (mm Hg) 82 11/25/2011 [facility] Temperature Oral (F) 98.4 F 11/25/2011 [facility] Heart Rate 95 11/25/2011 [facility] Systolic (mm Hg) 131 11/24/2011 [facility] Respitory Rate 20 11/24/2011 [facility] Diastolic (mm Hg) 69 11/24/2011 [facility] Heart Rate 86 11/24/2011 [facility] Temperature Oral (F) 98.2 F 11/24/2011 [facility] Weight 95.909 11/16/2011 [facility] Height 176.53 cm 11/16/2011 [facility] Encounters Location Location Encounter Encounter Reason Attending ADM DC Status Source Details Type Number For Provider Date Date Visit [id number] JOSEPH 11/15 11/24 Discharg 1 V[facility] UTIERREZ tation [facility] Out[facility] [id number] [facility]03 Active Surgical ORDERS [facility] Tot [id number] Ada 08/28 09/27 [facility] 0 Ifejika-Chantal [facility] Outpatient [id number] Adrian Beavers 09/28 09/29 [facility] 5 [facility] Tots [id number] Ada 11/06 12/06 [facility] [place] [facility] 2 Ifejika-Chantal [facility] Tots [id number] Ada 12/11 01/10 [facility] 3 Ifejika-Chantal [facility] Outpatient [id number] Adrian Beavers 12/21 12/22 [facility] [place] [facility] [id number] Ada 01/15 02/14 [facility] [place] [facility] 4 [facility] [id number] Adrian Beavers 01/21 01/22 [facility] Tots [id number] Ada 02/19 03/21 [facility] 5 [facility] [id number] Adrian Ruthann 04/22 04/23 [facility] [place] [facility] [id number] Ada 07/04 08/03 [facility] 6 If- [facility]ots [id number] Ada 08/06 09/05 [facility] 7 Ife-Chantal [facility] Tots [id number] Ada 09/10 10/10 [facility] [place] [facility] 8 If- [facility] [place] [facility] Outpatient [id number] Adrian Beavers 10/14 10/15 [facility] [id number] Adrian Beavers 01/13 01/14 [facility] [facility] OP [id number] Adrian Beavers 01/14 02/13 [facility] Outpatient [id number] Adrian Beavers 05/05 05/06 [facility] Tots [id number] Ada 07/01 07/30 [facility] 0 [place] [facility] Outpatient [id number] Adrian Beavers 08/24 08/25 [facility] Outpatient [id number] Adrian Beavers 12/03 12/04 [facility] Outpatient [id number] Adrian Beavers 03/08 03/09 [facility] Outpatient [id number] Adrian Beavers 08/09 08/10 [facility] Outpatient [id number] Adrian Beavers 11/22 11/23 [facility] Outpatient [id number] Adrian Beavers 02/21 02/22 [facility] Outpatient [id number] Adrian Beavers 06/02 06/03 [facility] [id number] 06/[address] [facility] [place] [facility] [id number] 06/09 06/[address] [facility] [place] [facility] [id number] 08/[address] [facility] [place] [facility] [id number] 08/09 08/[address] [facility] [place] [facility] Outpatient [id number] Adrian Beavers 12/19 12/20 [facility] Outpatient [id number] Adrian Beavers 12/27 12/28 [facility] PreReg [id number] Adrian Beavers 04/24 04/24 [facility] ([facility]) [facility] Outpatient [id number] Robb 04/27 04/27 Active Surgical [facility] /2017 [facility] Outpatient [id number] Robb 04/27 04/28 [facility] Ju[facility]rez /2017 Surgical [facility] [place] [facility] Recurring [id number] Non 07/10 07/10 [facility] 0 [place] [facility] Outpatient [id number] Adrian Beavers 07/27 07/28 [facility] Outpatient [id number] Adrian Beavers 08/07 08/08 [facility] [place] [facility] Outpatient [id number] Adrian Beavers 08/10 08/11 [facility] [place] [facility] Recurring [id number] Adrian Ruthann 08/14 09/13 [facility] [place] [facility] Recurring [id number] Adrian Ruthann 09/14 10/14 [facility] [place] [facility] Recurring [id number] Non 10/16 11/15 [facility] 4 Physician /2018 [place] [facility] Recurring [id number] Non 11/17 12/17 [facility] 5 Physician [facility] Outpatient [id number] Adrian Ruthann 11/20 11/21 [facility] ([facility]) [facility] Outpatient [id number] Adrian Ruthann 11/21 11/22 [facility] [place] [facility] Recurring [id number] Adrian Ruthann 12/19 01/18 [facility] Preadmit [id number] STROKE NON Active [facility] 2 PHYSICIAN Procedures Procedure Code Date Perfomer Comments [place] [address] [facility] one extremity; 1-4 9 muscle([place] [address] [facility] muscle(s); muscle(s) 9 innervated by facial nerve, unilateral (eg, for blepharospasm, hemifacial spasm) Injection(s); single [facility] or multiple trigger 9 point(s), 1 or 2 muscle([place] [address] [facility] muscle(s); muscle(s) 9 innervated by facial, trigeminal, cervical spinal and accessory nerves, bilateral (eg, for chronic migraine) Abdomen 1 View (KUB) [id number] [facility] [place] Barium Swallow [id number] [facility] - Modified [facility] [place] Chest Single View [id number] [facility] [place] Anaerobic Blood [id number] [facility] - Culture 8 [place] Aerobic Blood Culture [id number] [facility] [place] [id number] [facility] - [facility] [place] Count [id number] [facility] [address] [place] [address] Stroke Brain Wo [id number] [facility] - Cont [facility] [place] Chest Pa And Lat (2 [phone] [facility] - Views) [place] Influenza Type B [facility] Antigen Screen [facility] [place] Influenza Type A [facility] - Antigen Screen 8 [place] [address] [facility] one extremity; each 8 additional extremity, 1-4 muscle(s) (List separately in addition to code for primary procedure) Chemodenervation<sup> [id number] 2013 [facility] 1</sup> Assessment and Plan No Data Provided for This Section Plan of Care Plan of Care Date Source Instructions 08/21/2017 [facility] [place] DI for Kidney Failure DI for Seizure Disorder -- Adult DI for Percutaneous Endoscopic Gastrostomy Instructions 08/21/[address] [facility] [address] [facility] - [place] DI for Kidney [...] section Query Response Date Recorded Comment 05/30/[address] [facility] [address] [place] Alcohol Use? No [...] August 19, 2017 6:00pm Durable Power of [place] [employer] Operator for Health Care Yes August 09, 2017 5:01pm Would you like additional information No August 09, 2017 5:01pm Functional Status No Data Provided for This Section
--- OUTSIDE RECORDS SUMMARY | 2019-02-16 09:30 | XMS REPORT | CCD ---
:1940 Author Organization [facility] Care Team Providers Name Role Phone Sandy Mckenzie Consulting Provider Allergies, Adverse Reactions, Alerts Substance Reaction Status NKDA Active Problem List Condition Effective Dates Status Dysphagia < 11/22/2011 Canceled Dysphagia1 Active Dysphasia < 11/22/2011 Canceled Stroke Active Weakness < 11/22/2011 Canceled 1difficulty swallowing even meds informatica architect resident informed. DR Carter Medications Medication Instructions [...] Substitution Allowed, TAB Glycerol 60 mL, Route: OK, Drug 11/17/2011 11/18/2011 Completed Form: MISC, ONCE, [...] Allowed, TAB mineral oil 60 mL, Route: OK, Drug 11/17/2011 11/18/2011 Completed Form: LIQ, ONCE, [...] date: 11/17/11 15:16:00 Sodium Chloride 0.9% IV OK, 0 ml/hr, ONCE, Start 11/17/2011 11/18/2011 Completed [...] range values reflect the clinical guidelinesof the [employer].5Interpretive Data: Adult reference range values reflect the clinical guidelinesof the [place] [employer].6Interpretive Data: Adult reference range values reflect the clinical guidelinesof the [place] [employer].7Interpretive Data: HbA1C% eAG(mg/dL) Interpretation 6.0 [...] Data: Heparin Therapeutic Range: 57 - 92 [id number] Comment: called to ger samayoa 11/17/2011 6:26 [...]
--- OUTSIDE RECORDS SUMMARY | 2019-02-16 09:32 | XMS REPORT ---
[...] Status Dosage System Date Date Amlodipine ND 86177062670 10 MG Orally Active 1 tablet Besylate Once a day Valacyclovir ND 95658723307 1 GM crushed Jan 11Dec Active 1 tablet HCl via peg tube 2017, twice a day 2017 Lamictal ND 50174706970 200 MG Orally Active 1 tablet Twice a day Cozaar ND 93029081249 50 MG Orally Active 1 tablet Once a day Dilantin ND 80604145281 100 MG Orally Active 1 capsule Four times a day Lorazepam [facility] 83841810899 0.5 MG Orally Active 1 tablet as every 12 hrs needed Loratadine [facility] 33113945268 10 MG Active TAKE 1 TABLET BY MOUTH EVERY DAY Ventolin HFA [facility] 18111461143 108 (90 Base) November 07 2 puffs as MCG/ACT 2017 needed Inhalation every 4- 6 hrs Flomax ND 71130420575 0.4 MG Orally Active 1 capsule Once a day Dilantin ND 20716367305 125 MG/5ML via August Active 4 ml PEG tube every 2017 6 hours Lipitor ND 65410847465 80 MG Active TAKE 1 TABLET BY MOUTH AT BEDTIME Singulair [facility] 93916514272 10 MG Active TAKE 1 TABLET BY MOUTH AT BEDTIME Zovirax [facility] 71724535257 5 % Externally Jan 11, Active 1 application four times a 2017 to affected day area Flonase [facility] 72656130929 50 MCG/ACT Active 1 spray in Nasally Once a each nostril day Coreg [facility] 43495205078 3.125 MG Orally Active one tablet twice a day Finasteride [facility] 14118014779 5 MG Active TAKE 1 TABLET BY MOUTH EVERY DAY Montelukast [facility] 30123668415 10 MG Orally Active 1 tablet in Sodium Once a day the evening Results No Known Results Summary Purpose eClinicalWorks Submission
--- OUTSIDE RECORDS SUMMARY | 2019-02-16 09:33 | XMS REPORT ---
[...] Date Lipitor [facility] 51825331935 80 MG Active TAKE 1 TABLET BY MOUTH AT BEDTIME Flomax ND 45177589062 0.4 MG Orally Active 1 capsule Once a day Lipitor [facility] 30037613524 80 MG Active TAKE 1 TABLET BY MOUTH AT BEDTIME Singulair [facility] 28164695264 10 MG Active TAKE 1 TABLET BY MOUTH AT BEDTIME Ventolin HFA [facility] 81472827636 108 (90 Base) Active 2 puffs as MCG/ACT needed Inhalation every 4- 6 [address] [facility] 67546424343 10 MG Orally Active 1 tablet Besylate Once a day Finasteride [facility] 60221528656 5 MG Active TAKE 1 TABLET BY MOUTH EVERY DAY Dilantin [facility] 21834540684 100 MG Orally Active 1 capsule Four times a day Dilantin [facility] 18574504615 125 MG/5ML via Active 4 ml PEG tube every 6 [address] [facility] 45905916280 200 MG Orally Feb 17, Active 1 capsule Sodium Two times a day 2017 Extended Flonase [facility] 83566173961 50 MCG/ACT Active 1 spray in Nasally Once a each nostril day Loratadine [facility] 89199344775 10 MG Active TAKE 1 TABLET BY MOUTH EVERY DAY Coreg ND 48257798044 3.125 MG Orally Active one tablet twice a day Montelukast ND 00057431623 10 MG Orally Active 1 tablet in Sodium Once a day the evening Lamictal [facility] 56948242212 200 MG Orally Active 1 tablet Twice a day Zovirax [facility] 57917976293 5 % Externally Jan 11, Active 1 application four times a 2018 to affected day [facility] 886513612[facility] 50 MG Orally Active 1 tablet Once a day Lorazepam [facility] 94897645707 0.5 MG Orally Active 1 tablet as every 12 hrs needed Finasteride [facility] 06548982263 5 MG Active TAKE 1 TABLET BY MOUTH EVERY DAY Results No Known Results Immunizations Vaccine Administration Date FluAD Apr 18, 2018 Summary Purpose eClinicalWorks Submission
--- OUTSIDE RECORDS SUMMARY | 2019-02-16 09:33 | XMS REPORT ---
[...] End Status Dosage System Date Date Phenytoin [facility] 39450289872 200 MG Orally Mar 15, Active 1 capsule Sodium Two times a day 2018 Extended Results No Known Results Summary Purpose eClinicalWorks Submission
--- OUTSIDE RECORDS SUMMARY | 2019-02-16 09:33 | XMS REPORT ---
[...] End Status Dosage System Date Date Phenytoin [facility] 03679454539 200 MG Orally Feb 17, Active 1 capsule Sodium Two times a day 2018 Extended Results No Known Results Summary Purpose eClinicalWorks Submission
--- OUTSIDE RECORDS SUMMARY | 2019-02-16 09:34 | XMS REPORT ---
[...] End Status Dosage System Date Date Dilantin [facility] 80507852620 100 MG Orally Active 1 capsule Four times a day Flonase [facility] 27786998741 50 MCG/ACT Active 1 spray in Nasally Once a each nostril day Lorazepam [facility] 18219533925 0.5 MG Orally Active 1 tablet as every 12 hrs needed Loratadine [facility] 20907373298 10 MG Active TAKE 1 TABLET BY MOUTH EVERY DAY Flomax [facility] 59747027751 0.4 MG Orally Active 1 capsule Once a day Finasteride [facility] 60352426101 5 MG Active TAKE 1 TABLET BY MOUTH EVERY DAY Amoxicillin [facility] 43432288860 500 MG Orally Jul 17, Active 1 capsule every 8 hrs 2018 Singulair [facility] 07005604869 10 MG Active TAKE 1 TABLET BY MOUTH AT BEDTIME Amlodipine [facility] 91355696344 10 MG Orally Active 1 tablet Besylate Once a day Cozaar [facility] 25119230500 50 MG Orally Active 1 tablet Once a day Albuterol [facility] 13455273228 (2.5 MG/3ML) November 01, Active 3 ml as Sulfate 0.083% 2018 needed Inhalation every 8 hrs Lipitor [facility] 76581435291 80 MG Active TAKE 1 TABLET BY MOUTH AT BEDTIME Phenytoin [facility] 21813890161 125 MG/5ML by December 11, Active 10 ml g-tube Three 2019 times a day Coreg [facility] 57756775605 3.125 MG Orally Active one tablet twice a day Dilantin [facility] 21600863394 125 MG/5ML via Active 4 ml PEG tube every 6 hours Zovirax [facility] 04642621305 5 % Externally Jan 11, Active 1 application four times a 2018 to affected day area Montelukast [facility] 54940688767 10 MG Orally Active 1 tablet in Sodium Once a day the evening Ventolin HFA [facility] 10955805276 108 (90 Base) Active 2 puffs as MCG/ACT needed Inhalation every -4 6 hrs Lamictal [facility] 36114158061 200 MG Orally Active 1 tablet Twice a day Phenytoin [facility] 83682701981 200 MG Orally Mar 15, Active 1 capsule Sodium Two times a day 2018 Extended Flonase [facility] 42028581219 50 MCG/ACT Active 1 spray in Nasally Once a each nostril day Results No Known Results Summary Purpose eClinicalWorks Submission
--- OUTSIDE RECORDS SUMMARY | 2019-02-16 09:34 | XMS REPORT ---
[...] End Status Dosage System Date Date Phenytoin [facility] 68169340568 125 MG/5ML by December 11, Active 10 ml g-tube Three 2019 times a day Phenytoin ND 43155191524 200 MG Orally Inactive 1 capsule Sodium Three times a Extended day Results No Known Results Summary Purpose eClinicalWorks Submission
--- OUTSIDE RECORDS SUMMARY | 2019-02-16 09:34 | XMS REPORT ---
[...] End Status Dosage System Date Date Albuterol [facility] 77134685322 (2.5 MG/3ML) November 01, Active 3 ml as Sulfate 0.083% 2018 needed Inhalation every 8 hrs Singulair [facility] 08859624440 10 MG Active TAKE 1 TABLET BY MOUTH AT BEDTIME Flonase [facility] 83194934803 50 MCG/ACT Active 1 spray in Nasally Once a each nostril day Zovirax [facility] 51923514736 5 % Externally Jan 11, Active 1 application four times a 2018 to affected day area Amlodipine [facility] 19966409873 10 MG Orally Active 1 tablet Besylate Once a day Montelukast [facility] 62055852834 10 MG Orally Active 1 tablet in Sodium Once a day the evening Amoxicillin [facility] 19205085324 500 MG Orally Jul 17, Active 1 capsule every 8 hrs 2019 Phenytoin [facility] 14673375958 200 MG Orally Active 1 capsule Sodium Three times a Extended day Loratadine [facility] 71049106751 10 MG Active TAKE 1 TABLET BY MOUTH EVERY DAY Finasteride [facility] 07622434135 5 MG Active TAKE 1 TABLET BY MOUTH EVERY DAY Coreg [facility] 25611685830 3.125 MG Orally Active one tablet twice a day Lamictal [facility] 30256237250 200 MG Orally Active 1 tablet Twice a day Lipitor [facility] 87140786912 80 MG Active TAKE 1 TABLET BY MOUTH AT BEDTIME Flomax [facility] 07823805921 0.4 MG Orally Active 1 capsule Once a day Cozaar [facility] 63712210911 50 MG Orally Active 1 tablet Once a day Ventolin HFA [facility] 73573752914 108 (90 Base) Active 2 puffs as MCG/ACT needed Inhalation every -4 6 hrs Dilantin [facility] 26341800502 100 MG Orally Active 1 capsule Four times a day Lipitor [facility] 75706057455 80 MG Active TAKE 1 TABLET BY MOUTH AT BEDTIME Lorazepam [facility] 63348790099 0.5 MG Orally Active 1 tablet as every 12 hrs needed Phenytoin [facility] 39920852367 200 MG Orally Oct 17, Active 1 capsule Sodium Two times a day 2018 Extended Dilantin [facility] 58604057962 125 MG/5ML via Active 4 ml PEG tube every 6 hours Flonase [facility] 77475966179 50 MCG/ACT Active 1 spray in Nasally Once a each nostril day Results No Known Results Summary Purpose eClinicalWorks Submission
--- OUTSIDE RECORDS SUMMARY | 2019-02-16 09:34 | XMS REPORT ---
[...] End Date Status Dosage System Date Lorazepam [facility] 49072010103 0.5 MG Orally Active 1 tablet prn every 12 hrs anxiety/ insomnia Results No Known Results Summary Purpose eClinicalWorks Submission
--- OUTSIDE RECORDS SUMMARY | 2019-02-16 09:34 | XMS REPORT ---
[...] End Status Dosage System Date Date Lipitor [facility] 45972055821 80 MG Active TAKE 1 TABLET BY MOUTH AT BEDTIME Phenytoin [facility] 24954827408 200 MG Orally Mar 15, Active 1 capsule Sodium Two times a day 2017 Extended Flonase ND 02424124472 50 MCG/ACT Active 1 spray in Nasally Once a each nostril day Loratadine [facility] 99805601284 10 MG Active TAKE 1 TABLET BY MOUTH EVERY DAY Lipitor [facility] 33934763026 80 MG Active TAKE 1 TABLET BY MOUTH AT BEDTIME Coreg ND 89128740713 3.125 MG Orally Active one tablet twice a day Finasteride ND 98063993396 5 MG Active TAKE 1 TABLET BY MOUTH EVERY DAY Phenytoin ND 54363739704 200 MG Orally Jul 17, Active 1 capsule Sodium Three times a 2018 Extended day Ventolin HFA [facility] 85502093456 108 (90 Base) Active 2 puffs as MCG/ACT needed Inhalation every 4- 6 hrs Montelukast ND 06392902388 10 MG Orally Active 1 tablet in Sodium Once a day the evening Lorazepam [facility] 26138662059 0.5 MG Orally Active 1 tablet as every 12 hrs needed Flomax ND 11165319903 0.4 MG Orally Active 1 capsule Once a day Cozaar ND 31779390361 50 MG Orally Active 1 tablet Once a day Amoxicillin ND 35290197646 500 MG Orally Jul 17, Active 1 capsule every 8 hrs 2018 Dilantin ND 49376987905 100 MG Orally Active 1 capsule Four times a day Amlodipine ND 26866272688 10 MG Orally Active 1 tablet Besylate Once a day Lamictal ND 76002957538 200 MG Orally Active 1 tablet Twice a day Zovirax [facility] 73853368118 5 % Externally Jan 11, Active 1 application four times a 2018 to affected day area Singulair ND 20496105081 10 MG Active TAKE 1 TABLET BY MOUTH AT BEDTIME Dilantin [facility] 73929957976 125 MG/5ML via Active 4 ml PEG tube every 6 hours Results No Known Results Summary Purpose eClinicalWorks Submission
--- NOTE | 2019-02-16 12:16 | ER ---
Nurse's Notes [facility] Name: Timothy Ward Age: 78 yrs Sex: Male : 1940 Arrival Date: 02/16/2019 Time: 09:24 Bed 16 Private MD: Diagnosis: Encounter for attention to gastrostomy Presentation: 02/16 09:26 Presenting complaint: EMS states: PULLED PEG TUBE DUE TO BEING MAD AT CAREGIVER. bp Transition of care: patient was not received from another setting of care. Onset of symptoms is unknown. Risk Assessment: Do you want to hurt yourself or someone else? Patient reports no desire to harm self or others. Initial Sepsis Screen: Does the patient meet any 2 criteria? No. Patient's initial sepsis screen is negative. Does the patient have a suspected source of infection? No. Patient's initial sepsis screen is negative. Care prior to arrival: None. 09:26 Method Of Arrival: EMS: [facility] bp 09:26 Acuity: DANIELLE 3 bp Triage Assessment: 09:30 General: Appears in no apparent distress. comfortable, Behavior is calm. Pain: Denies bp pain. EENT: No deficits noted. Neuro: AT BASELINE. Cardiovascular: No deficits noted. Respiratory: No deficits noted. GI: PEG tube Site clean. PULLED BY PT. : No signs and/or symptoms were reported regarding the genitourinary system. Derm: No deficits noted. Musculoskeletal: No deficits noted. Historical: - Allergies: 09:29 No Known Allergies; bp - Home Meds: :29 aspirin 325 mg Oral TbEC 1 tab once daily [Active]; atorvastatin 80 mg Oral tab 1 tab bp once daily [Active]; baclofen 10 mg Oral tab [Active]; finasteride 5 mg Oral tab 1 tab once daily [Active]; lamotrigine 100 mg Oral tab 1 tab 2 times per day [Active]; loratadine 10 mg Oral tab 1 tab once daily [Active]; montelukast 10 mg Oral tab 1 tab once daily [Active]; phenytoin 125 mg/5 mL Oral susp 5 mL 3 times per day [Active]; tamsulosin 0.4 mg Oral cp24 1 cap once daily [Active]; Vitamin D Oral [Active]; - PMHx: 09:29 CHF; CVA; Hypertension; Pneumonia; bp - Immunization history:: Adult Immunizations up to date. - Social history:: Smoking status: Patient/guardian denies using tobacco. - Ebola Screening: : No symptoms or risks identified at this time. Screenin:33 Abuse screen: Denies threats or abuse. Denies injuries from another. Nutritional bp screening: No deficits noted. Tuberculosis screening: No symptoms or risk factors identified. Fall Risk None identified. Assessment: 09:32 General: SEE TRIAGE NOTE. bp 10:54 Reassessment: AWAITING DELIVERY OF APPROPRIATE PEG. bp 11:59 Reassessment: Patient and/or family updated on plan of care and expected duration. Pain bp level reassessed. XRAY AT B/S FOR PLACEMENT CONFIRMATION. 12:40 Reassessment: PT D/C HOME VIA EMS, DX WITH GASTROSTOMY TUBE REPLACEMENT. bp Vital Signs: 09:30 BP 174 / 97; Pulse 99; Resp 18; Temp 98.5; Pulse Ox 99% ; Weight 77 kg; Height 5 ft. 9 bp in. (175.26 cm); 10:54 BP 138 / 82; Pulse 84; Resp 17; Pulse Ox 97% ; bp 12:00 BP 140 / 85; Pulse 86; Resp 16; Pulse Ox 98% ; bp 12:41 BP 145 / 89; Pulse 84; Resp 16; Temp 98.5; Pulse Ox 97% ; bp 09:30 Body Mass Index 25.07 (77.00 kg, 175.26 cm) bp ED Course: 09:24 Patient arrived in ED. hb 09:26 Mauro Bryson, RN is Primary Nurse. bp 09:28 Triage completed. bp 09:31 [facility]C [facility] snw 09:31 Benton Cota MD is Attending Physician. snw 09:31 Arm band placed on. bp 09:33 Patient has correct armband on for positive identification. Bed in low position. Call bp light in reach. Side rails up X2. Adult w/ patient. 12:28 Enterostomy Tube Check w/contr In Process Unspecified. EDMS 12:40 No provider procedures requiring assistance completed. Patient did not have IV access bp during this emergency room visit. Administered Medications: No medications were administered Outcome: 12:15 Discharge ordered by . snw 12:41 Discharged to home via ambulance, with family. bp 12:41 Condition: stable 12:41 Discharge instructions given to family, Instructed on discharge instructions, follow up and referral plans. Demonstrated understanding of instructions, follow-up care. 12:42 Patient left the ED. bp Signatures: Dispatcher [employer] EDMS Parisa Weaver, PARKING LINE PAINTER-C PARKING LINE PAINTER-Csnw Gemma Roman, RN RN Mauro Jay RN RN bp Corrections: (The following items were deleted from the chart) 09:32 09:30 Pulse 99bpm; Resp 18bpm; Pulse Ox 99%; Temp 98.5F; 77 kg; Height 5 ft. 9 in.; bp BMI: 25.0; bp
--- NOTE | 2019-02-16 12:16 | EDPHYS ---
Physician Documentation [facility] Name: Timothy Ward Age: 78 yrs Sex: Male : 1940 Arrival Date: 02/16/2019 Time: 09:24 Bed 16 Private MD: ED Physician Benton Cota HPI: 02/16 11:36 This 78 yrs old Black Male presents to ER via EMS with complaints of pulled g-tube. snw 11:36 The patient was previously evaluated in the emergency department 2 day(s) ago. Present snw symptoms: g-tube pulled. The patient has experienced a previous episode, approximately 2 days ago. Historical: - Allergies: : No Known Allergies; bp - Home Meds: : aspirin 325 mg Oral TbEC 1 tab once daily [Active]; atorvastatin 80 mg Oral tab 1 tab bp once daily [Active]; baclofen 10 mg Oral tab [Active]; finasteride 5 mg Oral tab 1 tab once daily [Active]; lamotrigine 100 mg Oral tab 1 tab 2 times per day [Active]; loratadine 10 mg Oral tab 1 tab once daily [Active]; montelukast 10 mg Oral tab 1 tab once daily [Active]; phenytoin 125 mg/5 mL Oral susp 5 mL 3 times per day [Active]; tamsulosin 0.4 mg Oral cp24 1 cap once daily [Active]; Vitamin D Oral [Active]; - PMHx: 09:29 CHF; CVA; Hypertension; Pneumonia; bp - Immunization history:: Adult Immunizations up to date. - Social history:: Smoking status: Patient/guardian denies using tobacco. - Ebola Screening: : No symptoms or risks identified at this time. ROS: 11:36 Constitutional: Negative for fever, chills, and weight loss, Eyes: Negative for injury, snw pain, redness, and discharge, ENT: Negative for injury, pain, and discharge, Neck: Negative for injury, pain, and swelling, Cardiovascular: Negative for chest pain, palpitations, and edema, Respiratory: Negative for shortness of breath, cough, wheezing, and pleuritic chest pain, Back: Negative for injury and pain, : Negative for injury, bleeding, discharge, and swelling, MS/Extremity: Negative for injury and deformity, Skin: Negative for injury, rash, and discoloration, Neuro: Negative for headache, weakness, numbness, tingling, and seizure. 11:36 Abdomen/GI: Positive for pulled g-tube. Exam: 11:33 Head/Face: Normocephalic, atraumatic. Eyes: Pupils equal round and reactive to light, snw extra-ocular motions intact. Lids and lashes normal. Conjunctiva and sclera are non-icteric and not injected. Cornea within normal limits. Periorbital areas with no swelling, redness, or edema. ENT: Nares patent. No nasal discharge, no septal abnormalities noted. Tympanic membranes are normal and external auditory canals are clear. Oropharynx with no redness, swelling, or masses, exudates, or evidence of obstruction, uvula midline. Mucous membranes moist. Neck: Trachea midline, no thyromegaly or masses palpated, and no cervical lymphadenopathy. Supple, full range of motion without nuchal rigidity, or vertebral point tenderness. No Meningismus. Chest/axilla: Normal chest wall appearance and motion. Nontender with no deformity. No lesions are appreciated. Cardiovascular: Regular rate and rhythm with a normal S1 and S2. No gallops, murmurs, or rubs. Normal PMI, no JVD. No pulse deficits. Respiratory: Lungs have equal breath sounds bilaterally, clear to auscultation and percussion. No rales, rhonchi or wheezes noted. No increased work of breathing, no retractions or nasal flaring. 11:33 Constitutional: The patient appears awake, obese. 11:33 Abdomen/GI: Inspection: obese G-tube stoma with mild irritation, scant bleeding, unable to pass 22F, 20F tube. 18F placed, NS instill in balloon. Will check placement.. Vital Signs: 09:30 BP 174 / 97; Pulse 99; Resp 18; Temp 98.5; Pulse Ox 99% ; Weight 77 kg; Height 5 ft. 9 bp in. (175.26 cm); 10:54 BP 138 / 82; Pulse 84; Resp 17; Pulse Ox 97% ; bp 12:00 BP 140 / 85; Pulse 86; Resp 16; Pulse Ox 98% ; bp 12:41 BP 145 / 89; Pulse 84; Resp 16; Temp 98.5; Pulse Ox 97% ; bp 09:30 Body Mass Index 25.07 (77.00 kg, 175.26 cm) bp Procedures: 11:32 Performed enterostomy tube replacement, 18F. . snw MDM: 09:32 Patient medically screened. snw 11:32 Data reviewed: vital signs, nurses notes. Data interpreted: Pulse oximetry: on room air snw is 97 %. Interpretation: normal. Counseling: I had a detailed discussion with the patient and/or guardian regarding: the historical points, exam findings, and any diagnostic results supporting the discharge/admit diagnosis, the presence of at least one elevated blood pressure reading (>120/80) during this emergency department visit, the need for outpatient follow up. 02/16 11:30 Order name: Enterostomy Tube Check w/contr snw 02/16 12:16 Order name: Wound Care: to pad and secure g-tube; Complete Time: 12:40 snw Administered Medications: No medications were administered Disposition: 13:30 Co-signature as Attending Physician, Benton Cota MD I agree with the assessment and kdr plan of care. Disposition: 02/16/19 12:15 Discharged to Home. Impression: Encounter for attention to gastrostomy. - Condition is Stable. - Discharge Instructions: Gastrostomy Tube Replacement, Gastrostomy Tube Home Guide, Adult. - Medication Reconciliation Form, Thank You Letter, Antibiotic Education, Prescription Opioid Use form. - Follow up: Emergency Department; When: As needed; Reason: Worsening of condition. Follow up: Private Physician; When: 2 - 3 days; Reason: Recheck today's complaints, Continuance of care, Re-evaluation by your physician. - Problem is an acute exacerbation. - Symptoms are resolved. Signatures: Dispatcher [employer] [facility] Benton Cota MD MD kdr Therrien, Shelly, NURSE ORTHOPEDIC-C NURSE ORTHOPEDIC-[facility] Mauro Bryson, RN RN bp Corrections: (The following items were deleted from the chart) 12:42 12:15 02/16/2019 12:15 Discharged to Home. Impression: Encounter for attention to bp gastrostomy. Condition is Stable. Discharge Instructions: Gastrostomy Tube Replacement, Gastrostomy Tube Home Guide, Adult. Forms are Medication Reconciliation Form, Thank You Letter, Antibiotic Education, Prescription Opioid Use. Follow up: Emergency Department; When: As needed; Reason: Worsening of condition. Follow up: Private Physician; When: 2 - 3 days; Reason: Recheck today's complaints, Continuance of care, Re-evaluation by your physician. Problem is an acute exacerbation. Symptoms are resolved. snw
--- NOTE | 2019-02-16 12:37 | RAD REPORT ---
EXAM DESCRIPTION: RAD - ENTEROSTOMY TUBE CHECK W/CONTR - 02/16/2019 12:26 pm CLINICAL HISTORY: Enterostomy tube replacement or repositioning COMPARISON: February 14 FINDINGS: Two KUB images were obtained prior to and following retrograde injection of contrast throu gh the enterostomy tube. Tube had been replaced or repositioned by referring physician. Post-contrast injection image shows good positioning of the tube. All injected contrast is retained w ithin the lumen of the bowel. IMPRESSION: Enterostomy tube in good position.
[2019-02-16 12:56] VITALS: TEMP 98.5
[2019-02-16 12:59] VITALS: BP 145/89; O2SAT 97
== END 2019-02-16 12:42 | disposition home or self-care (01) ==
LOC: ER 09:21
DX: Z46.59 Encounter for fitting and adjustment of other gastrointestinal appliance and device (principal)
CPT/HCPCS: 49465; 99283

== ENCOUNTER 2019-08-08 11:06 | Emergency (ER) | payer OTHER ==
--- OUTSIDE RECORDS SUMMARY | 2019-08-08 11:10 | XMS REPORT ---
:1940 Author Organization eClinicalWorks Care Team Providers Name Role Phone Lechuga, Na Provider Role Unavailable Allergies No Known Allergies Problems Problem Type Condition Code Onset Dates Condition Status Assessment Mild asthma exacerbation J45.901 Active Problem Alkaline phosphatase raised R74.8 Active Problem Allergic rhinitis J30.9 Active Problem Hyperlipidemia E78.5 Active Problem 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 Problem History of CVA (cerebrovascular Z86.73 Active accident) Problem Left-sided weakness R53.1 Active Problem Seizure disorder G40.909 Active Problem Mild asthma exacerbation J45.901 Active Problem Nasal congestion R09.81 Active Problem Gastroesophageal reflux disease, K21.9 Active esophagitis presence not specified Problem Dysphagia as late effect of I69.391 Active cerebrovascular accident (CVA) Problem 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 Problem 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 Active Problem Hypernatremia E87.0 Active Problem Anemia, unspecified type D64.9 Active Problem Dysphagia causing pulmonary R13.19 Active aspiration with swallowing Problem Weakness R53.1 Active Problem Primary insomnia F51.01 Active Problem Edema R60.9 Active Problem 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 Problem Aphasia as late effect of I69.920 Active cerebrovascular accident Problem Anxiety F41.9 Active Problem Diabetes E11.9 Active Problem Fatty liver K76.0 Active Problem Benign essential HTN I10 Active Medications Medication Code Code Instructions Start End Date Status Dosage System Date Albuterol [facility] 06080726282 108 (90 Base) Active INHALE 2 Sulfate HFA MCG/ACT PUFFS NEEDED EVERY -4 6 HOURS Results No Known Results Summary Purpose eClinicalWorks Submission
--- OUTSIDE RECORDS SUMMARY | 2019-08-08 11:10 | XMS REPORT ---
[...] Start End Status Dosage System Date Date Amoxicillin ND 31622901886 500 MG Orally Jul 17, Active 1 capsule every 8 hrs 2018 Albuterol ND 21431917210 (2.5 MG/3ML) November 01, Active 3 ml as Sulfate 0.083% 2018 needed Inhalation every 8 hrs Ventolin HFA ND 58863470941 108 (90 Base) Active 2 puffs as MCG/ACT needed Inhalation every -4 6 hrs Flonase ND 91241202723 50 MCG/ACT Active 1 spray in Nasally Once a each nostril day Lipitor [facility] 69862346077 80 MG Active TAKE 1 TABLET BY MOUTH AT BEDTIME Coreg [facility] 57904056223 3.125 MG Orally Active one tablet twice a day Dilantin [facility] 73451711157 125 MG/5ML via Active 4 ml PEG tube every 6 hours Lamictal [facility] 72076141928 200 MG Orally Active 1 tablet Twice a day Amlodipine [facility] 70681889242 10 MG Orally Active 1 tablet Besylate Once a day Phenytoin [facility] 82242829553 125 MG/5ML by December 11, Active 10 ml g-tube Three 2019 times a day Cozaar [facility] 45523355121 50 MG Orally Active 1 tablet Once a day Flomax ND 09303014312 0.4 MG Orally Active 1 capsule Once a day Phenytoin [facility] 31907103951 200 MG Orally Mar 15, Active 1 capsule Sodium Two times a day 2017 Extended Loratadine [facility] 40084057319 10 MG Active TAKE 1 TABLET BY MOUTH EVERY DAY Lorazepam [facility] 45279381796 0.5 MG Orally Active 1 tablet as every 12 hrs needed Montelukast [facility] 47151659578 10 MG Orally Active 1 tablet in Sodium Once a day the evening Zovirax [facility] 97153354181 5 % Externally Jan 11, Active 1 application four times a 2018 to affected day area Flonase [facility] 97229327182 50 MCG/ACT Active 1 spray in Nasally Once a each nostril day Finasteride [facility] 89610457418 5 MG Active TAKE 1 TABLET BY MOUTH EVERY DAY Dilantin [facility] 60292829631 100 MG Orally Active 1 capsule Four times a day Singulair [facility] 10439940070 10 MG Active TAKE 1 TABLET BY MOUTH AT BEDTIME Results No Known Results Summary Purpose eClinicalWorks Submission
--- OUTSIDE RECORDS SUMMARY | 2019-08-08 11:10 | XMS REPORT ---
:1940 Author Organization eClinicalWorks Care Team Providers Name Role Phone Lechuga, Na Provider Role Unavailable Allergies No Known Allergies Problems Problem Type Condition Code Onset Dates Condition Status Assessment Anxiety F41.9 Active Problem Alkaline phosphatase raised [...] essential HTN I10 Active Medications Medication Code System Code Instructions Start End Date Status Dosage Date Lorazepam [facility] 30941426735 0.5 MG Orally Active 1 tablet every 12 hrs as needed Results No Known Results Summary Purpose eClinicalWorks Submission
--- OUTSIDE RECORDS SUMMARY | 2019-08-08 11:10 | XMS REPORT ---
[...] Problem Benign essential HTN I10 Active Medications No Known Medications Results No Known Results Summary Purpose eClinicalWorks Submission
--- OUTSIDE RECORDS SUMMARY | 2019-08-08 11:10 | XMS REPORT ---
:1940 Author Organization eClinicalWorks Care Team Providers Name Role Phone Lechuga, Na Provider Role Unavailable Allergies, Adverse Reactions, Alerts Substance Reaction Event Type N.K.D.A. 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 Assessment Anemia, unspecified type D64.9 Active Assessment Anxiety F41.9 Active Assessment Primary insomnia F51.01 Active Assessment Benign essential HTN I10 Active Problem Alkaline phosphatase raised R74.8 Active [...] of I69.391 Active cerebrovascular accident (CVA) Assessment Elevated alkaline phosphatase level R74.8 Active Problem 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 Problem 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 Active Assessment Excessive salivation K11.7 Active Problem Hypernatremia E87.0 Active Problem Anemia, unspecified type D64.9 Active Problem Dysphagia causing pulmonary R13.19 Active aspiration with swallowing Problem Weakness R53.1 Active Assessment Dysphagia causing pulmonary R13.19 Active aspiration with swallowing Problem Primary insomnia F51.01 Active Assessment 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 Problem Edema R60.9 Active Assessment Left-sided weakness R53.1 Active Problem 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 75115586048 5 MG Active TAKE 1 TABLET BY MOUTH EVERY DAY Lamictal ND 79688565257 200 MG Orally Active 1 tablet Twice a day Phenytoin [facility] 17936708033 125 MG/5ML by Active 10 ml g-tube Three times a day Amoxicillin ND 00016611599 500 MG Orally Jul 17, Active 1 capsule every 8 hrs 2018 Flonase ND 01570561380 50 MCG/ACT Active 1 spray in Nasally Once a each nostril day Cozaar ND 49430688201 50 MG Orally Active 1 tablet Once a day Flomax ND 33090308354 0.4 MG Orally Active 1 capsule Once a day Lipitor [facility] 67649005196 80 MG Active TAKE 1 TABLET BY MOUTH AT BEDTIME Albuterol [facility] 91936121782 108 (90 Base) Active INHALE 2 Sulfate HFA MCG/ACT PUFFS NEEDED EVERY 4- 6 HOURS Scopolamine ND 44048502942 1 MG/3DAYS Active 1 PATCH TO SKIN NEEDED 4 HOURS BEFORE FOR MOTION SICKNESS EVERY 3 DAYS TRANSDERMAL 30 DAYS [address] [facility] 53198803620 80 MG Active TAKE 1 TABLET BY MOUTH AT BEDTIME Zovirax [facility] 58877156378 5 % Externally Jan 11, Active 1 application four times a 2018 to affected day area Phenytoin ND 38690350073 200 MG Orally Mar 15, Active 1 capsule Sodium Two times a day 2018 Extended Dilantin ND 03222556207 125 MG/5ML via Active 4 ml PEG tube every 6 hours Loratadine ND 60686949246 10 MG Active TAKE 1 TABLET BY MOUTH EVERY DAY Lorazepam ND 94321351207 0.5 MG Orally Active 1 tablet as every 12 hrs needed Flonase ND 00105182413 50 MCG/ACT Active 1 spray in Nasally Once a each nostril day Ventolin HFA [facility] 68636327459 108 (90 Base) Active 2 puffs as MCG/ACT needed Inhalation every -4 6 hrs Albuterol ND 69134714884 (2.5 MG/3ML) November 01, Active 3 ml as Sulfate 0.083% 2018 needed Inhalation every 8 [address] [facility] 97987086471 125 MG/5ML by Active 10 ml g-tube Three times a day Montelukast [facility] 99995317837 10 MG Orally Active 1 tablet in Sodium Once a day the evening Singulair [facility] 68259082698 10 MG Active TAKE 1 TABLET BY MOUTH AT BEDTIME Coreg [facility] 22357735327 3.125 MG Orally Active one tablet twice a day Amlodipine [facility] 26253758577 10 MG Orally Active 1 tablet Besylate Once a day Dilantin [facility] 59614919880 100 MG Orally Active 1 capsule Four times a day Results No Known Results Summary Purpose eClinicalWorks Submission
--- OUTSIDE RECORDS SUMMARY | 2019-08-08 11:10 | XMS REPORT ---
[...] Date Status Dosage System Date Ventolin HFA [facility] 33430185305 108 (90 Base) Active 2 puffs as MCG/ACT needed Inhalation every -4 6 hrs Results No Known Results Summary Purpose eClinicalWorks Submission
--- OUTSIDE RECORDS SUMMARY | 2019-08-08 11:11 | XMS REPORT ---
[...] Start End Status Dosage System Date Date Ventolin HFA [facility] 53709056215 108 (90 Base) Active Brand MCG/ACT medically Inhalation every necessary 2 -4 6 hrs puffs as needed Results No Known Results Summary Purpose eClinicalWorks Submission
--- NOTE | 2019-08-08 11:52 | ER ---
Nurse's Notes [facility] Name: Timothy Andres Age: 78 yrs Sex: Male : 1940 Arrival Date: 08/08/2019 Time: 11:20 Bed 15 Private MD: Diagnosis: Gastrostomy complication, unspecified Presentation: 08/07 11:33 Chief complaint: EMS states: He was sent by his home health nurse because his PEG tube aj1 was clogged. Coronavirus screen: The patient has NOT traveled to a country currently being monitored by the [facility] within the last 14 days. Ebola Screen: Patient denies travel to an Ebola-affected area in the 21 days before illness onset. Initial Sepsis Screen: Does the patient meet any 2 criteria? No. Patient's initial sepsis screen is negative. Does the patient have a suspected source of infection? No. Patient's initial sepsis screen is negative. Risk Assessment: Do you want to hurt yourself or someone else? Patient reports no desire to harm self or others. 11:33 Method Of Arrival: EMS: [facility] aj1 11:33 Acuity: DANIELLE 4 aj1 Triage Assessment: 11:36 General: Appears in no apparent distress. comfortable, Behavior is calm, cooperative, aj1 appropriate for age. Pain: Denies pain. Historical: - Allergies: 11:36 No Known Allergies; aj1 - Home Meds: 11:36 aspirin 325 mg Oral TbEC 1 tab once daily [Active]; atorvastatin 80 mg Oral tab 1 tab aj1 once daily [Active]; finasteride 5 mg Oral tab 1 tab once daily [Active]; lamotrigine 100 mg Oral tab 1 tab 2 times per day [Active]; montelukast 10 mg Oral tab 1 tab once daily [Active]; tamsulosin 0.4 mg Oral cp24 1 cap once daily [Active]; Vitamin D Oral [Active]; Amitriptyline Oral [Active]; Jevity 1.5 Doug 0.06 gram-1.5 kcal/mL oral liqd four times a day [Active]; - PMHx: 11:36 CHF; CVA; Hypertension; Pneumonia; aj1 - PSHx: 11:36 Hernia repair; aj1 - Immunization history:: Adult Immunizations up to date. - Social history:: Smoking status: Patient/guardian denies using tobacco. Screenin:37 Abuse screen: Denies threats or abuse. Denies injuries from another. Nutritional aj1 screening: No deficits noted. Tuberculosis screening: No symptoms or risk factors identified. 12:05 Fall Risk No fall in past 12 months (0 pts). Secondary diagnosis (15 points) CVA, No IV aj1 (0 pts). Ambulatory Aid- None/Bed Rest/Nurse Assist (0 pts). Gait- Normal/Bed Rest/Wheelchair (0 pts) Mental Status- Oriented to own ability (0 pts). Total Baugh Fall Scale indicates No Risk (0-24 pts). Assessment: 11:37 General: Appears in no apparent distress. comfortable, Behavior is calm, cooperative, aj1 appropriate for age. Pain: Denies pain. Neuro: Level of Consciousness is awake, alert, obeys commands. Cardiovascular: Patient's skin is warm and dry. Respiratory: Airway is patent Respiratory effort is even, unlabored, Respiratory pattern is regular, symmetrical. GI: Abdomen is non-distended, Parent/caregiver reports the patient having PEG tube is blocked. : No signs and/or symptoms were reported regarding the genitourinary system. EENT: No signs and/or symptoms were reported regarding the EENT system. Derm: No signs and/or symptoms reported regarding the dermatologic system. Skin is pink, warm \T\ dry. normal. Musculoskeletal: left sided paralysis from previous CVA. 12:04 Reassessment: Patient appears in no apparent distress at this time. No changes from aj1 previously documented assessment. Patient and/or family updated on plan of care and expected duration. Pain level reassessed. Patient is alert, oriented x 3, equal unlabored respirations, skin warm/dry/pink. Vital Signs: 11:33 BP 113 / 74; Pulse 77; Resp 18; Temp 97.5; Pulse Ox 100% on R/A; Weight 80.29 kg (R); aj1 Height 5 ft. 9 in. (175.26 cm) (R); Pain 0/10; 11:33 Body Mass Index 26.14 (80.29 kg, 175.26 cm) aj1 ED Course: 11:20 Patient arrived in ED. aj1 11:23 Gregorio Frankel [facility]-C [facility] la1 11:23 Benton Cota MD is Attending Physician. la1 11:23 Enma Eid, RN is Primary Nurse. aj1 11:34 Triage completed. aj1 11:36 Arm band placed on. aj1 11:37 Patient has correct armband on for positive identification. Bed in low position. Call aj1 light in reach. Side rails up X 1. 11:37 No provider procedures requiring assistance completed. aj1 12:04 Patient did not have IV access during this emergency room visit. aj1 Administered Medications: No medications were administered Outcome: 11:48 Discharge ordered by . la1 12:05 Discharged to home via ambulance. aj1 12:05 Condition: good 12:05 Discharge instructions given to patient, family, Instructed on discharge instructions, follow up and referral plans. Demonstrated understanding of instructions, follow-up care. 12:05 Patient left the ED. aj1 Signatures: Enma Eid, RN RN aj1 Gregorio Frankel, PASTER SUPERVISOR-C PASTER SUPERVISOR-Cla1
--- NOTE | 2019-08-08 11:52 | EDPHYS ---
Physician Documentation [facility] Name: Timothy Stevenson Age: 78 yrs Sex: Male : 1940 Arrival Date: 08/08/2019 Time: 11:20 Bed 15 Private MD: ED Physician Benton Cota HPI: 08/07 11:43 This 78 yrs old Black Male presents to ER via EMS with complaints of Clogged PEG tube. la1 11:43 The patient presents with PEG tube clogged. Onset: The symptoms/episode began/occurred la1 today. Associated signs and symptoms: Pertinent negatives: nausea and vomiting, diarrhea, dysuria, fever, headache. The patient has not experienced similar symptoms in the past. caregiver states she could not flush his PEG tube this morning. Historical: - Allergies: 11:36 No Known Allergies; aj1 - Home Meds: 11:36 aspirin 325 mg Oral TbEC 1 tab once daily [Active]; atorvastatin 80 mg Oral tab 1 tab aj1 once daily [Active]; finasteride 5 mg Oral tab 1 tab once daily [Active]; lamotrigine 100 mg Oral tab 1 tab 2 times per day [Active]; montelukast 10 mg Oral tab 1 tab once daily [Active]; tamsulosin 0.4 mg Oral cp24 1 cap once daily [Active]; Vitamin D Oral [Active]; Amitriptyline Oral [Active]; Jevity 1.5 Doug 0.06 gram-1.5 kcal/mL oral liqd four times a day [Active]; - PMHx: 11:36 CHF; CVA; Hypertension; Pneumonia; aj1 - PSHx: 11:36 Hernia repair; aj1 - Immunization history:: Adult Immunizations up to date. - Social history:: Smoking status: Patient/guardian denies using tobacco. ROS: 11:43 Unable to obtain ROS due to patient's inability to understand questions. la1 Exam: 11:44 Constitutional: This is a well developed, well nourished patient who is awake la1 Head/Face: Normocephalic, atraumatic. 11:44 Cardiovascular: no JVD. Respiratory: No increased work of breathing, Skin: Warm, dry with normal turgor. 11:44 Abdomen/GI: Inspection: obese Bowel sounds: normal, Palpation: abdomen is soft and non-tender, in all quadrants, PEF tube in place, site without redness, swelling or drainage, appears to have a very proximal blockage. . Vital Signs: 11:33 BP 113 / 74; Pulse 77; Resp 18; Temp 97.5; Pulse Ox 100% on R/A; Weight 80.29 kg (R); aj1 Height 5 ft. 9 in. (175.26 cm) (R); Pain 0/10; 11:33 Body Mass Index 26.14 (80.29 kg, 175.26 cm) aj1 Procedures: 11:45 Performed PEG tube irrigation/flush, PEG tube flushed with 60cc warm water with stead la1 pressure, able to visualize clogged portion flush in to tube, PEG tube now flushing without difficulty, able to aspirate gastric contents, no signs of dislodgement, caregiver at bedside given strict return precautions. . MDM: 11:23 Patient medically screened. la1 11:47 Data reviewed: vital signs, nurses notes, and as a result, I will discharge patient. la1 Data interpreted: Pulse oximetry: on room air is 100 %. Interpretation: normal. Counseling: I had a detailed discussion with the patient and/or guardian regarding: the historical points, exam findings, and any diagnostic results supporting the discharge/admit diagnosis, the need for outpatient follow up, a family practitioner, a shredding machine operator, to return to the emergency department if symptoms worsen or persist or if there are any questions or concerns that arise at home. Special discussion: Based on the patient's Hx, exam, and Dx evaluation, there is no indication for emergent surgery or inpatient Tx. It is understood by the patient/guardian that if the Sx's persist or worsen they need to return immediately for re-evaluation. Administered Medications: No medications were administered Disposition: 12:44 Co-signature as Attending Physician, Benton Cota MD I agree with the assessment and kdr plan of care. Disposition: 08/08/19 11:48 Discharged to Home. Impression: Gastrostomy complication, unspecified. - Condition is Stable. - Discharge Instructions: Gastrostomy Tube Home Guide, Adult, PEG Tube Home Guide, [id number], PEG Tube Home Guide. - Medication Reconciliation Form, Thank You Letter form. - Follow up: Private Physician; When: 2 - 3 days; Reason: Recheck today's complaints, Re-evaluation by your physician. Follow up: Emergency Department; When: As needed; Reason: Fever > 102 F, If symptoms return, Worsening of condition. - Problem is new. - Symptoms are resolved. Signatures: Enma Eid RN RN aj1 Benton Cota MD MD kdr Gregorio Frankel, RETAIL SERVICE REPRESENTATIVE-C RETAIL SERVICE REPRESENTATIVE-Cla1 Corrections: (The following items were deleted from the chart) 12:05 11:48 08/08/2019 11:48 Discharged to Home. Impression: Gastrostomy complication, aj1 unspecified. Condition is Stable. Forms are Medication Reconciliation Form, Thank You Letter, Antibiotic Education, Prescription Opioid Use. Follow up: Private Physician; When: 2 - 3 days; Reason: Recheck today's complaints, Re-evaluation by your physician. Follow up: Emergency Department; When: As needed; Reason: Fever > 102 F, If symptoms return, Worsening of condition. Problem is new. Symptoms are resolved. la1
[2019-08-08 12:22] VITALS: BP 113/74; TEMP 97.5; O2SAT 100
== END 2019-08-08 12:05 | disposition home or self-care (01) ==
LOC: ER 11:06
DX: Z43.1 Encounter for attention to gastrostomy (principal); I10 Essential (primary) hypertension; Z86.73 Personal history of transient ischemic attack (TIA), and cerebral infarction without residual deficits
CPT/HCPCS: 99283

== ENCOUNTER 2020-05-28 11:47 | Emergency (ER) | payer OTHER ==
[2012-01-15 18:22] VITALS: BP 137/74
--- OUTSIDE RECORDS SUMMARY | 2020-05-28 11:50 | XMS REPORT | Continuity of Care Document ---
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 [place] Disease Disease Physici ans History of History of Problem Resolve Univers Diabetes Diabetes d ity of mellitus mellitus [place] Physici ans History of History of Problem Resolve Univers Epilepsy Epilepsy d ity of [place] Physici ans History of History of Problem Resolve Univers essential essential d ity of hypertensi [place]ens[place] Physici ans History of History of Problem Resolve Univers Stroke Stroke d ity of syndrome syndrome [place] Physici ans Spasticity Spasticity Problem Active U nivers ity of [place] Physici ans Urinary Urinary Problem Active Univers urgency urgency ity of [place] Physici ans 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 diabetes ity of mellitus mellitus [place] Physici ans Essential Essential Problem Active Uni vers (primary) (primary) ity of hypertensi [place]ens[place] Physici ans Anterior Anterior Problem Active Unive rs subluxatio subluxatio it y of n of left n of left [place] shoulder shoulder Physic i ans 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 y of affecting affecting [place] left left Physici dominant dominant ans side side Cognitive Cognitive Problem Active Uni vers deficits deficits ity of as late as late [place] effect of effect of Phys ici 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 Cerebral Cerebral Problem Active Unive rs embolism embolism ity of with with [place] cerebral cerebral Physic i infarction infarction an s Constipati Constipati Problem Active U nivers on, acute on, acute ity of [place] Physici ans Cerebral Problem Active 2013-08-09 Mem oria Embolism - 23:15:43 l With Cerebral [place] 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 08/09/2013 [facility] Hypertensi Problem Active 2013-08-09 M emoria on 23:15:43 l [place] Hypertensi on Active 08/09/2013 [facility] Spasticity Problem Active 2013-08-09 M emoria 23:15:43 l [place] Spasticity Active 08/09/2013 [facility] 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 23:15:43 l Mellitus Type 2 [place] Diabetes Mellitus Active 4 [facility] Hemispasti Problem Active 2013-08-09 M emoria city Of 23:15:43 l Left Side [place] - Hemispasti (Dominant city Of Side) Left Side - (Dominant Side) Active 4 [facility] 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 Deficits Effects: Cognitive Deficits Active 4 [facility] Subluxatio Problem Active 2013-08-09 M emoria n Of The 23:15:43 l Anterior [place] Left Subluxatio Shoulder n Of The Anterior Left Shoulder Active 4 [facility] Feelings Problem Active 2013-08-09 Mem oria Of Urinary 23:15:43 l Urgency Feelings Karolina nn Of Urinary Urgency Active 4 [place] [facility] Allergies, Adverse Reactions, Alerts Allergy Allergy Status Severity Reaction(s) Onset Inactive Treating Comm ents Source Name Type Date Date Clinician No Known No Known Active Memori a Drug Drug l Allergie Allergie [place] s s Family History Family Member Diagnosis Comments Start Date Stop Date Source Unknown Family Family history of Family History [facility] of Member Hypertension [place] Phys[facility] ians Unknown Family Family history of Family History University of Member Heart Disease [place] Phys[facility] cians Unknown Family Family history of Family History University of Member Diabetes Mellitus [place] [facility] Unknown Family Family history of Family History University of Member Stroke Syndrome [place] [facility] Unknown Family Family History 2011-12-13 2011-12-13 Obie Serrano Member 22:00:47 22:00:47 Social History Social Habit Start Date Stop Date Quantity Comments Source Social History 2013-08-09 2013-08-09 Shea morton 23:15:43 23:15:43 Medications Ordered Filled Start Stop Current Ordering Indication Dosage Frequency Signature Comments Components Source Medication Medication Date Date Medication? Clinician (SIG) Name Name Albuterol Albuterol Yes Na Lechuga [address] [facility] Sulfate Sulfate 6-05 needed [facility] Amoxicillin Amoxicillin Yes Na Lechuga [address] [facility] 2-18 [facility]: [facility] 00 l [facility] Phenytoin Phenytoin 2017-05 Yes Na Lechuga [address] [facility] Sodium Sodium 0-17 [facility] - Extended Extended 00:00: Memor ia 00 l [facility] Zovirax Zovirax Yes Na Lechuga [address] [facility] 8-15 applicatio [facility] - 00:00: n to Memoria 00 affected l area [facility] Carvedilol Carvedilol Yes Q0.5D TAKE 1 Univers 3.125 MG 3.125 MG 3-05 TABLET ity o f Oral Tablet Oral Tablet 00:00: TWICE [place] 00 DAILY WITH Physici MEALS. ans Loratadine Loratadine Yes 1 QD TAKE 1 Univers 10 MG Oral 10 MG Oral 3-05 TABLET i ty of Tablet Tablet 00:00: DAILY. [place] Physici ans Finasteride Finasteride Yes 1 QD TAKE 1 Univers 5 MG Oral 5 MG Oral 3-05 TABLET ity of Tablet Tablet 00:00: DAILY. [place] 00 Physici ans Montelukast Montelukast Yes 1 QD TAKE 1 Univers Sodium 10 Sodium 10 3-05 TABLET ity of MG Oral MG Oral 00:00: DAILY. [place] Tablet Tablet 00 Physici ans Polyethylen Polyethylen Yes SARAH QD MIX 1 Univers e Glycol e Glycol 3-05 SANDS CAPFUL it y of 3350 Oral 3350 Oral 00:00: M.D. (17GM) IN [place] Powder Powder 00 8 OUNCES Physici OF WATER, ans JUICE, OR TEA AND DRINK DAILY. Bystolic 5 Yes (Active) Me moria MG Oral 3-13 l Tablet 23:15: [place] 43 Tamsulosin Yes (Active) Me moria HCl 0.4 MG 3-13 l Oral 23:15: [place] Capsule 43 Melatonin Yes (Active) Mem oria CAPS 3-13 l 23:15: [place] 43 Gabapentin Yes (Active) Me moria TABS 3-13 l 23:15: [place] 43 LamoTRIgine Yes (Active) M emoria 100 MG Oral 3-13 l Tablet 23:15: [place] 43 Aspirin 325 Yes (Active) M emoria MG Oral 3-13 l Tablet 23:15: [place] 43 AmLODIPine Yes (Active) Me moria Besylate 10 3-13 l MG Oral 23:15: [place] Tablet 43 Atorvastati Yes (Active) M emoria n Calcium 3-13 l 80 MG Oral 23:15: [place] Tablet 43 Diovan 160 Yes (Active) Me moria MG Oral 3-13 l Tablet 23:15: [place] 43 Baclofen 10 Yes ; Start Mem oria MG Oral 01-25 Date: l Tablet 05:00: 01/25/2013 Karolina nn 00 ; End Date: (Active) Baclofen 10 Baclofen 10 Yes SARAH 1 TAKE 1 Univers MG Oral MG Oral 8 SANDS TABLET ity of Tablet Tablet 00:00: M.D. BEDTIME [place] 00 Physici ans Atorvastati Atorvastati Yes 1 QD TAKE 1 Univers n Calcium n Calcium TABLET ity of 80 MG Oral 80 MG Oral DAILY. [place] Tablet Tablet Physici ans Aspirin 325 Aspirin 325 Yes 1 QD TAKE 1 Univers MG Oral MG Oral TABLET ity of Tablet Tablet DAILY [place] Physici ans LamoTRIgine LamoTRIgine Yes 1 Q0.5D TAKE 1 Univers 100 MG Oral 100 MG Oral TABLET ity of Tablet Tablet TWICE [place] DAILY Physici ans Lorazepam Lorazepam Yes Na Lechuga [address] [facility] Phenytoin Phenytoin Yes Na Lechuga [address] [facility] Scopolamine Scopolamine Yes Na Lechuga 1 PATCH [address] [facility] SKIN [facility] NEEDED 4 Memoria HOURS l BEFORE FOR Outpati MOTION ent SICKNESS Clinics EVERY 3 DAYS TRANSDERMA L 30 DAYS Singulair Singulair Yes Na Lechuga TAKE [facility] TABLET BY [facility] - MOUTH AT Memoria BEDTIME l [facility] Cozaar Cozaar Yes Na Lechuga [address] [facility] Coreg Coreg Yes Na Lechuga [facility] Loratadine Loratadine Yes Na Lechuga TAKE [address] [facility] TABLET BY [facility] - MOUTH Memoria EVERY DAY l Outpati ent Clinics Albuterol Albuterol Yes Na Lechuga INHALE [address] [facility] Sulfate HFA Sulfate HFA PUFFS [facility] - NEEDED Memoria EVERY 4-6 l HOURS 30 Outpati ent Clinics Dilantin Dilantin Yes Na Lechuga [address] [facility] Phenytoin Phenytoin Yes Na Lechuga [address] [facility] Lipitor Lipitor Yes Na Lechuga TAKE [address] [facility] TABLET BY [facility] - MOUTH AT Memoria BEDTIME l [facility] Finasteride Finasteride Yes Na Lechuga TAKE [address] [facility] TABLET BY [facility] MOUTH Memoria EVERY DAY l [facility] Ventolin Ventolin Yes Na Lechuga Brand [facility] HFA HFA medically [facility] - necessary Memoria 2 puffs as l needed [facility] Flonase Flonase Yes Na Lechuga [address] [facility] each [facility] - nostril Memoria l [facility] Lamictal Lamictal Yes Na Lechuga [address] [facility] Amlodipine Amlodipine Yes Na Lechuga [address] [facility] Besylate Besylate [facility] Dilantin Dilantin Yes Na Lechuga [address] [facility] Montelukast Montelukast Yes Na Lechuga TAKE [address] [facility] Sodium Sodium TABLET BY [facility] - MOUTH Memoria EVERY DAY l IN THE Outpati EVENING ent Clinics Flomax Flomax Yes Na Lechuga [address] [facility] Immunizations Ordered Filled Immunization Date Status Comments [facility] e Immunization Name Name FluAD FluAD 2018-04-[address] [facility] Vital Signs Vital Name Observation Time Observation Value Comments Source BP Systolic 2017-08-01 09:38:00 122 mm[Hg] Location: MJMike; King[place] sity of Position: [place] Physician s Sitting BP Diastolic 2017-08-01 09:38:00 84 mm[Hg] Location: TIM Kinga villasenor of Position: [place] Physician s Sitting Height 2017-08-01 09:38:00 69 [in_us] Universi ty of [place] Physician s Heart Rate 2017-08-01 09:38:00 88 /min Location: Universi ty of Brachial Artery; [place] Physi cians Procedures This patient has no known procedures. Encounters Start End Encounter Admission Attending Care Care Encounter Source Date/Time Date/Time Type Type Clinicians Facility Department ID 2020-05-20 2020-05-20 Outpatient [facility] [id number] [facility] 2020-05-02 2020-05-02 Outpatient [id number] [facility] 2020-05-01 2020-05-01 Outpatient [facility] [id number] [facility] 2020-04-21 2020-04-21 Outpatient [facility] [id number] [facility] 2020-04-04 2020-04-04 Outpatient [facility] [id number] [facility] 2020-04-02 2020-04-02 Outpatient [facility] [id number] [facility] 2020-03-28 2020-03-28 Outpatient [facility] [id number] [facility] 2020-03-24 2020-03-24 Outpatient [facility] [id number] [facility] 2020-01-17 2020-01-17 [facility] [id number] [facility] 09:20:00 09:20:00 t [place] [employer] [facility] - Drive [facility] Medicine l Medicine Outpati ent Clinics 2020-01-17 2020-01-17 [facility] [id number] [facility] 09:20:00 09:20:00 t [place] tolingo s - Drive [facility] Medicine l Medicine Outpati ent Clinics 2019-12-31 2019-12-31 [facility] [id number] 15:08:00 15:08:00 t [place] [employer] [facility] - Drive [facility] Medicine l Medicine Outpati ent Clinics 2019-12-29 2019-12-29 [facility] [id number] [address] 06:18:00 06:18:00 t [place] tolingo s - Drive [facility] Medicine l Medicine Outpati ent Clinics 2019-12-10 2019-12-10 [facility] [id number] [facility] 14:51:00 14:51:00 t [place] trinket s - Drive [facility] Medicine l Medicine Outpati ent Clinics 2019-11-09 2019-11-09 [facility] [id number] 09:09:00 09:09:00 t [place] trinket s - Drive [facility] Medicine l Medicine Outpati ent Clinics 2019-10-31 2019-10-31 [facility] [id number] [facility] 16:53:00 16:53:00 t [place] trinket s - Drive [facility] Medicine l Medicine Outpati ent Clinics 2019-10-03 2019-10-03 [facility] [id number] [facility] 14:44:00 14:44:00 t [place] tolingo s - Drive [facility] Medicine l Medicine Outpati ent Clinics 2019-08-31 2019-08-31 [facility] [id number] [facility] 11:40:00 11:40:00 t [place] tolingo s - Drive [facility] Medicine l Medicine Outpati ent Clinics 2019-08-28 2019-08-28 [facility] [id number] 13:17:00 13:17:00 t [place] tolingo s - Drive [facility] Medicine l Medicine Outpati ent Clinics 2019-08-27 2019-08-27 [facility] [id number] [facility] 10:11:00 10:11:00 t [place] trinket s - Drive [facility] Medicine l Medicine Outpati ent Clinics 2019-07-03 2019-07-03 [facility] [id number] [facility] 08:07:00 08:07:00 t [place] trinket s - Drive [facility] l Medicine Outpati ent Clinics 2019-07-02 2019-07-02 [facility] [id number] [facility] 16:02:00 16:02:00 t [place] trinket s - [facility] Medicine l Medicine Outpati ent Clinics 2019-06-19 2019-06-19 [facility] [id number] 15:14:00 15:14:00 t [place] trinket s - [facility] l Medicine Outpati ent Clinics 2019-06-11 2019-06-11 [facility] [id number] 09:08:00 09:08:00 t [place] trinket s - [facility] Medicine l Medicine Outpati ent Clinics 2019-05-11 2019-05-11 [facility] [id number] 09:00:00 09:00:00 t [place] trinket s - [facility] Medicine l Medicine Outpati ent Clinics 2019-05-07 2019-05-07 [facility] [id number] [facility] 09:29:00 09:29:00 t [place] trinket s - Drive [facility] Medicine Outpati ent Clinics 2019-03-12 2019-03-12 [facility] [id number] [facility] 08:27:00 08:27:00 t [place] trinket s - Drive [facility] Medicine l Medicine Outpati ent Clinics 2019-02-15 2019-02-15 [facility] [id number] 14:18:00 14:18:00 t [place] trinket s - Drive [facility] l Medicine Outpati ent Clinics 2019-02-02 2019-02-02 [facility] [id number] [facility] 11:00:00 11:00:[address] Luke s - Drive [facility] Medicine l Medicine Outpati ent Clinics 2019-01-22 2019-01-22 [facility] [id number] [facility] 14:41:00 14:41:[address] Luke s - Drive [facility] Medicine l Medicine Outpati ent Clinics 2018-12-26 2018-12-26 [facility] [id number] [facility] 16:28:00 16:28:[address] Luke s - Drive [facility] Medicine l Medicine Outpati ent Clinics 2018-12-20 2018-12-20 [facility] [id number] [facility] 11:30:00 11:30:[address] Luke s - Drive [facility] Medicine l Medicine Outpati ent Clinics 2018-12-05 2018-12-05 [facility] [id number] 10:39:00 10:39:00 t [facility] Luke s - Road [facility] l Medicine Outpati ent Clinics 2018-12-04 2018-12-04 [facility] [id number] 09:54:00 09:54:[address] Luke s - Drive [facility] Medicine l Medicine Outpati ent Clinics 2018-11-22 2018-11-22 [facility] [id number] [facility] 16:41:00 16:41:[address] Luke s - Drive [facility] Medicine l Medicine Outpati ent Clinics 2018-11-01 2018-11-01 [facility] [id number] [facility] 16:14:00 16:14:[address] Luke s - Drive [facility] Medicine l Medicine Outpati ent Clinics 2018-11-01 2018-11-01 [facility] [id number] 09:20:00 09:20:[address] Luke s - Drive [facility] l Medicine Outpati ent Clinics 2018-10-13 2018-10-13 [facility] [id number] [address] 12:00:00 12:00:[address] Luke s - Drive [facility] l Medicine Outpati ent Clinics 2018-09-28 2018-09-28 [facility] [id number] 15:47:00 15:47:[address] Luke s - Drive [facility] Family Medicine l Medicine Outpati ent Clinics 2018-09-26 2018-09-26 [facility] [id number] 16:14:00 16:14:[address] Luke s - Drive [facility] Medicine l Medicine Outpati ent Clinics 2018-07-17 2018-07-17 [facility] [id number] [facility] 10:00:00 10:00:[address] Luke s - Drive [facility] Family Medicine l Medicine Outpati ent Clinics 2018-06-30 2018-06-30 [facility] [id number] [facility] 08:58:00 08:58:[address] Luke s - Drive [facility] Medicine l Medicine Outpati ent Clinics 2018-06-20 2018-06-20 [facility] [id number] [facility] 11:28:00 11:28:[address] Luke s - Drive [facility] Medicine l Medicine Outpati ent Clinics 2018-05-17 2018-05-17 [facility] [id number] [facility] 16:52:00 16:52:[address] Luke s - Drive [facility] Medicine l Medicine Outpati ent Clinics 2018-05-17 2018-05-17 [facility] [id number] [facility] 11:49:00 11:49:[address] Luke s - Drive [facility] Medicine l Medicine Outpati ent Clinics 2018-04-18 2018-04-18 [facility] [id number] 11:00:00 11:00:[address] Luke s - Drive [facility] Medicine l Medicine Outpati ent Clinics 2018-03-15 2018-03-15 [facility] [id number] [address] 10:40:00 10:40:[address] Luke s - Drive [facility] Medicine l Medicine Outpati ent Clinics 2018-03-03 2018-03-03 [facility] [id number] [facility] 16:17:00 16:17:[address] Luke s - Drive [facility] Medicine l Medicine Outpati ent Clinics 2018-01-11 2018-01-11 [facility] [id number] [facility] 10:45:00 10:45:[address] Luke s - Drive [facility] Family Medicine l Medicine Outpati ent Clinics 2018-01-09 2018-01-09 [facility] [id number] [facility] 11:24:00 11:24:[address] Luke s - Drive [facility] Family Medicine l Medicine Outpati ent Clinics 2018-01-03 2018-01-03 [facility] [id number] [facility] 11:12:00 11:12:[address] Luke s - Drive [facility] Family Medicine l Medicine Outpati ent Clinics 2017-12-12 2017-12-12 [facility] [id number] [facility] 11:00:00 11:00:[address] Luke s - Drive [facility] Family Medicine l Medicine Outpati ent Clinics 2017-11-18 2017-11-18 [facility] [id number] 14:30:00 14:30:[address] Luke s - Drive [facility] Family Medicine l Medicine Outpati ent Clinics 2017-11-09 2017-11-09 [facility] [id number] 15:39:00 15:39:[address] Luke s - Drive [facility] Family Medicine l Medicine Outpati ent Clinics 2017-11-07 2017-11-07 [facility] [id number] 16:24:00 16:24:[address] Luke s - Drive [facility] Family Medicine l Medicine Outpati ent Clinics 2017-10-28 2017-10-28 [facility] [id number] [facility] 10:01:00 10:01:[address] Luke s - Drive [facility] Family Medicine l Medicine Outpati ent Clinics 2017-10-11 2017-10-11 [facility] [id number] [facility] 10:00:00 10:00:[address] Luke s - Drive [facility] Family Medicine l Medicine Outpati ent Clinics 2017-09-23 2017-09-23 [facility] [id number] [facility] 15:37:00 15:37:[address] Luke s [facility] 2017-09-12 2017-09-12 [facility] [id number] [facility] 05:29:00 05:29:00 t [facility] 2017-09-06 2017-09-06 [facility] [id number] 14:45:00 14:45:00 t [facility] 2017-08-01 2017-08-01 [facility] Neurology [id number] Univers 09:00:00 09:00:00 t; abena SMITH M.D. [place] Stanislav [facility]. [facility] 2016-11-23 2016-11-23 [facility] [id number] Univers 10:45:00 10:45:00 t; Debbie EDOUARD y of [place], [place] Stanislav EDOUARD M.D. ans 2015-12-16 2015-12-16 [facility] [id number] Univers 08:30:00 08:30:00 t; Debbie EDOUARD y of [place], [place] Stanislav EDOUARD M.D. [facility] 2015-09-16 2015-09-16 [facility] [id number] Univers 09:15:00 09:15:00 t; Debbie EDOUARD y of [place], [place] Stanislav EDOUARD M.D. ans 2013-08-09 2013-08-09 Outpatient [facility] [id number] 18:15:44 18:15:43 2013-04-05 2013-04-05 Outpatient [facility] [id number] 15:47:44 15:47:44 2013-01-27 2013-01-27 Outpatient [facility] [id number] 02:48:12 02:47:51 2013-01-26 2013-01-26 Outpatient [facility] [id number] 04:49:56 04:49:36 2011-12-21 2011-12-21 Outpatient [facility] [id number] 13:48:32 13:48:19 2011-12-13 2011-12-13 Outpatient [facility] [id number] 17:01:00 17:00:47 2011-12-10 2011-12-10 Outpatient [facility] [id number] 15:02:14 15:01:59 Results This patient has no known results.
--- OUTSIDE RECORDS SUMMARY | 2020-05-28 11:50 | XMS REPORT | Continuity of Care Document ---
:1940 Author Organization [facility] Care Team Providers Name Role Phone [facility] Unavailable Un available Problems Problem Status Onset Classification Date Comments Sourc e Date Reported Cerebral Embolism Active 08/09/2013 [facility] - With Cerebral [facility] icians Infarction Hypertension Active 08/09/2013 [facility] Spasticity Active 08/09/2013 [facility] Type 2 Diabetes Active 08/09/2013 [facility] Mellitus [facility] Hemispasticity Of Active 08/09/2013 [facility] Left Side - Physicia ns (Dominant Side) Late CVD Effects: Active 08/09/2013 [facility] Cognitive [facility] Deficits Subluxation Of Active 08/09/2013 [facility] The Anterior Left Ph ysicians Shoulder Feelings Of Active 08/09/2013 [facility] Urinary Urgency [facility] Medications Medication Details Route Status Patient Ordering Order Source Instructions Provider Date Baclofen 10 MG ; Start Active [facility] Oral Tablet Date: 013 [facility] 01/25/2013 ; End Date: (Active) Bystolic 5 MG (Active) Active [facility] Oral Tablet [facility] Tamsulosin HCl (Active) Active [facility] 0.4 MG Oral [facility] Capsule Melatonin CAPS (Active) Active [facility] Gabapentin TABS (Active) Active [facility] LamoTRIgine 100 (Active) Active [facility] MG Oral Tablet Physician s Aspirin 325 MG (Active) Active [facility] Oral Tablet [facility] AmLODIPine (Active) Active [facility] Besylate 10 MG Physician s Oral Tablet Atorvastatin (Active) Active [facility] Calcium 80 MG [facility] Oral Tablet Diovan 160 MG (Active) Active [facility] Oral Tablet [facility] Allergies, Adverse Reactions, Alerts Substance Category Reaction Severity Reaction Status Date Comments S ource type Reported No Known drug drug Active [facility] Drug allergy allergy Physicia ns Allergies Immunizations No Data Provided for This Section Results No Data Provided for This Section Pathology Reports No Data Provided for This Section Diagnostic Reports No Data Provided for This Section Consultation Notes No Data Provided for This Section Discharge Summaries No Data Provided for This Section History and Physicals No Data Provided for This Section Vital Signs No Data Provided for This Section Encounters Location Location Encounter Encounter Reason Attending ADM [facility] Source Details Type Number For Provider Date Date Visit AUDIT [id number] 12/09 /2011 [facility] AUDIT [id number] 12/12 /2011 [facility] AUDIT [id number] 12/20 /2011 [facility] AUDIT [id number] 01/26 /2012 [facility] AUDIT [id number] 01/27 /2012 [facility] N15, [id number] 02/07 01/27 [place] Provider: PhysicDON Jose, Status: Pen, Time: 10:00 AM AUDIT [id number] 04/05 /2012 [facility] ABE, [id number] 04/25 01/27 [place] Provider: PhysicTRINY NarvaezA, Status: Pen, Time: 10:00 AM AUDIT [id number] 08/09 /2013 [facility] SES, [id number] 08/15 04/05 [place] Provider: PhysicNASRIN NarvaezEKA, Status: Pen, Time: 10:00 AM SES, [id number] 02/12 08/09 [place] Provider: PhysicTRINY NarvaezA, Status: Pen, Time: 10:00 AM Procedures No Data Provided for This Section Assessment and Plan No Data Provided for This Section Plan of Care No Data Provided for This Section Social History Social History Date Source Never A Smoker (Active) 08/09/2013 [facility] Marital History - Currently (Active) Family History Value Date Source Family history of Hypertension 08/09/2013 [place] [facility] (V17.49); (Active) Family history of Heart Disease (V17.49); (Active) Family history of Diabetes Mellitus (V18.0); (Active) Family history of Stroke Syndrome (V17.1); (Active) Family history of Hypertension 04/05/2013 [facility] (V17.49); (Active) Family history of Heart Disease (V17.49); (Active) Family history of Diabetes Mellitus (V18.0); (Active) Family history of Stroke Syndrome (V17.1); (Active) Family history of Hypertension 01/27/2013 [facility] (V17.49); (Active) Family history of Heart Disease (V17.49); (Active) Family history of Diabetes Mellitus (V18.0); (Active) Family history of Stroke Syndrome (V17.1); (Active) Family history of Hypertension 01/26/2013 [facility] (V17.49); (Active) Family history of Heart Disease (V17.49); (Active) Family history of Diabetes Mellitus (V18.0); (Active) Family history of Stroke Syndrome (V17.1); (Active) Family history of Hypertension 12/21/2011 [facility] (V17.49); (Active) Family history of Heart Disease (V17.49); (Active) Family history of Diabetes Mellitus (V18.0); (Active) Family history of Stroke Syndrome (V17.1); (Active) Family history of Hypertension 12/13/2011 [facility] (V17.49); (Active) Family history of Heart Disease (V17.49); (Active) Family history of Diabetes Mellitus (V18.0); (Active) Family history of Stroke Syndrome (V17.1); (Active) Advance Directives Order Name Results Value Date Source Advance Directives Advance Directives No Advance 08/09/2013 [place] [facility] Directives available. Advance Directives Advance Directives No Advance 04/05/2013 [place] [facility] Directives available. Advance Directives Advance Directives No Advance 01/27/2013 [place] [facility] Directives available. Advance Directives Advance Directives No Advance 01/26/2013 [place] [facility] Directives available. Advance Directives Advance Directives No Advance 12/21/2011 [place] [facility] Directives available. Advance Directives Advance Directives No Advance 12/13/2011 [facility] Directives available. Advance Directives Advance Directives No Advance 12/10/2011 [place] [facility] Directives available. Functional Status No Data Provided for This Section
--- OUTSIDE RECORDS SUMMARY | 2020-05-28 11:50 | XMS REPORT ---
:1940 Author Organization [facility] Address [address] [place] [address] Care Team Providers Name Role Phone [facility] Unavailable [phone] PROBLEMS Type Condition ICD9-CM [id number] Onset Condition SNOMED Code Notes Code Code Dates Status Problem Alkaline R74.8 Active 208917983 phosphatase raised Problem Wheelchair Z99.3 Active 440918747 dependence Problem PEG (percutaneous Z93.1 Active 217280950 endoscopic gastrostomy) status Problem History of CVA Z86.73 Active 373001308 (cerebrovascular accident) Problem Hyperlipidemia E78.5 Active 69859410 Problem Primary insomnia F51.01 Active 8002569 Problem Aphasia as late I69.920 Active 309158192 effect of cerebrovascular accident Problem Fatty liver K76.0 Active 066167953 Problem Edema R60.9 Active 206952696 Problem Anxiety F41.9 Active 86910749 Problem Benign essential I10 Active 95757485 HTN Problem Allergic rhinitis J30.9 Active 46366094 Problem Diabetes E11.9 Active 740452279 Problem Seizure disorder G40.909 Active 364721866 Problem Left-sided weakness R53.1 Active 401893842 Problem Anemia, unspecified D64.9 Active 500429495 type Problem Mild asthma J45.901 Active 284468964 exacerbation Problem Gastroesophageal K21.9 Active 633396757 reflux disease, esophagitis presence not specified Problem Aphasia following I69.320 Active 498468033 cerebral infarction Problem Dysphagia as late I69.391 Active 321600014 effect of cerebrovascular accident (CVA) Problem History of CVA with I69.30 Active 252893898 residual deficit Problem Hypernatremia E87.0 Active 14376422 Problem Weakness R53.1 Active 38121209 Problem Dysphagia causing R13.19 Active 62141902 pulmonary aspiration with swallowing Problem Nasal congestion R09.81 Active 79210274 ALLERGIES No Known Allergies ENCOUNTERS from 1940 to 2020-03-31 Encounter Location Date Provider Diagnosis [facility] [address] [facility] [address], [address] [place] [address] IMMUNIZATIONS Vaccine Route Administration Date Status FluAD IM Intramuscular Apr 18, 2018 Administered Kenalog (Triamcinolone) IM Intramuscular October 11, 2017 Adminis tered SOCIAL HISTORY Tobacco Use: Social History Observation Description Date Details (start date - stop date) Former Smoker Sex Assigned At : Social History Observation Description Sex Assigned At Unknown Tobacco Use/Smoking Question Answer Notes Are you a former smoker REASON FOR REFERRAL No Information VITAL SIGNS No information MEDICATIONS Medication SIG (Take, Route, Start Date End Date Status Frequency, Duration) Scopolamine 1 MG/3DAYS 1 PATCH TO SKIN NEEDED 4 Active HOURS BEFORE FOR MOTION SICKNESS EVERY 3 DAYS TRANSDERMAL 30 DAYS for 30 Dilantin 125 MG/5ML 4 ml via PEG tube every 6 Unknown hours for 85 Dilantin 100 MG 1 capsule Orally Four times Unknown a day Phenytoin Sodium Extended 1 capsule Orally Two times Feb, Unknown 200 MG a day for 30 day(s) Montelukast Sodium 10 MG TAKE 1 TABLET BY MOUTH Active EVERY DAY IN THE EVENING for 90 Phenytoin 125 MG/5ML 10 ml by g-tube Three times Active a day for 24 Zovirax 5 % 1 application to affected Dec, Un known area Externally four times a day for 7 days Albuterol Sulfate HFA 108 INHALE 2 PUFFS BY MOUTH Active (90 Base) MCG/ACT EVERY 4 TO 6 HOURS for 16 Lipitor 80 MG TAKE 1 TABLET BY MOUTH AT A ctive BEDTIME for 90 Finasteride 5 MG TAKE 1 TABLET BY MOUTH A ctive EVERY DAY for 90 Ventolin HFA 108 (90 Base) Brand medically necessary 2 Active MCG/ACT puffs as needed Inhalation every -4 6 hrs for 90 days Singulair 10 MG TAKE 1 TABLET BY MOUTH AT Unknown BEDTIME for 90 Flomax 0.4 MG 1 capsule Orally Once a day Unknown Albuterol Sulfate (2.5 3 ml as needed Inhalation Oct, Active MG/3ML) 0.083% every 8 hrs for 90 days Amlodipine Besylate 10 MG 1 tablet Orally Once a day Active Atorvastatin Calcium 80 MG TAKE 1 TABLET BY MOUTH Active EVERYDAY AT BEDTIME for 90 Cozaar 50 MG 1 tablet Orally Once a day U nknown Flonase 50 MCG/ACT 1 spray in each nostril Unknown Nasally Once a day for 90 Flonase 50 MCG/ACT 1 spray in each nostril Unknown Nasally Once a day for 90 Amoxicillin 500 MG 1 capsule Orally every 8 Jun, Active hrs for 7 days Loratadine 10 MG TAKE 1 TABLET BY MOUTH A ctive EVERY DAY Phenytoin 125 MG/5ML 10 ml by g-tube Three times Active a day Lamictal 200 MG 1 tablet Orally Twice a day Active Coreg 3.125 MG one tablet Orally twice a Active day Lorazepam 0.5 MG 1 tablet as needed Orally Active every 12 hrs for 30 PROCEDURES No Information RESULTS No Results REASON FOR VISIT [facility] order request MEDICAL (GENERAL) HISTORY Type Description Date Medical History Seizure disorder Medical History Diabetes Medical History Benign essential HTN Medical History Hyperlipidemia Medical History Anemia Medical History History of CVA (cerebrovascular accident ) Medical History Aphasia as late effect of cerebrovascula r accident Medical History Wheelchair dependence Medical History Allergic rhinitis Medical History Edema Medical History Fatty liver Medical History Alkaline phosphatase raised Surgical History Shunt Surgical History Hernia Goals Section No Information Health Concerns No Information MEDICAL EQUIPMENT No Information MENTAL STATUS No Information FUNCTIONAL STATUS No Information ASSESSMENTS No Information PLAN OF TREATMENT Medication Medication Name Sig Start Date Stop Date Albuterol Sulfate HFA 108 (90 INHALE 2 PUFFS BY MOUTH EVERY Base) MCG/ACT 4 TO 6 HOURS for 16 Lorazepam 0.5 MG 1 tablet as needed Orally every 12 hrs for 30 Atorvastatin Calcium 80 MG TAKE 1 TABLET BY MOUTH EVERYDAY AT BEDTIME for 90 Insurance Providers Payer Name Payer Address Payer Insured Patient Coverage Cover age Phone Name Relationship to Start Date End Date Insured [employer] [address] [place] [phone] Andres,[place] self [place] [address] [phone] MEDICARE Attn Part B [id number] Andres,[place] self [employer] Claims [address] [facility] [address]
--- OUTSIDE RECORDS SUMMARY | 2020-05-28 11:50 | XMS REPORT ---
:1940 Author Organization [facility] Address [address] [place] [address] Care Team Providers Name Role Phone [facility] Unavailable [phone] PROBLEMS Type Condition ICD9-CM [id number] Onset Condition SNOMED Code Notes Code Code Dates Status Problem Alkaline R74.8 Active 979241957 phosphatase raised Problem Wheelchair Z99.3 Active 384874149 dependence Problem PEG (percutaneous Z93.1 Active 348540589 endoscopic gastrostomy) status Problem History of CVA Z86.73 Active 953934480 (cerebrovascular accident) Problem Hyperlipidemia E78.5 Active 97410432 Problem Primary insomnia F51.01 Active 5408343 Problem Aphasia as late I69.920 Active 671091825 effect of cerebrovascular accident Problem Fatty liver K76.0 Active 311526998 Problem Edema R60.9 Active 680694314 Problem Anxiety F41.9 Active 68828549 Problem Benign essential I10 Active 38064121 HTN Problem Allergic rhinitis J30.9 Active 35674425 Problem Diabetes E11.9 Active 652349233 Problem Seizure disorder G40.909 Active 650422431 Problem Left-sided weakness R53.1 Active 487448252 Problem Anemia, unspecified D64.9 Active 142338793 type Problem Mild asthma J45.901 Active 975202789 exacerbation Problem Gastroesophageal K21.9 Active 220635762 reflux disease, esophagitis presence not specified Problem Aphasia following I69.320 Active 224681515 cerebral infarction Problem Dysphagia as late I69.391 Active 811956354 effect of cerebrovascular accident (CVA) Problem History of CVA with I69.30 Active 256142803 residual deficit Problem Hypernatremia E87.0 Active 95470467 Problem Weakness R53.1 Active 26537454 Problem Dysphagia causing R13.19 Active 46229163 pulmonary aspiration with swallowing Problem Nasal congestion R09.81 Active 78018056 ALLERGIES No Known Allergies ENCOUNTERS from 1940 to 2020-03-24 Encounter Location Date Provider Diagnosis [facility] [address] [facility] [address], [place] [address] IMMUNIZATIONS Vaccine Route Administration Date Status FluAD [...] Information RESULTS No Results REASON FOR VISIT Peg tube MEDICAL (GENERAL) HISTORY Type Description Date Medical [...] Date End Date Insured [employer] [address] [place] [phone] Andres,[place] [address] [phone] MEDICARE Attn Part B [id number] Andres,[place] self [employer] Claims [address] [facility] [address]
--- OUTSIDE RECORDS SUMMARY | 2020-05-28 11:50 | XMS REPORT ---
:1940 Author Organization [facility] Address [address] [place] [address] Care Team Providers Name Role Phone [facility] Unavailable [phone] PROBLEMS Type Condition ICD9-CM [id number] Onset Condition SNOMED Code Notes Code Code Dates Status Problem Alkaline R74.8 Active 048757317 phosphatase raised Problem Wheelchair Z99.3 Active 222343548 dependence Problem PEG (percutaneous Z93.1 Active 715080336 endoscopic gastrostomy) status Problem History of CVA Z86.73 Active 999657905 (cerebrovascular accident) Problem Hyperlipidemia E78.5 Active 85271390 Problem Primary insomnia F51.01 Active 1043543 Problem Aphasia as late I69.920 Active 384855134 effect of cerebrovascular accident Problem Fatty liver K76.0 Active 015453159 Problem Edema R60.9 Active 291399401 Problem Anxiety F41.9 Active 79740564 Problem Benign essential I10 Active 73629352 HTN Problem Allergic rhinitis J30.9 Active 90019706 Problem Diabetes E11.9 Active 651798312 Problem Seizure disorder G40.909 Active 716368999 Problem Left-sided weakness R53.1 Active 343473795 Problem Anemia, unspecified D64.9 Active 304453645 type Problem Mild asthma J45.901 Active 479985181 exacerbation Problem Gastroesophageal K21.9 Active 458883441 reflux disease, esophagitis presence not specified Problem Aphasia following I69.320 Active 052004916 cerebral infarction Problem Dysphagia as late I69.391 Active 418987001 effect of cerebrovascular accident (CVA) Problem History of CVA with I69.30 Active 779232614 residual deficit Problem Hypernatremia E87.0 Active 78579549 Problem Weakness R53.1 Active 14316641 Problem Dysphagia causing R13.19 Active 40220722 pulmonary aspiration with swallowing Problem Nasal congestion R09.81 Active 95369125 ALLERGIES No Known Allergies ENCOUNTERS from 1940 to 2020-04-04 Encounter Location Date Provider Diagnosis [facility] [address], [address] [place] [address] IMMUNIZATIONS Vaccine Route Administration Date Status FluAD [...] Start Date End Date Status Frequency, Duration) Singulair 10 MG TAKE 1 TABLET BY MOUTH AT Unknown BEDTIME for 90 Atorvastatin Calcium 80 MG TAKE 1 TABLET BY MOUTH Active EVERYDAY AT BEDTIME for 90 Lamictal 200 MG 1 tablet Orally Twice a day Active Amoxicillin 500 MG 1 capsule Orally every 8 Jun, Active hrs for 7 days Dilantin 100 MG 1 capsule Orally Four times Unknown a day Finasteride 5 MG TAKE 1 TABLET BY MOUTH A ctive EVERY DAY for 90 Flonase 50 MCG/ACT 1 spray in each nostril Unknown Nasally Once a day for 90 Montelukast Sodium 10 MG TAKE 1 TABLET BY MOUTH Active EVERY DAY IN THE EVENING for 90 Scopolamine 1 MG/3DAYS 1 PATCH TO SKIN NEEDED 4 Active HOURS BEFORE FOR MOTION SICKNESS EVERY 3 DAYS TRANSDERMAL 30 DAYS for 30 Lipitor 80 MG TAKE 1 TABLET BY MOUTH AT A ctive BEDTIME for 90 Phenytoin Sodium Extended 1 capsule Orally Two times Feb, Unknown 200 MG a day for 30 day(s) Albuterol Sulfate (2.5 USE 1 VIAL IN NEBULIZER Active MG/3ML) 0.083% EVERY 8 HOURS DX CODE J45 Inhalation every 6 hrs for 90 days Ventolin HFA 108 (90 Base) Brand medically necessary 2 Active MCG/ACT puffs as needed Inhalation every -4 6 hrs for 90 days Zovirax 5 % 1 application to affected Dec, Un known area Externally four times a day for 7 days Albuterol Sulfate HFA 108 INHALE 2 PUFFS BY MOUTH Active (90 Base) MCG/ACT EVERY 4 TO 6 HOURS for 16 Flomax 0.4 MG 1 capsule Orally Once a day Unknown Dilantin 125 MG/5ML 4 ml via PEG tube every 6 Unknown hours for 85 Phenytoin 125 MG/5ML 10 ml by g-tube Three times Active a day for 24 Lorazepam 0.5 MG 1 tablet as needed Orally Active every 12 hrs for 30 Flonase 50 MCG/ACT 1 spray in each nostril Unknown Nasally Once a day for 90 Lorazepam 0.5 MG 1 tablet as needed Orally Active every 12 hrs Cozaar 50 MG 1 tablet Orally Once a day U nknown Loratadine 10 MG TAKE 1 TABLET BY MOUTH A ctive EVERY DAY Amlodipine Besylate 10 MG 1 tablet Orally Once a day Active Albuterol Sulfate HFA 108 2 puffs Inhalation every Mar, Active (90 Base) MCG/ACT hours prn sob for 30 days Coreg 3.125 MG one tablet Orally twice a Active day Phenytoin 125 MG/5ML 10 ml Orally twice a day Active PROCEDURES No Information RESULTS No Results REASON FOR VISIT albuterol neb MEDICAL (GENERAL) HISTORY Type Description Date Medical [...] Medication Name Sig Start Date Stop Date Coreg 3.125 MG one tablet Orally twice a day Phenytoin 125 MG/5ML 10 ml Orally twice a day Albuterol Sulfate HFA 108 (90 2 puffs Inhalation every Mar,) MCG/ACT hours prn sob for 30 days Amlodipine Besylate 10 MG 1 tablet Orally Once a day Lorazepam 0.5 MG 1 tablet as needed Orally every 12 hrs Albuterol Sulfate (2.5 MG/3ML) USE 1 VIAL IN NEBULIZER EVERY 8 0.083% HOURS DX CODE J45 Inhalation every 6 hrs for 90 days Lamictal 200 MG 1 tablet Orally Twice a day Insurance Providers Payer Name Payer Address Payer Insured Patient Coverage Cover age Phone Name Relationship to Start Date End Date Insured MEDICARE Attn Part B [id number] [place] Andres [employer] Claims [address] [facility] [id number] [employer] [address] [phone] [place] [address] [phone]
--- OUTSIDE RECORDS SUMMARY | 2020-05-28 11:51 | XMS REPORT ---
:1940 Author Organization [facility] Address [address] [place] [place] [address] Care Team Providers Name Role Phone Lechuga Unavailable [phone] PROBLEMS Type Condition ICD9-CM [id number] Onset Condition SNOMED Code Notes Code Code Dates Status Problem Alkaline R74.8 Active 036938298 phosphatase raised Problem Wheelchair Z99.3 Active 047900376 dependence Problem PEG (percutaneous Z93.1 Active 254113102 endoscopic gastrostomy) status Problem History of CVA Z86.73 Active 860519362 (cerebrovascular accident) Problem Hyperlipidemia E78.5 Active 27574068 Problem Primary insomnia F51.01 Active 1445052 Problem Aphasia as late I69.920 Active 722200367 effect of cerebrovascular accident Problem Fatty liver K76.0 Active 837807887 Problem Edema R60.9 Active 146954184 Problem Anxiety F41.9 Active 65923271 Problem Benign essential I10 Active 83412447 HTN Problem Allergic rhinitis J30.9 Active 91844026 Problem Diabetes E11.9 Active 924968820 Problem Seizure disorder G40.909 Active 532920073 Problem Left-sided weakness R53.1 Active 755775422 Problem Anemia, unspecified D64.9 Active 036524182 type Problem Mild asthma J45.901 Active 139329044 exacerbation Problem Gastroesophageal K21.9 Active 997516171 reflux disease, esophagitis presence not specified Problem Aphasia following I69.320 Active 919401503 cerebral infarction Problem Dysphagia as late I69.391 Active 629728608 effect of cerebrovascular accident (CVA) Problem History of CVA with I69.30 Active 825858645 residual deficit Problem Hypernatremia E87.0 Active 00881904 Problem Weakness R53.1 Active 78086002 Problem Dysphagia causing R13.19 Active 82275688 pulmonary aspiration with swallowing Problem Nasal congestion R09.81 Active 92117480 ALLERGIES No Known Allergies ENCOUNTERS from 1940 to 2020-04-07 Encounter Location Date Provider Diagnosis [facility] [address] 04 Mar, 2020 Na Lechuga Mark Anthony ign essential HTN I10 [facility] [address], ; [address] F41.9 ; [place] [address] asthma exacerb ation J45.901 ; Dysph agia as late effect of cerebrovascular accident (CVA) I69.391 ; Primary insomnia F51.01 ; Aphasia as late effect of cerebrovascular accident I69.920 ; Seizu re disorder G40.90 9 ; Left-sided weak ness R53.1 and PEG (percut aneous endoscopic eleonora rostomy) status Z93.1 IMMUNIZATIONS Vaccine Route Administration Date Status FluAD [...] Sulfate HFA 108 2 puffs Inhalation every 6 04 Mar, 2020 Active (90 Base) MCG/ACT hours prn sob for 30 days Coreg 3.125 MG one tablet Orally twice a Active day Phenytoin 125 MG/5ML 10 ml Orally twice a day Active PROCEDURES No Information RESULTS No Results REASON FOR VISIT f/u, need refills of albuterol for wheezing on/off, need order for PT, weakness MEDICAL (GENERAL) HISTORY Type Description Date Medical [...] No Information FUNCTIONAL STATUS No Information ASSESSMENTS Encounter Date Diagnosis Notes Mar, Anxiety (ICD-10 - F41.9) Mar, Benign essential HTN (ICD-10 - I10) Mar, Seizure disorder (ICD-10 - G40.909) Mar, Aphasia as late effect of cerebrovascula r accident (ICD-10 - I69.920) Mar, PEG (percutaneous endoscopic gastrostomy ) status (ICD-10 - Z93.1) Mar, Left-sided weakness (ICD-10 - R53.1) Mar, Dysphagia as late effect of cerebrovascu lar accident (CVA) (ICD-10 - I69.391) Mar, Mild asthma exacerbation (ICD-10 - J45.9 01) Mar, Primary insomnia (ICD-10 - F51.01) PLAN OF TREATMENT Medication Medication Name Sig Start Date Stop Date Coreg 3.125 MG one tablet Orally twice a day Phenytoin 125 MG/5ML 10 ml Orally twice a day Albuterol Sulfate HFA 108 (90 2 puffs Inhalation every 6 Mar, Base) MCG/ACT hours prn sob for 30 days Amlodipine Besylate 10 MG 1 tablet Orally Once a day Lorazepam 0.5 MG 1 tablet as needed Orally every 12 hrs Albuterol Sulfate (2.5 MG/3ML) USE 1 VIAL IN NEBULIZER EVERY 8 0.083% HOURS DX CODE J45 Inhalation every 6 hrs for 90 days Lamictal 200 MG 1 tablet Orally Twice a day Treatment Notes Assessment Notes Clinical Notes Benign essential HTN -- Maintian a low salt DASH diet, exercise, weight loss and decrease stress recommended. Keep BP log and will review next visit. If blood pressure consistently above 140/90 return to clinic for adjustment of meds. Try to quit smoking if you currently smoke. Decrease caffeine intake if possible. - - advised to avoid phenylephrine and pseudoephedrine in otc sinus/cold meds containing these decongestants which work by vasoconstricting blood vessels to help decrease congestion however may cause your BP to rise. -- If you have a cold may take Coricidin brand of cold medicines safe for high blood pressure patients. Anxiety advised to use lorazepam only as needed at bedtime when patient is irritable or yelling per request. may cause drowsiness so avoid with other medications that may cause drowsiness. Dysphagia as late effect of continue PEG tube to prevent cerebrovascular accident (CVA) aspriation--Will order portab le suction to suction excess saliva to prevent aspiration on saliva and prevent risk of aspiration pneumonia.- Primary insomnia will continue bzd prn Aphasia as late effect of continue physical therapy to cerebrovascular accident improve/ maintain and streghten muscles Seizure disorder continue lamictal and dilantin. f/u with neurology . Left-sided weakness chronic continue PT with home health.[facility] on hold due to COVID -19 pandemichas elizabeth lift for patient. please remind me for written order as agree patient would benefit from full body elizabeth lift as patient is bedbound and wheelchair bound. Would be helpful if patient could also contat paln and ask for steps/ forms for coverage what [employer] company and what is neeed for coverage and have sent to us also. PEG (percutaneous endoscopic continue peg feeds and routine gastrostomy) status flushing. Next Appt Details 2 Months Reason: Insurance Providers Payer Name Payer Address Payer Insured Patient Coverage Cover age Phone Name Relationship to Start Date End Date Insured MEDICARE Attn Part B [id number] Andres,[place] self [employer] Claims [address] [facility] [id number] [employer] [address] [phone] Andres,[place] self [place] [address] [phone]
--- OUTSIDE RECORDS SUMMARY | 2020-05-28 11:51 | XMS REPORT ---
:1940 Author Organization [facility] Address [address] [place] [place] [address] Care Team Providers Name Role Phone Lechuga Unavailable [phone] PROBLEMS Type Condition ICD9-CM [id number] Onset Condition SNOMED Code Notes Code Code Dates Status Problem Alkaline R74.8 Active 108089385 phosphatase raised Problem Wheelchair Z99.3 Active 163898154 dependence Problem PEG (percutaneous Z93.1 Active 499052361 endoscopic gastrostomy) status Problem History of CVA Z86.73 Active 512479665 (cerebrovascular accident) Problem Hyperlipidemia E78.5 Active 50857866 Problem Primary insomnia F51.01 Active 7261988 Problem Aphasia as late I69.920 Active 192398836 effect of cerebrovascular accident Problem Fatty liver K76.0 Active 712487953 Problem Edema R60.9 Active 912579007 Problem Anxiety F41.9 Active 64958365 Problem Benign essential I10 Active 38045821 HTN Problem Allergic rhinitis J30.9 Active 13763767 Problem Diabetes E11.9 Active 564298118 Problem Seizure disorder G40.909 Active 481282986 Problem Left-sided weakness R53.1 Active 601003429 Problem Anemia, unspecified D64.9 Active 916346615 type Problem Mild asthma J45.901 Active 219918337 exacerbation Problem Gastroesophageal K21.9 Active 263720348 reflux disease, esophagitis presence not specified Problem Aphasia following I69.320 Active 218010535 cerebral infarction Problem Dysphagia as late I69.391 Active 153376522 effect of cerebrovascular accident (CVA) Problem History of CVA with I69.30 Active 637150463 residual deficit Problem Hypernatremia E87.0 Active 25607610 Problem Weakness R53.1 Active 54398441 Problem Dysphagia causing R13.19 Active 15676496 pulmonary aspiration with swallowing Problem Nasal congestion R09.81 Active 20145519 ALLERGIES No Known Allergies ENCOUNTERS from 1940 to 2020-04-21 Encounter Location Date Provider Diagnosis [facility] [employer] [address] [facility] [address] Mar, Adelina tam asthma Family [facility] [address] [facility] [place] [address] [place] [address] IMMUNIZATIONS Vaccine Route Administration Date Status FluAD [...] No information MEDICATIONS Medication SIG (Take, Route, Notes Start Date End Date Status Frequency, Duration) Singulair 10 MG TAKE 1 TABLET BY MOUTH Unknown AT BEDTIME for 90 Atorvastatin Calcium 80 TAKE 1 TABLET BY MOUTH Active MG EVERYDAY AT BEDTIME for 90 Lamictal 200 MG 1 tablet Orally Twice a Active day Amoxicillin 500 MG 1 capsule Orally every 8 Jun, Active hrs for 7 days Dilantin 100 MG 1 capsule Orally Four Unknown times a day Finasteride 5 MG TAKE 1 TABLET BY MOUTH Active EVERY DAY for 90 Flonase 50 MCG/ACT 1 spray in each nostril Unknown Nasally Once a day for 90 Montelukast Sodium 10 MG TAKE 1 TABLET BY MOUTH Active EVERY DAY IN THE EVENING for 90 Scopolamine 1 MG/3DAYS 1 PATCH TO SKIN Active NEEDED 4 HOURS BEFORE FOR MOTION SICKNESS EVERY 3 DAYS TRANSDERMAL 30 DAYS for 30 Lipitor 80 MG TAKE 1 TABLET BY MOUTH Active AT BEDTIME for 90 Phenytoin Sodium Extended 1 capsule Orally Two Feb, 8 Unknown 200 MG times a day for 30 day(s) Cozaar 50 MG 1 tablet Orally Once a Unknown day Loratadine 10 MG TAKE 1 TABLET BY MOUTH Active EVERY DAY Zovirax 5 % 1 application to Dec, Unkno wn affected area Externally four times a day for 7 days Albuterol Sulfate HFA 108 INHALE 2 PUFFS BY MOUTH Active (90 Base) MCG/ACT EVERY 4 TO 6 HOURS for 16 Flonase 50 MCG/ACT 1 spray in each nostril Unknown Nasally Once a day for 90 Dilantin 125 MG/5ML 4 ml via PEG tube every Unknown 6 hours for 85 Phenytoin 125 MG/5ML 10 ml by g-tube Three Active times a day for 24 Lorazepam 0.5 MG 1 tablet as needed Active Orally every 12 hrs for 30 Ventolin HFA 108 (90 Brand medically Active Base) MCG/ACT necessary 2 puffs as needed Inhalation every -4 6 hrs for 90 days Lorazepam 0.5 MG 1 tablet as needed Active Orally every 12 hrs Flomax 0.4 MG 1 capsule Orally Once a Unknown day Albuterol Sulfate (2.5 USE 1 VIAL IN NEBULIZER Active MG/3ML) 0.083% EVERY 8 HOURS DX CODE J45 Inhalation every 6 hrs for 90 days Amlodipine Besylate 10 MG 1 tablet Orally Once a Active day Albuterol Sulfate HFA 108 2 puffs Inhalation every Mar, Active (90 Base) MCG/ACT 6 hours prn sob for 90 days Coreg 3.125 MG one tablet Orally twice Active a day Phenytoin 125 MG/5ML 10 ml Orally twice a day Active PROCEDURES No Information RESULTS No Results REASON FOR VISIT medication refill MEDICAL (GENERAL) HISTORY Type Description Date Medical [...] STATUS No Information ASSESSMENTS Encounter Date Diagnosis Assessment Notes Treatment Notes Treatm ent Clinical Notes Mar, Mild asthma exacerbation (ICD-10 - J45.901) PLAN OF TREATMENT Medication Medication Name Sig Start Date Stop Date Coreg 3.125 MG one tablet Orally twice a day Phenytoin 125 MG/5ML 10 ml Orally twice a day Albuterol Sulfate HFA 108 (90 2 puffs Inhalation every 6 Mar, Base) MCG/ACT hours prn sob for 90 days Amlodipine Besylate 10 MG [...] Date Insured MEDICARE Attn Part B [id number] [place] Andres self [employer] Claims [address] [facility] [address] [employer] [address] [phone] [place] Andres self [facility] [address] [phone]
--- OUTSIDE RECORDS SUMMARY | 2020-05-28 11:51 | XMS REPORT ---
:1940 Author Organization [facility] Address [address] [place] [place] [address] Care Team Providers Name Role Phone Lechuga Unavailable [phone] PROBLEMS Type Condition ICD9-CM [id number] Onset Condition SNOMED Code Notes Code Code Dates Status Problem Alkaline R74.8 Active 371876777 phosphatase raised Problem Wheelchair Z99.3 Active 917346429 dependence Problem PEG (percutaneous Z93.1 Active 915016662 endoscopic gastrostomy) status Problem History of CVA Z86.73 Active 132163783 (cerebrovascular accident) Problem Hyperlipidemia E78.5 Active 74382768 Problem Primary insomnia F51.01 Active 1030764 Problem Aphasia as late I69.920 Active 498324303 effect of cerebrovascular accident Problem Fatty liver K76.0 Active 011677192 Problem Edema R60.9 Active 307389239 Problem Anxiety F41.9 Active 41314045 Problem Benign essential I10 Active 08753411 HTN Problem Allergic rhinitis J30.9 Active 80848515 Problem Diabetes E11.9 Active 251868456 Problem Seizure disorder G40.909 Active 378728732 Problem Left-sided weakness R53.1 Active 331692245 Problem Anemia, unspecified D64.9 Active 240878568 type Problem Mild asthma J45.901 Active 870066133 exacerbation Problem Gastroesophageal K21.9 Active 455041778 reflux disease, esophagitis presence not specified Problem Aphasia following I69.320 Active 152022191 cerebral infarction Problem Dysphagia as late I69.391 Active 420598128 effect of cerebrovascular accident (CVA) Problem History of CVA with I69.30 Active 594955165 residual deficit Problem Hypernatremia E87.0 Active 70014226 Problem Weakness R53.1 Active 07280577 Problem Dysphagia causing R13.19 Active 20788273 pulmonary aspiration with swallowing Problem Nasal congestion R09.81 Active 68595120 ALLERGIES No Known Allergies ENCOUNTERS from 1940 to 2020-05-02 Encounter Location Date Provider Diagnosis [facility] [address], [place] [address] IMMUNIZATIONS Vaccine Route Administration Date Status FluAD [...] Start Date End Date Status Frequency, Duration) Flonase 50 MCG/ACT 1 spray in each U nknown nostril Nasally Once a day for 90 Lamictal 200 MG 1 tablet Orally Twice Active a day Tamsulosin HCl 0.4 MG 1 capsule Orally Once Apr, 2 Oct, 2020 Active a day for 90 days Amlodipine Besylate 10 1 tablet Orally Once a Active MG day Albuterol Sulfate (2.5 USE 1 VIAL IN Active MG/3ML) 0.083% NEBULIZER EVERY 8 HOURS DX CODE J45 Inhalation every 6 hrs for 90 days Singulair 10 MG TAKE 1 TABLET BY MOUTH Unknown AT BEDTIME for 90 Phenytoin 125 MG/5ML 10 ml by g-tube Three Active times a day for 24 Phenytoin 125 MG/5ML 10 ml Orally twice a Active day Scopolamine 1 MG/3DAYS 1 PATCH TO SKIN Active NEEDED 4 HOURS BEFORE FOR MOTION SICKNESS EVERY 3 DAYS TRANSDERMAL 30 DAYS for 30 Zovirax 5 % 1 application to Dec, Unkno wn affected area Externally four times a day for 7 days Atorvastatin Calcium 80 TAKE 1 TABLET BY MOUTH Active MG EVERYDAY AT BEDTIME for 90 Montelukast Sodium 10 MG TAKE 1 TABLET BY MOUTH Active EVERY DAY IN THE EVENING for 90 Flomax 0.4 MG 1 capsule Orally Once Unknown a day Dilantin 100 MG 1 capsule Orally Four Unknown times a day Coreg 3.125 MG one tablet Orally Act luz twice a day Phenytoin Sodium 1 capsule Orally Two Feb, Unknown Extended 200 MG times a day for 30 day(s) Lorazepam 0.5 MG 1 tablet as needed Active Orally every 12 hrs Lorazepam 0.5 MG 1 tablet as needed Active Orally every 12 hrs for 30 days Amoxicillin 500 MG 1 capsule Orally every Jun, Active 8 hrs for 7 days Flonase 50 MCG/ACT 1 spray in each U nknown nostril Nasally Once a day for 90 Albuterol Sulfate HFA INHALE 2 PUFFS BY Active 108 (90 Base) MCG/ACT MOUTH EVERY 6 HOURS NEEDED for 75 Cozaar 50 MG 1 tablet Orally Once a Unknown day Loratadine 10 MG TAKE 1 TABLET BY MOUTH Active EVERY DAY Finasteride 5 MG TAKE 1 TABLET BY MOUTH Active EVERY DAY for 90 Ventolin HFA 108 (90 Brand medically Active Base) MCG/ACT necessary 2 puffs as needed Inhalation every -4 6 hrs for 90 days Lipitor 80 MG TAKE 1 TABLET BY MOUTH Active AT BEDTIME for 90 Dilantin 125 MG/5ML 4 ml via PEG tube Unknown every 6 hours for 85 PROCEDURES No Information RESULTS No Results REASON FOR VISIT Medication refill MEDICAL (GENERAL) HISTORY Type Description Date [...] Medication Name Sig Start Date Stop Date Tamsulosin HCl 0.4 MG 1 capsule Orally Once a day for 90 Apr, Oct, days Insurance Providers Payer Name Payer Address Payer Insured Patient Coverage Cover age Phone Name Relationship to Start Date End Date Insured [employer] [address] [phone] Andres,[place] self [place] [address] [phone] MEDICARE Attn Part B [id number] Andres,[place] self [employer] Claims [address] [facility] [address]
--- OUTSIDE RECORDS SUMMARY | 2020-05-28 11:51 | XMS REPORT ---
:1940 Author Organization [facility] Address [address] [place] [place] [address] Care Team Providers Name Role Phone Lechuga Unavailable [phone] PROBLEMS Type Condition ICD9-CM [id number] Onset Condition SNOMED Code Notes Code Code Dates Status Problem Alkaline R74.8 Active 680122517 phosphatase raised Problem Wheelchair Z99.3 Active 332986523 dependence Problem PEG (percutaneous Z93.1 Active 125958941 endoscopic gastrostomy) status Problem History of CVA Z86.73 Active 790120103 (cerebrovascular accident) Problem Hyperlipidemia E78.5 Active 75413265 Problem Primary insomnia F51.01 Active 8805857 Problem Aphasia as late I69.920 Active 888819576 effect of cerebrovascular accident Problem Fatty liver K76.0 Active 307565159 Problem Edema R60.9 Active 520113406 Problem Anxiety F41.9 Active 02025991 Problem Benign essential I10 Active 11945538 HTN Problem Allergic rhinitis J30.9 Active 49724139 Problem Diabetes E11.9 Active 318573809 Problem Seizure disorder G40.909 Active 950162790 Problem Left-sided weakness R53.1 Active 925351207 Problem Anemia, unspecified D64.9 Active 253714020 type Problem Mild asthma J45.901 Active 213412942 exacerbation Problem Gastroesophageal K21.9 Active 433442976 reflux disease, esophagitis presence not specified Problem Aphasia following I69.320 Active 465566173 cerebral infarction Problem Dysphagia as late I69.391 Active 919452245 effect of cerebrovascular accident (CVA) Problem History of CVA with I69.30 Active 720463220 residual deficit Problem Hypernatremia E87.0 Active 01479365 Problem Weakness R53.1 Active 15207705 Problem Dysphagia causing R13.19 Active 18421182 pulmonary aspiration with swallowing Problem Nasal congestion R09.81 Active 57295061 ALLERGIES No Known Allergies ENCOUNTERS from 1940 to 2020-05-22 Encounter Location Date Provider Diagnosis [facility] [address] [facility] [address] Apr, 2020 [place] [address] IMMUNIZATIONS Vaccine Route Administration Date Status FluAD [...] Active MG EVERYDAY AT BEDTIME for 90 Finasteride 5 MG TAKE 1 TABLET BY MOUTH Active EVERY DAY for 90 Flonase 50 MCG/ACT 1 spray in each U nknown nostril Nasally Once a day for 90 Dilantin 100 MG 1 capsule Orally Four Unknown times a day Coreg 3.125 MG one tablet Orally Act luz twice a day Cozaar 50 MG 1 tablet Orally Once a Unknown day Lorazepam 0.5 MG 1 tablet as needed Active Orally every 12 hrs Lorazepam 0.5 MG 1 tablet as needed Active Orally every 12 hrs for 30 days Amoxicillin 500 MG 1 capsule Orally every 18 Jun, 2018 Active 8 hrs for 7 days Phenytoin Sodium 1 capsule Orally Two Feb, Unknown Extended 200 MG times a day for 30 day(s) Albuterol Sulfate HFA INHALE 2 PUFFS BY Active 108 (90 Base) MCG/ACT MOUTH EVERY 6 HOURS NEEDED for 75 Montelukast Sodium 10 MG TAKE 1 TABLET BY MOUTH Active EVERY DAY IN THE EVENING for 90 Flomax 0.4 MG 1 capsule Orally Once Unknown a day Ventolin HFA 108 (90 Brand medically Active Base) MCG/ACT necessary 2 puffs as needed Inhalation every -4 6 hrs for 90 days Loratadine 10 MG TAKE 1 TABLET BY MOUTH Active EVERY DAY Lipitor 80 MG TAKE 1 TABLET BY MOUTH Active AT BEDTIME for 90 Dilantin 125 MG/5ML 4 ml via PEG tube Unknown every 6 hours for 85 PROCEDURES No Information RESULTS No Results REASON FOR VISIT Peg tube leaking MEDICAL (GENERAL) HISTORY Type Description Date Medical [...] Orally Once a day for 90 Apr, 2 Oct, 2020 days Finasteride 5 MG TAKE 1 TABLET BY MOUTH EVERY DAY for 90 Insurance Providers Payer Name Payer Address Payer Insured Patient Coverage Cover age Phone Name Relationship to Start Date End Date Insured [employer] [address] [phone] Andres,[place] self [place] [address] [phone] MEDICARE Attn Part B [id number] Andres,[place] self [employer] Claims [address] [facility] [address]
--- OUTSIDE RECORDS SUMMARY | 2020-05-28 11:51 | XMS REPORT ---
:1940 Author Organization [facility] Address [address] [place] [address] Care Team Providers Name Role Phone Lechuga Unavailable [phone] PROBLEMS Type Condition ICD9-CM [id number] Onset Condition SNOMED Code Notes Code Code Dates Status Problem Alkaline R74.8 Active 525109099 phosphatase raised Problem Wheelchair Z99.3 Active 689868289 dependence Problem PEG (percutaneous Z93.1 Active 751452525 endoscopic gastrostomy) status Problem History of CVA Z86.73 Active 204727896 (cerebrovascular accident) Problem Hyperlipidemia E78.5 Active 72676426 Problem Primary insomnia F51.01 Active 2640552 Problem Aphasia as late I69.920 Active 524543057 effect of cerebrovascular accident Problem Fatty liver K76.0 Active 340762456 Problem Edema R60.9 Active 095095678 Problem Anxiety F41.9 Active 02315960 Problem Benign essential I10 Active 96146212 HTN Problem Allergic rhinitis J30.9 Active 46842670 Problem Diabetes E11.9 Active 991338948 Problem Seizure disorder G40.909 Active 326780970 Problem Left-sided weakness R53.1 Active 926266882 Problem Anemia, unspecified D64.9 Active 166021675 type Problem Mild asthma J45.901 Active 889529961 exacerbation Problem Gastroesophageal K21.9 Active 817578874 reflux disease, esophagitis presence not specified Problem Aphasia following I69.320 Active 136686981 cerebral infarction Problem Dysphagia as late I69.391 Active 511459638 effect of cerebrovascular accident (CVA) Problem History of CVA with I69.30 Active 075452286 residual deficit Problem Hypernatremia E87.0 Active 90862123 Problem Weakness R53.1 Active 78768800 Problem Dysphagia causing R13.19 Active 81841618 pulmonary aspiration with swallowing Problem Nasal congestion R09.81 Active 37815404 ALLERGIES No Known Allergies ENCOUNTERS from 1940 to 2020-05-02 Encounter Location Date Provider Diagnosis [facility] [address], [place] [address] IMMUNIZATIONS Vaccine Route Administration Date Status FluAD [...] Date End Date Insured [employer] [address] [phone] Andres,[place] self [place] [address] [address] MEDICARE Attn Part B [id number] Andres,[place] self [employer] Claims [address] [facility] [address] [address]
--- NOTE | 2020-05-28 17:08 | RAD REPORT ---
EXAM DESCRIPTION: RAD - ENTEROSTOMY TUBE CHECK W/CONTR - 05/28/2020 4:49 pm CLINICAL HISTORY: g-tube replacement Abdominal pain COMPARISON: ENTEROSTOMY TUBE CHECK W/CONTR dated 02/16/2019 FINDINGS: Two plain radiographs of the abdomen submitted. The second radiograph demonstrates contras t infused into the G-tube with contrast present in the stomach and small bowel indicating expected pl acement. No free air is seen. No fluoroscopy was performed.
--- NOTE | 2020-05-28 17:09 | ER ---
Nurse's Notes [facility] Name: Timothy Ward Age: 79 yrs Sex: Male : 1940 Arrival Date: 05/28/2020 Time: 11:48 Bed 6 Private MD: Diagnosis: Enterostomy malfunction-and replacement Presentation: 05/28 11:49 Chief complaint: EMS states: DISPLACED PEG TUBE. Coronavirus screen: At this time, the bp client does not indicate any symptoms associated with coronavirus-19. Ebola Screen: No symptoms or risks identified at this time. Initial Sepsis Screen: Does the patient meet any 2 criteria? No. Patient's initial sepsis screen is negative. Does the patient have a suspected source of infection? No. Patient's initial sepsis screen is negative. Risk Assessment: Do you want to hurt yourself or someone else? Patient reports no desire to harm self or others. Onset of symptoms is unknown. 11:49 Method Of Arrival: EMS: [facility] bp 11:49 Acuity: DANIELLE 4 bp Triage Assessment: 11:52 General: Appears in no apparent distress. comfortable, Behavior is AT POST-CVA bp BASELINE. Pain: Unable to use pain scale. Does not appear to understand pain scale. EENT: No deficits noted. Neuro: Level of Consciousness is awake, Oriented to AT BASELINE. Cardiovascular: No deficits noted. Respiratory: No deficits noted. GI: PEG tube. : No signs and/or symptoms were reported regarding the genitourinary system. Derm: No deficits noted. Musculoskeletal: No deficits noted. Historical: - Allergies: 11:52 No Known Allergies; bp - Home Meds: 11:52 Vitamin D Oral [Active]; tamsulosin 0.4 mg Oral cp24 1 cap once daily [Active]; bp montelukast 10 mg Oral tab 1 tab once daily [Active]; lamotrigine 100 mg Oral tab 1 tab 2 times per day [Active]; Jevity 1.5 Doug 0.06 gram-1.5 kcal/mL Oral liqd four times a day [Active]; finasteride 5 mg Oral tab 1 tab once daily [Active]; atorvastatin 80 mg Oral tab 1 tab once daily [Active]; aspirin 325 mg Oral TbEC 1 tab once daily [Active]; Amitriptyline Oral [Active]; - PMHx: 11:52 CHF; CVA; Hypertension; Pneumonia; bp - Immunization history:: Adult Immunizations up to date. - Social history:: Smoking status: Patient denies any tobacco usage or history of. Screenin:54 Abuse screen: Denies threats or abuse. Denies injuries from another. Nutritional bp screening: No deficits noted. Tuberculosis screening: No symptoms or risk factors identified. Fall Risk None identified. Assessment: 11:54 General: SEE TRIAGE NOTE. bp 13:49 Reassessment: No changes from previously documented assessment. Patient and/or family bp updated on plan of care and expected duration. Pain level reassessed. DR JOHNSTON PENDING. 15:22 Reassessment: Patient appears in no apparent distress at this time. No changes from bp previously documented assessment. Patient and/or family updated on plan of care and expected duration. Pain level reassessed. 16:12 Reassessment: Patient appears in no apparent distress at this time. No changes from bp previously documented assessment. Patient and/or family updated on plan of care and expected duration. Pain level reassessed. SURGERY AT B/S. 16:41 Reassessment: Patient appears in no apparent distress at this time. No changes from bp previously documented assessment. Patient and/or family updated on plan of care and expected duration. Pain level reassessed. PEG REPLACED, XRAY FOR PLACEMENT IN PROCESS. 17:21 Reassessment: PT TBDC, AWAITING EMS TRANSPORT. bp 18:06 Reassessment: Patient appears in no apparent distress at this time. No changes from bp previously documented assessment. Patient and/or family updated on plan of care and expected duration. Pain level reassessed. EMS TRANSPORT PENDING. 18:43 Reassessment: PT ARBEN WITH EMS. bp Vital Signs: 11:49 BP 130 / 81; Pulse 78; Resp 16; Temp 97.8; Pulse Ox 97% ; bp 13:49 BP 141 / 76; Pulse 81; Resp 16; Pulse Ox 98% ; bp 15:15 BP 128 / 69; Pulse 79; Resp 16; Pulse Ox 95% ; bp 16:12 BP 130 / 73; Pulse 77; Resp 17; Pulse Ox 97% ; bp 17:20 BP 128 / 65; Pulse 65; Resp 17; Pulse Ox 100% ; bp 18:00 BP 148 / 83; Pulse 93; Resp 16; Pulse Ox 100% ; bp ED Course: 11:48 Patient arrived in ED. bp 11:51 Triage completed. bp 11:52 Arm band placed on. bp 11:54 Mauro Bryson, RN is Primary Nurse. bp 11:54 Patient has correct armband on for positive identification. Bed in low position. Call bp light in reach. Side rails up X2. Adult w/ patient. 12:18 Parisa Coppola FNP-C is [facility]. snw 12:18 Benton Cota MD is Attending Physician. snw 16:49 Enterostomy Tube Check w/contr In Process Unspecified. EDMS 17:21 No provider procedures requiring assistance completed. Patient did not have IV access bp during this emergency room visit. Administered Medications: No medications were administered Outcome: 17:08 Discharge ordered by . snw 18:43 Patient left the ED. bp Signatures: Dispatcher [employer] EDMS Parisa Coppola FNP-C ARRESTING GEAR OPERATOR-Csnw Mauro Bryson, RN RN bp
--- NOTE | 2020-05-28 17:09 | EDPHYS ---
Physician Documentation [facility] Name: Timothy Andres Age: 79 yrs Sex: Male : 1940 Arrival Date: 05/28/2020 Time: 11:48 Bed 6 Private MD: ED Physician Benton Cota HPI: 05/28 15:03 This 79 yrs old Black Male presents to ER via EMS with complaints of DISPLACED PEG. snw 15:03 The patient presents with G-tube leaking. Onset: The symptoms/episode began/occurred snw acutely. The symptoms do not radiate. Associated signs and symptoms: none. The patient has not experienced similar symptoms in the past. It is unknown whether or not the patient has recently seen a physician. Historical: - Allergies: :52 No Known Allergies; bp - Home Meds: :52 Vitamin D Oral [Active]; tamsulosin 0.4 mg Oral cp24 1 cap once daily [Active]; bp montelukast 10 mg Oral tab 1 tab once daily [Active]; lamotrigine 100 mg Oral tab 1 tab 2 times per day [Active]; Jevity 1.5 Doug 0.06 gram-1.5 kcal/mL Oral liqd four times a day [Active]; finasteride 5 mg Oral tab 1 tab once daily [Active]; atorvastatin 80 mg Oral tab 1 tab once daily [Active]; aspirin 325 mg Oral TbEC 1 tab once daily [Active]; Amitriptyline Oral [Active]; - PMHx: 11:52 CHF; CVA; Hypertension; Pneumonia; bp - Immunization history:: Adult Immunizations up to date. - Social history:: Smoking status: Patient denies any tobacco usage or history of. ROS: 15:01 Constitutional: Negative for fever, chills, and weight loss, Eyes: Negative for injury, snw pain, redness, and discharge, ENT: Negative for injury, pain, and discharge, Neck: Negative for injury, pain, and swelling, Cardiovascular: Negative for chest pain, palpitations, and edema, Respiratory: Negative for shortness of breath, cough, wheezing, and pleuritic chest pain, Back: Negative for injury and pain, : Negative for injury, bleeding, discharge, and swelling, MS/Extremity: Negative for injury and deformity, Skin: Negative for injury, rash, and discoloration, Neuro: Negative for headache, weakness, numbness, tingling, and seizure, Psych: Negative for depression, anxiety, suicide ideation, homicidal ideation, and hallucinations. 15:01 Abdomen/GI: Positive for g/tube port leaking - family states same tube X 1 year. Exam: 12:10 Head/Face: Normocephalic, atraumatic. snw 12:10 ENT: Nares patent. No nasal discharge, no septal abnormalities noted. Tympanic membranes are normal and external auditory canals are clear. Oropharynx with no redness, swelling, or masses, exudates, or evidence of obstruction, uvula midline. Mucous membranes moist. Neck: Trachea midline, no thyromegaly or masses palpated, and no cervical lymphadenopathy. Supple, full range of motion without nuchal rigidity, or vertebral point tenderness. No Meningismus. Chest/axilla: Normal chest wall appearance and motion. Nontender with no deformity. No lesions are appreciated. Cardiovascular: Regular rate and rhythm with a normal S1 and S2. No gallops, murmurs, or rubs. Normal PMI, no JVD. No pulse deficits. 12:10 Back: No spinal tenderness. No costovertebral tenderness. Full range of motion. 12:10 Constitutional: The patient appears awake, frail, obese, s/p debilitating remote CVA 12:10 Eyes: Extraocular movements: fixed gaze to left eye. 12:10 Respiratory: the patient does not display signs of respiratory distress, Respirations: shallow respirations, Breath sounds: rhonchi, are scattered. 12:10 Abdomen/GI: stoma with granuloma tissue at insertion site, Purple proximal port leaking, Attempt to remove NS from 20cc balloon unsuccessful, Tube freely moves up and down but balloon remains filled. Unable to remove.. 12:10 Musculoskeletal/extremity: Extremities: the patient is contracted, left sided contractures. Vital Signs: 11:49 BP 130 / 81; Pulse 78; Resp 16; Temp 97.8; Pulse Ox 97% ; bp 13:49 BP 141 / 76; Pulse 81; Resp 16; Pulse Ox 98% ; bp 15:15 BP 128 / 69; Pulse 79; Resp 16; Pulse Ox 95% ; bp 16:12 BP 130 / 73; Pulse 77; Resp 17; Pulse Ox 97% ; bp 17:20 BP 128 / 65; Pulse 65; Resp 17; Pulse Ox 100% ; bp 18:00 BP 148 / 83; Pulse 93; Resp 16; Pulse Ox 100% ; bp Procedures: 16:40 G-tube placement: a 24 Faroese catheter was placed, by the ED physician, Mynor gaitan MD defective Gtube removed and new tube replaced. enterostomy tube placement x -ray in progress. MDM: 12:20 Patient medically screened. snw 12:20 Physician consultation: Mynor Pulliam MD was called at 13:01, was contacted at 13:01, w regarding problem with PEG tube, and will see patient in ED, later today. 14:56 Data reviewed: vital signs, nurses notes. Counseling: I had a detailed discussion with snw the patient and/or guardian regarding: the historical points, exam findings, and any diagnostic results supporting the discharge/admit diagnosis, the presence of at least one elevated blood pressure reading (>120/80) during this emergency department visit, the need for outpatient follow up, for definitive care. ED course: attempted to remove water from balloon again, without success. 05/28 16:21 Order name: Enterostomy Tube Check w/contr; Complete Time: 17:13 snw 05/28 12:20 Order name: Consult Surgery-Mynor Pulliam MD (GENERAL SURGERY) w Administered Medications: No medications were administered Disposition: 19:12 Co-signature as Attending Physician, Benton Cota MD I agree with the assessment and kdr plan of care. Disposition: 05/28/20 17:08 Discharged to Home. Impression: Enterostomy malfunction - and replacement. - Condition is Stable. - Discharge Instructions: PEG Tube Home Guide. - Medication Reconciliation Form, Thank You Letter, Antibiotic Education, Prescription Opioid Use form. - Follow up: Private Physician; When: 2 - 3 days; Reason: Recheck today's complaints, Continuance of care, Re-evaluation by your physician. Follow up: Emergency Department; When: As needed; Reason: Worsening of condition. Signatures: Dispatcher [employer] EDMS Benton Cota MD MD kdr Waters, Shelly, BILINGUAL TEACHER-C BILINGUAL TEACHER-Csnw Mauro Bryson, RN RN bp Corrections: (The following items were deleted from the chart) 18:43 17:08 05/28/2020 17:08 Discharged to Home. Impression: Enterostomy malfunction - and bp replacement. Condition is Stable. Discharge Instructions: PEG Tube Home Guide. Forms are Medication Reconciliation Form, Thank You Letter, Antibiotic Education, Prescription Opioid Use. Follow up: Private Physician; When: 2 - 3 days; Reason: Recheck today's complaints, Continuance of care, Re-evaluation by your physician. Follow up: Emergency Department; When: As needed; Reason: Worsening of condition. snw
== END 2020-05-28 18:43 | disposition home or self-care (01) ==
LOC: ER 11:47
PROC: 0D20XUZ Change Feeding Device in Upper Intestinal Tract, External Approach (ICD-10-PCS; principal; 2020-05-28)
DX: K94.23 Gastrostomy malfunction (principal); I10 Essential (primary) hypertension; Z86.73 Personal history of transient ischemic attack (TIA), and cerebral infarction without residual deficits; Z79.82 Long term (current) use of aspirin
CPT/HCPCS: 49465; 99283

== ENCOUNTER 2020-09-09 20:25 | Inpatient (IN) | payer OTHER ==
--- OUTSIDE RECORDS SUMMARY | 2020-09-09 20:30 | XMS REPORT | Continuity of Care Document ---
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 08/09/2013 [place] [facility] Hypertensi Problem Active 2013-08-09 M emoria on 23:15:43 l Kaibeto Hypertensi on Active 08/09/2013 [place] [facility] Spasticity Problem Active 2013-08-09 M emoria 23:15:43 l [place] Spasticity Active 08/09/2013 [place] [facility] 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 23:15:43 l Mellitus Type 2 Rnacho n Diabetes Mellitus Active 4 [place] [facility] Hemispasti Problem Active 2013-08-09 M emoria city Of 23:15:43 l Left Side Ross - Hemispasti (Dominant city Of Side) Left Side - (Dominant Side) Active 4 [place] [facility] 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 Deficits Effects: Cognitive Deficits Active 4 [place] [facility] Subluxatio Problem Active 2013-08-09 M emoria n Of The 23:15:43 l Anterior Ross Left Subluxatio Shoulder n Of The Anterior Left Shoulder Active 4 [facility] Feelings Problem Active 2013-08-09 Mem oria Of Urinary 23:15:43 l Urgency Feelings Karolina nn Of Urinary Urgency Active 4 [facility] History of History of Problem Resolve [facility] 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 [place] Disease Disease Physici ans History of History of Problem Resolve Univers Diabetes Diabetes d ity of mellitus mellitus [place] Physici ans History of History of Problem Resolve Univers Epilepsy Epilepsy d ity of [place] Physici ans History of History of Problem Resolve [facility] essential essential d ity of hypertens[place]ens[place] Physici ans History of History of Problem Resolve Univers Stroke Stroke d ity of syndrome syndrome [place] [facility] ans Spasticity Spasticity Problem Active U nivers ity of [place] Physici ans Urinary Urinary Problem Active Univers urgency urgency ity of [place] Physici ans Type 2 Type 2 Problem [...] deficits ity of as late as late [place] effect of effect of Phys ici 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 Cerebral Cerebral Problem Active Unive rs embolism embolism ity of with with [place] cerebral cerebral Physic i infarction infarction an s Constipati Constipati Problem Active U nivers on, acute on, acute ity of [place] Physici ans Allergies, Adverse Reactions, Alerts Allergy Allergy Status Severity Reaction(s) Onset Inactive Treating Comm ents Source Name Type Date Date Clinician No Known No Known Active Memori a Drug Drug l Allergie Deshaun iVckers n s s Family History Family Member Diagnosis Comments Start Date Stop Date Source Unknown Family Family history of Family History University of Member Heart Disease [place] [facility] c[facility] Unknown Family Family history of Family History University of Member Diabetes Mellitus [place] [facility] Unknown Family Family history of Family History University of Member Stroke Syndrome [place] [facility] Unknown Family Family history of Family History University of Member Hypertension [place] [facility] ians Unknown Family Family History 2013-08-09 2013-08-09 Memori al Ross Member 23:15:43 23:15:43 Social History Social Habit Start Date Stop Date Quantity Comments Source Social History 2013-08-09 2013-08-09 Shea morton 23:15:43 23:15:43 Medications Ordered Filled Start Stop Current Ordering Indication Dosage Frequency Signature Comments Components Source Medication Medication Date Date Medication? Clinician (SIG) Name Name Albuterol Albuterol Yes Na Lechuga [address] [facility] Sulfate Sulfate 6-05 needed [facility] Amoxicillin Amoxicillin Yes Na Lechuga [address] [facility] 2-18 [facility]: Memoria 00 l [facility] Phenytoin Phenytoin 2017-05 Yes Na Lechuga [address] [facility] Sodium Sodium 0-17 [facility] - Extended Extended 00:00: Memor ia 00 l [facility] Zovirax Zovirax Yes Na Lechuga [address] [facility] 8-15 applicatio [facility] - 00:00: n to Memoria 00 affected l area [facility] Carvedilol Carvedilol Yes Q0.5D TAKE 1 Univers 3.125 MG 3.125 MG 3-05 TABLET ity o f Oral Tablet Oral Tablet 00:00: TWICE [place] 00 DAILY WITH Physici MEALS. ans Loratadine Loratadine Yes 1 QD TAKE 1 Univers 10 MG Oral 10 MG Oral 3-05 TABLET i ty of Tablet Tablet 00:00: DAILY. 00 Physici ans Finasteride Finasteride Yes 1 QD TAKE 1 Univers 5 MG Oral 5 MG Oral 3-05 TABLET ity of Tablet Tablet 00:00: DAILY. Physici ans Montelukast Montelukast Yes 1 QD TAKE 1 Univers Sodium 10 Sodium 10 3-05 TABLET ity of MG Oral MG Oral 00:00: DAILY. [place] Tablet Tablet 00 Physici ans Polyethylen Polyethylen Yes SARAH QD MIX 1 Univers e Glycol e Glycol 3-05 SANDS CAPFUL it y of 3350 Oral 3350 Oral 00:00: M.D. (17GM) IN [place] Powder Powder 00 8 [place]UNCES Physici OF WATER, ans JUICE, OR TEA AND DRINK DAILY. Bystolic 5 Yes (Active) Me moria MG Oral 3-13 l Tablet 23:15: Ross 43 Tamsulosin Yes (Active) Me moria HCl 0.4 MG 3-13 l Oral 23:15: Ross Ray 43 Melatonin Yes (Active) Mem oria CAPS 3-13 l 23:15: Ross 43 Gabapentin Yes (Active) Me moria TABS 3-13 l 23:15: Ross 43 LamoTRIgine Yes (Active) M emoria 100 MG Oral 3-13 l Tablet 23:15: Ross 43 Aspirin 325 Yes (Active) M emoria MG Oral 3-13 l Tablet 23:15: Ross 43 AmLODIPine Yes (Active) Me moria Besylate 10 3-13 l MG Oral 23:15: Ross Infante 43 Atorvastati Yes (Active) M emoria n Calcium 3-13 l 80 MG Oral 23:15: Ross Infante 43 Diovan 160 Yes (Active) Me moria MG Oral 3-13 l Tablet 23:15: Ross 43 Baclofen 10 Yes ; Start Mem oria MG Oral 8 Date: l Tablet 05:00: 01/25/2013 Karolina nn 00 ; End Date: (Active) Baclofen 10 Baclofen 10 Yes SARAH 1 TAKE 1 Univers MG Oral MG Oral 8 SANDS TABLET ity of Tablet Tablet 00:00: M.D. BEDTIME [place] 00 Physici ans Lorazepam Lorazepam Yes Na Lechuga [...] [facility] - MOUTH AT Memoria BEDTIME l Outpati ent Clinics Cozaar Cozaar Yes Na Lechuga [address] [facility] Coreg Coreg Yes Na Lechuga one tablet [facility] Loratadine Loratadine Yes Na Lechuga TAKE [address] [facility] TABLET BY [facility] - MOUTH Memoria EVERY DAY l [facility] ent Clinics Albuterol Albuterol Yes Na Lechuga INHALE [address] [facility] Sulfate HFA Sulfate HFA PUFFS [facility] - NEEDED Memoria EVERY 4-6 l HOURS 30 [facility] Clinics Dilantin Dilantin Yes Na Lechuga [address] [facility] Phenytoin Phenytoin Yes Na Lechuga [address] [facility] Lipitor Lipitor Yes Na Lechuga TAKE [address] [facility] TABLET BY [facility] - MOUTH AT Memoria BEDTIME l [facility]ics Finasteride Finasteride Yes Na Lechuga TAKE [address] [facility] TABLET BY [facility] - MOUTH Memoria EVERY DAY l [facility]ics Atorvastati Atorvastati Yes 1 QD TAKE 1 Univers n Calcium n Calcium TABLET ity of 80 MG Oral 80 MG Oral DAILY. [place] Tablet Tablet Physici ans Ventolin Ventolin Yes Na Lechuga Brand [facility] HFA HFA medically [facility] - necessary Memoria 2 puffs as l needed [facility] Clinics Flonase Flonase Yes Na Lechuga [address] [facility] each [facility] - nostril Memoria l [facility] Lamictal Lamictal Yes Na Lechuga [address] [facility] Amlodipine Amlodipine Yes Na Lechuga [address] [facility] Besylate Besylate kes - [facility] l [facility] Dilantin Dilantin Yes Na Lechuga [address] [facility] Montelukast Montelukast Yes Na Lechuga TAKE [address] [facility] Sodium Sodium TABLET BY [facility] M[facility]TH Memoria [facility] Flomax Flomax Yes Na Lechuga [address] [facility] Aspirin 325 Aspirin 325 Yes 1 QD TAKE 1 Univers MG Oral MG Oral TABLET ity of Tablet Tablet DAILY [place] Physici ans LamoTRIgine LamoTRIgine Yes 1 Q0.5D TAKE 1 Univers 100 MG Oral 100 MG Oral TABLET ity of Tablet Tablet TWICE [place] DAILY Physici ans Immunizations Ordered Filled Immunization Date Status Comments [facility] e Immunization Name Name Irasema FluREDD 2018-04-[address] [facility] Vital Signs Vital Name Observation Time Observation Value Comments Source BP Systolic 2017-08-01 09:38:00 122 mm[Hg] Location: TIM Lylyer sity of Position: [place] Physician s Sitting BP Diastolic 2017-08-01 09:38:00 84 mm[Hg] Location: KHADIJAHSharmin Donato sitmandy of Position: [place] Physician s Sitting Height 2017-08-01 09:38:00 69 [in_us] Universi ty of [place] [facility]ician s Heart Rate 2017-08-01 09:38:00 88 /min Location: Universi ty of Brachial Artery; [place] Physi cians Procedures This patient has no known procedures. Encounters Start End Encounter Admission Attending Care Care Encounter Source Date/Time Date/Time Type Type Clinicians Facility Department ID 2020-08-20 2020-08-20 Outpatient [facility] [id number] [facility] 2020-08-19 2020-08-19 Outpatient [facility]LML[facility] [id number] [facility] 2020-08-13 2020-08-13 Outpatient [facility]LMLC [facility] [id number] [facility] 2020-08-13 2020-08-13 Outpatient [facility]LMLC [facility] [id number] [facility] 2020-07-31 2020-07-31 Outpatient [facility]LMLC [facility] [id number] [facility] 2020-07-30 2020-07-30 Outpatient [facility]LMLC STL[facility] [id number] [facility] 2020-07-29 2020-07-29 Outpatient [facility]ML[facility] [id number] [facility] 2020-07-02 2020-07-02 Outpatient [facility]LMLC [facility] [id number] [facility] 2020-05-20 2020-05-20 Outpatient STLMLC STLC [id number] [facility] 2020-05-02 2020-05-02 Outpatient [facility]LMLC ST[facility] [id number] [facility] 2020-05-01 2020-05-01 Outpatient [facility]LMLC STL[facility]C [id number] [facility] 2020-04-21 2020-04-21 Outpatient [facility]LMLC [facility] [id number] [facility] 2020-04-04 2020-04-04 Outpatient [facility]LMLC [facility] [id number] [facility] 2020-04-02 2020-04-02 Outpatient [facility]LMLC STL[facility]C [id number] [facility] 2020-03-28 2020-03-28 Outpatient [facility]LMLC STL[facility] [id number] [facility] 2020-03-24 2020-03-24 Outpatient [facility]LMLC STLMLC [id number] [facility] 2020-01-17 2020-01-17 [facility] [id number] [facility] 09:20:00 09:20:00 t [place] [employer] s - Drive [facility] l Medicine Outpati ent Clinics 2020-01-17 2020-01-17 [facility] [id number] [facility] 09:20:00 09:20:[address] [employer] - Drive [facility] l Medicine Outpati ent Clinics 2019-12-31 2019-12-31 [facility] [id number] 15:08:00 15:08:[address] Keypr s - Drive [facility] Medicine l Medicine Outpati ent Clinics 2019-12-29 2019-12-29 [facility] [id number] [facility] 06:18:00 06:18:00 t [place] [employer] - [employer] [facility] Medicine l Medicine Outpati ent Clinics 2019-12-10 2019-12-10 [facility] [id number] 14:51:00 14:51:00 t [place] [employer] - [employer] [facility] Medicine l Medicine Outpati ent Clinics 2019-11-09 2019-11-09 [facility] [id number] 09:09:00 09:09:00 t [place] [employer] [facility] Medicine l Medicine Outpati ent Clinics 2019-10-31 2019-10-31 [facility] [id number] 16:53:00 16:53:00 t [place] [employer] [facility] l Medicine Outpati ent Clinics 2019-10-03 2019-10-03 [facility] [id number] 14:44:00 14:44:00 t [place] [employer] [facility] Medicine l Medicine Outpati ent Clinics 2019-08-31 2019-08-31 [facility] [id number] 11:40:00 11:40:00 t [place] [employer] [facility] Medicine l Medicine Outpati ent Clinics 2019-08-28 2019-08-28 [facility] [id number] [facility] 13:17:00 13:17:00 t [employer] [facility] Medicine l Medicine Outpati ent Clinics 2019-08-27 2019-08-27 [facility] [id number] [address] 10:11:00 10:11:00 t [place] [employer] [facility] Medicine l Medicine Outpati ent Clinics 2019-07-03 2019-07-03 [facility] [id number] [facility] 08:07:00 08:07:00 t [place] [employer] [facility] Medicine l Medicine Outpati ent Clinics 2019-07-02 2019-07-02 [facility] [id number] [facility] 16:02:00 16:02:00 t [place] [employer] [facility] Medicine l Medicine Outpati ent Clinics 2019-06-19 2019-06-19 [facility] [id number] [facility] 15:14:00 15:14:[address] Luke s - Drive [facility] Medicine l Medicine Outpati ent Clinics 2019-06-11 2019-06-11 [facility] [id number] 09:08:00 09:08:[address] Luke s - Drive [facility] l Medicine Outpati ent Clinics 2019-05-11 2019-05-11 [facility] [id number] [facility] 09:00:00 09:00:[address] Luke s - Drive [facility] Medicine l Medicine Outpati ent Clinics 2019-05-07 2019-05-07 [facility] [id number] [facility] 09:29:00 09:29:00 t [place] [employer] Luke s - Drive [facility] Medicine l Medicine Outpati ent Clinics 2019-03-12 2019-03-12 [facility] [id number] [facility] 08:27:00 08:27:[address] Luke s - Drive [facility] l Medicine Outpati ent Clinics 2019-02-15 2019-02-15 [facility] [id number] [facility] 14:18:00 14:18:00 t [place] [employer] Luke s - Drive [facility] l Medicine Outpati ent Clinics 2019-02-02 2019-02-02 [facility] [id number] [facility] 11:00:00 11:00:[address] Luke s - Drive [facility] Medicine l Medicine Outpati ent Clinics 2019-01-22 2019-01-22 [facility] [id number] [facility] 14:41:00 14:41:[address] Luke s - Drive [facility] Medicine l Medicine Outpati ent Clinics 2018-12-26 2018-12-26 [facility] [id number] 16:28:00 16:28:[address] Luke s - Drive [facility] Medicine Outpati ent Clinics 2018-12-20 2018-12-20 [facility] [id number] 11:30:00 11:30:00 t [place] [employer] s - Drive [facility] Medicine l Medicine Outpati ent Clinics 2018-12-05 2018-12-05 [facility] [id number] 10:39:00 10:39:00 t [facility] Lu s - Road [facility] Medicine Outpati ent Clinics 2018-12-04 2018-12-04 [facility] [id number] 09:54:00 09:54:00 t [place] [employer] Luke s - Drive [facility] l Medicine Outpati ent Clinics 2018-11-22 2018-11-22 [facility] [id number] 16:41:00 16:41:00 t [employer] [employer] Luke s - Drive [facility] Medicine Outpati ent Clinics 2018-11-01 2018-11-01 [facility] [id number] [facility] 16:14:00 16:14:00 t [employer] s - Drive [facility] Medicine Outpati ent Clinics 2018-11-01 2018-11-01 [facility] [id number] 09:20:00 09:20:00 t [place] [employer] s - Drive [facility] Medicine l Medicine Outpati ent Clinics 2018-10-13 2018-10-13 [facility] [id number] 12:00:00 12:00:00 t [place] [employer] s - Drive [facility] l Medicine Outpati ent Clinics 2018-09-28 2018-09-28 [facility] [id number] 15:47:00 15:47:00 t [employer] Luke s - Drive [facility] Medicine Medicine Outpati ent Clinics 2018-09-26 2018-09-26 [facility] [id number] [facility] 16:14:00 16:14:00 t [place]leton [employer] s - Drive [facility] Medicine Outpati ent Clinics 2018-07-17 2018-07-17 [facility] [id number] 10:00:00 10:00:00 t [employer] [employer] s - Drive [facility] l Medicine Outpati ent Clinics 2018-06-30 2018-06-30 [facility] [id number] [facility] 08:58:00 08:58:[address] Luke s - Drive [facility] Medicine l Medicine Outpati ent Clinics 2018-06-20 2018-06-20 [facility] [id number] [facility] 11:28:00 11:28:[address] Luke s - Drive [facility] Medicine l Medicine Outpati ent Clinics 2018-05-17 2018-05-17 [facility] [id number] [facility] 16:52:00 16:52:[address] Luke s - Drive [facility] Medicine l Medicine Outpati ent Clinics 2018-05-17 2018-05-17 [facility] [id number] [facility] 11:49:00 11:49:[address] Luke s - Drive [facility] Medicine l Medicine Outpati ent Clinics 2018-04-18 2018-04-18 [facility] [id number] 11:00:00 11:00:[address] Luke s - Drive [facility] Medicine l Medicine Outpati ent Clinics 2018-03-15 2018-03-15 [facility] [id number] [facility] 10:40:00 10:40:[address] Luke s - Drive [facility] Medicine l Medicine Outpati ent Clinics 2018-03-03 2018-03-03 [facility] [id number] [facility] 16:17:00 16:17:[address] Luke s - Drive [facility] Medicine l Medicine Outpati ent Clinics 2018-01-11 2018-01-11 [facility] [id number] [facility] 10:45:00 10:45:[address] Luke s - Drive [facility] Medicine l Medicine Outpati ent Clinics 2018-01-09 2018-01-09 [facility] [id number] [facility] [facility] 11:24:00 11:24:[address] Luke s - Drive [facility] Medicine l Medicine Outpati ent Clinics 2018-01-03 2018-01-03 [facility] [id number] [facility] 11:12:00 11:12:[address] Luke s - Drive [facility] Medicine l Medicine Outpati ent Clinics 2017-12-12 2017-12-12 [facility] [id number] [facility] 11:00:00 11:00:[address] Luke s - Drive [facility] Medicine Medicine Outpati ent Clinics 2017-11-18 2017-11-18 [facility] [id number] [facility] 14:30:00 14:30:00 t [place]leton [employer] s - Drive [facility] Medicine Outpati ent Clinics 2017-11-09 2017-11-09 [facility] [id number] [facility] 15:39:00 15:39:[address] Luke s - Drive [facility] Medicine l Medicine Outpati ent Clinics 2017-11-07 2017-11-07 [facility] [id number] 16:24:00 16:24:00 t [place]leton [employer] s - Drive [facility] Medicine Outpati ent Clinics 2017-10-28 2017-10-28 [facility] [id number] [facility] 10:01:00 10:01:00 t [place] [employer] s - Drive [facility] Medicine Outpati ent Clinics 2017-10-11 2017-10-11 [facility] [id number] 10:00:00 10:00:00 t [place]leton [employer] s - Drive [facility] Medicine Outpati ent Clinics 2017-09-23 2017-09-23 [facility] [id number] [facility] 15:37:00 15:37:00 t [place]leton [employer] s - Drive [facility] Medicine Outpati ent Clinics 2017-09-12 2017-09-12 [facility] [id number] 05:29:00 05:29:00 t [place] [employer] s - Drive [facility] Medicine Medicine Outpati ent Clinics 2017-09-06 2017-09-06 [facility] [id number] 14:45:00 14:45:00 t [place] [employer] s - Drive [facility] Medicine Outpati ent Clinics 2017-08-01 2017-08-01 MAHSA [facility] [id number] [facility] 09:00:00 09:00:00 t; abena SMITH M.D. [place] JEFFREY, Physici M.D. ans 2016-11-23 2016-11-[facility] UTP [id number] Univers 10:45:00 10:45:00 t; Debbie EDOUARD y of [place], [place] Stanislav EDOUARD M.D. ans 2015-12-16 2015-12-16 [facility] RADHAAD[facility]ALDOMAHSA UTP [id number] Univers 08:30:00 08:30:00 t; Debbie EDOUARD y of [place], [place] Stanislav EDOUARD M.D. ans 2015-09-16 2015-09-16 [facility] RADHAMikeSHREYAUNM [facility] UTP [id number] Univers 09:15:00 09:15:00 t; Debbie EDOUARD y of [place], [place] Stanislav EDOUARD M.D. ans 2013-08-09 2013-08-09 Outpatient 3 3 [id number] 18:15:44 18:15:43 2013-04-05 2013-04-05 Outpatient 3 3 [id number] 15:47:44 15:47:44 2013-01-27 2013-01-27 Outpatient 3 3 [id number] 02:48:12 02:47:51 2013-01-26 2013-01-26 Outpatient 3 3 [id number] 04:49:56 04:49:36 2011-12-21 2011-12-21 Outpatient 3 3 [id number] 13:48:32 13:48:19 2011-12-13 2011-12-13 Outpatient 3 3 [id number] 17:01:00 17:00:47 2011-12-10 2011-12-10 Outpatient 3 3 [id number] 15:02:14 15:01:59 Results This patient has no known results.
[2020-09-09 21:34] LABS: Absolute Lymphocytes (CBC) 0.4 K/uL (0.7-4.9); Basophils % 0.3 % (0-1.3); Hematocrit 30.9 % (39.6-49.0); Lymphocytes % 2.9 % (15.3-44.8)
[2020-09-09 21:47] LABS: Protime INR 0.96
[2020-09-09 21:54] LABS: ALT/SGPT 28 U/L (12-78); AST/SGOT 21 U/L (15-37); Albumin 2.8 g/dL (3.4-5.0); Alkaline Phosphatase 124 U/L (45-117); BUN Blood Urea Nitrogen 41 mg/dL (7-18); Bicarbonate 33 mmol/L (21-32); Bilirubin Direct 0.1 mg/dL (0-0.2); Bilirubin Total 0.3 mg/dL (0.2-1.0); Glucose Level 265 mg/dL (74-106); Lipase 182 U/L (73-393); Magnesium 3.2 mg/dL (1.8-2.4); NT PRO-BNP 410 pg/mL (<450); Potassium 4.6 mmol/L (3.5-5.1); Sodium Level 134 mmol/L (136-145); Troponin (Emerg Dept Use Only) < 0.02 ng/mL (0.0-0.045)
[2020-09-09 23:21] LABS: Urine Blood Negative (Negative); Urine Glucose Negative (Negative); Urine Protein 2+ (Negative)
[2020-09-09 23:31] LABS: SARS-COV-2 RT PCR NEGATIVE (NEGATIVE)
[2020-09-10 00:06] LABS: Anisocytosis 2+; Blood Morphology Comment NOTED (NOT SEEN); Hypochromasia 2+; Platelet Estimate ADEQ
--- NOTE | 2020-09-10 00:09 | ER ---
Nurse's Notes [facility] Name: Timothy Ward Age: 80 yrs Sex: Male : 1940 Arrival Date: 09/09/2020 Time: 20:34 Bed 13 Private MD: Diagnosis: Dyspnea;Retention of urine;Hydronephrosis with ureteral stricture, not elsewhere classified-secondary retention;Anemia, unspecified;Elevated white blood cell count;Asthma-exacerbation;Bandemia Presentation: 09/09 20:34 Chief complaint: EMS states: called EMS stating that patient was SOB and had zb abdominal pain. Patient has wheezing bilaterally but denies abdominal pain on arrival. Patient had a stroke about 7 years ago. alert and oriented but has expressive aphasia present. Coronavirus screen: At this time, the client does not indicate any symptoms associated with coronavirus-19. Ebola Screen: No symptoms or risks identified at this time. Initial Sepsis Screen: Does the patient meet any 2 criteria? RR > 20 per min. Does the patient have a suspected source of infection? No. Patient's initial sepsis screen is negative. Risk Assessment: Do you want to hurt yourself or someone else? Patient reports no desire to harm self or others. Onset of symptoms was September 09, 2020. 20:34 Acuity: DANIELLE 3 zb 20:34 Method Of Arrival: EMS: [facility] zb 20:39 Initial Sepsis Screen: Does the patient meet any 2 criteria?. zb Triage Assessment: 20:30 General: Appears in no apparent distress. uncomfortable, Behavior is agitated, anxious. zb Pain: Complains of pain in abdomen and left leg Unable to use pain scale. Patient appears to be grimacing, to be moaning. Neuro: Level of Consciousness is awake, alert, obeys commands, Oriented to person, . Breading Machine Tender are weak on left Paralysis in left arm(s) Speech is slurred, with expressive aphasia noted, Facial droop on left, hx of stroke . Cardiovascular: Heart tones S1 S2 present Patient's skin is warm and dry. Cardiovascular: Edema is 1+ to left midcalf and right midcalf. Respiratory: GI: Abdomen is distended. : Urine is clear, Swelling noted on scrotum. Derm: Skin is intact, is healthy with good turgor, Skin is dry, Skin is normal, Skin temperature is warm. Musculoskeletal: Range of motion: limited in left arm and left leg. Historical: - Allergies: 20:43 No Known Allergies; zb - Home Meds: 20:42 Amitriptyline Oral [Active]; tamsulosin 0.4 mg Oral cp24 1 cap once daily [Active]; zb finasteride 5 mg Oral tab 1 tab once daily [Active]; atorvastatin 80 mg Oral tab 1 tab once daily [Active]; lamotrigine 100 mg Oral tab 1 tab 2 times per day [Active]; Trelegy daily [Active]; - PMHx: 20:42 CHF; CVA; Hypertension; Pneumonia; zb - PSHx: 20:42 PEG tube; zb - Immunization history:: Adult Immunizations up to date. - Social history:: Smoking status: unknown. - Family history:: not pertinent. Screenin:58 Abuse screen: Denies threats or abuse. Denies injuries from another. Nutritional zb screening: No deficits noted. Tuberculosis screening: No symptoms or risk factors identified. Fall Risk Fall in past 12 months (25 points). Secondary diagnosis (15 points) CVA, IV access (20 points). Ambulatory Aid- None/Bed Rest/Nurse Assist (0 pts). Gait- Impaired (20 pts.). Mental Status- Oriented to own ability (0 pts). Total Baugh Fall Scale indicates High Risk Score (45 or more points). Fall prevention measures have been instituted. Side Rails Up X 2 Placed Close to Nursing Station Frequent Obs/Assessments Occuring As available patient and family educated on Fall Prevention Program and Strategies. Assessment: 22:50 Reassessment: patient stated breathing rapidly o2 applied on 3L. currently stating at zb 99%. 23:00 Reassessment: Patient appears in no apparent distress at this time. Patient and/or zb family updated on plan of care and expected duration. Pain level reassessed. Patient is alert, oriented x 3, equal unlabored respirations, skin warm/dry/pink. family remains at bedside. patient changed during this time. RR increased due to movement and discomfort. 09/10 00:01 Reassessment: Patient appears in no apparent distress at this time. Patient and/or zb family updated on plan of care and expected duration. Pain level reassessed. Patient is alert, oriented x 3, equal unlabored respirations, skin warm/dry/pink. patient currently resting, at bedside. spoke with ECP. patient will be admitted. no issues with grissom. IV fluid infusing. 01:27 Reassessment: Patient and/or family updated on plan of care and expected duration. Pain jb4 level reassessed. Pt remains tachypniec at 21 RR. Reports feeling better after having the breathing treatment. Agreed to stay tonight in the hospital to see the DrJoann in the morning. Vital Signs: 09/09 20:34 BP 148 / 90; Pulse 107; Resp 23; Temp 97.5; Pulse Ox 98% on R/A; Weight 86.18 kg; zb Height 5 ft. 9 in. (175.26 cm); 21:00 BP 136 / 85; Pulse 108; Resp 24; Pulse Ox 100% on R/A; zb 22:00 BP 126 / 74; Pulse 101; Resp 25; Pulse Ox 98% on R/A; zb 23:00 BP 138 / 71; Pulse 102; Resp 30; Pulse Ox 100% 3 lpm ; zb 23:57 Pulse 101; Resp 28; Pulse Ox 1% on NC; zb 04 01:27 BP 154 / 82; Pulse 100; Resp 21; Pulse Ox 100% on R/A; jb4 09/09 20:34 Body Mass Index 28.06 (86.18 kg, 175.26 cm) zb ED Course: 09/09 20:34 Patient arrived in ED. jb4 20:34 Debbie Valverde, JAYJAY is Primary Nurse. zb 20:39 Triage completed. zb 20:40 Cuate Vera MD is Attending Physician. omar 21:30 XRAY Chest (1 view) In Process Unspecified. EDMS 21:30 Inserted saline lock: 20 gauge in right hand, using aseptic technique. Blood collected. dh4 22:00 Patient has correct armband on for positive identification. Placed in gown. Bed in low zb position. Call light in reach. Side rails up X 1. 22:42 CT Chest Abdomen Pelvis W/O Contrast In Process Unspecified. EDMS 23:15 Grissom cath inserted, using sterile technique, 16 Fr., by ED staff, balloon inflated, to zb gravity drainage, urine specimen collected. 23:59 engine monitor on. Pulse ox on. NIBP on. Door closed. Noise minimized. zb 23:59 Arm band placed on. zb 09/10 00:05 Dany Ritchie MD is Hospitalizing Provider. omar 00:09 Delfin Suarez DO is Hospitalizing Provider. omar 02:23 No provider procedures requiring assistance completed. Patient admitted, IV remains in jb4 place. Administered Medications: 09/09 23:21 Drug: NS 0.9% 1000 ml Route: IV; Rate: 125 ml/hr; Site: right antecubital; zb 23:21 Drug: Meropenem 1 grams Route: IV; Rate: per protocol; Site: right antecubital; zb 09/10 00:06 Drug: NS 0.9% 1000 ml Route: IV; Rate: 1 bolus; Site: right antecubital; zb 01:00 Follow up: Response: No adverse reaction; IV Status: Completed infusion; IV Intake: jb4 1000ml 00:36 Drug: Xopenex (levalbuterol) 2.5 mg Route: Inhalation; jb4 02:09 Follow up: Response: No adverse reaction; Marked relief of symptoms jb4 00:36 Drug: SOLU-Medrol (methylPrednisoLONE) 125 mg Route: IVP; Site: right antecubital; jb4 01:00 Follow up: Response: No adverse reaction jb4 01:00 Follow up: Response: No adverse reaction; Marked relief of symptoms jb4 00:36 Drug: AtroVENT (ipratropium) Aerosol 0.5 mg Route: Inhalation; jb4 02:09 Follow up: Response: No adverse reaction; Marked relief of symptoms jb4 Intake: 01:00 IV: 1000ml; Total: 1000ml. jb4 Output: 09/09 23:15 Urine: 300ml (Grissom); Total: 300ml. zb Outcome: 09/10 00:09 Decision to Hospitalize by Provider. omar 02:23 Discharged to home ambulatory. jb4 02:23 Condition: stable 02:23 Discharge instructions given to patient, family, Instructed on the need for admit, Demonstrated understanding of instructions. 02:51 Patient left the ED. jb4 Signatures: Dispatcher [employer] EDCaute Hdz MD MD cha Bryson, James RN RN 4 Heath Lombardo 4 Brown, Debbie, RN RN zb
--- NOTE | 2020-09-10 00:10 | EDPHYS ---
Physician Documentation [facility] Name: Timothy Andres Age: 80 yrs Sex: Male : 1940 Arrival Date: 09/09/2020 Time: 20:34 Bed 13 Private MD: ED Physician Cuate Vera HPI: 09/09 20:58 This 80 yrs old Black Male presents to ER via EMS with complaints of SOB AND WEAK. omar 20:58 The patient has shortness of breath at rest, with light activity. Onset: The omar symptoms/episode began/occurred 3 day(s) ago. Duration: The symptoms are continuous, and are steadily getting worse. The patient's shortness of breath has no apparent modifying factors. The patient or guardian reports cough, difficulty breathing, flu symptoms, arthralgias, myalgias. Onset: The symptoms/episode began/occurred. Modifying factors: The symptoms are alleviated by nothing. the symptoms are aggravated by nothing. LEFT SIDE WEAKNESS, COUGH , SOB X 1 WEEK. Associated signs and symptoms: Pertinent positives: non-productive cough. Severity of symptoms: At their worst the symptoms were mild moderate in the emergency department the symptoms are unchanged. Associated signs and symptoms: Pertinent positives: sore throat. Historical: - Allergies: 20:43 No Known Allergies; zb - Home Meds: 20:42 Amitriptyline Oral [Active]; tamsulosin 0.4 mg Oral cp24 1 cap once daily [Active]; zb finasteride 5 mg Oral tab 1 tab once daily [Active]; atorvastatin 80 mg Oral tab 1 tab once daily [Active]; lamotrigine 100 mg Oral tab 1 tab 2 times per day [Active]; Trelegy daily [Active]; - PMHx: 20:42 CHF; CVA; Hypertension; Pneumonia; zb - PSHx: 20:42 PEG tube; zb - Immunization history:: Adult Immunizations up to date. - Social history:: Smoking status: unknown. - Family history:: not pertinent. ROS: 20:58 Constitutional: Negative for fever, chills, and weight loss, Eyes: Negative for injury, omar pain, redness, and discharge, ENT: Negative for injury, pain, and discharge, Neck: Negative for injury, pain, and swelling, Cardiovascular: Negative for chest pain, palpitations, and edema, Abdomen/GI: Negative for abdominal pain, nausea, vomiting, diarrhea, and constipation, Back: Negative for injury and pain, : Negative for injury, bleeding, discharge, and swelling, MS/Extremity: Negative for injury and deformity, Skin: Negative for injury, rash, and discoloration, Neuro: Negative for headache, weakness, numbness, tingling, and seizure, Psych: Negative for depression, anxiety, suicide ideation, homicidal ideation, and hallucinations, Allergy/Immunology: Negative for hives, rash, and allergies, Endocrine: Negative for neck swelling, polydipsia, polyuria, polyphagia, and marked weight changes, Hematologic/Lymphatic: Negative for swollen nodes, abnormal bleeding, and unusual bruising. 20:58 Respiratory: Positive for cough, shortness of breath, at rest. Exam: 20:58 Constitutional: This is a well developed, well nourished patient who is awake, alert, omar and in no acute distress. Head/Face: Normocephalic, atraumatic. Eyes: Pupils equal round and reactive to light, extra-ocular motions intact. Lids and lashes normal. Conjunctiva and sclera are non-icteric and not injected. Cornea within normal limits. Periorbital areas with no swelling, redness, or edema. ENT: Nares patent. No nasal discharge, no septal abnormalities noted. Tympanic membranes are normal and external auditory canals are clear. Oropharynx with no redness, swelling, or masses, exudates, or evidence of obstruction, uvula midline. Mucous membranes moist. Neck: Trachea midline, no thyromegaly or masses palpated, and no cervical lymphadenopathy. Supple, full range of motion without nuchal rigidity, or vertebral point tenderness. No Meningismus. Chest/axilla: Normal chest wall appearance and motion. Nontender with no deformity. No lesions are appreciated. Abdomen/GI: Soft, non-tender, with normal bowel sounds. No distension or tympany. No guarding or rebound. No evidence of tenderness throughout. Back: No spinal tenderness. No costovertebral tenderness. Full range of motion. Male : Normal genitalia with no discharge or lesions. Skin: Warm, dry with normal turgor. Normal color with no rashes, no lesions, and no evidence of cellulitis. MS/ Extremity: Pulses equal, no cyanosis. Neurovascular intact. Full, normal range of motion. Neuro: Awake and alert, GCS 15, oriented to person, place, time, and situation. Cranial nerves II-XII grossly intact. Motor strength 5/5 in all extremities. Sensory grossly intact. Cerebellar exam normal. Normal gait. Psych: Awake, alert, with orientation to person, place and time. Behavior, mood, and affect are within normal limits. 20:58 Cardiovascular: Rate: tachycardic, Rhythm: regular, Pulses: Pulses are 4+ in bilateral radial, brachial, femoral, popliteal, posterior tibial and and dorsalis pedis arteries.. Heart sounds: normal, Edema: is not appreciated, JVD: is not appreciated. 22:01 ECG was reviewed by the Attending Physician. omar 22:11 Musculoskeletal/extremity: ROM: left arm/leg hemiparesis, Circulation is intact in all omar extremities. Compartment Syndrome exam of affected extremity: is normal. DVT Exam: No signs of deep vein thrombosis. no pain, no swelling, no tenderness, negative Homans' sign noted on exam, no appreciated bluish discoloration, no erythema, no increased warmth. Vital Signs: 20:34 BP 148 / 90; Pulse 107; Resp 23; Temp 97.5; Pulse Ox 98% on R/A; Weight 86.18 kg; zb Height 5 ft. 9 in. (175.26 cm); 21:00 BP 136 / 85; Pulse 108; Resp 24; Pulse Ox 100% on R/A; zb 22:00 BP 126 / 74; Pulse 101; Resp 25; Pulse Ox 98% on R/A; zb 23:00 BP 138 / 71; Pulse 102; Resp 30; Pulse Ox 100% 3 lpm ; zb 23:57 Pulse 101; Resp 28; Pulse Ox 1% on NC; zb 09/10 01:27 BP 154 / 82; Pulse 100; Resp 21; Pulse Ox 100% on R/A; jb4 09/09 20:34 Body Mass Index 28.06 (86.18 kg, 175.26 cm) zb MDM: 09/09 20:40 Patient medically screened. omar 22:04 Differential diagnosis: asthma, Bronchitis CHF exacerbation, bronchitis, URI, omar pneumonia, pulmonary edema, Pulmonary Embolism reactive airway disease, Sepsis Unstable Angina. Antibiotic administration: Merrem. Differential Diagnosis sepsis, flu. The patient's Wells Deep Vein Thrombosis Score was calculated as follows: Heart Rate >100 BPM (1.5 Pts) Imm/Surg in last 4 wks (1.5 Pts) Total Score: 3-6 Pts - Mod Risk. The patient's pulmonary embolism risk score was calculated as follows: the patients heart rate is greater than 100 beats per minute (1.5 Pts) patient has experienced immobilization or surgery in the last four weeks (1.5 Pts) Total Score: 3-6 points. This patient was found to be at moderate risk for a pulmonary embolism by using the Well's assessment criteria. Immunization status: Pneumococcal vaccine: Influenza vaccine: Data reviewed: vital signs, nurses notes, EMS record, lab test result(s), EKG, radiologic studies, plain films. Data interpreted: monitoring and evaluation advisor: rate is 107 beats/min, rhythm is regular, Pulse oximetry: on room air is 98 %. Test interpretation: by ED physician or midlevel provider: ECG, plain radiologic studies. Counseling: I had a detailed discussion with the patient and/or guardian regarding: the historical points, exam findings, and any diagnostic results supporting the discharge/admit diagnosis, lab results, radiology results, the need for further work-up and treatment in the hospital. 09/09 20:57 Order name: Basic Metabolic Panel 09/09 20:57 Order name: CBC with Diff 09/09 20:57 Order name: LFT's 09/09 20:57 Order name: Magnesium 09/09 20:57 Order name: NT PRO-BNP 09/09 20:57 Order name: PT-INR 09/09 20:57 Order name: Troponin (emerg Dept Use Only) 09/09 20:57 Order name: Blood Culture Adult (2) 09/09 20:57 Order name: Lactate; Complete Time: 22:06 09/09 20:57 Order name: Urine Culture 09/09 20:57 Order name: Lipase; Complete Time: 22:06 omar 09/09 20:57 Order name: Basic Metabolic Panel; Complete Time: 22:06 EDMS 09/09 20:57 Order name: XRAY Chest (1 view) 09/09 20:57 Order name: CBC with Automated Diff; Complete Time: 00:18 EDIN 09/09 20:57 Order name: Liver (Hepatic) Function; Complete Time: 22:06 EDIN 09/09 20:57 Order name: Magnesium; Complete Time: 22:06 [facility] 09/09 20:57 Order name: NT PRO-BNP; Complete Time: 22:06 [facility] 09/09 20:57 Order name: Protime (+INR); Complete Time: 22:06 [facility] 09/09 20:58 Order name: Troponin (Emerg Dept Use Only); Complete Time: 22:06 [facility] 09/09 21:44 Order name: Manual Differential; Complete Time: 00:18 [facility] 09/09 22:10 Order name: CT Chest Abdomen Pelvis W/O Contrast [facility] 09/09 23:21 Order name: Urine Dipstick-Ancillary; Complete Time: 23:43 [facility] 09/09 23:31 Order name: COVID-19/FLU A+B; Complete Time: 23:45 [facility] 09/10 01:55 Order name: Lactate Sepsis 2 HR Follow-up [facility] 09/09 20:57 Order name: EKG; Complete Time: 20:58 [facility] 09/09 20:57 Order name: Cardiac monitoring; Complete Time: 21:31 [facility] 09/09 20:57 Order name: EKG - Nurse/Tech; Complete Time: 23:15 [facility] 09/09 20:57 Order name: IV Saline Lock; Complete Time: 21:31 [facility] 09/09 20:57 Order name: Labs collected and sent; Complete Time: 21:31 [facility] 09/09 20:57 Order name: O2 Per Protocol; Complete Time: 21:31 [facility] 09/09 20:57 Order name: O2 Sat Monitoring; Complete Time: 21:31 [facility] 09/09 20:57 Order name: Urine Dipstick-Ancillary (obtain specimen); Complete Time: 21:31 [facility] 09/09 20:57 Order name: Herman; Complete Time: 23:15 [facility] EC:01 Rate is 100 beats/min. Rhythm is regular. QRS [place] is Normal. ID interval is normal. [facility] QRS interval is normal. QT interval is normal. No Q waves. T waves are Normal. No ST changes noted. Clinical impression: NSR w/ Non-specific ST/T Changes and No evidence of ischemia. Interpreted by me. Reviewed by me. Administered Medications: 23:21 Drug: NS 0.9% 1000 ml Route: IV; Rate: 125 ml/hr; Site: right antecubital; zb 23:21 Drug: Meropenem 1 grams Route: IV; Rate: per protocol; Site: right antecubital; zb 09/10 00:06 Drug: NS 0.9% 1000 ml Route: IV; Rate: 1 bolus; Site: right antecubital; zb 01:00 Follow up: Response: No adverse reaction; IV Status: Completed infusion; IV Intake: jb4 1000ml 00:36 Drug: Xopenex (levalbuterol) 2.5 mg Route: Inhalation; jb4 02:09 Follow up: Response: No adverse reaction; Marked relief of symptoms jb4 00:36 Drug: SOLU-Medrol (methylPrednisoLONE) 125 mg Route: IVP; Site: right antecubital; jb4 01:00 Follow up: Response: No adverse reaction jb4 01:00 Follow up: Response: No adverse reaction; Marked relief of symptoms jb4 00:36 Drug: AtroVENT (ipratropium) Aerosol 0.5 mg Route: Inhalation; jb4 02:09 Follow up: Response: No adverse reaction; Marked relief of symptoms jb4 Disposition: 09/10/20 00:09 Hospitalization ordered by Delfin Suarez for Inpatient Admission. Preliminary diagnosis are Dyspnea, Retention of urine, Hydronephrosis with ureteral stricture, not elsewhere classified - secondary retention, Anemia, unspecified, Elevated white blood cell count, Asthma - exacerbation, Bandemia. - Bed requested for Telemetry/MedSurg (Inpatient). - Status is Inpatient Admission. jb4 - Condition is Fair. - Problem is new. - Symptoms have improved. Signatures: Dispatcher [employer] EDIN Christel Marques RN Cuate Diallo MD MD cha Attema, Lee, INDUSTRIAL GAS PRODUCTION OPERATOR-C INDUSTRIAL GAS PRODUCTION OPERATOR-Cla1 Gino Trevizo RN RN jb4 Debbie Valverde RN RN zb Corrections: (The following items were deleted from the chart) 09/09 22:09 20:58 CORONAVIRUS+MR.LAB.BRZ ordered. EDIN EDMS 22:09 20:58 Influenza Screen (A \T\ B)+BA.LAB.BRZ ordered. EDIN EDIN 09/10 00:09 00:09 Hospitalization Ordered by Delfin Suarez DO for Inpatient Admission. Preliminary omar diagnosis is Dyspnea; Retention of urine; Hydronephrosis with ureteral stricture, not elsewhere classified - secondary retention; Anemia, unspecified. Bed requested for Telemetry/MedSurg (Inpatient). Status is Inpatient Admission. Condition is Fair. Problem is new. Symptoms have improved. [facility] 00:21 00:09 09/10/2020 00:09 Hospitalization Ordered by Delfin Suarez DO for Inpatient omar Admission. Preliminary diagnosis is Dyspnea; Retention of urine; Hydronephrosis with ureteral stricture, not elsewhere classified - secondary retention; Anemia, unspecified; Elevated white blood cell count. Bed requested for Telemetry/MedSurg (Inpatient). Status is Inpatient Admission. Condition is Fair. Problem is new. Symptoms have improved. [facility] 00:27 00:21 09/10/2020 00:09 Hospitalization Ordered by Delfin Suarez DO for Inpatient omar Admission. Preliminary diagnosis is Dyspnea; Retention of urine; Hydronephrosis with ureteral stricture, not elsewhere classified - secondary retention; Anemia, unspecified; Elevated white blood cell count; Asthma - exacerbation. Bed requested for Telemetry/MedSurg (Inpatient). Status is Inpatient Admission. Condition is Fair. Problem is new. Symptoms have improved. [facility] 00:57 00:27 09/10/2020 00:09 Hospitalization Ordered by DelfinTara MELARA for Inpatient mw Admission. Preliminary diagnosis is Dyspnea; Retention of urine; Hydronephrosis with ureteral stricture, not elsewhere classified - secondary retention; Anemia, unspecified; Elevated white blood cell count; Asthma - exacerbation; Bandemia. Bed requested for Telemetry/MedSurg (Inpatient). Status is Inpatient Admission. Condition is Fair. Problem is new. Symptoms have improved. [facility] 00:57 00:57 09/10/2020 00:09 Hospitalization Ordered by Delfin Suarez DO for Inpatient mw Admission. Preliminary diagnosis is Dyspnea; Retention of urine; Hydronephrosis with ureteral stricture, not elsewhere classified - secondary retention; Anemia, unspecified; Elevated white blood cell count; Asthma - exacerbation; Bandemia. Bed requested for Telemetry/MedSurg (Inpatient). Status is Inpatient Admission. Condition is Fair. Problem is new. Symptoms have improved. 01:11 00:57 09/10/2020 00:09 Hospitalization Ordered by Delfin Suarez DO for Inpatient mw Admission. Preliminary diagnosis is Dyspnea; Retention of urine; Hydronephrosis with ureteral stricture, not elsewhere classified - secondary retention; Anemia, unspecified; Elevated white blood cell count; Asthma - exacerbation; Bandemia. Bed requested for Telemetry/MedSurg (Inpatient). Status is Inpatient Admission. Condition is Fair. Problem is new. Symptoms have improved. mw 02:51 01:11 09/10/2020 00:09 Hospitalization Ordered by Delfin Suarez DO for Inpatient jb4 Admission. Preliminary diagnosis is Dyspnea; Retention of urine; Hydronephrosis with ureteral stricture, not elsewhere classified - secondary retention; Anemia, unspecified; Elevated white blood cell count; Asthma - exacerbation; Bandemia. Bed requested for Telemetry/MedSurg (Inpatient). Status is Inpatient Admission. Condition is Fair. Problem is new. Symptoms have improved. mw
[2020-09-10] MEDS ORDERED: LEVALBUTEROL 1.25 MG/3 ML NEB ONE (00:48)
[2020-09-10] MEDS ORDERED: METHYLPREDNISOLONE 125 MG INJ ONE (00:48)
[2020-09-10] MEDS ORDERED: IPRATROPIUM BROM 0.5MG/2.5ML ONE (00:49)
--- NOTE | 2020-09-10 01:45 | P.HP ---
Certification for Inpatient Patient admitted to: Inpatient With expected LOS: >2 Midnights Patient will require the following post-hospital care: None Practitioner: I am a practitioner with admitting privileges, knowledge of patient current condition, hospital course, and medical plan of care. Services: Services provided to patient in accordance with Admission requirements found in Title 42 Section 412.3 of the Code of Federal Regulations Patient History Date of Service: 09/10/20 History of Present Illness: 80-year-old male patient with history of CVA and left-sided hemiplegia, asthma, hypertension presents emergency department for shortness of breath. Patient's at bedside reports he has had increasing shortness of breath over the course of the last few days. Patient evaluated in the emergency department found to have elevated white blood cell count 13.6 anemia hemoglobin 9.8 hematocrit 30.9, MCV 64.4, creatinine 1.6 GFR 51 which is just slightly below patient's baseline which appears to be around 60. CT chest abdomen pelvis without contrast demonstrated bilateral renal atrophy with moderate left hydronephrosis and mild right hydroureter with multiple renal cysts, bladder noted to have bilateral trabeculations with significant mass effect on the posterior bladder by the prostate, significantly enlarged prostate measuring 7.9 cm findings are likely secondary to prostatic hypertrophy exhibiting mass effect on the bladder resulting chronic urinary retention. Patient had Herman catheter placed patient drained approximately 600 cc of dark yellow urine, urinalysis negative for signs of infection. Patient has been tachypneic/dyspneic with respiratory rate consistently in the 30s, states this is abnormal, patient noted to have some expiratory wheezing on exam, patient received nebulizer treatments, IV steroids in the emergency department but was still dyspneic and tachypneic, ED provider wishes to admit for further evaluation and management. Allergies No Known Allergies Allergy (Verified 06/08/17 23:53) Home Medications: Atorvastatin Calcium [Lipitor] 80 mg PO BEDTIME 03/09/16 Baclofen 1 tab PO BEDTIME 03/09/16 Cholecalciferol (Vitamin D3) [Vitamin D 400 IU TAB*] 400 unit PO DAILY 03/09/16 Finasteride 1 tab PO BEDTIME 03/09/16 Tamsulosin HCl 1 cap PO DAILY 03/09/16 lamoTRIgine [Lamotrigine] 200 mg PO BID 03/09/16 Loratadine [Claritin*] 10 mg PO PRN PRN 06/08/17 Multivitamin with Iron [Daily Multivitamin with Iron] 1 each PO DAILY #90 tablet 06/11/17 Aspirin 81 mg PO DAILY 08/09/17 Pantoprazole Granules [Protonix Packet (for suspension)] 40 mg PO DAILY #30 packet 08/20/17 Phenytoin Sodium Extended [Dilantin] 300 mg PO BEDTIME #90 capsule 08/20/17 - Past Medical/Surgical History Diabetic: No -: CVA with residual left sided weakness -: Hyperlipidemia -: BPH -: HTN -: Seizure disorder -: CAD with history of cardiac stent -: PNA -: Asthma -: Cardiac stents -: Hernia sx -: Prostate surgery Psychosocial/ Personal History: The patient is . He is fully dependent on the . Patient is wheelchair-bound. Patient has 1 child. He is retired. Patient has full-time caregiver. - Family History Father -: Hypertension Mother -: Hypertension - Social History Smoking Status: Former smoker Alcohol use: No CD- Drugs: No Caffeine use: Yes Place of Residence: Home Review of Systems 10-point ROS is otherwise unremarkable Respiratory: Cough, Shortness of Breath, As per HPI Physical Examination - Physical Exam General: Alert, Oriented x2, Cooperative HEENT: Atraumatic, Normocephalic, Other (Mucous membranes dry) Neck: Supple Respiratory: Diminished (Bilaterally), Expiratory wheezes (Bilaterally) Cardiovascular: Normal pulses, Normal S1 S2 Capillary refill: <2 Seconds Gastrointestinal: Normal bowel sounds, Soft and benign, No tenderness, Other (PEG tube in place) Musculoskeletal: No erythema, No tenderness Integumentary: No significant lesion, No tenderness/swelling Neurological: Abnormal speech (Speech difficult to understand and slurred), Abnormal strength (Left upper and lower extremity weakness) - Studies Laboratory Data (last 24 hrs) 09/09/20 21:25: PT 11.0, INR 0.96 09/09/20 21:25: WBC 13.60 H, Hgb 9.8 L, Hct 30.9 L, Plt Count 255 09/09/20 21:25: Sodium 134 L, Potassium 4.6, BUN 41 H, Creatinine 1.60 H, Glucose 265 H, Magnesium 3.2 H, Total Bilirubin 0.3, AST 21, ALT 28, Alkaline Phosphatase 124 H, Lipase 182 Assessment and Plan - Plan Assessment Dyspnea, tachypnea secondary to asthma exacerbation with leukocytosis History of CVA with left-sided hemiparesis Moderate left hydronephrosis and mild right hydroureter secondary to prostatic hypertrophy with mass effect on the bladder resulting in chronic urinary retention-S/P Herman catheter insertion Hypertension Plan Dyspnea, tachypnea secondary to asthma exacerbation with leukocytosis: Continue with IV steroids, nebulizer treatments, inhaler. Sputum and blood cultures pending, will continue with Levaquin/doxycycline at this time, pulmonology consulted. Patient still significantly dyspneic/tachypneic at this time, oxygen supplementation as needed. Anticipate clinical improvement next 48 to 72 hr. History of CVA with left-sided hemiparesis: Stable this time, patient lives with his and has full-time caretakers at home as well as a [facility] and home health. Continue home medications. Moderate left hydronephrosis and mild right hydroureter secondary to prostatic hypertrophy with mass effect on the bladder resulting in chronic urinary retention-S/P Herman catheter insertion: Herman catheter in place at this time, urine freely flowing. Will obtain renal ultrasound tomorrow, patient will likely require outpatient neurological follow up at discharge, discuss this with family. May potentially try voiding trial/postvoid residual prior to discharge. Hypertension: Obtain and continue home meds Discharge Plan: Home Plan to discharge in: 48 Hours - Advance Directives Does patient have a Living Will: Yes Does patient have a Durable POA for Healthcare: Yes - Code Status/Comfort Care Code Status Assessed: Yes (Full code) Critical Care: No Time Spent Managing Pts Care (In Minutes): 55
[2020-09-10] MEDS ORDERED: ONDANSETRON 4 MG/2 ML VIAL IV PRN (02:42)
[2020-09-10] MEDS ORDERED: NA CHLORIDE 0.9% 1,000 ML IV SCH (02:42)
[2020-09-10] MEDS: IPRATROPIUM BROM 0.5MG/2.5ML NEB SCH ×4 (03:00→20:00)
[2020-09-10] MEDS: ALBUTEROL 2.5 MG/3 ML NEB SOL NEB SCH ×4 (03:00→20:00)
[2020-09-10 03:23] VITALS: BMI 28.3
[2020-09-10] MEDS ORDERED: ALBUTEROL INHALER 60 PUFF/8 GM IH PRN (03:54)
[2020-09-10 05:33] LABS: Absolute Lymphocytes (CBC) 0.1 K/uL (0.7-4.9); Basophils % 0.2 % (0-1.3); Hematocrit 29.5 % (39.6-49.0); Lymphocytes % 0.8 % (15.3-44.8); RBC Red Blood Cell Count 4.52 M/uL (4.33-5.43)
[2020-09-10 06:17] LABS: Albumin 2.8 g/dL (3.4-5.0); Bilirubin Total 0.4 mg/dL (0.2-1.0); Ferritin 55.6 ng/mL (26-388); Magnesium 3.1 mg/dL (1.8-2.4); Potassium 4.4 mmol/L (3.5-5.1); Protein, Total 7.8 g/dL (6.4-8.2); Thyroid Stimulating Hormone 2.32 uIU/mL (0.360-3.740)
--- NOTE | 2020-09-10 06:48 | RAD REPORT ---
EXAM DESCRIPTION: RAD - Chest Single View - 09/09/2020 9:30 pm CLINICAL HISTORY: Cough;Dyspnea COMPARISON: August 19 TECHNIQUE: AP portable chest image was obtained 09/09/2020 9:30 pm . FINDINGS: Lung volumes are low. No peripheral mass or consolidation. Interstitial markings are mildl y prominent. Bronchitis or viral illness not excluded. Heart and vasculature are normal. No measurabl e pleural effusion and no pneumothorax. No acute bony abnormality seen. No acute aortic findings susp ected. IMPRESSION: No focal mass or consolidation. Shallow inspiration film shows accentuated baseline interstitial pattern. Bronchitis or viral illness could be masked in this setting.
[2020-09-10] MEDS: lamoTRIgine 100 MG TAB PO SCH ×2 (08:46→21:45)
[2020-09-10] MEDS: METHYLPREDNISOLONE 40 MG INJ IV SCH ×2 (08:47→16:53)
[2020-09-10] MEDS: VITAMIN D 400 UNIT TAB PO SCH (08:47)
[2020-09-10] MEDS: DULERA 100/5 (MOMETASONE/FORMOTEROL) INHALER IH SCH ×2 (08:47→21:45)
[2020-09-10] MEDS: TAMSULOSIN 0.4 MG SR CAP PO SCH (08:48)
[2020-09-10] MEDS: ASPIRIN 81 MG CHEWABLE TABLET PO SCH (08:48)
[2020-09-10] MEDS: (Fluticasone/Umeclidin/Vilanter [Trelegy Ellipta 100-62.5-25] Blst.W.Dev PO SCH (08:49)
[2020-09-10] MEDS: LACTOSE REDUCED FOOD PO SCH ×4 (08:49→21:00)
[2020-09-10] MEDS: FIBER PO SCH ×4 (08:49→21:00)
[2020-09-10] MEDS: MONTELUKAST 10 MG TAB PO SCH (08:50)
[2020-09-10] MEDS ORDERED: DOXYCYCLINE 100 MG CAP PO SCH (09:00)
[2020-09-10] MEDS ORDERED: levoFLOXacin 500 MG TAB PO SCH (09:00)
[2020-09-10] MEDS ORDERED: ENOXAPARIN 30 MG/0.3 ML SQ SCH (09:00)
--- NOTE | 2020-09-10 11:00 | RAD REPORT ---
EXAM DESCRIPTION: CT - Chest Abd Pelvis Wo Con - 09/10/2020 6:19 am COMPARISON: None. CLINICAL HISTORY: [facility] MA[facility] Cough;Abdominal distention TECHNIQUE: CT images through the chest, abdomen, and pelvis without IV contrast. Multiplanar reforma ts. Automated exposure control was utilized on this examination as a dose lowering technique. CT CHEST FINDINGS: Heart and mediastinum: Heart size is normal. No lymphadenopathy. Severe multivessel calcified atheros clerosis. Thyroid gland: Visualized portions are normal. Lungs: Moderate centrilobular emphysema. Airways: No filling defects. No bronchiectasis. Pleura: No pneumothorax. No significant pleural effusion. Musculoskeletal and soft tissues: Anterior thoracic vertebral osteophytes are noted. CHEST IMPRESSION: *Exam limited by motion artifact. 1. No acute findings of the chest. 2. Moderate emphysema. 3. Severe atherosclerosis. CT ABDOMEN & PELVIS FINDINGS: *Evaluation of solid organs is limited due to lack of IV contrast. Liver: Normal. Gallbladder and biliary: Normal gallbladder. Unremarkable biliary tree. Pancreas: Normal. Spleen: Normal. Kidneys and adrenal glands: Normal adrenal glands. Bilateral renal atrophy. Moderate left hydronephro sis and mild right hydroureter. Multiple bilateral renal cysts are present. Stomach and Small Bowel: PEG tube in place. The stomach and small bowel are otherwise unremarkable. Urinary bladder: Bladder trabeculations are present. There is significant mass effect on the posterio r bladder by the prostate. Prostate/Male Urogenital: Severely enlarged measuring 7.9 cm mediolateral. Colon and Appendix: There is a large stool burden with inspissated stool in the rectum. Moderate colo paul diverticulosis is present. No evidence of appendicitis. Peritoneal cavity: No ascites or free air. Retroperitoneum and lymph nodes: Normal. Vascular: Severe multivessel calcified atherosclerosis. Musculoskeletal and soft tissues: Soft tissues are unremarkable. Lumbar spondylosis. There is 2 mm an terolisthesis L4 on L5. No aggressive bone lesions. No compression fracture. ABDOMEN AND PELVIS IMPRESSION: *Exam limited by motion artifact. 1. Bilateral renal atrophy with moderate left hydronephrosis and mild right hydroureter. Bladder trab eculations are also present. These findings are likely secondary to severe prostatic hypertrophy exhi biting mass effect on the bladder and resulting in chronic urinary retention. 2. Constipation with probable rectal impaction. Moderate colonic diverticulosis is also present. 3. PEG tube in place. 4. Severe atherosclerosis. Electronically signed by: Herb Zendejas MD 09/09/2020 11:29 PM CDT Due to temporary technical issues with the PACS/Fluency reporting system, reports are being signed by the in house radiologist without review as a courtesy to ensure prompt reporting. The interpreting r adiologist is fully responsible for the content of the report.
--- NOTE | 2020-09-10 12:41 | P.CNS ---
Date of Consult: 09/10/20 Reason for Consult: shortness of breath Chief Complaint: shortness of breath History of Present Illness: patient is 80 years of age with a history of stroke left-sided hemiplegia history of asthma he has been doing well was compliant with his inhaler became short of breath in the past few days he is feeling a lot better as some hydronephrosis unfortunately he is he also has a PEG tube at the bedside stating that he is doing much better Allergies No Known Allergies Allergy (Verified 06/08/17 23:53) Home Medications: Atorvastatin Calcium [Lipitor] 80 mg PO BEDTIME 03/09/16 Cholecalciferol (Vitamin D3) [Vitamin D 400 IU TAB*] 400 unit PO DAILY 03/09/16 Finasteride 1 tab PO BEDTIME 03/09/16 Tamsulosin HCl 1 cap PO DAILY 03/09/16 lamoTRIgine [Lamotrigine] 200 mg PO BID 03/09/16 Aspirin 81 mg PO DAILY 08/09/17 Albuterol Inhaler [Ventolin Inhaler*] 1 puff PO QID 09/10/20 Amitriptyline HCl 10 mg PO BEDTIME 09/10/20 Fluticasone/Umeclidin/Vilanter [Trelegy Ellipta 100-62.5-25] 1 puff PO DAILY 09/10/20 Lactose-Reduced Food/Fiber [Jevity 1 Doug] 237 ml PO QID 09/10/20 Montelukast Sodium 10 mg PO 09/10/20 - Past Medical/Surgical History Diabetic: No -: CVA with residual left sided weakness -: Hyperlipidemia -: BPH -: HTN -: Seizure disorder -: CAD with history of cardiac stent x 2 -: PNA -: Asthma -: Cardiac stents -: Hernia sx -: Prostate surgery Psychosocial/ Personal History: The patient is . He is fully dependent on the . Patient is wheelchair-bound. Patient has 1 child. He is retired. Patient has full-time caregiver. - Family History Father Medical History: Hypertension Mother Medical History: Hypertension - Social History Smoking Status: Unknown if ever smoked Alcohol use: No CD- Drugs: No Caffeine use: Yes Place of Residence: Home Review of Systems 10-point ROS is otherwise unremarkable Respiratory: Shortness of Breath Physical Examination Temp Pulse Resp BP Pulse Ox 98.1 F 99 H 26 H 146/75 H 95 09/10/20 08:00 09/10/20 08:00 09/10/20 08:00 09/10/20 08:00 09/10/20 08:00 General: Alert, Oriented x3 Respiratory: Clear to auscultation bilaterally Cardiovascular: No edema, Normal S1 S2 Neurological: Other ( left-sided hemiplegia) Laboratory Data (last 24 hrs) 09/09/20 21:25: PT 11.0, INR 0.96 09/09/20 21:25: WBC 13.60 H, Hgb 9.8 L, Hct 30.9 L, Plt Count 255 09/09/20 21:25: Sodium 134 L, Potassium 4.6, BUN 41 H, Creatinine 1.60 H, Glucose 265 H, Magnesium 3.2 H, Total Bilirubin 0.3, AST 21, ALT 28, Alkaline Phosphatase 124 H, Lipase 182 - Problems (1) Shortness of breath Current Visit: Yes Status: Acute Plan: patient is 80 years of age admitted with dyspnea as been compliant with this therapy history of stroke recent PEG tube renal function is a little worse patient has a microcytic anemia which appears to be chronic urinalysis shows 2+ protein patient has right-sided hydro nephrosis was static enlargement now has urinary catheter probably has underlying iron deficiency anemia I recommend checking his D-dimer lower extremity Dopplers he is at high risk for thromboembolism oxygenation vital signs satisfactory possible discharge on low- dose prednisone 10 mg twice a day for 10 days no antibiotics needed he will not qualify for home O2
--- NOTE | 2020-09-10 13:25 | P.DS ---
Admission Date: 09/10/20 Discharge Date: 09/10/20 Primary Care Provider: Unknown; Pulmonary-Dr. Dominguez Disposition: DC HOME/HOME HEALTH CARE Discharge Condition: GOOD Reason for Admission: shortness of breath Consultations: Pulmonary-Dr. Dominguez Procedures: COVID: Negative CT scan: FINDINGS: Heart and mediastinum: Heart size is normal. No lymphadenopathy. Severe multivessel calcified atherosclerosis.Thyroid gland: Visualized portions are normal.Lungs: Moderate centrilobular emphysema.Airways: No filling defects. No bronchiectasis.Pleura: No pneumothorax. No significant pleural effusion.Musculoskeletal and soft tissues: Anterior thoracic vertebral osteophytes are noted.CHEST IMPRESSION: *Exam limited by motion artifact. 1. No acute findings of the chest. 2. Moderate emphysema. 3. Severe atherosclerosis. CT ABDOMEN & PELVIS FINDINGS: *Evaluation of solid organs is limited due to lack of IV contrast.Liver: Normal.Gallbladder and biliary: Normal gallbladder. Unremarkable biliary tree.Pancreas: Normal.Spleen: Normal.Kidneys and adrenal glands: Normal adrenal glands. Bilateral renal atrophy. Moderate left hydronephrosis and mild right hydroureter. Multiple bilateral renal cysts are present.Stomach and Small Bowel: PEG tube in place. The stomach and small bowel are otherwise unremarkable.Urinary bladder: Bladder trabeculations are present. There is significant mass effect on the posterior bladder by the prostate.Prostate/Male Urogenital: Severely enlarged measuring 7.9 cm mediolateral.Colon and Appendix: There is a large stool burden with inspissated stool in the rectum. Moderate colonic diverticulosis is present. No evidence of appendicitis.Peritoneal cavity: No ascites or free air.Retroperitoneum and lymph nodes: Normal.Vascular: Severe multivessel calcified atherosclerosis.Musculoskeletal and soft tissues: Soft tissues are unremarkable. Lumbar spondylosis. There is 2 mm anterolisthesis L4 on L5. No aggressive bone lesions. No compression fracture.ABDOMEN AND PELVIS IMPRESSION: *Exam limited by motion artifact. 1. Bilateral renal atrophy with moderate left hydronephrosis and mild right hydroureter. Bladder trabeculations are also present. These findings are likely secondary to severe prostatic hypertrophy exhibiting mass effect on the bladder and resulting in chronic urinary retention. 2. Constipation with probable rectal impaction. Moderate colonic diverticulosis is also present. 3. PEG tube in place. 4. Severe atherosclerosis. CXR: FINDINGS: Lung volumes are low. No peripheral mass or consolidation. Interstitial markings are mildly prominent. Bronchitis or viral illness not excluded. Heart and vasculature are normal. No measurable pleural effusion and no pneumothorax. No acute bony abnormality seen. No acute aortic findings suspected. IMPRESSION: No focal mass or consolidation. Shallow inspiration film shows accentuated baseline interstitial pattern. Bronchitis or viral illness could be masked in this setting. Medical Problem List: Dyspnea, tachypnea secondary to asthma exacerbation History of CVA with left-sided hemiparesis Chronic moderate left hydronephrosis and mild right hydroureter secondary to prostatic hypertrophy with mass effect on the bladder resulting in chronic urinary retention-S/P Herman catheter insertion GERD Hyperlipidemia Brief History of Present Illness: 80-year-old can Palestinian male patient with history of CVA and left-sided hemiplegia, asthma, hypertension presents emergency department for shortness of breath. Patient's at bedside reports he has had increasing shortness of breath over the course of the last few days. Patient evaluated in the emergency department found to have elevated white blood cell count 13.6 anemia hemoglobin 9.8 hematocrit 30.9, MCV 64.4, creatinine 1.6 GFR 51 which is just slightly below patient's baseline which appears to be around 60. CT chest abdomen pelvis without contrast demonstrated bilateral renal atrophy with moderate left hydronephrosis and mild right hydroureter with multiple renal cysts, bladder noted to have bilateral trabeculations with significant mass effect on the posterior bladder by the prostate, significantly enlarged prostate measuring 7.9 cm findings are likely secondary to prostatic hypertrophy exhibiting mass effect on the bladder resulting chronic urinary retention. Patient had Herman catheter placed patient drained approximately 600 cc of dark yellow urine, urinalysis negative for signs of infection. Patient has been tachypneic/dyspneic with respiratory rate consistently in the 30s, states this is abnormal, patient noted to have some expiratory wheezing on exam, patient received nebulizer treatments, IV steroids in the emergency department but was still dyspneic and tachypneic. Patient was admitted for further evaluation and treatment. Hospital Course: Patient presented with dyspnea, tachypnea. Patient with history of asthma. Patient seen and evaluated by pulmonology. Pulmonology evaluated patient. D- dimer negative. Pulmonology suspects asthma exacerbation. At discharge patient without significant shortness of breath. Patient on room air. At discharge patient will continue with his current medication Trelegy 1 puff daily and albuterol 2 puffs 3 times a day as needed for shortness of breath. At discharge he was also continue with prednisone 10 mg 1 pill twice daily for 7 days then 1 pill once daily for 7 days. Patient also continue with Singulair 10 mg daily. At discharge patient will follow up with pulmonology in 1 week to follow-up hospitalization and continues care. At discharge she will continue with his supportive care, home health and physical therapy at home. Patient with history of CVA with left-sided hemiparesis. This appears stable at this time. takes care of the patient with full-time caregivers in place. Continue with home health. Patient has Marina lift at home. Continue current medicationsaspirin 81 mg daily, Lipitor 80 mg daily, Elavil 10 mg daily and lamotrigine 200 mg 1 pill twice daily. Patient will also continue with current gastrotomy tube feedsJevity 4 times a day. Patient with chronic left hydronephrosis and mild right hydroureter secondary to prostatic hypertrophy with mass-effect on the bladder resulting in chronic urinary catheter and urinary retention. Herman catheter to remain in place. Recommend follow-up with urology to further monitor and address. At discharge patient will continue with finasteride 5 mg daily and Flomax 0.4 mg daily. Patient may have underlying GERD. At discharge patient will continue with Protonix 40 mg daily. Vital Signs/Physical Exam: Temp Pulse Resp BP Pulse Ox 98.1 F 99 H 26 H 146/75 H 95 09/10/20 08:00 09/10/20 08:00 09/10/20 08:00 09/10/20 08:00 09/10/20 08:00 General: Alert, In no apparent distress, Oriented x3, Cooperative HEENT: Atraumatic Neck: Supple Respiratory: Clear to auscultation bilaterally, Normal air movement Cardiovascular: Normal pulses, Regular rate/rhythm Gastrointestinal: Normal bowel sounds, Soft and benign, Non-distended Neurological: Normal affect, Abnormal strength (Left-sided hemiparesischronic) Urinary: Herman catheter Laboratory Data at Discharge: WBC 14.30 K/uL (4.3-10.9) H 09/10/20 05:11 Hgb 9.1 g/dL (13.6-17.9) L 09/10/20 05:11 Hct 29.5 % (39.6-49.0) L 09/10/20 05:11 Plt Count 255 K/uL (152-406) 09/10/20 05:11 PT 11.0 SECONDS (9.5-12.5) 09/09/20 21:25 INR 0.96 09/09/20 21:25 Sodium 134 mmol/L (136-145) L 09/10/20 05:11 Potassium 4.4 mmol/L (3.5-5.1) 09/10/20 05:11 BUN 42 mg/dL (7-18) H 09/10/20 05:11 Creatinine 1.59 mg/dL (0.55-1.3) H 09/10/20 05:11 Glucose 280 mg/dL (74-106) H 09/10/20 05:11 Magnesium 3.1 mg/dL (1.8-2.4) H 09/10/20 05:11 Total Bilirubin 0.4 mg/dL (0.2-1.0) 09/10/20 05:11 AST 18 U/L (15-37) 09/10/20 05:11 ALT 28 U/L (12-78) 09/10/20 05:11 Alkaline Phosphatase 119 U/L (45-117) H 09/10/20 05:11 Lipase 182 U/L (73-393) 09/09/20 21:25 Home Medications: Atorvastatin Calcium [Lipitor] 80 mg PO BEDTIME 03/09/16 Cholecalciferol (Vitamin D3) [Vitamin D 400 IU TAB*] 400 unit PO DAILY 03/09/16 Finasteride 1 tab PO BEDTIME 03/09/16 Tamsulosin HCl 1 cap PO DAILY 03/09/16 lamoTRIgine [Lamotrigine] 200 mg PO BID 03/09/16 Aspirin 81 mg PO DAILY 08/09/17 Albuterol Inhaler [Ventolin Inhaler*] 1 puff PO QID PRN #1 09/10/20 Amitriptyline HCl 10 mg PO BEDTIME 09/10/20 Fluticasone/Umeclidin/Vilanter [Trelegy Ellipta 100-62.5-25] 1 puff PO DAILY 09/10/20 Lactose-Reduced Food/Fiber [Jevity 1 Doug Liquid] 237 ml PO QID 09/10/20 Montelukast Sodium 10 mg PO 09/10/20 Pantoprazole [Protonix Tab] 40 mg PO DAILY #30 tab 09/10/20 predniSONE [Deltasone*] 10 mg PO SEECOM #14 tab 09/10/20 New Medications: predniSONE [Deltasone*] 10 mg PO SEECOM #14 tab Pantoprazole [Protonix Tab] 40 mg PO DAILY #30 tab Albuterol Inhaler [Ventolin Inhaler*] 1 puff PO QID PRN #1 PRN Reason: Shortness Of Breath Physician Discharge Instructions: Patient presented with dyspnea, tachypnea. Patient with history of asthma. Patient seen and evaluated by pulmonology. Pulmonology evaluated patient. D- dimer negative. Pulmonology suspects asthma exacerbation. At discharge patient without significant shortness of breath. Patient on room air. At discharge patient will continue with his current medication Trelegy 1 puff daily and albuterol 2 puffs 3 times a day as needed for shortness of breath. At discharge he was also continue with prednisone 10 mg 1 pill twice daily for 7 days then 1 pill once daily for 7 days. Patient also continue with Singulair 10 mg daily. At discharge patient will follow up with pulmonology in 1 week to follow-up hospitalization and continues care. At discharge she will continue with his supportive care, home health and physical therapy at home. Patient with history of CVA with left-sided hemiparesis. This appears stable at this time. takes care of the patient with full-time caregivers in place. Continue with home health. Patient has [facility] lift at home. Continue current medicationsaspirin 81 mg daily, Lipitor 80 mg daily, Elavil 10 mg daily and lamotrigine 200 mg 1 pill twice daily. Patient will also continue with current gastrotomy tube feedsJevity 4 times a day. Patient with chronic left hydronephrosis and mild right hydroureter secondary to prostatic hypertrophy with mass-effect on the bladder resulting in chronic urinary catheter and urinary retention. Herman catheter to remain in place. Recommend follow-up with urology to further monitor and address. At discharge patient will continue with finasteride 5 mg daily and Flomax 0.4 mg daily. Patient may have underlying GERD. At discharge patient will continue with Protonix 40 mg daily. Diet: PEG tube Activity: Fall precautions Followup: Unknown,U [Primary Care Provider] - Time spent managing pt's care (in minutes): 55
[2020-09-10] MEDS: JEVITY 1.2 CAL LIQUID 1,000 ML BOT FT SCH ×2 (16:52→21:45)
--- NOTE | 2020-09-10 16:52 | P.PN ---
Subjective Date of Service: 09/10/20 Primary Care Provider: Unknown; Pulmonary-Dr. Dominguez Chief Complaint: shortness of breath Subjective: Improving, Doing well Physical Examination - Vital Signs Temperature: 97.4 F Blood Pressure: 128/70 Pulse: 101 Respirations: 25 Pulse Ox (%): 95 - Studies Laboratory Data (last 24 hrs) 09/09/20 21:25: PT 11.0, INR 0.96 09/09/20 21:25: WBC 13.60 H, Hgb 9.8 L, Hct 30.9 L, Plt Count 255 09/09/20 21:25: Sodium 134 L, Potassium 4.6, BUN 41 H, Creatinine 1.60 H, Glucose 265 H, Magnesium 3.2 H, Total Bilirubin 0.3, AST 21, ALT 28, Alkaline Phosphatase 124 H, Lipase 182 Assessment & Plan Discharge Plan: Home Plan to discharge in: 24 Hours Physician Review Additional Text: Physical exam: Patient alert, cooperative. Heart: regular rate rhythm Lungs: clear to auscultation Abdomen cola soft nontender nondistended. Peg tube in place. Extremities: left-sided laura paresis noted. No significant edema. Medical Problem List: Dyspnea, tachypnea secondary to asthma exacerbation History of CVA with left-sided hemiparesis Chronic moderate left hydronephrosis and mild right hydroureter secondary to prostatic hypertrophy with mass effect on the bladder resulting in chronic urinary retention-S/P Herman catheter insertion GERD Hyperlipidemia Plan: Dyspnea, tachypnea secondary to asthma exacerbation: Case discussed in detail with pulmonology. Will need to rule out DVT/PE. D-dimer elevated. Will obtain venous Doppler. If negative will order V/Q scan for tomorrow. If negative will plan for discharge tomorrow on prednisone and asthma medication. Will continue to monitor closely. Patient on room air. Continue DVT prophylaxis. Anticipate improvement over the next 24 hr. History of CVA with left-sided hemiparesis: Overall stable. Continue with home medication. Chronic moderate left hydronephrosis and mild right hydroureter secondary to prostatic hypertrophy with mass effect on the bladder resulting in chronic urinary retention-S/P Herman catheter insertion: Overall stable. Continue home medication GERD: Suspect GERD. Will start Protonix. Hyperlipidemia: Continue medication Time Spent Managing Pts Care (In Minutes): 55
[2020-09-10] MEDS ORDERED: SODIUM CHLORIDE 0.9% 10ML INJ IV PRN (16:53)
--- NOTE | 2020-09-10 19:40 | RAD REPORT ---
EXAM DESCRIPTION: USExtrem Venous W Compress Bil09/10/2020 7:31 pm CLINICAL HISTORY: Leg swelling elevated D-dimer COMPARISON: none FINDINGS: The common femoral, superficial femoral, popliteal and posterior tibial veins bilaterally are compressible and demonstrate augmentation. Doppler demonstrates good flow. IMPRESSION: No evidence of deep venous thrombosis involving either lower extremity.
[2020-09-10] MEDS ORDERED: FINASTERIDE 5 MG TAB PO SCH (21:00)
[2020-09-10] MEDS ORDERED: ATORVASTATIN 80 MG TAB PO SCH (21:00)
[2020-09-10] MEDS ORDERED: AMITRIPTYLINE 10 MG TAB PO SCH (21:00)
[2020-09-11] MEDS: METHYLPREDNISOLONE 40 MG INJ IV SCH ×4 (00:47→17:55)
[2020-09-11] MEDS: ALBUTEROL 2.5 MG/3 ML NEB SOL NEB SCH ×3 (01:45→13:30)
[2020-09-11] MEDS: IPRATROPIUM BROM 0.5MG/2.5ML NEB SCH ×3 (01:45→13:30)
[2020-09-11 05:36] LABS: Albumin 2.7 g/dL (3.4-5.0); Bilirubin Total 0.2 mg/dL (0.2-1.0); Magnesium 3.2 mg/dL (1.8-2.4)
[2020-09-11 05:46] LABS: Absolute Lymphocytes (CBC) 0.2 K/uL (0.7-4.9); Basophils % 0.2 % (0-1.3); Hematocrit 28.5 % (39.6-49.0); Lymphocytes % 1.3 % (15.3-44.8); MPV 9.2 fL (7.6-11.3); RBC Red Blood Cell Count 4.41 M/uL (4.33-5.43)
--- NOTE | 2020-09-11 07:39 | EKG ---
Test Date: 2020-09-09 Test Time: 21:51:45 Barrel Washer Machine: OBEY MEASUREMENT RESULTS: Intervals: Rate: 100 UT: 208 QRSD: 82 QT: 352 QTc: 454 [place]: P: 56 UT: 208 QRS: 45 T: 68 INTERPRETIVE STATEMENTS: Normal sinus rhythm Normal ECG Compared to ECG 01/24/2018 19:36:47 First degree AV block no longer present Myocardial infarct finding no longer present Electronically Signed On 09-11-20 07:35:03 CDT by Juan Alberto Butts
[2020-09-11 08:02] VITALS: TEMP 97.2
--- NOTE | 2020-09-11 08:42 | ECHO ---
HEIGHT: 5 ft 9.5 in WEIGHT: 195 lb 0 oz DATE OF STUDY: 09/10/[address]: Scotty Dominguez MD 2-DIMENSIONAL: YES M.MODE: YES DOPPLER: YES COLOR FLOW: YES TDS: YES PORTABLE: DEFINITY: BUBBLE STUDY: DIAGNOSIS: SHORTNESS OF BREATH CARDIAC HISTORY: CATHERIZATION: NO SURGERY: NO PROSTHETIC VALVE: NO PACEMAKER: NO MEASUREMENTS (cm) DIASTOLIC (NORMALS) SYSTOLIC (NORMALS) IVSd (0.6-1.2) LA Diam (1.9-4.0) LVEF % LVIDd (3.5-5.7) LVIDs (2.0-3.5) %FS % LVPWd (0.6-1.2) Ao Diam (2.0-3.7) 2 DIMENSIONAL ASSESSMENT: RIGHT ATRIUM: LEFT ATRIUM: RIGHT VENTRICLE: LEFT VENTRICLE: TRICUSPID VALVE: MITRAL VALVE: PULMONIC VALVE: AORTIC VALVE: PERICARDIAL EFFUSION: AORTIC ROOT: LEFT VENTRICULAR WALL MOTION: DOPPLER/COLOR FLOW: COMMENTS: TECHNICALLY DIFFICULT STUDY. GROSSLY NORMAL LEFT VENTRCULAR SIZE AND FUNCTION. NO EFFUSION. TECHNOLOGIST: GUMARO BEAVER
[2020-09-11] MEDS: JEVITY 1.2 CAL LIQUID 1,000 ML BOT FT SCH ×4 (09:00→17:21)
[2020-09-11] MEDS: FIBER PO SCH ×3 (09:00→16:44)
[2020-09-11] MEDS: LACTOSE REDUCED FOOD PO SCH ×3 (09:00→16:44)
[2020-09-11] MEDS ORDERED: levoFLOXacin 250 MG TAB PO SCH (09:00)
[2020-09-11] MEDS: (Fluticasone/Umeclidin/Vilanter [Trelegy Ellipta 100-62.5-25] Blst.W.Dev PO SCH (09:00)
[2020-09-11] MEDS ORDERED: ENOXAPARIN 40 MG/0.4 ML SQ SCH (09:00)
[2020-09-11] MEDS ORDERED: PANTOPRAZOLE 40 MG INJ IVP SCH (09:00)
[2020-09-11] MEDS: TAMSULOSIN 0.4 MG SR CAP PO SCH (09:51)
[2020-09-11] MEDS: ASPIRIN 81 MG CHEWABLE TABLET PO SCH (09:51)
[2020-09-11] MEDS: MONTELUKAST 10 MG TAB PO SCH (09:51)
[2020-09-11] MEDS: VITAMIN D 400 UNIT TAB PO SCH (09:51)
[2020-09-11] MEDS: lamoTRIgine 100 MG TAB PO SCH (09:52)
[2020-09-11] MEDS: DULERA 100/5 (MOMETASONE/FORMOTEROL) INHALER IH SCH (09:55)
--- NOTE | 2020-09-11 10:02 | RAD REPORT ---
EXAM DESCRIPTION: NM - Vent Perfusion VQ Scan - 09/11/2020 9:54 am CLINICAL HISTORY: SOB, Asthma rule out PE Shortness of breath COMPARISON: MR STROKE PROTOCOL dated 08/02/2011; Extrem Venous W Compress Cody dated 09/10/2020; Chest A bd Pelvis Wo Con dated 09/09/2020 TECHNIQUE: 17.8mCi Xe-133 gas inhaled and 7.6mCi Tc-MAA IV. Planar ventilation scan was performed in posterior projection after Xe-133 gas inhalation (wash-in, e quilibrium, and wash-out phases) followed by perfusion scan with Tc-MAA IV in multiple projections. Examination is correlated with recent chest radiograph. FINDINGS: Normal ventilation with appropriate wash-out and mild air-trapping. Numerous small mismatched subsegmental defects are seen throughout the periphery of both lungs. IMPRESSION: High probability of pulmonary embolism.
--- NOTE | 2020-09-11 11:03 | RAD REPORT ---
EXAM DESCRIPTION: US - Renal Ultrasound-Complete - 09/11/2020 10:05 am CLINICAL HISTORY: eval hydronephrosis/hydroureter after grissom placem Flank pain COMPARISON: Renal Ultrasound-Complete dated 06/09/2017; Chest Abd Pelvis Wo Con dated 09/09/2020 FINDINGS: Cortex of the right kidney is mildly thinned. The right kidney is echogenic with several b enign-appearing cysts. The right kidney measures 8.9 x 4.4 x 3.9 cm. No hydronephrosis of the right kidney. The left kidney is nonvisualized. Prostate gland is significantly enlarged. The urinary bladder is decompressed by means of a Grissom cat heter. IMPRESSION: Echogenic right kidney is present compatible with underlying medical renal disease. Raquel ral right renal cysts are noted, benign. No right sided hydronephrosis. The left kidney was suboptimally visualized. The prostate gland is significantly enlarged.
--- NOTE | 2020-09-11 13:36 | P.DS ---
Admission Date: 09/10/20 Discharge Date: 09/11/20 Primary Care Provider: Unknown; Pulmonary-Dr. Dominguez Disposition: DC HOME/HOME HEALTH CARE Discharge Condition: GOOD Reason for Admission: shortness of breath Consultations: Pulmonary-Dr. Dominguez Procedures: COVID: Negative CT scan: CT CHEST FINDINGS: Heart and mediastinum: Heart size is normal. No lymphadenopathy. Severe multivessel calcified atherosclerosis. Thyroid gland: Visualized portions are normal. Lungs: Moderate centrilobular emphysema. Airways: No filling defects. No bronchiectasis. Pleura: No pneumothorax. No significant pleural effusion. Musculoskeletal and soft tissues: Anterior thoracic vertebral osteophytes are noted. CHEST IMPRESSION: *Exam limited by motion artifact. 1. No acute findings of the chest. 2. Moderate emphysema. 3. Severe atherosclerosis. CT ABDOMEN & PELVIS FINDINGS: *Evaluation of solid organs is limited due to lack of IV contrast. Liver: Normal. Gallbladder and biliary: Normal gallbladder. Unremarkable biliary tree. Pancreas: Normal. Spleen: Normal. Kidneys and adrenal glands: Normal adrenal glands. Bilateral renal atrophy. Mo derate left hydronephrosis and mild right hydroureter. Multiple bilateral renal cysts are present. Stomach and Small Bowel: PEG tube in place. The stomach and small bowel are otherwise unremarkable. Urinary bladder: Bladder trabeculations are present. There is significant mass effect on the posterior bladder by the prostate. Prostate/Male Urogenital: Severely enlarged measuring 7.9 cm mediolateral. Colon and Appendix: There is a large stool burden with inspissated stool in the rectum. Moderate colonic diverticulosis is present. No evidence of appendicitis. Peritoneal cavity: No ascites or free air. Retroperitoneum and lymph nodes: Normal. Vascular: Severe multivessel calcified atherosclerosis. Musculoskeletal and soft tissues: Soft tissues are unremarkable. Lumbar spondylosis. There is 2 mm anterolisthesis L4 on L5. No aggressive bone lesions. No compression fracture. ABDOMEN AND PELVIS IMPRESSION: *Exam limited by motion artifact. 1. Bilateral renal atrophy with moderate left hydronephrosis and mild right hydroureter. Bladder trabeculations are also present. These findings are likely secondary to severe prostatic hypertrophy exhibiting mass effect on the bladder and resulting in chronic urinary retention. 2. Constipation with probable rectal impaction. Moderate colonic diverticulosis is also present. 3. PEG tube in place. 4. Severe atherosclerosis. ECHO: MEASUREMENTS (cm) DIASTOLIC (NORMALS) SYSTOLIC (NORMALS) IVSd (0.6-1.2) LA Diam (1.9-4.0) LVEF % LVIDd (3.5-5.7) LVIDs (2.0-3.5) %FS % LVPWd (0.6-1.2) Ao Diam (2.0-3.7) 2 DIMENSIONAL ASSESSMENT: RIGHT ATRIUM: LEFT ATRIUM: RIGHT VENTRICLE: LEFT VENTRICLE: TRICUSPID VALVE: MITRAL VALVE: PULMONIC VALVE: AORTIC VALVE: PERICARDIAL EFFUSION: AORTIC ROOT: LEFT VENTRICULAR WALL MOTION: DOPPLER/COLOR FLOW: COMMENTS: TECHNICALLY DIFFICULT STUDY. GROSSLY NORMAL LEFT VENTRCULAR SIZE AND FUNCTION. NO EFFUSION. Venous doppler: FINDINGS: The common femoral, superficial femoral, popliteal and posterior tibial veins bilaterally are compressible and demonstrate augmentation. Doppler demonstrates good flow. IMPRESSION: No evidence of deep venous thrombosis involving either lower extremity. Renal US: FINDINGS: Cortex of the right kidney is mildly thinned. The right kidney is echogenic with several benign-appearing cysts. The right kidney measures 8.9 x 4.4 x 3.9 cm. No hydronephrosis of the right kidney. The left kidney is nonvisualized. Prostate gland is significantly enlarged. The urinary bladder is decompressed by means of a Herman catheter. IMPRESSION: Echogenic right kidney is present compatible with underlying medical renal disease. Several right renal cysts are noted, benign. No right sided hydronephrosis. The left kidney was suboptimally visualized. The prostate gland is significantly enlarged. V/Q scan: COMPARISON: MR STROKE PROTOCOL dated 08/02/2011; Extrem Venous W Compress Cody dated 09/10/2020; Chest Abd Pelvis Wo Con dated 09/09/2020 TECHNIQUE: 17.8mCi Xe-133 gas inhaled and 7.6mCi Tc-MAA IV. Planar ventilation scan was performed in posterior projection after Xe-133 gas inhalation (wash-in, equilibrium, and wash-out phases) followed by perfusion scan with Tc-MAA IV in multiple projections. Examination is correlated with recent chest radiograph. FINDINGS: Normal ventilation with appropriate wash-out and mild air-trapping. Numerous small mismatched subsegmental defects are seen throughout the periphery of both lungs. IMPRESSION: High probability of pulmonary embolism. Medical Problem List: Dyspnea, tachypnea secondary to asthma exacerbation complicated with VQ scan showing high probability of pulmonary embolism History of CVA with left-sided hemiparesis Chronic moderate left hydronephrosis and mild right hydroureter secondary to prostatic hypertrophy with mass effect on the bladder resulting in chronic urinary retention-S/P Herman catheter insertion GERD Hyperlipidemia Brief History of Present Illness: 80-year-old can [place] male patient with history of CVA and left-sided hemiplegia, asthma, hypertension presents emergency department for shortness of breath. Patient's at bedside reports he has had increasing shortness of breath over the course of the last few days. Patient evaluated in the emergency department found to have elevated white blood cell count 13.6 anemia hemoglobin 9.8 hematocrit 30.9, MCV 64.4, creatinine 1.6 GFR 51 which is just slightly below patient's baseline which appears to be around 60. CT chest abdomen pelvis without contrast demonstrated bilateral renal atrophy with moderate left hydronephrosis and mild right hydroureter with multiple renal cysts, bladder noted to have bilateral trabeculations with significant mass effect on the posterior bladder by the prostate, significantly enlarged prostate measuring 7.9 cm findings are likely secondary to prostatic hypertrophy exhibiting mass effect on the bladder resulting chronic urinary retention. Patient had Herman catheter placed patient drained approximately 600 cc of dark yellow urine, urinalysis negative for signs of infection. Patient has been tachypneic/dyspneic with respiratory rate consistently in the 30s, states this is abnormal, patient noted to have some expiratory wheezing on exam, patient received nebulizer treatments, IV steroids in the emergency department but was still dyspneic and tachypneic. Patient was admitted for further evaluation and treatment. Hospital Course: Patient presented with dyspnea, tachypnea. Patient with history of asthma. He has been doing fine without any difficulty. Only significant factor recently was the patient did receive the [employer] COVID-19 vaccine about 2 weeks ago. Patient was admitted for further evaluation and treatment. Pulmonology recommended further evaluation to rule out pulmonary embolism. D-dimer was elevated. Subsequent venous Doppler lower extremities negative. VQ scan was positive for high probability of pulmonary embolism. Dyspnea likely related to asthma exacerbation complicated with pulmonary embolism. At discharge patient without significant shortness of breath. Patient on room air. At discharge the patient will continue with Eliquis 10 mg 1 pill twice daily for 7 days then 5 mg 1 pill twice daily. Patient may have to take this indefinitely. Education on Eliquis will be provided including side effects. Education on pulmonary embolism also provided. Family is suspicious that this pulmonary embolism may be a side effect of the [employer] COVID-19 vaccine. This was discussed in detail with pulmonology. Will discuss further with his PCP as well. Will recommend PCP or pulmonology as an outpatient to consider reporting this vaccine associated side effect through the [facility] website of www.[email or web address] to further investigation. At discharge patient will also continue with Trelegy 1 puff daily and albuterol 2 puffs 3 times a day as needed for shortness of breath. At discharge he was also continue with prednisone 10 mg 1 pill twice daily for 7 days then 1 pill once daily for 7 days. Patient also continue with Singulair 10 mg daily. At discharge patient will follow up with pulmonology in 1 week to follow-up hospitalization and continue his care. At discharge he will continue with his supportive care, home health and physical therapy at home. Recommend to recheck labBMP, CBC in 1 week. This can be done with the help of PCP and home health. This can be followed up by his PCP. Patient with history of CVA with left-sided hemiparesis. This appears stable at this time. takes care of the patient with full-time caregivers in place. Continue with home health. Patient has Marina lift at home. Continue current medicationsaspirin 81 mg daily, Lipitor 80 mg daily, Elavil 10 mg daily and lamotrigine 200 mg 1 pill twice daily. Patient will also continue with current gastrotomy tube feedsJevity 4 times a day. Patient with chronic left hydronephrosis and mild right hydroureter secondary to prostatic hypertrophy with mass-effect on the bladder resulting in chronic urinary catheter and urinary retention. Herman catheter to remain in place. Recommend follow-up with urology to further monitor and address. At discharge patient will continue with finasteride 5 mg daily and Flomax 0.4 mg daily. Patient may have underlying GERD. At discharge patient will continue with Protonix 40 mg daily. Vital Signs/Physical Exam: Temp Pulse Resp BP Pulse Ox 97.2 F 90 20 131/66 96 09/11/20 12:00 09/11/20 12:00 09/11/20 12:00 09/11/20 12:00 09/11/20 12:00 General: Alert, In no apparent distress, Oriented x3, Cooperative HEENT: Atraumatic Neck: Supple Respiratory: Clear to auscultation bilaterally, Normal air movement Cardiovascular: Normal pulses, Regular rate/rhythm Gastrointestinal: Normal bowel sounds, Other (PEG tube in place) Neurological: Normal affect, Abnormal strength (Left-sided residual weakness) Laboratory Data at Discharge: WBC 12.90 K/uL (4.3-10.9) H 09/11/20 05:31 Hgb 9.1 g/dL (13.6-17.9) L 09/11/20 05:31 Hct 28.5 % (39.6-49.0) L 09/11/20 05:31 Plt Count 265 K/uL (152-406) 09/11/20 05:31 PT 11.0 SECONDS (9.5-12.5) 09/09/20 21:25 INR 0.96 09/09/20 21:25 Sodium 139 mmol/L (136-145) 09/11/20 03:49 Potassium 5.0 mmol/L (3.5-5.1) 09/11/20 03:49 BUN 52 mg/dL (7-18) H 09/11/20 03:49 Creatinine 1.86 mg/dL (0.55-1.3) H 09/11/20 03:49 Glucose 272 mg/dL (74-106) H 09/11/20 03:49 Magnesium 3.2 mg/dL (1.8-2.4) H 09/11/20 03:49 Total Bilirubin 0.2 mg/dL (0.2-1.0) 09/11/20 03:49 AST 31 U/L (15-37) 09/11/20 03:49 ALT 26 U/L (12-78) 09/11/20 03:49 Alkaline Phosphatase 100 U/L (45-117) 09/11/20 03:49 Lipase 182 U/L (73-393) 09/09/20 21:25 Home Medications: Atorvastatin Calcium [Lipitor] 80 mg PO BEDTIME 03/09/16 Cholecalciferol (Vitamin D3) [Vitamin D 400 IU TAB*] 400 unit PO DAILY 03/09/16 Finasteride 1 tab PO BEDTIME 03/09/16 Tamsulosin HCl 1 cap PO DAILY 03/09/16 lamoTRIgine [Lamotrigine] 200 mg PO BID 03/09/16 Aspirin 81 mg PO DAILY 08/09/17 Albuterol Inhaler [Ventolin Inhaler*] 1 puff PO QID PRN #1 09/10/20 Amitriptyline HCl 10 mg PO BEDTIME 09/10/20 Fluticasone/Umeclidin/Vilanter [Trelegy Ellipta 100-62.5-25] 1 puff PO DAILY 09/10/20 Lactose-Reduced Food/Fiber [Jevity 1 Doug Liquid] 237 ml PO QID 09/10/20 Montelukast Sodium 10 mg PO 09/10/20 Pantoprazole [Protonix Tab] 40 mg PO DAILY #30 tab 09/10/20 predniSONE [Deltasone*] 10 mg PO SEECOM #14 tab 09/10/20 Apixaban [Eliquis] 5 mg PO SEECOM #75 tablet 09/11/20 New Medications: predniSONE [Deltasone*] 10 mg PO SEECOM #14 tab Apixaban [Eliquis] 5 mg PO SEECOM #75 tablet Pantoprazole [Protonix Tab] 40 mg PO DAILY #30 tab Albuterol Inhaler [Ventolin Inhaler*] 1 puff PO QID PRN #1 PRN Reason: Shortness Of Breath Physician Discharge Instructions: Patient presented with dyspnea, tachypnea. Patient with history of asthma. He has been doing fine without any difficulty. Only significant factor recently was the patient did receive the [employer] COVID-19 vaccine about 2 weeks ago. Patient was admitted for further evaluation and treatment. Pulmonology recommended further evaluation to rule out pulmonary embolism. D-dimer was elev ated. Subsequent venous Doppler lower extremities negative. VQ scan was positive for high probability of pulmonary embolism. Dyspnea likely related to asthma exacerbation complicated with pulmonary embolism. At discharge patient without significant shortness of breath. Patient on room air. At discharge the patient will continue with Eliquis 10 mg 1 pill twice daily for 7 days then 5 mg 1 pill twice daily. Patient may have to take this indefinitely. Education on Eliquis will be provided including side effects. Education on pulmonary embolism also provided. Family is suspicious that this pulmonary embolism may be a side effect of the [employer] COVID-19 vaccine. This was discussed in detail with pulmonology. Will discuss further with his PCP as well. Will recommend PCP or pulmonology as an outpatient to consider reporting this vaccine associated side effect through the [facility] website of www.[facility].gov to further investigation. At discharge patient will also continue with Trelegy 1 puff daily and albuterol 2 puffs 3 times a day as needed for shortness of breath. At discharge he was also continue with prednisone 10 mg 1 pill twice daily for 7 days then 1 pill once daily for 7 days. Patient also continue with Singulair 10 mg daily. At discharge patient will follow up with pulmonology in 1 week to follow-up hospitalization and continue his care. At discharge he will continue with his supportive care, home health and physical therapy at home. Recommend to recheck labBMP, CBC in 1 week. This can be done with the help of PCP and home health. This can be followed up by his PCP. Patient with history of CVA with left-sided hemiparesis. This appears stable at this time. takes care of the patient with full-time caregivers in place. Continue with home health. Patient has Marina lift at home. Continue current medicationsaspirin 81 mg daily, Lipitor 80 mg daily, Elavil 10 mg daily and lamotrigine 200 mg 1 pill twice daily. Patient will also continue with current gastrotomy tube feedsJevity 4 times a day. Patient with chronic left hydronephrosis and mild right hydroureter secondary to prostatic hypertrophy with mass-effect on the bladder resulting in chronic urinary catheter and urinary retention. Herman catheter to remain in place. Recommend follow-up with urology to further monitor and address. At discharge patient will continue with finasteride 5 mg daily and Flomax 0.4 mg daily. Patient may have underlying GERD. At discharge patient will continue with Protonix 40 mg daily. Diet: PEG tube Activity: Fall precautions Followup: Unknown,U [Primary Care Provider] - Time spent managing pt's care (in minutes): 55
[2020-09-11 15:17] VITALS: O2SAT 96
[2020-09-11 16:07] VITALS: BP 127/63
[2020-09-11] MEDS ORDERED: JUVEN PACKET FT SCH (21:00)
== END 2020-09-11 18:00 | disposition home health service (06) | DRG 202 ==
LOC: ER 20:25 → 4TH 09-10 02:22
PROVIDERS: ADMIT Family Medicine; ATTEND Family Medicine
DX: J45.901 Unspecified asthma with (acute) exacerbation (principal); I26.99 Other pulmonary embolism without acute cor pulmonale; E44.0 Moderate protein-calorie malnutrition; I69.354 Hemiplegia and hemiparesis following cerebral infarction affecting left non-dominant side; N13.30 Unspecified hydronephrosis; L89.132 Pressure ulcer of right lower back, stage 2; I10 Essential (primary) hypertension; N40.0 Benign prostatic hyperplasia without lower urinary tract symptoms; D50.9 Iron deficiency anemia, unspecified; I25.10 Atherosclerotic heart disease of native coronary artery without angina pectoris; D72.829 Elevated white blood cell count, unspecified; K21.9 Gastro-esophageal reflux disease without esophagitis; E78.5 Hyperlipidemia, unspecified; R33.9 Retention of urine, unspecified; Z68.28 Body mass index [BMI] 28.0-28.9, adult; Z79.899 Other long term (current) drug therapy; Z79.82 Long term (current) use of aspirin; Z95.5 Presence of coronary angioplasty implant and graft; Z79.52 Long term (current) use of systemic steroids; Z99.3 Dependence on wheelchair; Z79.01 Long term (current) use of anticoagulants; Z87.891 Personal history of nicotine dependence; Z20.822 Contact with and (suspected) exposure to COVID-19
CPT/HCPCS: 0240U; 36415; 51702; 71045; 71250; 74176; 76770; 78582; 80048; 80053; 80076; 81003; 82728; 83540; 83605; 83690; 83735; 83880; 84145; 84439; 84443; 84466; 84484; 85025; 85379; 85610; 87040; 87086; 87088; 93005; 93306; 93970; 94640; 96361; 96374; 96375; 99285; A9540; A9558; C9113; J1650; J2920; J2930; J7030; J7606